=== PATIENT | male | born 1935 | race Caucasian/White ===

== ENCOUNTER → 2020-09-09 13:24 | Outpatient (BNVA) | payer MEDICARE, OTHER, SELFPAY | PROVIDERS: PCP Internal Medicine; Referring Provider Internal Medicine; Visit Provider Internal Medicine Cardiovascular Disease | DX: I48.0 Paroxysmal atrial fibrillation (principal); I10 Essential (primary) hypertension | CPT/HCPCS: 93005; 99212 ==

== ENCOUNTER 2021-07-23 23:18 | Inpatient (IN) | payer MEDICARE, OTHER, SELFPAY ==
--- NOTE | ~2021-07-23 | CT_ITS ---
EXAMINATION: NONCONTRAST HEAD CT NONCONTRAST CERVICAL SPINE CT INDICATION INFORMATION: Fall with head injury. COMPARISON: 03/21/2014 TECHNIQUE: Separate noncontrast CT examinations of the head and cervical spine were performed. Coronal and sagittal images were created for each examination at the technologist workstation. This CT examination was performed using dose optimization techniques as appropriate, variously including the following: *Automated exposure control *Adjustment of mA and/or kV according to patient size (this includes techniques or standardized protocols for targeted exams where dose is matched to indication/reason for exam; i.e. extremities or head) *Use of iterative reconstruction technique DLP: 1144 mGy-cm FINDINGS: Head: There is no evidence of acute intracranial hemorrhage or territorial infarction. No abnormal mass effect or midline shift is seen. Jiménez to white matter differentiation is well preserved. No extra-axial fluid collections are identified. No hydrocephalus. Proportional prominence of the ventricles and sulcal spaces is consistent with moderate volume loss. Patchy periventricular and deep white matter hypoattenuation is consistent with mild small vessel ischemic changes. No acute osseous or soft tissue abnormality. The mastoid air cells and visualized portions of the paranasal sinuses are well aerated. Cervical spine: There is anatomic alignment of the vertebral bodies and posterior elements. The atlantoaxial and atlantooccipital articulations are intact. Vertebral body heights are maintained. There is multilevel intervertebral disc space narrowing with endplate osteophyte formation and facet arthropathy. No evidence of acute fracture. No prevertebral soft tissue swelling. Visualized portions of the lung apices are unremarkable. The thyroid gland is unremarkable. CT/CT cervical spine wo con IMPRESSION: 1. No acute intracranial finding. 2. No acute fracture or malalignment of the cervical spine. Moderate degenerative change.
--- NOTE | ~2021-07-23 | CT_ITS ---
EXAMINATION: CT CHEST WITHOUT CONTRAST CT ABDOMEN AND PELVIS WITHOUT CONTRAST CLINICAL INFORMATION: Fall with bilateral chest wall pain. Evaluate left hip. COMPARISON: Hip radiographs from today. TECHNIQUE: Multidetector volumetric imaging was performed through the chest, abdomen and pelvis without contrast. Sagittal and coronal reformatted images were obtained on the technologist's workstation. Axial MIP volume rendering provided. This CT examination was performed using dose optimization techniques as appropriate, variously including the following: *Automated exposure control *Adjustment of mA and/or kV according to patient size (this includes techniques or standardized protocols for targeted exams where dose is matched to indication/reason for exam; i.e. extremities or head) *Use of iterative reconstruction technique DLP: 1575 mGy-cm. FINDINGS: CHEST: Lungs: The central airways are patent. Small left pleural effusion. Dependent atelectasis. Subpleural markings particularly in the right lung. No separate consolidation. No pneumothorax. Mediastinum: The heart is of normal size. Coronary artery calcifications. There is no pericardial effusion. Central vascular structures are unremarkable. No hilar or mediastinal lymphadenopathy. Chest Wall/Axilla: No lymphadenopathy. No chest wall mass. ABDOMEN/PELVIS: Liver, Gallbladder, Biliary Tree: The liver is normal in size, shape, and attenuation. No focal hepatic lesion or biliary ductal dilatation is present. The gallbladder is not seen. Pancreas: Unremarkable. Spleen: Unremarkable. Adrenal Glands: Unremarkable. Kidneys and Ureters: The kidneys are normal in size, shape, and attenuation. No hydronephrosis, hydroureter or calculi seen. No perinephric stranding. Exophytic right midpole simple cyst. No follow-up imaging recommended. Bladder: Multiple bladder diverticula with areas of wall thickening. The appearance is suggestive of an outlet obstruction. Gastrointestinal Tract: The stomach is unremarkable. Normal caliber small bowel. No obstruction. Colonic diverticulosis without diverticulitis. Multiple abdominal wall hernias containing small and large bowel. No inflammatory change. The appendix is not seen. There is no pericecal inflammation to suggest acute appendicitis. Abdominal Wall: Multiple abdominal wall hernias. Evidence of previous ventral abdominal wall hernia repair. There is rectus diastases with wide neck ventral abdominal wall hernia. There is also a right anterolateral ventral abdominal wall hernia with a wide neck. The neck of this hernia measures 13 cm transverse. Lymphovascular Structures: Lymph nodes: Normal. Vascular: Normal caliber aorta with moderate atherosclerotic calcification. Pelvic Viscera: Enlarged prostate measuring 6.7 cm transverse. OSSEOUS STRUCTURES: The sternum is intact. The ribs are intact. Bilateral sacroiliac joint fusion. Severe degenerative changes at both hips. These remain well aligned. The pubic symphysis is well aligned. No hip fracture. No acute fracture or malalignment of the thoracolumbar spine. Diffuse degenerative changes. DISH. CT/CT abdomen pelvis wo con IMPRESSION: No acute traumatic finding. No fractures are identified. Small left pleural effusion with atelectasis. Multiple abdominal wall hernias containing small and large bowel. No obstruction. Prostatomegaly with findings suggestive of bladder outlet obstruction.
[2021-07-23 23:36] VITALS: BP 150/63; PULSE 80; RESP 26; O2SAT 94
[2021-07-23 23:38] VITALS: BMI 30.8
[2021-07-23 23:47] VITALS: TEMP 38.6
--- NOTE | 2021-07-23 23:58 | ECG_ITS ---
Test Reason : fall Blood Pressure : / mmHG Vent. Rate : 072 BPM Atrial Rate : 072 BPM P-R Int : 292 ms QRS Dur : 078 ms QT Int : 398 ms P-R-T Axes : 111 -50 070 degrees QTc Int : 435 ms Sinus rhythm with 1st degree A-V block Left axis deviation Possible Anterior infarct , age undetermined Abnormal ECG When compared with ECG of 15-JAN-2012 18:28, Premature atrial complexes are no longer Present QRS axis Shifted left Borderline criteria for Anterior infarct are now Present Referred By: Estiven Slade Electronically Signed By:NOEL HERNANDEZ MD
[2021-07-24] VITALS (7 sets, daily range): BP systolic 133–177; BP diastolic 49–77; PULSE 61–79; RESP 16–20; TEMP 36.6–38; O2SAT 95–97; BMI 30.8
--- NOTE | 2021-07-24 00:02 | ED.FALL ---
HPI - Fall General Chief Complaint: Fall Stated Complaint: Fall/Weakness/Temp Time Seen by Provider: 07/23/21 23:46 Source: patient Mode of arrival: EMS Limitations: no limitations History of Present Illness HPI Narrative: 86-year-old male who presents emergency department for evaluation of injuries from a fall. Patient states that he has not been feeling well for about 1 week, he states that he has been feeling weaker than normal and has had to use a cane to ambulate. States that he was coming out of the bathroom this evening and fell. He believes that he landed on his back and struck his head on the floor. He did not lose consciousness. He was unable to get off the floor. The patient was transported by ambulance and he was noted to have a fever during transport. His temperature here in the emergency department was 101.4 degrees F. the patient has no complaints. He denied having a fever and was unaware of having a fever at home, he denied chills, sore throat, chest pain, shortness of breath, nausea, vomiting, diarrhea, black tarry stools or bloody stools. He states that over the past several days he has had rhinorrhea and occasional dry cough, he has also noted urinary frequency and dysuria. His states that he has had falls in the past secondary to urinary tract infections. Related Data Home Medications Medication Instructions Recorded Confirmed terazosin 2 mg capsule 2 mg PO BEDTIME 01/29/20 06/27/21 aspirin 81 mg tablet,delayed 81 mg PO DAILY 06/28/20 06/27/21 release (Adult Low Dose Aspirin) amlodipine 10 mg tablet 10 mg PO BEDTIME 12/01/20 06/27/21 magnesium hydroxide 400 mg/5 mL 30 ml PO DAILY PRN ml 12/01/20 06/27/21 oral suspension (Milk of Magnesia) melatonin 3 mg capsule 3 mg PO BEDTIME PRN 12/01/20 06/27/21 multivitamin 1 tab PO DAILY 12/01/20 06/27/21 nystatin 100,000 unit/gram topical 1 appl TOPICAL BID 12/01/20 06/27/21 powder pantoprazole 20 mg tablet,delayed 20 mg PO DAILY 12/01/20 06/27/21 release polyethylene glycol 3350 17 17 g PO BID 12/01/20 06/27/21 gram/dose oral powder Previous Rx's Medication Instructions Recorded apixaban 5 mg tablet (Eliquis) 5 mg PO BID #60 tab 10/21/20 metoprolol tartrate 25 mg tablet 25 mg PO BID #180 tab 10/31/20 trazodone 50 mg tablet 50 mg PO BEDTIME PRN #60 tab 06/27/21 triamcinolone acetonide 0.1 % 1 appl TOPICAL BID #80 g 07/21/21 topical cream Allergies Allergy/AdvReac Type Severity Reaction Status Date / Time No Known Allergies Allergy Unknown Verified 06/27/21 11:21 Review of Systems Review of Systems: Yes all other systems are reviewed and are negative [facility] Past Medical History [facility] Narrative: Social history: He does live with his , Kayy, who is here in the emergency department with him. He denies tobacco, alcohol and drug use. Medical History A-fib HTN (hypertension) Hypertension Obesity Surgical History H/O rectal polypectomy History of cholecystectomy History of hemicolectomy History of inguinal hernia repair History of tonsillectomy History of umbilical hernia repair Family History Family History Father Medical history unknown Mother Medical history unknown Social History Social History Housing: House Alcohol intake: former Patient Tobacco Use Status: Never used Tobacco e-Cigarette/Vaping Use: Never Used Second Hand Smoke Exposure: No Advance Directives: No service: Yes Current occupational status: retired Current occupational exposures/hazards: No Cognitive needs: No Hearing needs: Yes Vision needs: Yes Physical Exam Vital Signs: Vital Signs: Last Vital Signs Temp 101.4 F H 07/23/21 23:47 Pulse 80 07/23/21 23:36 Resp 26 H 07/23/21 23:36 BP 150/63 H 07/23/21 23:36 Pulse Ox 94 07/23/21 23:36 BMI result Body Mass Index 30.8 Const: General: cooperative and no acute distress Orientation/consciousness: oriented to person and oriented to place Limitations: no limitations HEENT: Head: Yes normal to inspection, Yes normocephalic and Yes atraumatic Ears: external ears normal General nose exam: Normal external nose present Face and sinus: Yes normal facial exam Mouth: Normal oral and palatal mucosa present Throat: Yes posterior oropharynx normal Eyes: General: appearance normal, both eyes and all related structures Pupils: Equal, round and reactive pupils present Neck: Neck: Yes normal visual inspection, Yes no lymphadenopathy, Yes trachea midline and Yes supple Chest: Other: The patient has tenderness with palpation of his lateral chest wall bilaterally, there is no crepitus or ecchymosis noted. Resp: Effort & Inspection: normal respiratory effort and able to speak in complete sentences Auscultation: clear to auscultation bilaterally Cardio: Rate: regular rate Rhythm: regular rhythm Heart sounds: S1 normal heart sound present, S2 normal heart sound present and no murmurs GI: Other: Abdomen is obese, he has [id number] diffuse tenderness, he has a large soft right sided abdominal hernia which is chronic, his normoactive bowel sounds, there is no rebound, no voluntary or involuntary guarding : General: Yes no CVA tenderness Back/Spine/Pelvis: Back: no CVA tenderness Skin: General skin exam: no rashes or lesions noted Neuro: General: oriented to person and oriented to place Cranial nerves: Yes CN's II-XII intact bilaterally and Yes Equal, round and reactive pupils present Cognition (Neuro): normal cognition Extrem: Other: The patient's left leg appears to be shorter than the right externally rotated, he has pain with palpation over his left hip and pain with minimal log-rolling of his left leg Psych: Appearance: grossly normal Speech and movement: Normal speech and movement present Affect: normal affect Attitude: cooperative Course Course Course Narrative: 86-year-old male who presents emergency department for evaluation weakness for 1 week and a fall that occurred while he was coming out of the bathroom this evening. Patient fell backwards and did strike his head but had no loss of consciousness. He is on apixaban. The patient was noted to have a fever of 101.4 on presentation. The patient does have tenderness with palpation of his chest and abdomen. He also has a shortened left lower extremity with external rotation. Given his fall, the fact that he is on apixaban and his age, I ordered a CT scan of the head, neck chest abdomen pelvis. X-rays of the patient's left hip and pelvis will be obtained. I also ordered a laboratory evaluation, straight cath urine specimen, COVID-19 influenza test. Patient's fever was treated with Tylenol. He does not want any pain medications at this time. 0120: Laboratory evaluation: Platelet count low 134,000, creatinine elevated 1.48, glucose elevated 130. Urinalysis 2+ blood, 3+ leukocyte esterase. Microscopic 4 RBCs, 150 WBCs, 2+ bacteria. Given the patient's urinalysis microscopic with findings concerned the patient may have a urinary tract infection. He was given ceftriaxone 1 g IV. 0159: At the end of my shift, the patient's CT scans are pending. The patient's care was turned over to my colleague, Dr. Pérez. - Fall Lab Data Result diagrams: 07/24/21 00:35 07/24/21 00:35 Labs: Lab Results 07/24/21 07/24/21 07/24/21 Range/Units 00:35 00:35 00:35 WBC 7.4 (4.8-10.8) X10*3/uL RBC 4.39 L (4.60-5.80) X10*6/uL Hgb 13.4 L (14.0-18.0) g/dl Hct 40.7 L (42.0-52.0) % MCV 92.7 (80.0-98.0) fL MCH 30.5 (27.0-33.0) pg MCHC 32.9 (31.0-36.0) g/dl RDW 13.6 (11.0-16.0) % Plt Count 134 L (160-400) X10*3/uL MPV 10.3 (9.4-12.4) fL Immature Gran % (Auto) 0.4 (0.0-0.4) % Neut % (Auto) 86.7 H (45-73) % Lymph % (Auto) 5.1 L (20-40) % [place] % (Auto) 7.4 (2-11) % Eos % (Auto) 0.1 (0-4) % Baso % (Auto) 0.3 (0-2) % Lymph # (Auto) 0.4 L (1.2-4.9) X10*3/uL [place] # (Auto) 0.6 (0.1-1.2) X10*3/uL Eos # (Auto) 0.0 (0.0-0.4) X10*3/uL Baso # (Auto) 0.0 (0.0-0.2) X10*3/uL Abs Immat Gran (auto) 0.03 (0.00-0.03) X10*3/uL Absolute Neuts (auto) 6.4 (2.0-8.3) x10*3/uL Absolute Nucleated RBC 0.000 (0.0-0.012) X10*3/uL Nucleated RBC % (auto) 0.0 (0.0-0.2) /100WBC PT 14.8 H (9.9-13.0) SEC INR 1.3 H (0.9-1.1) APTT 36.2 (24.1-38.0) SEC Sodium 142 (135-145) mmol/L Potassium 4.4 (3.3-5.1) mmol/L Chloride 109 H (96-108) mmol/L Carbon Dioxide 27 (22-29) mmol/L Anion Gap 10 L (12-20) BUN 18 H (9-16) mg/dL Creatinine 1.48 H (0.5-1.4) mg/dL Estim Creat Clear Calc 40.1 Estimated GFR 45 Random Glucose 130 H (60-115) mg/dL Lactic Acid (0.5-2.0) mmol/L Calcium 9.5 (8.4-10.2) mg/dL Total Bilirubin 0.6 (0.0-1.0) mg/dL AST 20 (5-37) U/L ALT 14 (0-40) U/L Alkaline Phosphatase 68 (39-117) U/L Troponin I High Sens (<3.5-35.0) ng/L Total Protein 7.1 (6.5-8.0) g/dL Albumin 3.6 (3.5-5.0) g/dL Lipase 23 (8-78) U/L Urine Color Urine Appearance Urine pH (5.0-8.0) Ur Specific [place] (1.005-1.025) Urine Protein (NEG-TRACE) MG/DL Urine Glucose (UA) (NEG) MG/DL Urine Ketones (NEG) MG/DL Urine Blood (NEG) Urine Nitrite (NEG) Ur Leukocyte Esterase (NEG) Urine RBC (0) /HPF Urine WBC (0-4) /HPF Ur Squamous Epith Cells /LPF Urine Bacteria /LPF Urine Yeast /HPF Ethyl Alcohol mg/dL COVID-19 ([facility]) (Negative) COVID-19 Clin Com Influenza Type A (GAUTAM) (Negative) Influenza Type B (GAUTAM) (Negative) Influenza A & B Note 07/24/21 07/24/21 07/24/21 Range/Units 00:35 00:35 00:35 WBC (4.8-10.8) X10*3/uL RBC (4.60-5.80) X10*6/uL Hgb (14.0-18.0) g/dl Hct (42.0-52.0) % MCV (80.0-98.0) fL MCH (27.0-33.0) pg MCHC (31.0-36.0) g/dl RDW (11.0-16.0) % Plt Count (160-400) X10*3/uL MPV (9.4-12.4) fL Immature Gran % (Auto) (0.0-0.4) % Neut % (Auto) (45-73) % Lymph % (Auto) (20-40) % [place] % (Auto) (2-11) % Eos % (Auto) (0-4) % Baso % (Auto) (0-2) % Lymph # (Auto) (1.2-4.9) X10*3/uL [place] # (Auto) (0.1-1.2) X10*3/uL Eos # (Auto) (0.0-0.4) X10*3/uL Baso # (Auto) (0.0-0.2) X10*3/uL Abs Immat Gran (auto) (0.00-0.03) X10*3/uL Absolute Neuts (auto) (2.0-8.3) x10*3/uL Absolute Nucleated RBC (0.0-0.012) X10*3/uL Nucleated RBC % (auto) (0.0-0.2) /100WBC PT (9.9-13.0) SEC INR (0.9-1.1) APTT (24.1-38.0) SEC Sodium (135-145) mmol/L Potassium (3.3-5.1) mmol/L Chloride (96-108) mmol/L Carbon Dioxide (22-29) mmol/L Anion Gap (12-20) BUN (9-16) mg/dL Creatinine (0.5-1.4) mg/dL Estim Creat Clear Calc Estimated GFR Random Glucose (60-115) mg/dL Lactic Acid 1.9 (0.5-2.0) mmol/L Calcium (8.4-10.2) mg/dL Total Bilirubin (0.0-1.0) mg/dL AST (5-37) U/L ALT (0-40) U/L Alkaline Phosphatase (39-117) U/L Troponin I High Sens 33.1 (<3.5-35.0) ng/L Total Protein (6.5-8.0) g/dL Albumin (3.5-5.0) g/dL Lipase (8-78) U/L Urine Color Urine Appearance Urine pH (5.0-8.0) Ur Specific [place] (1.005-1.025) Urine Protein (NEG-TRACE) MG/DL Urine Glucose (UA) (NEG) MG/DL Urine Ketones (NEG) MG/DL Urine Blood (NEG) Urine Nitrite (NEG) Ur Leukocyte Esterase (NEG) Urine RBC (0) /HPF Urine WBC (0-4) /HPF Ur Squamous Epith Cells /LPF Urine Bacteria /LPF Urine Yeast /HPF Ethyl Alcohol mg/dL COVID-19 ([facility]) (Negative) COVID-19 Clin Com Influenza Type A (GAUTAM) Negative (Negative) Influenza Type B (GAUTAM) Negative (Negative) Influenza A & B Note See Note 07/24/21 07/24/21 07/24/21 Range/Units 00:35 00:35 00:35 WBC (4.8-10.8) X10*3/uL RBC (4.60-5.80) X10*6/uL Hgb (14.0-18.0) g/dl Hct (42.0-52.0) % MCV (80.0-98.0) fL MCH (27.0-33.0) pg MCHC (31.0-36.0) g/dl RDW (11.0-16.0) % Plt Count (160-400) X10*3/uL MPV (9.4-12.4) fL Immature Gran % (Auto) (0.0-0.4) % Neut % (Auto) (45-73) % Lymph % (Auto) (20-40) % [place] % (Auto) (2-11) % Eos % (Auto) (0-4) % Baso % (Auto) (0-2) % Lymph # (Auto) (1.2-4.9) X10*3/uL [place] # (Auto) (0.1-1.2) X10*3/uL Eos # (Auto) (0.0-0.4) X10*3/uL Baso # (Auto) (0.0-0.2) X10*3/uL Abs Immat Gran (auto) (0.00-0.03) X10*3/uL Absolute Neuts (auto) (2.0-8.3) x10*3/uL Absolute Nucleated RBC (0.0-0.012) X10*3/uL Nucleated RBC % (auto) (0.0-0.2) /100WBC PT (9.9-13.0) SEC INR (0.9-1.1) APTT (24.1-38.0) SEC Sodium (135-145) mmol/L Potassium (3.3-5.1) mmol/L Chloride (96-108) mmol/L Carbon Dioxide (22-29) mmol/L Anion Gap (12-20) BUN (9-16) mg/dL Creatinine (0.5-1.4) mg/dL Estim Creat Clear Calc Estimated GFR Random Glucose (60-115) mg/dL Lactic Acid (0.5-2.0) mmol/L Calcium (8.4-10.2) mg/dL Total Bilirubin (0.0-1.0) mg/dL AST (5-37) U/L ALT (0-40) U/L Alkaline Phosphatase (39-117) U/L Troponin I High Sens (<3.5-35.0) ng/L Total Protein (6.5-8.0) g/dL Albumin (3.5-5.0) g/dL Lipase (8-78) U/L Urine Color YELLOW Urine Appearance CLOUDY Urine pH 6.5 (5.0-8.0) Ur Specific [place] 1.020 (1.005-1.025) Urine Protein 1+ H (NEG-TRACE) MG/DL Urine Glucose (UA) NEG (NEG) MG/DL Urine Ketones NEG (NEG) MG/DL Urine Blood 2+ H (NEG) Urine Nitrite NEG (NEG) Ur Leukocyte Esterase 3+ H (NEG) Urine RBC 1-4 (0) /HPF Urine WBC 76-150 H (0-4) /HPF Ur Squamous Epith Cells TRACE /LPF Urine Bacteria 2+ /LPF Urine Yeast 1+ /HPF Ethyl Alcohol < 10 mg/dL COVID-19 ([facility]) Negative (Negative) COVID-19 Clin Com See Note Influenza Type A (GAUTAM) (Negative) Influenza Type B (GAUTAM) (Negative) Influenza A & B Note ECG Data Interpretation: 0009: Sinus rhythm with a first-degree AV block, rate of 72, AK interval 292 milliseconds, normal QRS and QTC duration, Q-waves in lead 3, AVF and V1, poor R-wave progression V2 through V3, no ST segment elevation, no ST segment depression, no PACs, no PVCs, no old EKG for comparison. Discharge Plan Discharge Clinical Impression: Fall, Acute UTI, Weakness Patient Disposition: Still a Patient Prescriptions: No Action Eliquis 5 mg tablet 5 mg PO BID Qty: 60 8RF metoprolol tartrate 25 mg tablet 25 mg PO BID Qty: 180 3RF triamcinolone acetonide 0.1 % cream 1 appl topical BID Qty: 80 5RF aspirin [Adult Low Dose Aspirin] 81 mg tablet,delayed release (DR/EC) 81 mg PO DAILY 0RF amlodipine 10 mg tablet 10 mg PO BEDTIME 0RF magnesium hydroxide [Milk of Magnesia] 400 mg/5 mL suspension 30 ml PO DAILY PRN0RF multivitamin Tablet 1 tab PO DAILY 0RF nystatin 100,000 unit/gram powder 1 appl topical BID 0RF pantoprazole 20 mg tablet,delayed release (DR/EC) 20 mg PO DAILY 0RF polyethylene glycol 3350 17 gram/dose powder 17 g PO BID 0RF melatonin 3 mg capsule 3 mg PO BEDTIME PRN0RF terazosin 2 mg capsule 2 mg PO BEDTIME 0RF trazodone 50 mg tablet 50 mg PO BEDTIME PRN (Reason: sleep) Qty: 60 3RF
[2021-07-24 00:49] LABS: MANUAL DIFF FLAG NO
[2021-07-24 00:52] LABS: Basophils Percent Auto 0.3 % (0-2); Eosinophils Percent Auto 0.1 % (0-4); Hematocrit 40.7 % (42.0-52.0); Hemoglobin 13.4 g/dl (14.0-18.0); Imm Gran Abs Auto 0.03 X10*3/uL (0.00-0.03); Imm Gran Pct Auto 0.4 % (0.0-0.4); Lymphocytes Absolute Auto 0.4 X10*3/uL (1.2-4.9); Lymphocytes Percent Auto 5.1 % (20-40); Mean Corpuscular HGB Conc 32.9 g/dl (31.0-36.0); Mean Corpuscular Hemoglobin 30.5 pg (27.0-33.0); Mean Corpuscular Volume 92.7 fL (80.0-98.0); Mean Platelet Volume 10.3 fL (9.4-12.4); Monocytes Absolute Auto 0.6 X10*3/uL (0.1-1.2); Monocytes Percent Auto 7.4 % (2-11); Neutrophils Absolute Auto 6.4 x10*3/uL (2.0-8.3); Neutrophils Percent Auto 86.7 % (45-73); Platelet Count 134 X10*3/uL (160-400); Red Blood Count 4.39 X10*6/uL (4.60-5.80); Red Cell Distribution Width 13.6 % (11.0-16.0); White Blood Count 7.4 X10*3/uL (4.8-10.8)
--- NOTE | 2021-07-24 00:55 | PC.NURSE ---
video game repair technician at bedside for EKG and labs. Pt off to CT on hospital bed. Plan to medicate upon return.
[2021-07-24 00:57] LABS: INTERNATIONAL NORM RATIO 1.3 (0.9-1.1); Prothrombin Time 14.8 SEC (9.9-13.0)
[2021-07-24 00:59] LABS: Partial Thromboplastin Time 36.2 SEC (24.1-38.0)
[2021-07-24 01:01] LABS: Lactic Acid 1.9 mmol/L (0.5-2.0)
[2021-07-24 01:03] LABS: Ethanol < 10 mg/dL
[2021-07-24 01:04] LABS: Appearance Urine CLOUDY; Color Urine YELLOW; Glucose Urine UA NEG (NEG); Leukocyte Esterase Urine 3+ (NEG); Nitrite Urine NEG (NEG); PH 6.5 (5.0-8.0); UACC Culture Trigger YES; Urine Blood 2+ (NEG); Urine Ketones NEG (NEG); Urine Protein 1+ MG/DL (NEG-TRACE)
[2021-07-24 01:08] LABS: Alanine Aminotransferase 14 U/L (0-40); Albumin Level 3.6 g/dL (3.5-5.0); Alkaline Phosphatase 68 U/L (39-117); Anion Gap 10 (12-20); Aspartate Amino Transferase 20 U/L (5-37); Bilirubin Total 0.6 mg/dL (0.0-1.0); Blood Urea Nitrogen 18 mg/dL (9-16); Calcium 9.5 mg/dL (8.4-10.2); Carbon Dioxide 27 mmol/L (22-29); Chloride 109 mmol/L (96-108); Creatinine Clr Calc Pharmacy 40.1; Estimated Glomerular Filt Rate 45; Glucose Random 130 mg/dL (60-115); Lipase 23 U/L (8-78); Potassium 4.4 mmol/L (3.3-5.1); Sodium 142 mmol/L (135-145); Total Protein 7.1 g/dL (6.5-8.0)
[2021-07-24 01:10] LABS: Troponin-I High Sensitivity 33.1 ng/L (<3.5-35.0)
[2021-07-24 01:16] LABS: Bacteria Urine 2+ /LPF; Squamous Epithelial Cell Urine TRACE /LPF
[2021-07-24 01:17] LABS: COVID-19 Test Negative (Negative); IDNOW Serial# 55D5AD1C; Influenza A Negative (Negative); Influenza B2 Negative (Negative)
[2021-07-24] MEDS: Acetaminophen 325 MG TABLET 975 MG PO (01:22)
[2021-07-24] MEDS: cefTRIAXone sodium 1 GM in 0.9 % Sodium Chloride 50 ML IV (01:27)
--- NOTE | 2021-07-24 01:31 | PC.NURSE ---
Pt medicated per MAY, awaiting CT results.
[2021-07-24 07:20] LABS: MANUAL DIFF FLAG NO
[2021-07-24 07:29] LABS: Basophils Percent Auto 0.5 % (0-2); Eosinophils Percent Auto 0.2 % (0-4); Hematocrit 40.8 % (42.0-52.0); Hemoglobin 13.2 g/dl (14.0-18.0); Imm Gran Abs Auto 0.02 X10*3/uL (0.00-0.03); Imm Gran Pct Auto 0.3 % (0.0-0.4); Lymphocytes Absolute Auto 0.4 X10*3/uL (1.2-4.9); Lymphocytes Percent Auto 6.2 % (20-40); Mean Corpuscular HGB Conc 32.4 g/dl (31.0-36.0); Mean Corpuscular Hemoglobin 30.3 pg (27.0-33.0); Mean Corpuscular Volume 93.8 fL (80.0-98.0); Mean Platelet Volume 10.3 fL (9.4-12.4); Monocytes Absolute Auto 0.7 X10*3/uL (0.1-1.2); Monocytes Percent Auto 10.6 % (2-11); Neutrophils Absolute Auto 5.3 x10*3/uL (2.0-8.3); Neutrophils Percent Auto 82.2 % (45-73); Platelet Count 115 X10*3/uL (160-400); Red Blood Count 4.35 X10*6/uL (4.60-5.80); Red Cell Distribution Width 13.7 % (11.0-16.0); White Blood Count 6.4 X10*3/uL (4.8-10.8)
--- NOTE | 2021-07-24 07:48 | PM.IMHP ---
History of Present Illness Date of Service: 07/24/21 Chief Complaint: Fall 86-year-old male with past medical history of AFib, hypertension, who presents to the hospital after a fall. Patient reports that he was walking from his bath to his renal, he tripped and fell. He reports no loss of consciousness, no head trauma, no palpitations or chest pain. Patient reports that he has been feeling weak for the past few days but otherwise has no symptoms. He has increased urinary frequency, for the past 3 days. Patient denies any abdominal pain nausea or vomiting, no diarrhea constipation, no lower extremity edema. On arrival to the ED patient had a temperature of 101.4 degrees, otherwise hemodynamically stable Labs are significant for WBC count of 6.4, hemoglobin of 13.2, creatinine of 1.48 with a BUN of 18 UA is positive for leukocyte Estrace and WBC Patient will be admitted for further management Review of Systems Review of Systems: Yes all other systems are reviewed and are negative [facility] Medical History A-fib HTN (hypertension) Hypertension Obesity Family History Father Medical history unknown Mother Medical history unknown Surgical History H/O rectal polypectomy History of cholecystectomy History of hemicolectomy History of inguinal hernia repair History of tonsillectomy History of umbilical hernia repair Social History Housing: House Alcohol intake: former Patient Tobacco Use Status: Never used Tobacco e-Cigarette/Vaping Use: Never Used Second Hand Smoke Exposure: No Advance Directives: No service: Yes Current occupational status: retired Current occupational exposures/hazards: No Cognitive needs: No Hearing needs: Yes Vision needs: Yes Meds Allergies Allergy/AdvReac Type Severity Reaction Status Date / Time No Known Allergies Allergy Unknown Verified 06/27/21 11:21 Active Medications: Current Medications Acetaminophen (Acetaminophen 325 Mg Tablet) 650 mg PO Q6H PRN PRN Reason: Pain, Mild (Pain Scale 1-3) Docusate Sodium (Docusate Sodium 100 Mg Capsule) 100 mg PO DAILY PRN PRN Reason: Constipation Heparin Sodium (Porcine) (Heparin Sodium,Porcine 5,000 Unit/Ml Vial) 5,000 unit SUBCUT Q8H [facility] Ceftriaxone Sodium 1 gm/ (Sodium Chloride) 50 mls @ 100 mls/hr IV Q24H [facility] Last Admin: 07/24/21 02:29 Dose: Not Given Documented by: Ondansetron HCl (Ondansetron Hcl 4 Mg/2 Ml Vial) 4 mg IVPUSH Q8H PRN PRN Reason: Nausea and Vomiting Sodium Chloride (0.9 % Sodium Chloride Flush 3 Ml Syringe) 3 ml IVFLUSH QSHIFT [facility] Home Medications Medication Instructions Recorded Confirmed Last Taken Type apixaban 5 mg tablet (Eliquis) 5 mg PO BID 07/24/21 07/24/21 Unknown History omeprazole 20 mg capsule,delayed 20 mg PO DAILY 07/24/21 07/24/21 Unknown History release terazosin 2 mg capsule 2 mg PO BEDTIME 07/24/21 07/24/21 Unknown History trazodone 50 mg tablet 50 mg PO BEDTIME 07/24/21 07/24/21 Unknown History Physical Exam Vital Signs and Narrative: Vital Signs: Last Vital Signs Temp 97.9 F 07/24/21 05:34 Pulse 61 07/24/21 05:34 Resp 20 07/24/21 05:34 BP 141/49 H 07/24/21 05:34 Pulse Ox 95 07/24/21 05:34 BMI result Body Mass Index 30.8 Const: General: cooperative and no acute distress Orientation/consciousness: patient oriented x3 Eyes: General: appearance normal, both eyes and all related structures Pupils: Equal, round and reactive pupils present Resp: Effort & Inspection: normal respiratory effort Auscultation: clear to auscultation bilaterally Cardio: Rate: regular rate Rhythm: regular rhythm GI: Palpation (GI): Soft to palpation Auscultation: normal bowel sounds Skin: General skin exam: no rashes or lesions noted Neuro: General: patient oriented x3 Cranial nerves: Yes Equal, round and reactive pupils present Cognition (Neuro): normal cognition Extrem: General: Yes normal to inspection and Yes no pedal edema Results Labs CBC and Chem 7: 07/24/21 07:13 07/24/21 00:35 Labs: Laboratory Results - last 24 hr 07/24/21 07/24/21 07/24/21 00:35 00:35 00:35 MCV 92.7 MCH 30.5 MCHC 32.9 RDW 13.6 Plt Count 134 L MPV 10.3 Immature Gran % (Auto) 0.4 Neut % (Auto) 86.7 H Lymph % (Auto) 5.1 L [place] % (Auto) 7.4 Eos % (Auto) 0.1 Baso % (Auto) 0.3 Lymph # (Auto) 0.4 L [place] # (Auto) 0.6 Eos # (Auto) 0.0 Baso # (Auto) 0.0 Abs Immat Gran (auto) 0.03 Absolute Neuts (auto) 6.4 Absolute Nucleated RBC 0.000 Nucleated RBC % (auto) 0.0 PT 14.8 H INR 1.3 H APTT 36.2 Anion Gap 10 L Estim Creat Clear Calc 40.1 Estimated GFR 45 Random Glucose 130 H Lactic Acid Calcium 9.5 Total Bilirubin 0.6 AST 20 ALT 14 Alkaline Phosphatase 68 Troponin I High Sens Total Protein 7.1 Albumin 3.6 Lipase 23 Urine Color Urine Appearance Urine pH Ur Specific [place] Urine Protein Urine Glucose (UA) Urine Ketones Urine Blood Urine Nitrite Ur Leukocyte Esterase Urine RBC Urine WBC Ur Squamous Epith Cells Urine Bacteria Urine Yeast Ethyl Alcohol COVID-19 ([facility]) COVID-19 Clin Com Influenza Type A (GAUTAM) Influenza Type B (GAUTAM) Influenza A & B Note 07/24/21 07/24/21 07/24/21 00:35 00:35 00:35 MCV MCH MCHC RDW Plt Count MPV Immature Gran % (Auto) Neut % (Auto) Lymph % (Auto) [place] % (Auto) Eos % (Auto) Baso % (Auto) Lymph # (Auto) [place] # (Auto) Eos # (Auto) Baso # (Auto) Abs Immat Gran (auto) Absolute Neuts (auto) Absolute Nucleated RBC Nucleated RBC % (auto) PT INR APTT Anion Gap Estim Creat Clear Calc Estimated GFR Random Glucose Lactic Acid 1.9 Calcium Total Bilirubin AST ALT Alkaline Phosphatase Troponin I High Sens 33.1 Total Protein Albumin Lipase Urine Color Urine Appearance Urine pH Ur Specific [place] Urine Protein Urine Glucose (UA) Urine Ketones Urine Blood Urine Nitrite Ur Leukocyte Esterase Urine RBC Urine WBC Ur Squamous Epith Cells Urine Bacteria Urine Yeast Ethyl Alcohol COVID-19 ([facility]) COVID-19 Clin Com Influenza Type A ([facility]UTAM) Negative Influenza Type B (GAUTAM) Negative Influenza A & B Note See Note 07/24/21 07/24/21 07/24/21 00:35 00:35 00:35 MCV MCH MCHC RDW Plt Count MPV Immature Gran % (Auto) Neut % (Auto) Lymph % (Auto) [place] % (Auto) Eos % (Auto) Baso % (Auto) Lymph # (Auto) [place] # (Auto) Eos # (Auto) Baso # (Auto) Abs Immat Gran (auto) Absolute Neuts (auto) Absolute Nucleated RBC Nucleated RBC % (auto) PT INR APTT Anion Gap Estim Creat Clear Calc Estimated GFR Random Glucose Lactic Acid Calcium Total Bilirubin AST ALT Alkaline Phosphatase Troponin I High Sens Total Protein Albumin Lipase Urine Color YELLOW Urine Appearance CLOUDY Urine pH 6.5 Ur Specific [place] 1.020 Urine Protein 1+ H Urine Glucose (UA) NEG Urine Ketones NEG Urine Blood 2+ H Urine Nitrite NEG Ur Leukocyte Esterase 3+ H Urine RBC 1-4 Urine WBC 76-150 H Ur Squamous Epith Cells TRACE Urine Bacteria 2+ Urine Yeast 1+ Ethyl Alcohol < 10 COVID-19 ([facility]) Negative COVID-19 Clin Com See Note Influenza Type A (GAUTAM) Influenza Type B (GAUTAM) Influenza A & B Note 07/24/21 07:13 MCV 93.8 MCH 30.3 MCHC 32.4 RDW 13.7 Plt Count 115 L MPV 10.3 Immature Gran % (Auto) 0.3 Neut % (Auto) 82.2 H Lymph % (Auto) 6.2 L [place] % (Auto) 10.6 Eos % (Auto) 0.2 Baso % (Auto) 0.5 Lymph # (Auto) 0.4 L [place] # (Auto) 0.7 Eos # (Auto) 0.0 Baso # (Auto) 0.0 Abs Immat Gran (auto) 0.02 Absolute Neuts (auto) 5.3 Absolute Nucleated RBC 0.000 Nucleated RBC % (auto) 0.0 PT INR APTT Anion Gap Estim Creat Clear Calc Estimated GFR Random Glucose Lactic Acid Calcium Total Bilirubin AST ALT Alkaline Phosphatase Troponin I High Sens Total Protein Albumin Lipase Urine Color Urine Appearance Urine pH Ur Specific [place] Urine Protein Urine Glucose (UA) Urine Ketones Urine Blood Urine Nitrite Ur Leukocyte Esterase Urine RBC Urine WBC Ur Squamous Epith Cells Urine Bacteria Urine Yeast Ethyl Alcohol COVID-19 ([facility]) COVID-19 Clin Com Influenza Type A (GAUTAM) Influenza Type B (GAUTAM) Influenza A & B Note Imaging Radiologist's Impressions: Impressions Cervical Spine CT 07/24/21 01:00 IMPRESSION: 1. No acute intracranial finding. 2. No acute fracture or malalignment of the cervical spine. Moderate degenerative change. Head CT 07/24/21 01:00 IMPRESSION: 1. No acute intracranial finding. 2. No acute fracture or malalignment of the cervical spine. Moderate degenerative change. Abdomen/Pelvis CT 07/24/21 01:10 IMPRESSION: No acute traumatic finding. No fractures are identified. Small left pleural effusion with atelectasis. Multiple abdominal wall hernias containing small and large bowel. No obstruction. Prostatomegaly with findings suggestive of bladder outlet obstruction. Chest CT 07/24/21 01:10 IMPRESSION: No acute traumatic finding. No fractures are identified. Small left pleural effusion with atelectasis. Multiple abdominal wall hernias containing small and large bowel. No obstruction. Prostatomegaly with findings suggestive of bladder outlet obstruction. Assessment and Plan (1) UTI (urinary tract infection): Status: Acute (2) Fall: Qualifiers: Encounter type: initial encounter Qualified Code(s): W19.XXXA - Unspecified fall, initial encounter Status: Acute Plan 86-year-old male with past medical history of AFib, presents to the hospital with fall found to have UTI # acute UTI - will treat with IV antibiotics - follow cultures # fall - likely in the setting of acute infection - consider PT OT before discharge # AFib - continue Eliquis Given patient's fragility, and need for IV abx , will admit for IV abx Quality Stroke Does the patient have a stroke diagnosis?: No VTE Prior VTE?: No VTE Risk Level:: Medical - moderate - high VTE Device Contraindication: Treatment Not Indicated VTE Drug Contraindication: N/A - Med Ordered
--- NOTE | 2021-07-24 07:51 | PM.EVENT ---
Event Note Date of Service: 07/24/21 Event Note: uti, fall patient seems to be improving denies any chest pain or shortness of breath or abdominal pain or fever chills or cough or phlegm. physical exam: unchanged same as h&p. assessmenat and plan coordinated in H&P note Will continue IV antibiotic for UTI PT evaluation for fall in a.m..
[2021-07-24 08:29] LABS: Anion Gap 13 (12-20); Blood Urea Nitrogen 17 mg/dL (9-16); Calcium 9.3 mg/dL (8.4-10.2); Carbon Dioxide 24 mmol/L (22-29); Chloride 109 mmol/L (96-108); Estimated Glomerular Filt Rate 53; Glucose Random 125 mg/dL (60-115); Potassium 4.5 mmol/L (3.3-5.1); Sodium 141 mmol/L (135-145)
[2021-07-24] MEDS: 0.9 % Sodium Chloride Flush 3 ML SYRINGE IVFLUSH ×3 (09:09→21:21)
[2021-07-24] MEDS: Heparin Sodium,Porcine 5,000 UNIT/ML VIAL 5000 UNIT SUBCUT (09:12)
--- NOTE | 2021-07-24 10:41 | PC.NURSE ---
Pt is alert/oriented. Reports whole body soreness only with movement. VSS. Skin pink warm and dry. No visible distress. Able to use urinal when needed. Breathing even/unlabored
--- NOTE | 2021-07-24 14:51 | MHC.CM.PN ---
IMM 07/24/21, EMR REVIEWED, PT ADMITTED W/UTI AND FALL, CM MET W/PT WHO IS A&OX3, PT REPORTS HE LIVES W/, IS INDEENDENT W/CARE HOWEVER DOES USE A CAN AND REPORTS GRAB BARS IN THE BEDROOM, PT DENIES HAVING ANY HOME SERVICES HOWEVER WOULD BE OPEN TO A VNA IF RECOMMENDED, PT EVAL PENDING, CM WILL NEED FOR FINAL DISPO. D/C PLAN: HOME VS HOME W/NEW VNA, FAMILY FOR TRANSPORT PCP: LUNA NELSON HCP: DTR JOHN WEBER [phone], NO ALTERNATE
[2021-07-24] MEDS: Omeprazole 20 MG CAPSULE.DR PO (16:12)
[2021-07-24] MEDS: traZODone HCL 50 MG TABLET PO (21:20)
[2021-07-24] MEDS: Apixaban 5 MG TABLET PO (21:21)
[2021-07-24] MEDS: Doxazosin Mesylate 2 MG TABLET PO (21:21)
[2021-07-25] VITALS (7 sets, daily range): BP systolic 135–169; BP diastolic 69–77; PULSE 75–87; RESP 14–18; TEMP 36.9–37.6; O2SAT 94–96
[2021-07-25] MEDS: cefTRIAXone sodium 1 GM in 0.9 % Sodium Chloride 50 ML IV (02:27)
[2021-07-25] MEDS: Omeprazole 20 MG CAPSULE.DR PO (05:49)
[2021-07-25] MEDS: Apixaban 5 MG TABLET PO ×2 (09:01→22:06)
[2021-07-25] MEDS: 0.9 % Sodium Chloride Flush 3 ML SYRINGE IVFLUSH ×3 (09:02→22:09)
[2021-07-25] MEDS: amLODIPine Besylate 2.5 MG TABLET PO (10:33)
--- NOTE | 2021-07-25 11:48 | HO.PM.IMPN ---
Subjective Subjective Date of Service: 07/25/21 Interval History: fall , uti Review of Systems Seems improving denies any chest pain or shortness of breath or abdominal pain or fever chills or cough or phlegm. Physical Exam Vital Signs: Vital Signs: Last Vital Signs Temp 98.5 F 07/25/21 11:31 Pulse 86 07/25/21 11:31 Resp 18 07/25/21 11:31 BP 137/74 07/25/21 11:31 Pulse Ox 95 07/25/21 11:31 BMI result Body Mass Index 30.8 Appearance: Alert.? Oriented X3.? not in distress.? cvs: rrr, [id number] , no murmur res: clear to auscultation ,no rhonchii or wheezing abd: no rebound or guarding ,nt, bs present. ext pulses present , no cyanosis . neuro: axo3 , nonfocal. Objective Data Active Medications Acetaminophen (Acetaminophen 325 Mg Tablet) 650 mg PO Q6H PRN PRN Reason: Pain, Mild (Pain Scale 1-3) Amlodipine Besylate (Amlodipine Besylate 2.5 Mg Tablet) 2.5 mg PO DAILY [facility]; Protocol Last Admin: 07/25/21 10:33 Dose: 2.5 mg Documented by: TEJ Apixaban (Apixaban 5 Mg Tablet) 5 mg PO BID [facility] Last Admin: 07/25/21 09:01 Dose: 5 mg Documented by: TEJ Docusate Sodium (Docusate Sodium 100 Mg Capsule) 100 mg PO DAILY PRN PRN Reason: Constipation Doxazosin Mesylate (Doxazosin Mesylate 2 Mg Tablet) 2 mg PO BEDTIME [facility] Last Admin: 07/24/21 21:21 Dose: 2 mg Documented by: MICHAEL Ceftriaxone Sodium 1 gm/ (Sodium Chloride) 50 mls @ 100 mls/hr IV Q24H [facility] Last Infusion: 07/25/21 03:25 Dose: 0 mls/hr Documented by: MICHAEL Omeprazole (Omeprazole 20 Mg Capsule.) 20 mg PO DAILY@0630 [facility] Last Admin: 07/25/21 05:49 Dose: 20 mg Documented by: MICHAEL Ondansetron HCl (Ondansetron Hcl 4 Mg/2 Ml Vial) 4 mg IVPUSH Q8H PRN PRN Reason: Nausea and Vomiting Sodium Chloride (0.9 % Sodium Chloride Flush 3 Ml Syringe) 3 ml IVFLUSH QSHIFT [facility] Last Admin: 07/25/21 09:02 Dose: 3 ml Documented by: TEJ Trazodone HCl (Trazodone Hcl 50 Mg Tablet) 50 mg PO BEDTIME [facility] Last Admin: 07/24/21 21:20 Dose: 50 mg Documented by: MICHAEL Labs CBC & Chem 7: 07/24/21 07:13 07/24/21 07:13 Microbiology Microbiology Results: Microbiology 07/24/21 00:36 Blood Culture - Preliminary Blood - Venous No growth after 24 hours. 07/24/21 00:35 Blood Culture - Preliminary Blood - Venous No growth after 24 hours. Assessment and Plan (1) PAF (paroxysmal atrial fibrillation): Status: Acute (2) UTI (urinary tract infection): Status: Acute Plan 86-year-old male with past medical history of AFib, presents to the hospital with fall found to have UTI acute UTI - will treat with IV antibiotics - follow cultures-urine cultures pending fall - likely in the setting of acute infection - consider PT -home withservices AFib - continue Eliquis HTn: last note from pcp 06/21-(patient was on amlodipine 10 mg at bedtime- please see pcp note on 06/21) will start amlodipine need for inpatient : need for IV abx ,blood and urine cultures pending Quality Stroke Does the patient have a stroke diagnosis?: No VTE Prior VTE?: No VTE Risk Level:: Medical - moderate - high VTE Device Contraindication: Treatment Not Indicated VTE Drug Contraindication: N/A - Med Ordered
[2021-07-25] MEDS: Doxazosin Mesylate 2 MG TABLET PO (22:07)
[2021-07-25] MEDS: traZODone HCL 50 MG TABLET PO (22:07)
[2021-07-25] MEDS: amLODIPine Besylate 5 MG TABLET PO (22:07)
[2021-07-25] MEDS: Docusate Sodium 100 MG CAPSULE PO (22:10)
[2021-07-26] MEDS: cefTRIAXone sodium 1 GM in 0.9 % Sodium Chloride 50 ML IV (02:20)
[2021-07-26 04:00] VITALS: BP 150/70; PULSE 76; RESP 14; TEMP 37; O2SAT 94
[2021-07-26 05:42] LABS: Hemoglobin 13.1 g/dl (14.0-18.0); PLT CLUMP 1; Red Cell Distribution Width 13.7 % (11.0-16.0)
[2021-07-26 05:44] LABS: Hematocrit 39.4 % (42.0-52.0); Mean Corpuscular HGB Conc 33.2 g/dl (31.0-36.0); Mean Corpuscular Hemoglobin 30.4 pg (27.0-33.0); Mean Corpuscular Volume 91.4 fL (80.0-98.0); Mean Platelet Volume 10.7 fL (9.4-12.4); Red Blood Count 4.31 X10*6/uL (4.60-5.80)
[2021-07-26 06:02] LABS: Anion Gap 10 (12-20); Blood Urea Nitrogen 21 mg/dL (9-16); Calcium 9.3 mg/dL (8.4-10.2); Carbon Dioxide 27 mmol/L (22-29); Chloride 105 mmol/L (96-108); Creatinine Clr Calc Pharmacy 40.7; Estimated Glomerular Filt Rate 46; Glucose Random 130 mg/dL (60-115); Potassium 4.4 mmol/L (3.3-5.1); Sodium 138 mmol/L (135-145)
[2021-07-26 06:05] LABS: Platelet Count 109 X10*3/uL (160-400); White Blood Count 6.9 X10*3/uL (4.8-10.8)
[2021-07-26] MEDS: Omeprazole 20 MG CAPSULE.DR PO (06:17)
[2021-07-26 07:41] VITALS: BP 146/71; PULSE 81; RESP 18; TEMP 37.2; O2SAT 94
[2021-07-26] MEDS: 0.9 % Sodium Chloride Flush 3 ML SYRINGE IVFLUSH (08:16)
[2021-07-26] MEDS: Apixaban 5 MG TABLET PO (08:16)
[2021-07-26 09:41] VITALS: BP 146/71; PULSE 81; O2SAT 94
--- NOTE | 2021-07-26 09:55 | P.PNIM_ITS ---
Subjective Subjective Date of Service: 07/26/21 Interval History: F/u on UTI Interval history: no symptoms, no fever Review of Systems no fever no dysuria Physical Exam Vital Signs: Vital Signs: Last Vital Signs Temp 98.9 F 07/26/21 07:41 Pulse 81 07/26/21 09:41 Resp 18 07/26/21 07:41 BP 146/71 H 07/26/21 09:41 Pulse Ox 94 07/26/21 09:41 BMI result Body Mass Index 30.8 Const: Other: General: AO X 3, no acute distress Resp: CTA bilateral CVS: S1,S2,RRR GI: +BS, NT, no distention Skin: No rash Neuro: motor grossly intact Psych: appropriate affect Objective Data Active Medications Acetaminophen (Acetaminophen 325 Mg Tablet) 650 mg PO Q6H PRN PRN Reason: Pain, Mild (Pain Scale 1-3) Amlodipine Besylate (Amlodipine Besylate 5 Mg Tablet) 5 mg PO BEDTIME [facility]; Protocol Last Admin: 07/25/21 22:07 Dose: 5 mg Documented by: DYAN Apixaban (Apixaban 5 Mg Tablet) 5 mg PO BID [facility] Last Admin: 07/26/21 08:16 Dose: 5 mg Documented by: DYAN Docusate Sodium (Docusate Sodium 100 Mg Capsule) 100 mg PO DAILY PRN PRN Reason: Constipation Last Admin: 07/25/21 22:10 Dose: 100 mg Documented by: DYAN Doxazosin Mesylate (Doxazosin Mesylate 2 Mg Tablet) 2 mg PO BEDTIME [facility] Last Admin: 07/25/21 22:07 Dose: 2 mg Documented by: DYAN Omeprazole (Omeprazole 20 Mg Capsule.Dr) 20 mg PO DAILY@0630 [facility] Last Admin: 07/26/21 06:17 Dose: 20 mg Documented by: DYAN Ondansetron HCl (Ondansetron Hcl 4 Mg/2 Ml Vial) 4 mg IVPUSH Q8H PRN PRN Reason: Nausea and Vomiting Sodium Chloride (0.9 % Sodium Chloride Flush 3 Ml Syringe) 3 ml IVFLUSH QSHIFT [facility] Last Admin: 07/26/21 08:16 Dose: 3 ml Documented by: DYNA Trazodone HCl (Trazodone Hcl 50 Mg Tablet) 50 mg PO BEDTIME [facility] Last Admin: 07/25/21 22:07 Dose: 50 mg Documented by: DYAN Labs CBC & Chem 7: 07/26/21 05:16 07/26/21 05:16 Labs: Laboratory Results - last 24 hr 07/26/21 07/26/21 05:16 05:16 MCV 91.4 MCH 30.4 MCHC 33.2 RDW 13.7 Plt Count 109 L MPV 10.7 Absolute Nucleated RBC 0.000 Nucleated RBC % (auto) 0.0 Anion Gap 10 L Estim Creat Clear Calc 40.7 Estimated GFR 46 Random Glucose 130 H Calcium 9.3 Microbiology Microbiology Results: Microbiology 07/24/21 Unknown Urine Culture - Final Urine Catheterized - Buckner Catheter Sophie albicans 07/24/21 00:36 Blood Culture - Preliminary Blood - Venous No growth after 48 hours. 07/24/21 00:35 Blood Culture - Preliminary Blood - Venous No growth after 48 hours. Assessment and Plan (1) PAF (paroxysmal atrial fibrillation): Status: Acute (2) UTI (urinary tract infection): Status: Acute Plan 86-year-old male with past medical history of AFib, presents to the hospital with fall found to have UTI UTI--culture = yeast. -DC Ceftriaxone and start Diflucan fall - likely in the setting of acute infection - consider PT -home withservices AFib - continue Eliquis HTn: Continue Amlodipine need for inpatient : ne Quality Stroke Does the patient have a stroke diagnosis?: No VTE Prior VTE?: No VTE Risk Level:: Medical - moderate - high VTE Device Contraindication: Treatment Not Indicated VTE Drug Contraindication: N/A - Med Ordered
--- NOTE | 2021-07-26 10:05 | PM.DS ---
DS: Providers Provider Date of Service: 07/26/21 Date of admission: 07/24/21 02:23 Primary care physician: Jeremiah Lozada MD DS: Diagnosis Discharge Diagnosis (1) PAF (paroxysmal atrial fibrillation): (2) UTI (urinary tract infection): Status: Deleted DS: Summary Hospital Course Hospital Course: Chief Complaint: Fall 86-year-old male with past medical history of AFib, hypertension, who presents to the hospital after a fall.? Patient reports that he was walking from his bath to his renal, he tripped and fell.? He reports no loss of consciousness, no head trauma, no palpitations or chest pain.? Patient reports that he has been feeling weak for the past few days but otherwise has no symptoms.? He has increased urinary frequency, for the past 3 days.? Patient denies any abdominal pain nausea or vomiting, no diarrhea constipation, no lower extremity edema. On arrival to the ED patient had a temperature of 101.4 degrees, otherwise hemodynamically stable Labs are significant for WBC count of 6.4, hemoglobin of 13.2, creatinine of 1.48 with a BUN of 18 UA is positive for leukocyte Estrace and WBC Patient will be admitted for further management Hospsital course: patient presented with a fall that appeared to be mechanical in nature and routine workup revealed that he has a urinary tract infection and was treated with a ceftriaxone, culture showed yeast in the urine and therefore the antibiotics was switched to Diflucan and will be treated for total of 7 days. He has been evaluated by Physical therapy and recommend that he goes home with home physical therapy. At the present time he has no fever no dysuria. Final diagnosis: UTI Fall, mechanical Chronic AFIB HTN Time Spent with Patient Time attestation: Total time spent providing and/or coordinating discharge services: Discharge coordination time: Greater than 30 minutes Quality: Safe Use of Opioids Does Pt have an Active Cancer Diagnosis on the Problem List?: No Quality: Stroke Does the patient have a stroke diagnosis?: No Physical Exam Vital Signs: Vital Signs: Last Vital Signs Temp 98.9 F 07/26/21 07:41 Pulse 81 07/26/21 09:41 Resp 18 07/26/21 07:41 BP 146/71 H 07/26/21 09:41 Pulse Ox 94 07/26/21 09:41 BMI result Body Mass Index 30.8 Const: Other: General: AO X 3, no acute distress Resp:? CTA bilateral CVS: S1,S2,RRR GI: +BS, NT, no distention Skin: No rash Neuro:? motor grossly intact Psych: appropriate affect DS: Data Data Completed and Pending Labs on day of discharge: Laboratory Results - last 24 hr 07/26/21 07/26/21 05:16 05:16 WBC 6.9 RBC 4.31 L Hgb 13.1 L Hct 39.4 L MCV 91.4 MCH 30.4 MCHC 33.2 RDW 13.7 Plt Count 109 L MPV 10.7 Absolute Nucleated RBC 0.000 Nucleated RBC % (auto) 0.0 Sodium 138 Potassium 4.4 Chloride 105 Carbon Dioxide 27 Anion Gap 10 L BUN 21 H Creatinine 1.46 H Estim Creat Clear Calc 40.7 Estimated GFR 46 Random Glucose 130 H Calcium 9.3 Preliminary micro results at discharge 07/24/21 00:36 Blood Culture - Preliminary Blood - Venous No growth after 48 hours. 07/24/21 00:35 Blood Culture - Preliminary Blood - Venous No growth after 48 hours. Discharge Plan Discharge Anticipated Discharge Date/Time: 07/26/21 10:02 Patient Disposition: Home Health Service Discharge Diagnosis: acute urinary tract infection, fall, weakness. Referrals: [facility] [Outside] - 1 Week Jeremiah Lozada MD [Primary Care Provider] - 1 Week Discharge Medications: New fluconazole 100 mg Tablet 100 mg PO Q24H Qty: 6 0RF Continued terazosin 2 mg capsule 2 mg PO BEDTIME 0RF omeprazole 20 mg capsule,delayed release(DR/EC) 20 mg PO DAILY 0RF Eliquis 5 mg tablet 5 mg PO BID 0RF No Action trazodone 50 mg tablet 50 mg PO BEDTIME Qty: 30 0RF Discharge Orders: Discharge Order (Routine); Ordered 07/26/21 Ordered By: Arnaldo Gama Diet: advance to usual diet Activity on Discharge: As tolerated Stand Alone Forms: Patient Portal Discharge page Care Plan Goals: Full recovery from fall and urinary tract infection. Health Concerns: Urinary tract infection, fall and fall risk. Plan of Treatment: Take Diflucan as recommended and follow up with her primary care doctor within a week. calf with ambulation Assessment: as above Discharge Date/Time: 07/26/21 15:33
--- NOTE | 2021-07-26 10:07 | P.F2F_ITS ---
Service Date Service Date: 07/26/21 Encounter Date of encounter: 07/26/21 Reasons for Services Signs and symptoms assessed: weakness, fall. Reason for [facility]: medication treatment Reason for physical therapy: home safety and mobility and gait/transfer training Homebound: Leaving the home is medically contraindicated at this time without the asist of a device and/or another person due th the listed conditions above and below. Reason homebound: unsteady gait / fall risk Homebound supporting statement: Homebound due to risk of fall and the falls general weakness in the setting of urinary tract infection requiring hospitalization and at this point when need the assistance of another person. Certification: Based on the above findings, I certify that this patient is confined to the home and needs intermittent [facility] care, physical therapy and/or speech therapy, or continues to need occupational therapy. The patient is under my care, and I have initiated the establishment of the plan of care. The patient will be followed by a physician who will periodically review the plan of care.
[2021-07-26] MEDS: Fluconazole 100 MG TABLET PO (11:15)
[2021-07-26 12:00] VITALS: BP 165/71; PULSE 86; RESP 18; TEMP 36.9; O2SAT 97
--- NOTE | 2021-07-26 12:09 | MHC.CM.PN ---
Addendum entered by Addis Saleh 07/26/21 13:17: [facility] OFFERING [facility]. IN ROOM TO PROVIDE TRANSPORT HOME. IMM 07/24 COMPLETED RN AWARE OF PLAN. Original Note: CASE MANAGEMENT LOOKING FOR [facility] SERVICES FOR PATIENT. PLAN IS HOME WITH PHYSICAL THERAPY NEEDS. CASE MANAGEMENT TO UPDATE THIS NOTE WITH PROGRESS
== END 2021-07-26 15:33 | disposition home health service (06) | DRG 728 ==
LOC: HO.ED 07-24 02:19 → HO.EDOVER 07-24 02:36 → HO.S3 07-24 14:57
PROVIDERS: Internal Medicine; Admitting Provider Internal Medicine; Emergency Provider Emergency Medicine Emergency Medical Services; PCP Internal Medicine; Visit Provider Internal Medicine
DX: B37.49 Other urogenital candidiasis (principal); I48.0 Paroxysmal atrial fibrillation; Z20.822 Contact with and (suspected) exposure to COVID-19; Z87.19 Personal history of other diseases of the digestive system; Z91.81 History of falling; Z79.01 Long term (current) use of anticoagulants; Z79.899 Other long term (current) drug therapy
CPT/HCPCS: 36415; 70450; 71250; 72125; 74176; 80048; 80053; 81001; 82077; 83605; 83690; 84484; 85025; 85027; 85610; 85730; 87040; 87086; 87088; 87502; 87635; 93005; 96365; 97162; 97530; 99285; J0696

== ENCOUNTER → 2021-09-08 10:29 | Outpatient (BNVA) | payer MEDICARE, OTHER, SELFPAY | PROVIDERS: PCP Internal Medicine; Referring Provider Internal Medicine; Visit Provider Internal Medicine Cardiovascular Disease | DX: I10 Essential (primary) hypertension (principal); I48.91 Unspecified atrial fibrillation | CPT/HCPCS: 93005; 99212 ==

== ENCOUNTER → 2022-01-11 10:05 | Outpatient (BNVA) | payer MEDICARE, OTHER, SELFPAY | PROVIDERS: PCP Internal Medicine; Referring Provider Internal Medicine; Visit Provider Internal Medicine Cardiovascular Disease | DX: I48.91 Unspecified atrial fibrillation (principal); I10 Essential (primary) hypertension | CPT/HCPCS: 99212 ==

== ENCOUNTER → 2022-06-05 14:20 | Outpatient (BNVA) | payer MEDICARE, OTHER, SELFPAY | PROVIDERS: PCP Internal Medicine; Referring Provider Internal Medicine; Visit Provider Internal Medicine Cardiovascular Disease | DX: I48.0 Paroxysmal atrial fibrillation (principal); I10 Essential (primary) hypertension; Z79.01 Long term (current) use of anticoagulants; Z79.899 Other long term (current) drug therapy | CPT/HCPCS: 99212 ==

== ENCOUNTER 2022-10-27 11:08 | Outpatient (AMB) | payer MEDICARE, OTHER, SELFPAY ==
--- NOTE | 2022-10-27 11:11 | A.OFFPC_ITS ---
Vital Signs 10/27/22 11:13 Height 5 ft 8 in Weight 184 lb BMI 28.0 BP 110/70 Blood Pressure Location Lt brachial Position Sitting Pulse 64 Pulse Source Pulse Oximeter Pulse Oximetry (%) 97 Oxygen Delivery Method Room Air Intake Visit Reasons: [facility]/10-16/Hiccups Intake Note: Patient is here for hospital discharge follow up. Patient was discharged from [facility] on 10/16/22. 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 Required: No Logistics Specialist: Present Accompanied by: Spouse Allergies No Known Allergies Allergy (Unknown, Verified 10/27/22 11:13) Medication List - Last Reconciled 10/27/22 by Jeremiah Lozada MD amlodipine 2.5 mg PO DAILY apixaban (Eliquis) 5 mg PO BID aspirin (Adult Aspirin Regimen) 81 mg PO DAILY famotidine 40 mg PO BID melatonin 5 mg PO BEDTIME PRN metoprolol tartrate 25 mg PO BID omeprazole 20 mg PO DAILY terazosin 2 mg PO BEDTIME triamcinolone acetonide 0.5% 1 appl topical TID Tobacco use date assessed: 06/22/22 Fall risk assessment: 2 + Falls in past year Last assessed Fall Risk: 10/27/22 Dental Screening Dental Screen Date: 10/27/22 Did you have a dental visit in the last 12 months?: No Did you have a dental problem in the last 6 months where you did not have access to dental care?: No Was dental information given to patient?: No HPI [facility]/10-16/Hiccups HPI Details difficulty with hiccups PFSH Medical History A-fib HTN (hypertension) Hypertension Obesity PAF (paroxysmal atrial fibrillation) Surgical History H/O rectal polypectomy History of cholecystectomy History of hemicolectomy History of inguinal hernia repair History of tonsillectomy History of umbilical hernia repair Family History Father Medical history unknown Mother Medical history unknown Social History Household Members: Spouse Housing: House Do you presently have visiting nurse or other home services: No Alcohol intake: former Patient Tobacco Use Status: Former Tobacco user Quit Date: Years Smoked: 37 +/- e-Cigarette/Vaping Use: Never Used Second Hand Smoke Exposure: No service: Yes Current occupational status: retired Current occupational exposures/hazards: No Cognitive needs: Yes (cane) Hearing needs: No Vision needs: Yes (glasses) Questionnaire PHQ-9 Over the last 2 weeks, how often have you been bothered by any of the following problems? Depression Screening Interpretation: Negative Source: Developed by Drs. Bill Sheldon, Franchesca Owen, Christopher Townsend and colleagues, with an educational lencho from [employer]. Thrive Questionnaire Date Thrive assessed: 06/22/22 Currently or been in a relationship where the following occur: no concerns reported ARNOL-7 AMB Questionnaire ARNOL-7 Date ARNOL - 7 assessed: 06/22/22 Source: Developed by Drs. Bill Sheldon, Franchesca Owen, Christopher Townsend and colleagues, with an educational lencho from [employer]. Review of Systems Const Denies chills, Denies headache(s) and Denies weight loss ENT Denies headache(s) Card Denies chest pain, Denies syncope, Denies irregular heart rhythm and Denies dyspnea Resp Denies chest congestion, Denies cough and Denies dyspnea GI Denies abdominal pain, Denies change in stool character, Denies nausea and Denies vomiting Musc Denies deformity and Denies joint swelling Neuro Denies syncope and Denies headache(s) Physical exam (Primary Care) Vital Signs: Last Vital Signs Pulse 64 10/27/22 11:13 BP 110/70 10/27/22 11:13 Pulse Ox 97 10/27/22 11:13 Oxygen Delivery Method Room Air 10/27/22 11:13 BMI result Body Mass Index 28.0 Tobacco/Smoking Status: Tobacco use Status Tobacco use date assessed 06/22/22 10/27/22 11:19 Patient Tobacco Use Status Former Tobacco user 10/27/22 11:19 e-Cigarette/Vaping Use Never Used 10/27/22 11:19 Depression Screening Interpretation: Negative Thrive Assessment: Date of Thrive Assessment Date Thrive assessed 06/22/22 10/27/22 11:19 Currently or been in a relationship where the following occur: no concerns reported Const General: cooperative, comfortable and no acute distress Resp Effort & Inspection: normal respiratory effort Auscultation: clear to auscultation bilaterally Percussion: percussion normal Cardio Jugular venous distension: no JVD Palpation: normal PMI Rhythm: regular rhythm GI Inspection: Yes normal to inspection Assessment and Plan Assessment & Plan (1) Hiccups: Code(s): R06.6 - Hiccough Plan: try rx Medications: New famotidine 40 mg PO BID 20 tabs 0RF Coding Level of Care Code Est Pt Level 3 (09698) Diagnoses Hiccups R06.6
[2022-10-27 11:13] VITALS: BP 110/70; PULSE 64; O2SAT 97; BMI 28.0
== END 2022-10-27 11:26 | disposition home or self-care (01) ==
PROVIDERS: PCP Internal Medicine; Visit Provider Internal Medicine
DX: R06.6 Hiccough (principal)
CPT/HCPCS: 99213

== ENCOUNTER 2022-12-28 14:21 | Outpatient (AMB) | payer MEDICARE, OTHER, SELFPAY ==
[2022-12-28 14:24] VITALS: BP 140/60; PULSE 69; O2SAT 98; BMI 28.4
--- NOTE | 2022-12-28 14:24 | MHC.PC.OV ---
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 Accompanied by: Self / Same As Patient Allergies No Known Allergies Allergy (Unknown, Verified 12/28/22 14:25) Medication List - Last Reconciled 12/28/22 by Jeremiah Lozada MD amlodipine 2.5 mg PO DAILY apixaban (Eliquis) 5 mg PO BID aspirin (Adult Aspirin Regimen) 81 mg PO DAILY famotidine 40 mg PO BID melatonin 5 mg PO BEDTIME PRN metoprolol tartrate 25 mg PO BID omeprazole 20 mg PO DAILY terazosin 2 mg PO BEDTIME triamcinolone acetonide 0.5% 1 appl topical TID Tobacco use date assessed: 06/22/22 Fall risk assessment: No Falls in past year Last assessed Fall Risk: 12/28/22 Dental Screening Dental Screen Date: 12/28/22 Did you have a dental visit in the last 12 months?: No Did you have a dental problem in the last 6 months where you did not have access to dental care?: No Was dental information given to patient?: Patient has dentist HPI 3mth f/u HPI Details HTN on Rx; doing well; [facility] Medical History HTN (hypertension) A-fib Obesity PAF (paroxysmal atrial fibrillation) Hypertension Surgical History History of umbilical hernia repair History of hemicolectomy History of inguinal hernia repair H/O rectal polypectomy History of tonsillectomy History of cholecystectomy Family History Father Medical history unknown Mother Medical history unknown Social History Household Members: Spouse Housing: House Do you presently have visiting nurse or other home services: No Alcohol intake: former Patient Tobacco Use Status: Former Tobacco user Quit Date: Years Smoked: 37 +/- e-Cigarette/Vaping Use: Never Used Second Hand Smoke Exposure: No service: Yes Current occupational status: retired Current occupational exposures/hazards: No Cognitive needs: Yes (cane) Hearing needs: No Vision needs: Yes (glasses) Questionnaire PHQ-9 Over the last 2 weeks, how often have you been bothered by any of the following problems? 1. Little interest or pleasure in doing things: not at all 2. Feeling down, depressed, or hopeless: not at all 3. Trouble falling or staying asleep, or sleeping too much: not at all 4. Feeling tired or having little energy: not at all 5. Poor appetite or overeating: not at all 6. Feeling bad about yourself - or that you are a failure or have let yourself or your family down: not at all 7. Trouble concentrating on things, such as reading the newspaper or watching television: not at all 8. Moving or speaking so slowly that other people could have noticed. Or the opposite - being so fidgety or restless that you have been moving around a lot more than usual: not at all 9. Thoughts that you would be better off or of hurting yourself in some way: not at all Total score: 0 Depression Screening Interpretation: Negative Source: Developed by Drs. Bill Sheldon, Franchesca Owen, Christopher Townsend and colleagues, with an educational lencho from [employer]. Thrive Questionnaire Date Thrive assessed: 06/22/22 AUDIT C Alcohol Use Questionnaire (AUDIT-C) 1. How often do you have a drink containing alcohol?: Never Total Score: 0 Score Reviewed/Action Taken: Yes ARNOL-7 AMB Questionnaire ARNOL-7 Date ARNOL - 7 assessed: 06/22/22 Source: Developed by Drs. Bill Sheldon, Franchesca Owen, Christopher Townsend and colleagues, with an educational lencho from [employer]. Review of Systems Const Denies chills, Denies headache(s) and Denies weight loss ENT Denies headache(s) Card Denies chest pain, Denies syncope, Denies irregular heart rhythm and Denies dyspnea Resp Denies chest congestion, Denies cough and Denies dyspnea GI Denies abdominal pain, Denies change in stool character, Denies nausea and Denies vomiting Musc Denies deformity and Denies joint swelling Neuro Denies syncope and Denies headache(s) Physical exam (Primary Care) Vital Signs: Last Vital Signs Pulse 69 12/28/22 14:24 BP 140/60 H 12/28/22 14:24 Pulse Ox 98 12/28/22 14:24 Oxygen Delivery Method Room Air 12/28/22 14:24 BMI result Body Mass Index 28.4 Tobacco/Smoking Status: Tobacco use Status Tobacco use date assessed 06/22/22 12/28/22 14:29 Patient Tobacco Use Status Former Tobacco user 12/28/22 14:29 e-Cigarette/Vaping Use Never Used 12/28/22 14:29 PHQ-9: PHQ-9 Score PHQ-9: Total score 0 12/28/22 14:29 Depression Screening Interpretation: Negative Thrive Assessment: Date of Thrive Assessment Date Thrive assessed 06/22/22 12/28/22 14:29 Const General: cooperative, comfortable, no acute distress and alert Neck Neck: Yes no lymphadenopathy Thyroid: Thyroid normal Resp Effort & Inspection: normal respiratory effort Auscultation: clear to auscultation bilaterally Percussion: percussion normal Cardio Jugular venous distension: no JVD Palpation: normal PMI Rate: regular rate Rhythm: regular rhythm Heart sounds: S1 normal heart sound present and S2 normal heart sound present GI Inspection: Yes normal to inspection Palpation (GI): No hepatosplenomegaly present Skin General skin exam: no rashes or lesions noted Extrem General: Yes no clubbing, cyanosis or edema Assessment and Plan Assessment & Plan (1) Hypertension: Code(s): I10 - Essential (primary) hypertension Plan: stable; do labs Orders: Orders Lipid Panel Today E78.5 - Hyperlipidemia, unspecified Comprehensive [place]. Panel Fast Today N28.9 - Disorder of kidney and ureter, unspecified Thyroid Stimulating Hormone Today E03.9 - Hypothyroidism, unspecified Complete Blood Count Auto Diff Today D64.9 - Anemia, unspecified Coding Level of Care Code Est Pt Level 3 (42109) Diagnoses Hypertension I10
== END 2022-12-28 14:37 | disposition home or self-care (01) ==
PROVIDERS: PCP Internal Medicine; Visit Provider Internal Medicine
DX: I10 Essential (primary) hypertension (principal)
CPT/HCPCS: 99213

== ENCOUNTER 2023-01-01 08:46 | Outpatient (REF) | payer MEDICARE, OTHER, SELFPAY ==
[2023-01-01 09:09] LABS: MANUAL DIFF FLAG NO
[2023-01-01 09:35] LABS: Basophils Percent Auto 0.5 % (0-2); Eosinophils Absolute Auto 0.2 X10*3/uL (0.0-0.4); Eosinophils Percent Auto 2.2 % (0-4); Hematocrit 43.7 % (42.0-52.0); Hemoglobin 13.7 g/dl (14.0-18.0); Imm Gran Abs Auto 0.07 X10*3/uL (0.00-0.03); Imm Gran Pct Auto 0.8 % (0.0-0.4); Mean Corpuscular HGB Conc 31.4 g/dl (31.0-36.0); Mean Corpuscular Hemoglobin 28.1 pg (27.0-33.0); Mean Corpuscular Volume 89.7 fL (80.0-98.0); Mean Platelet Volume 10.1 fL (9.4-12.4); Monocytes Absolute Auto 0.6 X10*3/uL (0.1-1.2); Monocytes Percent Auto 7.5 % (2-11); Neutrophils Absolute Auto 5.5 x10*3/uL (2.0-8.3); Platelet Count 180 X10*3/uL (160-400); Red Blood Count 4.87 X10*6/uL (4.60-5.80); Red Cell Distribution Width 15.6 % (11.0-16.0); White Blood Count 8.5 X10*3/uL (4.8-10.8)
[2023-01-01 10:31] LABS: Alanine Aminotransferase 11 U/L (0-40); Albumin Level 3.8 g/dL (3.5-5.0); Alkaline Phosphatase 78 U/L (39-117); Anion Gap 14 (12-20); Aspartate Amino Transferase 19 U/L (5-37); Bilirubin Total 0.8 mg/dL (0.0-1.0); Blood Urea Nitrogen 21 mg/dL (9-16); Calcium 10.1 mg/dL (8.4-10.2); Carbon Dioxide 25 mmol/L (22-29); Chloride 107 mmol/L (96-108); Cholesterol 172 mg/dL (<200); Estimated Glomerular Filt Rate 48; Glucose Fasting 114 mg/dL (60-99); HDL Cholesterol 34 mg/dL (>40); LDL Cholesterol Calculated 85 mg/dL (<100); Potassium 4.9 mmol/L (3.3-5.1); Sodium 141 mmol/L (135-145); Total Protein 7.9 g/dL (6.5-8.0); Triglycerides 267 mg/dL (<150)
[2023-01-01 10:48] LABS: Thyroid Stimulating Hormone 6.61 uIU/mL (0.32-4.0)
== END 2023-01-01 08:47 | disposition home or self-care (01) ==
LOC: HO.LAB 08:46
PROVIDERS: PCP Internal Medicine; Visit Provider Internal Medicine
DX: N28.9 Disorder of kidney and ureter, unspecified (principal); E78.5 Hyperlipidemia, unspecified; E03.9 Hypothyroidism, unspecified; D64.9 Anemia, unspecified
CPT/HCPCS: 36415; 80053; 80061; 84443; 85025

== ENCOUNTER 2023-04-04 08:42 | Outpatient (AMB) | payer MEDICARE, OTHER, SELFPAY ==
[2023-04-04 08:46] VITALS: BP 150/70; PULSE 95; O2SAT 95; BMI 28.7
--- NOTE | 2023-04-04 08:46 | MHC.PC.OV ---
Vital Signs 04/04/23 08:46 Height 5 ft 8 in Weight 189 lb BMI 28.7 BP 150/70 H Blood Pressure Location Lt brachial Position Sitting Pulse 95 Pulse Source Pulse Oximeter Pulse Oximetry (%) 95 Oxygen Delivery Method Room Air Intake Visit Reasons: 3 month f/u Photo Lab Specialist Required: No Senior Escrow Officer: Not Required per policy Accompanied by: Self / Same As Patient Allergies No Known Allergies Allergy (Unknown, Verified 04/04/23 08:47) Medication List - Last Reconciled 04/04/23 by Jeremiah Lozada MD amlodipine 2.5 mg PO DAILY apixaban (Eliquis) 5 mg PO BID aspirin (Adult Aspirin Regimen) 81 mg PO DAILY famotidine 40 mg PO BID melatonin 5 mg PO BEDTIME PRN metoprolol tartrate 25 mg PO BID omeprazole 20 mg PO DAILY terazosin 2 mg PO BEDTIME triamcinolone acetonide 0.5% 1 appl topical TID Tobacco use date assessed: 06/22/22 Fall risk assessment: 1 Fall in past year Last assessed Fall Risk: 04/04/23 Dental Screening Dental Screen Date: 04/04/23 Did you have a dental visit in the last 12 months?: No Did you have a dental problem in the last 6 months where you did not have access to dental care?: No Was dental information given to patient?: Patient has dentist HPI 3 month f/u HPI Details HTN afib and gerd on rx; doing well and compliant [facility] Medical History HTN (hypertension) A-fib Obesity PAF (paroxysmal atrial fibrillation) Hypertension Surgical History History of umbilical hernia repair History of hemicolectomy History of inguinal hernia repair H/O rectal polypectomy History of tonsillectomy History of cholecystectomy Family History Father Medical history unknown Mother Medical history unknown Social History Household Members: Spouse Housing: House Do you presently have visiting nurse or other home services: No Alcohol intake: former Patient Tobacco Use Status: Former Tobacco user Quit Date: Years Smoked: 37 +/- e-Cigarette/Vaping Use: Never Used Second Hand Smoke Exposure: No service: Yes Current occupational status: retired Current occupational exposures/hazards: No Cognitive needs: Yes (cane) Hearing needs: No Vision needs: Yes (glasses) Questionnaire PHQ-9 Over the last 2 weeks, how often have you been bothered by any of the following problems? 1. Little interest or pleasure in doing things: not at all 2. Feeling down, depressed, or hopeless: not at all 3. Trouble falling or staying asleep, or sleeping too much: not at all 4. Feeling tired or having little energy: not at all 5. Poor appetite or overeating: not at all 6. Feeling bad about yourself - or that you are a failure or have let yourself or your family down: not at all 7. Trouble concentrating on things, such as reading the newspaper or watching television: not at all 8. Moving or speaking so slowly that other people could have noticed. Or the opposite - being so fidgety or restless that you have been moving around a lot more than usual: not at all 9. Thoughts that you would be better off or of hurting yourself in some way: not at all Total score: 0 Depression Screening Interpretation: Negative Depression Screening Done: Yes 99283 - PHQ-9 Billing: Yes Source: Developed by Drs. Bill Sheldon, Franchesca Owen, Christopher Townsend and colleagues, with an educational lencho from [facility] [employer]. Thrive Questionnaire Date Thrive assessed: 04/04/23 I am a: Patient What is your living situation today?: I have a steady place to live Within the past 12 months, did the food you bought not last and you didn't have the money to get more?: Never true Within the past 12 months, did you worry whether your food would run out before you got money to buy more?: Never true Do you have trouble paying for medicines?: No Do you have trouble getting transportation to medical appointments?: No Do you have trouble paying your heating and electricity bill?: No Do you have trouble taking care of your child, family member or friend?: No Do you have trouble with day-to-day activities such as bathing, preparing meals, shopping, managing finances, etc.?: No Are you currently unemployed and looking for a job?: No Are you interested in more education?: No Please select the resources that you would like help with: None ARNOL-7 AMB Questionnaire ARNOL-7 Date ARNOL - 7 assessed: 04/04/23 Feeling nervous, anxious, or on edge: 0 = Not at all Not being able to stop or control worryin = Not at all Worrying too much about different things: 0 = Not at all Trouble relaxin = Not at all Being so restless that it is hard to sit still: 0 = Not at all Becoming easily annoyed or irritable: 0 = Not at all Feeling afraid as if something awful might happen: 0 = Not at all Total ARNOL-7 score (0-4 normal; 5-9 mild; 10-14 moderate; 15-21 severe): 0 Source: Developed by Drs. Bill Sheldon, Franchesca Owen, Christopher Townsend and colleagues, with an educational lencho from [facility]. ARNOL-7 Assessment Billing ARNOL-7 Assessment Tool: ARNOL-7 Assessment 05224 Review of Systems Const Denies chills, Denies headache(s) and Denies weight loss ENT Denies headache(s) Card Denies chest pain, Denies syncope, Denies irregular heart rhythm and Denies dyspnea Resp Denies chest congestion, Denies cough and Denies dyspnea GI Denies abdominal pain, Denies change in stool character, Denies nausea and Denies vomiting Musc Denies deformity and Denies joint swelling Neuro Denies syncope and Denies headache(s) Physical exam (Primary Care) Vital Signs: Last Vital Signs Pulse 95 04/04/23 08:46 BP 150/70 H 04/04/23 08:46 Pulse Ox 95 04/04/23 08:46 Oxygen Delivery Method Room Air 04/04/23 08:46 BMI result Body Mass Index 28.7 Tobacco/Smoking Status: Tobacco use Status Tobacco use date assessed 06/22/22 04/04/23 08:48 Patient Tobacco Use Status Former Tobacco user 04/04/23 08:48 e-Cigarette/Vaping Use Never Used 04/04/23 08:48 PHQ-9: PHQ-9 Score PHQ-9: Total score 0 04/04/23 08:48 Depression Screening Interpretation: Negative Thrive Assessment: Date of Thrive Assessment Date Thrive assessed 04/04/23 04/04/23 08:48 Const General: cooperative, comfortable, no acute distress and alert Neck Neck: Yes no lymphadenopathy Thyroid: Thyroid normal Resp Effort & Inspection: normal respiratory effort Auscultation: clear to auscultation bilaterally Percussion: percussion normal Cardio Jugular venous distension: no JVD Palpation: normal PMI Rate: regular rate Rhythm: regular rhythm Heart sounds: S1 normal heart sound present and S2 normal heart sound present GI Inspection: Yes normal to inspection Palpation (GI): No hepatosplenomegaly present Skin General skin exam: no rashes or lesions noted Extrem General: Yes no clubbing, cyanosis or edema Assessment and Plan Assessment & Plan (1) A-fib: Code(s): I48.91 - Unspecified atrial fibrillation Plan: stable; same rx (2) Hypertension: Code(s): I10 - Essential (primary) hypertension Plan: stable; same rx (3) Chronic GERD: Code(s): K21.9 - Gastro-esophageal reflux disease without esophagitis Plan: stable; same rx Coding Level of Care Code Est Pt Level 4 (69833) Diagnoses A-fib I48.91 Hypertension I10 Chronic GERD K21.9 Additional Codes ARNOL-7 Assessment Billing - ARNOL-7 Assessment Tool: ARNOL-7 Assessment 62107 ([id number])
== END 2023-04-04 09:07 | disposition home or self-care (01) ==
PROVIDERS: PCP Internal Medicine; Visit Provider Internal Medicine
DX: I48.91 Unspecified atrial fibrillation (principal); I10 Essential (primary) hypertension; K21.9 Gastro-esophageal reflux disease without esophagitis
CPT/HCPCS: 99214

== ENCOUNTER 2023-07-02 14:40 | Outpatient (AMB) | payer MEDICARE, OTHER, SELFPAY ==
[2023-07-02 14:45] VITALS: BP 140/54; PULSE 73; BMI 29.1
--- NOTE | 2023-07-02 14:45 | MHC.OFFVIS ---
Intake Vital Signs 07/02/23 14:45 Height 5 ft 8 in Weight 191 lb 5.78 oz BMI 29.1 BP 140/54 H Blood Pressure Location Lt brachial Position Sitting Pulse 73 Intake Visit Reasons: r/s 3 mos followup Intake Note: pt state that he ia doing good. 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 he is here for follow-up. He got admitted in [facility] for COVID-19. He said between the hospital and rehab he spent 5 weeks there. He has recovered from hospitalization. He is here for follow-up. Denying any chest discomfort shortness of breath. His blood pressure is elevated. 07/02/23: He returns for follow-up. On last visit blood pressure was elevated and metoprolol was increased to 25 mg twice a day. Blood pressure in the office is 140/54. He has 2 blood pressure readings taken at [facility] with blood pressure 137/70 and 130/80. He has been doing well. No chest discomfort shortness of breath. Taking medications regularly. [facility] Medical History (Updated 07/02/23 @ 15:10 by Reynaldo Singh MD) HTN (hypertension) A-fib Obesity PAF (paroxysmal atrial fibrillation) Hypertension Surgical History History of umbilical hernia repair History of hemicolectomy History of inguinal hernia repair H/O rectal polypectomy History of tonsillectomy History of cholecystectomy Family History Father Medical history unknown Mother Medical history unknown Social History Household Members: Spouse Housing: House Do you presently have visiting nurse or other home services: No Alcohol intake: former Patient Tobacco Use Status: Former Tobacco user Quit Date: Years Smoked: 37 +/- e-Cigarette/Vaping Use: Never Used Second Hand Smoke Exposure: No service: Yes Current occupational status: retired Current occupational exposures/hazards: No Cognitive needs: Yes (cane) Hearing needs: No Vision needs: Yes (glasses) Review of Systems Const Denies chills, Denies fatigue, Denies fever(s), Denies frequent falls, Denies weakness, Denies weight gain and Denies weight loss ENT Denies dizziness Card Denies chest pain, Denies leg edema, Denies lightheadedness, Denies palpitations, Denies dyspnea and Denies dyspnea on exertion Resp Denies cough, Denies dyspnea and Denies dyspnea on exertion GI Denies hematochezia Musc Denies abnormal gait, Denies muscle weakness, Denies numbness, Denies radiating pain into limb and Denies tingling Neuro Denies abnormal gait, Denies dizziness, Denies frequent falls, Denies numbness, Denies tingling and Denies weakness Endo Denies fatigue and Denies palpitations Physical Exam Vital Signs: Last Vital Signs Pulse 73 07/02/23 14:45 BP 140/54 H 07/02/23 14:45 BMI result Body Mass Index 29.1 GENERAL APPEARANCE: in no acute distress, pleasant. NECK: no carotid bruit, no jugular venous distention. SKIN: no suspicious lesions, warm and dry. HEART: Systolic murmur aortic area with preserved 2nd heart sound, Regular rate and rhythm. LUNGS: clear to auscultation bilaterally. ABDOMEN: soft, nontender, midline hernia. EXTREMITIES: no edema. PERIPHERAL PULSES: equal. NEUROLOGIC: No gross deficits, AAO X 3 Office Procedures EKG Details: Sinus rhythm with first-degree AV block 73 beats per minute, TN interval 260 milliseconds, left axis deviation, premature ventricular complexes, can not rule out old anterior infarct, QTC 467 milliseconds. No new changes. [id number], Complete Assessment & Plan Assessment & Plan (1) Hypertension: Code(s): I10 - Essential (primary) hypertension (2) PAF (paroxysmal atrial fibrillation): Code(s): I48.0 - Paroxysmal atrial fibrillation Plan Pleasant 88 year gentleman who is here for follow-up. He has background history of paroxysmal atrial fibrillation. He has been on anticoagulation with apixaban 5 mg twice a day and baby aspirin. I think he can stop the baby aspirin because it just increases his bleeding risk at this stage and may not give him any significant benefit for primary prevention. His blood pressure is 140/54. His blood pressure readings outside the hospital are in 130s systolic. I think he is stable and I plan not to adjust blood pressure medications further. Sometimes too aggressive hypertensive control can lead to orthostasis and falls which can create some problems specially with Eliquis use. He is stable and will see us in 1 year. Thank you for allowing me to participate in the care of your patient. Please feel free to contact me if you have any questions. Coding Level of Care Code Est Pt Level 4 (48245) Diagnoses Hypertension I10 PAF (paroxysmal atrial fibrillation) I48.0 CPT Codes EKG - CPT: 04484-[id number], Complete ([id number])
== END 2023-07-02 15:11 | disposition home or self-care (01) ==
PROVIDERS: PCP Internal Medicine; Visit Provider Internal Medicine Cardiovascular Disease
DX: I10 Essential (primary) hypertension (principal); I48.0 Paroxysmal atrial fibrillation
CPT/HCPCS: 93010; 99214

== ENCOUNTER → 2023-07-02 14:40 | Outpatient (BNVA) | payer MEDICARE, OTHER, SELFPAY | PROVIDERS: PCP Internal Medicine; Visit Provider Internal Medicine Cardiovascular Disease | DX: I48.0 Paroxysmal atrial fibrillation (principal); I44.0 Atrioventricular block, first degree; I49.1 Atrial premature depolarization; I44.4 Left anterior fascicular block; I10 Essential (primary) hypertension | CPT/HCPCS: 93005; 99212 ==

== ENCOUNTER 2023-07-17 10:21 | Outpatient (AMB) | payer MEDICARE, OTHER, SELFPAY ==
--- NOTE | 2023-07-17 10:26 | MHC.PC.OV ---
Vital Signs 07/17/23 10:27 Height 5 ft 8 in Weight 185 lb BMI 28.1 BP 142/68 H Blood Pressure Location Lt brachial Position Sitting Pulse 81 Pulse Source Pulse Oximeter Pulse Oximetry (%) 98 Oxygen Delivery Method Room Air Intake Visit Reasons: 3 month f/u Allergies No Known Allergies Allergy (Unknown, Verified 07/17/23 10:30) Medication List - Last Reconciled 07/17/23 by Jeremiah Lozada MD amlodipine 2.5 mg PO DAILY apixaban (Eliquis) 5 mg PO BID famotidine 40 mg PO BID melatonin 5 mg PO BEDTIME PRN metoprolol tartrate 25 mg PO BID omeprazole 20 mg PO DAILY triamcinolone acetonide 0.5% 1 appl topical TID Tobacco use date assessed: 07/17/23 Fall risk assessment: No Falls in past year Last assessed Fall Risk: 07/17/23 Dental Screening Dental Screen Date: 04/04/23 HPI 3 month f/u HPI Details HTN on Rx; doing well; compliant [facility] Medical History (Updated 07/02/23 @ 15:10 by Reynaldo Singh MD) HTN (hypertension) A-fib Obesity PAF (paroxysmal atrial fibrillation) Hypertension Surgical History History of umbilical hernia repair History of hemicolectomy History of inguinal hernia repair H/O rectal polypectomy History of tonsillectomy History of cholecystectomy Family History Father Medical history unknown Mother Medical history unknown Social History Household Members: Spouse Housing: House Do you presently have visiting nurse or other home services: No Alcohol intake: former Patient Tobacco Use Status: Former Tobacco user Quit Date: Years Smoked: 37 +/- e-Cigarette/Vaping Use: Never Used Second Hand Smoke Exposure: No service: Yes Current occupational status: retired Current occupational exposures/hazards: No Cognitive needs: Yes (cane) Hearing needs: No Vision needs: Yes (glasses) Questionnaire Thrive Questionnaire Date Thrive assessed: 07/17/23 I am a: Patient What is your living situation today?: I have a steady place to live Within the past 12 months, did the food you bought not last and you didn't have the money to get more?: Never true Within the past 12 months, did you worry whether your food would run out before you got money to buy more?: Never true Do you have trouble paying for medicines?: No Do you have trouble getting transportation to medical appointments?: No Do you have trouble paying your heating and electricity bill?: No Do you have trouble taking care of your child, family member or friend?: No Do you have trouble with day-to-day activities such as bathing, preparing meals, shopping, managing finances, etc.?: No Are you currently unemployed and looking for a job?: No Are you interested in more education?: No Please select the resources that you would like help with: None Currently or been in a relationship where the following occur: no concerns reported THRIVE Score: 0 AUDIT C Alcohol Use Questionnaire (AUDIT-C) 1. How often do you have a drink containing alcohol?: Never Total Score: 0 Score Reviewed/Action Taken: Yes ARNOL-7 AMB Questionnaire ARNOL-7 Date ARNOL - 7 assessed: 04/04/23 Source: Developed by Drs. Bill Sheldon, Franchesca Owen, Christopher Townsend and colleagues, with an educational lencho from [employer]. Review of Systems Const Denies chills, Denies headache(s) and Denies weight loss ENT Denies headache(s) Card Denies chest pain, Denies syncope, Denies irregular heart rhythm and Denies dyspnea Resp Denies chest congestion, Denies cough and Denies dyspnea GI Denies abdominal pain, Denies change in stool character, Denies nausea and Denies vomiting Musc Denies deformity and Denies joint swelling Neuro Denies syncope and Denies headache(s) Physical exam (Primary Care) Vital Signs: Last Vital Signs Pulse 81 07/17/23 10:27 BP 142/68 H 07/17/23 10:27 Pulse Ox 98 07/17/23 10:27 Oxygen Delivery Method Room Air 07/17/23 10:27 BMI result Body Mass Index 28.1 Tobacco/Smoking Status: Tobacco use Status Tobacco use date assessed 07/17/23 07/17/23 10:33 Patient Tobacco Use Status Former Tobacco user 07/17/23 10:33 e-Cigarette/Vaping Use Never Used 07/17/23 10:33 Thrive Assessment: Date of Thrive Assessment Date Thrive assessed 07/17/23 07/17/23 10:33 Currently or been in a relationship where the following occur: no concerns reported Const General: cooperative, comfortable, no acute distress and alert Neck Neck: Yes no lymphadenopathy Thyroid: Thyroid normal Resp Effort & Inspection: normal respiratory effort Auscultation: clear to auscultation bilaterally Percussion: percussion normal Cardio Jugular venous distension: no JVD Palpation: normal PMI Rate: regular rate Rhythm: regular rhythm Heart sounds: S1 normal heart sound present and S2 normal heart sound present GI Inspection: Yes normal to inspection Palpation (GI): No hepatosplenomegaly present Skin General skin exam: no rashes or lesions noted Extrem General: Yes no clubbing, cyanosis or edema Assessment and Plan Assessment & Plan (1) Hypertension: Code(s): I10 - Essential (primary) hypertension Plan: stable; same rx Coding Level of Care Code Est Pt Level 3 (26041) Diagnoses Hypertension I10
[2023-07-17 10:27] VITALS: BP 142/68; PULSE 81; O2SAT 98; BMI 28.1
== END 2023-07-17 10:42 | disposition home or self-care (01) ==
PROVIDERS: PCP Internal Medicine; Visit Provider Internal Medicine
DX: I10 Essential (primary) hypertension (principal)
CPT/HCPCS: 99213

== ENCOUNTER 2023-11-07 08:51 | Outpatient (AMB) | payer MEDICARE, OTHER, SELFPAY ==
[2023-11-07 08:56] VITALS: BP 138/68; PULSE 80; O2SAT 100; BMI 28.0
--- NOTE | 2023-11-07 08:56 | MHC.PC.OV ---
Vital Signs 11/07/23 08:56 Height 5 ft 8 in Weight 184 lb BMI 28.0 BP 138/68 Blood Pressure Location Lt brachial Position Sitting Pulse 80 Pulse Source Pulse Oximeter Pulse Oximetry (%) 100 Oxygen Delivery Method Room Air Intake Visit Reasons: 3 month f/u Intake Note: Patient requesting refill on omeprazole Allergies No Known Allergies Allergy (Unknown, Verified 11/07/23 08:56) Medication List - Last Reconciled 11/07/23 by Jeremiah Lozada MD amlodipine 2.5 mg PO DAILY apixaban (Eliquis) 5 mg PO BID famotidine 40 mg PO BID melatonin 5 mg PO BEDTIME PRN metoprolol tartrate 25 mg PO BID omeprazole 20 mg PO DAILY triamcinolone acetonide 0.5% 1 appl topical TID Tobacco use date assessed: 07/17/23 Fall risk assessment: No Falls in past year Last assessed Fall Risk: 11/07/23 Dental Screening Dental Screen Date: 04/04/23 HPI 3 month f/u HPI Details afib on rx; doing well and compliant [facility] Medical History (Updated 07/02/23 @ 15:10 by Reynaldo Singh MD) HTN (hypertension) A-fib Obesity PAF (paroxysmal atrial fibrillation) Hypertension Surgical History History of umbilical hernia repair History of hemicolectomy History of inguinal hernia repair H/O rectal polypectomy History of tonsillectomy History of cholecystectomy Family History Father Medical history unknown Mother Medical history unknown Social History Household Members: Spouse Housing: House Do you presently have visiting nurse or other home services: No Alcohol intake: former Patient Tobacco Use Status: Former Tobacco user Tobacco use type: Cigarette Years Smoked: 37 +/- e-Cigarette/Vaping Use: Never Used Second Hand Smoke Exposure: No service: Yes Current occupational status: retired Current occupational exposures/hazards: No Cognitive needs: Yes (cane) Hearing needs: No Vision needs: Yes (glasses) Questionnaire PHQ-9 Over the last 2 weeks, how often have you been bothered by any of the following problems? 1. Little interest or pleasure in doing things: not at all 2. Feeling down, depressed, or hopeless: not at all 3. Trouble falling or staying asleep, or sleeping too much: not at all 4. Feeling tired or having little energy: not at all 5. Poor appetite or overeating: not at all 6. Feeling bad about yourself - or that you are a failure or have let yourself or your family down: not at all 7. Trouble concentrating on things, such as reading the newspaper or watching television: not at all 8. Moving or speaking so slowly that other people could have noticed. Or the opposite - being so fidgety or restless that you have been moving around a lot more than usual: not at all 9. Thoughts that you would be better off or of hurting yourself in some way: not at all Total score: 0 Depression Screening Interpretation: Negative Depression Screening Done: Yes 92265 - PHQ-9 Billing: Yes Source: Developed by Drs. Bill Sheldon, Franchesca Owen, Christopher Townsend and colleagues, with an educational lencho from [employer]. Thrive Questionnaire Date Thrive assessed: 07/17/23 AUDIT C Alcohol Use Questionnaire (AUDIT-C) 1. How often do you have a drink containing alcohol?: Never Total Score: 0 Score Reviewed/Action Taken: Yes ARNOL-7 AMB Questionnaire ARNOL-7 Date ARNOL - 7 assessed: 11/07/23 Feeling nervous, anxious, or on edge: 0 = Not at all Not being able to stop or control worryin = Not at all Worrying too much about different things: 0 = Not at all Trouble relaxin = Not at all Being so restless that it is hard to sit still: 0 = Not at all Becoming easily annoyed or irritable: 0 = Not at all Feeling afraid as if something awful might happen: 0 = Not at all Total ARNOL-7 score (0-4 normal; 5-9 mild; 10-14 moderate; 15-21 severe): 0 Source: Developed by Drs. Bill Sheldon, Christopher Corral and colleagues, with an educational lencho from [employer]. Review of Systems Const Denies chills, Denies headache(s) and Denies weight loss ENT Denies headache(s) Card Denies chest pain, Denies syncope, Denies irregular heart rhythm and Denies dyspnea Resp Denies chest congestion, Denies cough and Denies dyspnea GI Denies abdominal pain, Denies change in stool character, Denies nausea and Denies vomiting Musc Denies deformity and Denies joint swelling Neuro Denies syncope and Denies headache(s) Physical exam (Primary Care) Vital Signs: Last Vital Signs Pulse 80 11/07/23 08:56 BP 138/68 11/07/23 08:56 Pulse Ox 100 11/07/23 08:56 Oxygen Delivery Method Room Air 11/07/23 08:56 BMI result Body Mass Index 28.0 Tobacco/Smoking Status: Tobacco use Status Tobacco use date assessed 07/17/23 11/07/23 09:04 Patient Tobacco Use Status Former Tobacco user 11/07/23 09:04 Tobacco use type Cigarette 11/07/23 09:04 e-Cigarette/Vaping Use Never Used 11/07/23 09:04 PHQ-9: PHQ-9 Score PHQ-9: Total score 0 11/07/23 09:04 Depression Screening Interpretation: Negative Thrive Assessment: Date of Thrive Assessment Date Thrive assessed 07/17/23 11/07/23 09:04 Const General: cooperative, comfortable, no acute distress and alert Neck Neck: Yes no lymphadenopathy Thyroid: Thyroid normal Resp Effort & Inspection: normal respiratory effort Auscultation: clear to auscultation bilaterally Percussion: percussion normal Cardio Jugular venous distension: no JVD Palpation: normal PMI Rate: regular rate Rhythm: regular rhythm Heart sounds: S1 normal heart sound present and S2 normal heart sound present GI Inspection: Yes normal to inspection Palpation (GI): No hepatosplenomegaly present Skin General skin exam: no rashes or lesions noted Extrem General: Yes no clubbing, cyanosis or edema Assessment and Plan Assessment & Plan (1) PAF (paroxysmal atrial fibrillation): Code(s): I48.0 - Paroxysmal atrial fibrillation Plan: stable; same rx Coding Level of Care Code Est Pt Level 3 (94614) Diagnoses PAF (paroxysmal atrial fibrillation) I48.0
== END 2023-11-07 09:27 | disposition home or self-care (01) ==
PROVIDERS: PCP Internal Medicine; Visit Provider Internal Medicine
DX: I48.0 Paroxysmal atrial fibrillation (principal)
CPT/HCPCS: 99213

== ENCOUNTER 2023-12-12 11:02 | Outpatient (AMB) | payer MEDICARE, OTHER, SELFPAY ==
--- NOTE | 2023-12-12 11:04 | MHC.PC.OV ---
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 Accompanied by: Spouse Allergies No Known Allergies Allergy (Unknown, Verified 12/12/23 11:05) Medication List - Last Reconciled 12/12/23 by Jeremiah Lozada MD amlodipine 2.5 mg PO DAILY apixaban (Eliquis) 5 mg PO BID clotrimazole-betamethasone 1-0.05 % 1 appl topical BID 2 weeks clotrimazole-betamethasone 1-0.05 % 1 appl topical BID 2 weeks famotidine 40 mg PO BID melatonin 5 mg PO BEDTIME PRN metoprolol tartrate 25 mg PO BID omeprazole 20 mg PO DAILY triamcinolone acetonide 0.5% 1 appl topical TID Tobacco use date assessed: 07/17/23 Fall risk assessment: No Falls in past year Last assessed Fall Risk: 12/12/23 Dental Screening Dental Screen Date: 04/04/23 HPI Legs and feet swollen HPI Details bilat ankl edema; on amlodipine for HTN; denies dyspnea PFSH Medical History (Updated 07/02/23 @ 15:10 by Reynaldo Singh MD) HTN (hypertension) A-fib Obesity PAF (paroxysmal atrial fibrillation) Hypertension Surgical History History of umbilical hernia repair History of hemicolectomy History of inguinal hernia repair H/O rectal polypectomy History of tonsillectomy History of cholecystectomy Family History Father Medical history unknown Mother Medical history unknown Social History Household Members: Spouse Housing: House Do you presently have visiting nurse or other home services: No Alcohol intake: former Patient Tobacco Use Status: Former Tobacco user Tobacco use type: Cigarette Years Smoked: 37 +/- e-Cigarette/Vaping Use: Never Used Second Hand Smoke Exposure: No service: Yes Current occupational status: retired Current occupational exposures/hazards: No Cognitive needs: Yes (cane) Hearing needs: No Vision needs: Yes (glasses) Questionnaire PHQ-9 Over the last 2 weeks, how often have you been bothered by any of the following problems? 1. Little interest or pleasure in doing things: not at all 2. Feeling down, depressed, or hopeless: not at all 3. Trouble falling or staying asleep, or sleeping too much: not at all 4. Feeling tired or having little energy: not at all 5. Poor appetite or overeating: not at all 6. Feeling bad about yourself - or that you are a failure or have let yourself or your family down: not at all 7. Trouble concentrating on things, such as reading the newspaper or watching television: not at all 8. Moving or speaking so slowly that other people could have noticed. Or the opposite - being so fidgety or restless that you have been moving around a lot more than usual: not at all 9. Thoughts that you would be better off or of hurting yourself in some way: not at all Total score: 0 Depression Screening Interpretation: Negative Depression Screening Done: Yes 90752 - PHQ-9 Billing: Yes Source: Developed by Drs. Bill Sheldon, Franchesca Owen, Christopher Townsend and colleagues, with an educational lencho from [employer]. Thrive Questionnaire Date Thrive assessed: 07/17/23 AUDIT C Alcohol Use Questionnaire (AUDIT-C) 1. How often do you have a drink containing alcohol?: Never Total Score: 0 Score Reviewed/Action Taken: Yes ARNOL-7 AMB Questionnaire ARNOL-7 Date ARNOL - 7 assessed: 11/07/23 Source: Developed by Drs. Bill Sheldon, Franchesca Owen, Christopher Townsend and colleagues, with an educational lencho from [employer]. Review of Systems Const Denies chills, Denies headache(s) and Denies weight loss ENT Denies headache(s) Card Denies chest pain, Denies syncope, Denies irregular heart rhythm and Denies dyspnea Resp Denies chest congestion, Denies cough and Denies dyspnea GI Denies abdominal pain, Denies change in stool character, Denies nausea and Denies vomiting Musc Denies deformity and Denies joint swelling Neuro Denies syncope and Denies headache(s) Physical exam (Primary Care) Vital Signs: Last Vital Signs Pulse 90 12/12/23 11:05 BP 148/76 H 12/12/23 11:05 Pulse Ox 95 12/12/23 11:05 Oxygen Delivery Method Room Air 12/12/23 11:05 BMI result Body Mass Index 28.4 Tobacco/Smoking Status: Tobacco use Status Tobacco use date assessed 07/17/23 12/12/23 11:12 Patient Tobacco Use Status Former Tobacco user 12/12/23 11:12 Tobacco use type Cigarette 12/12/23 11:12 e-Cigarette/Vaping Use Never Used 12/12/23 11:12 PHQ-9: PHQ-9 Score PHQ-9: Total score 0 12/12/23 11:12 Depression Screening Interpretation: Negative Thrive Assessment: Date of Thrive Assessment Date Thrive assessed 07/17/23 12/12/23 11:12 Const General: cooperative, comfortable, no acute distress and alert Neck Neck: Yes no lymphadenopathy Thyroid: Thyroid normal Resp Effort & Inspection: normal respiratory effort Auscultation: clear to auscultation bilaterally Percussion: percussion normal Cardio Jugular venous distension: no JVD Palpation: normal PMI Rate: regular rate Rhythm: regular rhythm Heart sounds: S1 normal heart sound present and S2 normal heart sound present GI Inspection: Yes normal to inspection Palpation (GI): No hepatosplenomegaly present Skin General skin exam: no rashes or lesions noted Extrem Other: 2+ pitting edema both ankles Assessment and Plan Assessment & Plan (1) Ankle edema: Code(s): M25.473 - Effusion, unspecified ankle Plan: rx sent Medications: New furosemide 20 mg PO DAILY 30 tabs 3RF amoxicillin-pot clavulanate 500-125 mg (Augmentin) 1 tab PO BID 10 tabs 0RF Coding Level of Care Code Est Pt Level 3 (04942) Diagnoses Ankle edema M25.473
[2023-12-12 11:05] VITALS: BP 148/76; PULSE 90; O2SAT 95; BMI 28.4
== END 2023-12-12 15:27 | disposition home or self-care (01) ==
PROVIDERS: PCP Internal Medicine; Visit Provider Internal Medicine
DX: M25.473 Effusion, unspecified ankle (principal)
CPT/HCPCS: 99213

== ENCOUNTER 2023-12-17 12:32 | Outpatient (AMB) | payer MEDICARE, OTHER, SELFPAY ==
--- NOTE | 2023-12-17 12:55 | AM.OFFWIN_ITS ---
Intake Vital Signs 12/17/23 12:57 Height 5 ft 8 in Weight 187 lb BMI 28.4 BP 130/76 Blood Pressure Location Rt brachial Position Sitting Pulse 90 Pulse Source Pulse Oximeter Pulse Oximetry (%) 98 Oxygen Delivery Method Room Air Intake Visit Reasons: EP-private parts rash front & back Intake Note: Patient here for rash on buttocks that has been present for a few weeks. Patient Tobacco Use Status: Former Tobacco user Allergies No Known Allergies Allergy (Unknown, Verified 12/17/23 12:58) HPI EP-private parts rash front & back HPI Details This note is constructed using voice recognition software. While every effort has been made to ensure accuracy, driver license agent errors may have been included. The patient is a 88 year old male who presents to the clinic today with concern for rash to [place] area for the past 2 months, which reportedly started in rehab. He reports he initially was treated with a cream which seemed not to completely while the area. He was then seen by his primary for other reasons, and prescribed antibiotic, but it was unclear if this was for the rash or any other infection. He denies itch, irritation, pain. He does report that the area is uncomfortable when he 1st sits on it. He has urinary incontinence that is chronic and wears depends which he changes twice per day and does attempt to make it to the bathroom on time. He tends not to sit in wet clothing. He does tend to sit in 1 spot for a good majority of the day, and requires to sit in a recliner upright due to breathing issues. [facility] Medical History (Updated 07/02/23 @ 15:10 by Reynaldo Singh MD) HTN (hypertension) A-fib Obesity PAF (paroxysmal atrial fibrillation) Hypertension Surgical History History of umbilical hernia repair History of hemicolectomy History of inguinal hernia repair H/O rectal polypectomy History of tonsillectomy History of cholecystectomy Family History Father Medical history unknown Mother Medical history unknown Social History Household Members: Spouse Housing: House Do you presently have visiting nurse or other home services: No Alcohol intake: former Patient Tobacco Use Status: Former Tobacco user Tobacco use type: Cigarette Years Smoked: 37 +/- e-Cigarette/Vaping Use: Never Used Second Hand Smoke Exposure: No service: Yes Current occupational status: retired Current occupational exposures/hazards: No Cognitive needs: Yes (cane) Hearing needs: No Vision needs: Yes (glasses) Review of Systems Const All systems reviewed & are unremarkable except as noted in HPI and below Physical Exam Vital Signs: Last Vital Signs Pulse 90 12/17/23 12:57 BP 130/76 12/17/23 12:57 Pulse Ox 98 12/17/23 12:57 Oxygen Delivery Method Room Air 12/17/23 12:57 BMI result Body Mass Index 28.4 Const General: cooperative, healthy appearing, comfortable, no acute distress and well developed Orientation/consciousness: patient oriented x3 Limitations: no limitations Resp Effort & Inspection: normal respiratory effort and able to speak in complete sentences Skin Other: No rash noted. Stage I pressure ulcer noted to bilateral coccyx area. No dis charge noted Neuro General: patient oriented x3 Assessment & Plan Assessment & Plan (1) Pressure ulcer: Code(s): L89.90 - Pressure ulcer of unspecified site, unspecified stage Qualifiers: Pressure injury location: sacral region Pressure injury stage: stage 1 Qualified Code(s): L89.151 - Pressure ulcer of sacral region, stage 1 Plan: Advised adequate nutrition and hydration. Advised offloading pressure at least hourly. Advised follow up with PCP with worsening or failure to resolve. Plan See above for full details and plan. Advised also keeping skin clean and dry chronic urinary incontinence. Reviewed multiple methods to facilitate this. Coding Level of Care Code Est Pt Level 3 (18312) Diagnoses Pressure injury of sacral region, stage 1 L89.151 Pressure injury location: sacral region Pressure injury stage: stage 1
[2023-12-17 12:57] VITALS: BP 130/76; PULSE 90; O2SAT 98; BMI 28.4
== END 2023-12-17 13:53 | disposition home or self-care (01) ==
PROVIDERS: PCP Internal Medicine; Visit Provider Registered Nurse
DX: L89.151 Pressure ulcer of sacral region, stage 1 (principal)

== ENCOUNTER → 2023-12-17 12:32 | Outpatient (BNVA) | payer MEDICARE, OTHER, SELFPAY | PROVIDERS: PCP Internal Medicine | DX: L89.151 Pressure ulcer of sacral region, stage 1 (principal) | CPT/HCPCS: 99212 ==

== ENCOUNTER 2024-02-03 16:12 | Inpatient (IN) | payer MEDICARE, OTHER, SELFPAY ==
--- NOTE | ~2024-02-03 | XR_ITS ---
EXAMINATION: XR CHEST CLINICAL INFORMATION: Shortness of breath COMPARISON: Chest CT on 07/24/2021 TECHNIQUE: Frontal view of the chest was obtained. FINDINGS: No significant abnormality is noted involving the heart, lungs, mediastinum, bony thorax or soft tissues. XR/XR chest 1V IMPRESSION: Unremarkable examination. Electronically signed by: Nelly Mejia MD 02/03/2024 05:50 PM EST
--- NOTE | ~2024-02-03 | US_ITS ---
EXAMINATION: US RETROPERITONEAL LIMITED (RENAL ONLY) CLINICAL INFORMATION: Acute kidney injury versus chronic kidney disease. COMPARISON: CT abdomen and pelvis 02/03/2024. X-ray abdomen 01/15/2012. TECHNIQUE: Real-time imaging of the kidneys. Limited visualization due to bowel gas. FINDINGS: RIGHT KIDNEY: 12.0 x 4.5 x 4.8 cm (SAG x AP x TRV). Increased renal echogenicity. No hydronephrosis. No renal calculi. Limited visualization. 4.5 cm upper pole cyst with benign features. There is no indication for follow-up imaging. Additional smaller cysts. LEFT KIDNEY: 9.7 x 6.2 x 4.0 cm (SAG x AP x TRV). Increased renal echogenicity. No hydronephrosis. No renal calculi. Limited visualization. 1.7 lower pole cyst with benign features. There is no indication for follow-up imaging. Additional smaller cysts. US/US renal BI IMPRESSION: Increased renal echogenicity. No hydronephrosis. No renal calculi. Limited visualization. Electronically signed by: Olena Manzo MD 02/06/2024 09:37 AM EST
--- NOTE | ~2024-02-03 | XR_ITS ---
EXAMINATION: XR CHEST CLINICAL INFORMATION: Shortness of breath COMPARISON: 02/03/24 TECHNIQUE: Frontal view of the chest was obtained. FINDINGS: Bilateral small pleural effusions appear increased in size since prior. There is some mild increased patchy density seen at the right lung base when compared to the prior. There is bibasilar atelectasis. Heart size within normal limits. XR/XR chest 1V IMPRESSION: Increasing size of bilateral pleural effusions with slight increase in patchy density at the right lung base. Electronically signed by: Dean Fernández MD 02/04/2024 06:22 PM ELIANA
--- NOTE | ~2024-02-03 | CT_ITS ---
EXAMINATION: CT ABDOMEN AND PELVIS WITHOUT CONTRAST CLINICAL INFORMATION: Pain. Question small bowel obstruction. COMPARISON: None available. TECHNIQUE: Following administration of oral contrast only, multidetector volumetric imaging was performed from the superior aspect of the liver through the pubic symphysis. Sagittal and coronal reformatted images were obtained on the technologist's workstation. This CT examination was performed using dose optimization techniques as appropriate, variously including the following: *Automated exposure control *Adjustment of mA and/or kV according to patient size (this includes techniques or standardized protocols for targeted exams where dose is matched to indication/reason for exam; i.e. extremities or head) *Use of iterative reconstruction technique DLP: 1082 mGy-cm FINDINGS: LUNG BASES: Small bilateral pleural effusions with associated atelectasis. Heart normal in size. Coronary arterial calcification. No pericardial effusion. LIVER, GALLBLADDER, AND BILIARY TREE: The liver appears unremarkable in size, shape, and attenuation. No focal hepatic lesion or biliary ductal dilatation is appreciated. Gallbladder not visualized, suggesting prior surgical removal. PANCREAS: Unremarkable SPLEEN: Mild splenomegaly measuring approximately 13 cm in sagittal dimension, having measured approximately 12.8 cm on July 24, 2021, by my measurements. ADRENAL GLANDS: Unremarkable KIDNEYS AND URETERS/BLADDER: Diffuse thickening of the wall the urinary bladder, as previously seen. 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 0.2 cm calcification within the dependent portion of the urinary bladder toward the left (image 74, series 3), probably also present on prior study from July 24, 2021. Approximately 4.5 cm, exophytic, posterior benign right simple renal cyst for which no further dedicated follow-up imaging as indicated, unchanged. The kidneys otherwise appear unremarkable in size, shape, and attenuation. Mild right hydronephrosis and hydroureter to the level of the UVJ, new. No stone directly visualized in this region. No hydronephrosis or hydroureter identified on the left. No radiopaque stone identified on either side. GASTROINTESTINAL TRACT/ABDOMINAL WALL: The right lateral abdomen is cut off the images, limiting evaluation of portions of the abdominal wall and bowel. Large (roughly 20 cm) right lateral anterior abdominal wall hernia containing large and small bowel, similar to slightly larger compared with July 24, 2021. Approximately 3 cm umbilical hernia containing only fat. Few diverticula involving the descending and sigmoid colon, without evidence of diverticulitis. No evidence of intestinal obstruction. LYMPH NODES: No evidence of adenopathy by size criteria. VASCULAR: Unremarkable PELVIC VISCERA: Moderately enlarged prostate. OSSEOUS STRUCTURES: Borderline decreased bone mineral density. 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 CT/CT abdomen pelvis wo IV con IMPRESSION: Large (roughly 20 cm) right lateral anterior abdominal wall hernia containing large and small bowel, similar to slightly larger compared with July 24, 2021. No evidence of intestinal obstruction. Approximately 3 cm umbilical hernia containing only fat. Enlarged prostate. Diffuse thickening of the wall the urinary bladder, as previously seen, suggesting muscular hypertrophy; superimposed cystitis or neoplastic involvement cannot be confirmed or excluded. Mild right hydronephrosis and hydroureter to the level of the UVJ, new compared with July 24, 2021. No stone directly visualized in this region. 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 Small bilateral pleural effusions with associated atelectasis. Additional findings, as above. Electronically signed by: Jose M Diop MD 02/03/2024 07:51 PM EST
[2024-02-03 16:24] VITALS: BP 168/61; BP 178/89; PULSE 103; PULSE 110; RESP 30; TEMP 39.3; O2SAT 96; O2SAT 98; BMI 28.3
--- NOTE | 2024-02-03 16:41 | ECG_ITS ---
Test Reason : tachy Blood Pressure : / mmHG Vent. 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
[2024-02-03 16:45] LABS: MANUAL DIFF FLAG NO
[2024-02-03 16:57] LABS: Lactic Acid 1.7 mmol/L (0.5-2.0)
[2024-02-03 16:59] LABS: INTERNATIONAL NORM RATIO 1.3 (0.9-1.1); Prothrombin Time 15.7 SEC (10.9-12.4)
[2024-02-03] MEDS: Acetaminophen 325 MG TABLET 975 MG PO (16:59)
[2024-02-03] MEDS: SODIUM CHLORIDE 2532 ML IV (17:01)
[2024-02-03 17:02] LABS: Alanine Aminotransferase 11 U/L (0-40); Albumin Level 3.5 g/dL (3.5-5.0); Alkaline Phosphatase 72 U/L (39-117); Anion Gap 13 (12-20); Aspartate Amino Transferase 23 U/L (5-37); Bilirubin Direct 0.2 mg/dL (0.0-0.5); Bilirubin Total 0.5 mg/dL (0.0-1.0); Blood Urea Nitrogen 24 mg/dL (9-16); Calcium 9.6 mg/dL (8.4-10.2); Carbon Dioxide 22 mmol/L (22-29); Chloride 109 mmol/L (96-108); Estimated Glomerular Filt Rate 38; Glucose Random 136 mg/dL (60-115); Lipase 21 U/L (8-78); Magnesium 2.1 mg/dL (1.6-2.6); Potassium 4.4 mmol/L (3.3-5.1); Sodium 140 mmol/L (135-145); Total Protein 7.5 g/dL (6.5-8.0)
[2024-02-03] MEDS: cefTRIAXone sodium 2 GM VIAL IVPUSH (17:02)
[2024-02-03 17:04] LABS: Basophils Percent Auto 0.3 % (0-2); Hemoglobin 9.9 g/dl (14.0-18.0); Imm Gran Abs Auto 0.04 X10*3/uL (0.00-0.03); Imm Gran Pct Auto 0.6 % (0.0-0.4); Lymphocytes Absolute Auto 0.2 X10*3/uL (1.2-4.9); Lymphocytes Percent Auto 3.1 % (20-40); Mean Corpuscular HGB Conc 30.9 g/dl (31.0-36.0); Mean Corpuscular Hemoglobin 24.9 pg (27.0-33.0); Mean Corpuscular Volume 80.4 fL (80.0-98.0); Mean Platelet Volume 10.4 fL (9.4-12.4); Monocytes Absolute Auto 0.4 X10*3/uL (0.1-1.2); Monocytes Percent Auto 6.5 % (2-11); Neutrophils Absolute Auto 5.8 x10*3/uL (2.0-8.3); Neutrophils Percent Auto 89.5 % (45-73); Platelet Count 184 X10*3/uL (160-400); Red Blood Count 3.98 X10*6/uL (4.60-5.80); Red Cell Distribution Width 17.6 % (11.0-16.0); White Blood Count 6.5 X10*3/uL (4.8-10.8)
[2024-02-03] MEDS: Diatrizoate Meglumine, Sodium 30 ML SOLUTION PO (17:09)
[2024-02-03 17:42] LABS: Influenza A PCR NEGATIVE (Negative); Influenza B PCR NEGATIVE (Negative); Resp Syncy Virus RNA Qual PCR NEGATIVE (Negative); SARS COV2 PCR INHOUSE NEGATIVE (Negative)
[2024-02-03 18:00] VITALS: BP 137/49; PULSE 87; RESP 22; TEMP 38.5; O2SAT 98
[2024-02-03 18:38] LABS: Appearance Urine Turbid; Color Urine Yellow; Glucose Urine UA Negative (Negative); Leukocyte Esterase Urine Large (3+) (Negative); Nitrite Urine Negative (Negative); PH 6.5 (5.0-9.0); Specific Gravity - Urine 1.015 (1.005-1.025); UMIC TRIGGER UACC YES; Urine Blood Large (3+) (Negative); Urine Ketones Negative (Negative); Urine Protein 100 (2+) mg/dL (Neg-Trace)
[2024-02-03 18:51] VITALS: BP 133/54; PULSE 91; RESP 16; O2SAT 94
--- NOTE | 2024-02-03 19:05 | PC.NURSE ---
report received from Marie Romero RN, assume care of pt at this time
[2024-02-03 19:12] LABS: Bacteria Urine 2+ (None Seen); Hyaline Casts Urine 0-2 /LPF (0-2); RBC Urine >20 /HPF (0-2); UACC Culture Trigger YES; WBC Urine >50 /HPF (0-5)
[2024-02-03 19:14] VITALS: BP 141/54; PULSE 80; RESP 23; TEMP 37.8; O2SAT 94
[2024-02-03 21:30] VITALS: BP 137/59; PULSE 87; RESP 26; TEMP 37.6; O2SAT 95
--- NOTE | 2024-02-03 22:46 | ED.GENADULT ---
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 Patient's spouse called EMS to the home after her became globally weak, was unable to ambulate at his baseline, and developed shaking chills. When EMS arrived, he was febrile to 102.8. Patient has no physical concerns or complaints at this time. The denies that he has had recent cough or cold symptoms, he has not been actively vomiting or having diarrhea. He is not complaining of dysuria. No known sick contacts. Related Data Home Medications ?Medication ?Instructions ?Recorded ?Confirmed omeprazole 20 mg capsule,delayed 20 mg PO DAILY 07/24/21 12/12/23 release melatonin 5 mg tablet 5 mg PO BEDTIME PRN 09/22/22 12/12/23 Previous Rx's ?Medication ?Instructions ?Recorded famotidine 40 mg tablet 40 mg PO BID #20 tabs 10/27/22 amlodipine 2.5 mg tablet 2.5 mg PO DAILY #90 tabs 03/19/23 metoprolol tartrate 25 mg tablet 25 mg PO BID #100 tabs 04/16/23 apixaban 5 mg tablet (Eliquis) 5 mg PO BID #180 tabs 05/14/23 clotrimazole-betamethasone 1 1 appl topical BID 2 weeks #45 12/06/23 %-0.05 % topical cream grams clotrimazole-betamethasone 1 1 appl topical BID 2 weeks #45 12/06/23 %-0.05 % topical cream grams amoxicillin 500 mg-potassium 1 tab PO BID #10 tabs 12/12/23 clavulanate 125 mg tablet (Augmentin) furosemide 20 mg tablet 20 mg PO DAILY #30 tabs 12/12/23 LIFT RECLINER CHAIR #1 ea 01/03/24 triamcinolone acetonide 0.5 % 1 appl topical TID #60 grams 01/03/24 topical cream Allergies Allergy/AdvReac Type Severity Reaction Status Date / Time No Known Allergies Allergy Unknown Verified 02/03/24 16:27 Review of Systems Review of Systems: Yes all other systems are reviewed and are negative Constitutional: Constitutional: Reports fatigue, Reports fever(s) and Reports weakness Cardiovascular: Cardiovascular: Denies chest pain and Denies dyspnea Respiratory: Respiratory: Denies cough and Denies dyspnea Gastrointestinal: Gastrointestinal: Reports abdominal pain, Denies diarrhea, Denies nausea and Denies vomiting Genitourinary: Genitourinary: Denies dysuria Neurologic: Reports weakness Endocrine: Endocrine: Reports fatigue PMFSH Past Medical History Attestation statement: The following information was validated with the patient. Medical History (Updated 02/03/24 @ 23:43 by MAURICIO Keenan) HTN (hypertension) A-fib Obesity PAF (paroxysmal atrial fibrillation) Hypertension Surgical History History of umbilical hernia repair History of hemicolectomy History of inguinal hernia repair H/O rectal polypectomy History of tonsillectomy History of cholecystectomy Family History Family History Father Medical history unknown Mother Medical history unknown Social History Social History Household Members: Spouse Housing: House Do you presently have visiting nurse or other home services: No Alcohol intake: former Patient Tobacco Use Status: Former Tobacco user Tobacco use type: Cigarette Years Smoked: 37 +/- Smoked in Last 30 Days: No e-Cigarette/Vaping Use: Never Used Second Hand Smoke Exposure: No Use of substances other than those prescribed or required for medical reasons: No Advance Directives: No Advance Directives Information Provided: Yes service: Yes Current occupational status: retired Current occupational exposures/hazards: No Cognitive needs: Yes (cane) Hearing needs: No Vision needs: Yes (glasses) Physical Exam ED Vital Signs: Vital Signs - 24 hr 02/03/24 16:24 02/03/24 18:00 02/03/24 18:51 Temperature 102.8 F H 101.3 F H Pulse Rate 103 H 87 91 Respiratory Rate 30 H 22 H 16 Blood Pressure 168/61 H 137/49 L 133/54 L Pulse Oximetry 98 98 94 Oxygen Delivery Method Room Air Room Air Room Air 02/03/24 19:14 02/03/24 21:30 Temperature 100.0 F 99.6 F Pulse Rate 80 87 Respiratory Rate 23 H 26 H Blood Pressure 141/54 H 137/59 L Pulse Oximetry 94 95 Oxygen Delivery Method Room Air Room Air BMI result Body Mass Index 28.3 Const Other: Awake, ill-appearing Orientation/consciousness: oriented to person and oriented to place HENMT Other: Dry oral mucosa Resp Other: Lungs are clear to auscultation GI Other: Abdomen is somewhat tense over entire left side, tender to palpation left mid to lower abdomen with objective guarding. Large abdominal ventral wall hernia noted, it is soft and reducible nontender, no overlying skin changes, no melena per rectum. the skin over the buttocks is chafed, but not yet ulcerated, no overying erythema to suggest cellulitis Skin Other: Warm dry no rash Neuro Other: Simply globally weak but moves all extremities independently General: oriented to person, oriented to place, no focal motor deficits and CN's II-XI intact bilaterally Psych Other: Cooperative, flat affect Medications Administered Discontinued Medications Generic Name Dose Route Start Last Admin Trade Name Freq PRN Reason Stop Dose Admin Acetaminophen 975 mg 02/03/24 16:45 02/03/24 16:59 Acetaminophen 325 Mg Tablet PO 02/03/24 16:46 975 mg ONCE ONE Administration Ceftriaxone Sodium 2 gm 02/03/24 16:41 02/03/24 17:02 Ceftriaxone Sodium 2 Gm Vial IVPUSH 02/03/24 16:42 2 gm ONCE ONE Administration Diatrizoate Meglum/Diatrizoate Sod 30 ml 02/03/24 17:08 02/03/24 17:09 Diatrizoate Meglumine, Sodium 30 Ml Solution PO 02/03/24 17:09 30 ml ONCE ONE Administration Sodium Chloride 2,532 mls @ 2,532 mls/hr 02/03/24 16:41 02/03/24 18:40 Ns 30 ml/kg infuse over 1 hr (2532 ml) 02/03/24 17:40 Infused IV Infusion .Q1H STA Medical Decision Making Medical Decision Making MDM Narrative: 88-year-old male with a history of 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 Patient's spouse called EMS to the home after her became globally weak, was unable to ambulate at his baseline, and developed shaking chills. When EMS arrived, he was febrile to 102.8. Patient has no physical concerns or complaints at this time. The denies that he has had recent cough or cold symptoms, he has not been actively vomiting or having diarrhea. He is not complaining of dysuria. No known sick contacts. To note, her just completed a course of antibiotics for a urinary tract infection. Problem: Cognitive impairment, age, AFib History: Per patient's primarily I have considered the following differential diagnoses: Sepsis, pneumonia, acute intra-abdominal pathology, viral syndrome, urinary tract infection , strangulated/incarcerated hernia, bowel obstruction Plan: Most concerned for sepsis, to note the patient is hemodynamically stable but is actively febrile. Mildly tachycardic. We will be screening basic labs, blood culture, lactic acid. Obtaining viral panel, chest x-ray, urinalysis. Objectively, he has focal abdominal pain, we will obtain a CT scan. I do not believe he has a bowel obstruction, the large ventral hernia is easily reducible and soft. The pain distribution is separate within the left abdomen. We will start weight based IV fluid, ceftriaxone and Tylenol. I have independently reviewed the following tests: Labs: No leukocytosis, but has left shift, he is anemic but is stable it is new, creatinine suddenly bumped at 1.72, no other electrolyte abnormality, viral panel negative, he is passing blood and white blood cells in his urine, however there was minimal bacteria and no nitrites, could be residual infection, to note he was also catheterized to obtain a urine sample. Lactic acid 1.7 Chest x-ray: XR/XR chest 1V IMPRESSION: Unremarkable examination. Electronically signed by: Nelly Mejia MD 02/03/2024 05:50 PM [facility] EKG: Sinus rhythm, rate of 99, no new ischemic changes , PVCs noted CT abdomen and pelvis: CT/CT abdomen pelvis wo IV con IMPRESSION: Large (roughly 20 cm) right lateral anterior abdominal wall hernia containing large and small bowel, similar to slightly larger compared with July 24, 2021. No evidence of intestinal obstruction. Approximately 3 cm umbilical hernia containing only fat. Enlarged prostate. Diffuse thickening of the wall the urinary bladder, as previously seen, suggesting muscular hypertrophy; superimposed cystitis or neoplastic involvement cannot be confirmed or excluded. Mild right hydronephrosis and hydroureter to the level of the UVJ, new compared with July 24, 2021. No stone directly visualized in this region. 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 Small bilateral pleural effusions with associated atelectasis. Additional findings, as above. Electronically signed by: Jose M Diop MD 02/03/2024 07:51 PM [facility] Lab Data 02/03/24 16:38 02/03/24 16:38 Labs: Lab Results 02/03/24 02/03/24 02/03/24 Range/Units 16:38 16:40 17:00 WBC 6.5 (4.8-10.8) X10*3/uL RBC 3.98 L (4.60-5.80) X10*6/uL Hgb 9.9 L D (14.0-18.0) g/dl Hct 32.0 L D (42.0-52.0) % MCV 80.4 (80.0-98.0) fL MCH 24.9 L (27.0-33.0) pg MCHC 30.9 L (31.0-36.0) g/dl RDW 17.6 H (11.0-16.0) % Plt Count 184 (160-400) X10*3/uL MPV 10.4 (9.4-12.4) fL Immature Gran % (Auto) 0.6 H (0.0-0.4) % Neut % (Auto) 89.5 H (45-73) % Lymph % (Auto) 3.1 L (20-40) % [place] % (Auto) 6.5 (2-11) % Eos % (Auto) 0.0 (0-4) % Baso % (Auto) 0.3 (0-2) % Lymph # (Auto) 0.2 L (1.2-4.9) X10*3/uL [place] # (Auto) 0.4 (0.1-1.2) X10*3/uL Eos # (Auto) 0.0 (0.0-0.4) X10*3/uL Baso # (Auto) 0.0 (0.0-0.2) X10*3/uL Abs Immat Gran (auto) 0.04 H (0.00-0.03) X10*3/uL Absolute Neuts (auto) 5.8 (2.0-8.3) x10*3/uL Absolute Nucleated RBC 0.000 (0.0-0.012) X10*3/uL Nucleated RBC % (auto) 0.0 (0.0-0.2) /100WBC PT 15.7 H (10.9-12.4) SEC INR 1.3 H (0.9-1.1) Sodium 140 (135-145) mmol/L Potassium 4.4 (3.3-5.1) mmol/L Chloride 109 H (96-108) mmol/L Carbon Dioxide 22 (22-29) mmol/L Anion Gap 13 (12-20) BUN 24 H (9-16) mg/dL Creatinine 1.72 H (0.5-1.4) mg/dL Estim Creat Clear Calc 32.0 Estimated GFR 38 Random Glucose 136 H (60-115) mg/dL Lactic Acid 1.7 (0.5-2.0) mmol/L Calcium 9.6 (8.4-10.2) mg/dL Magnesium 2.1 (1.6-2.6) mg/dL Total Bilirubin 0.5 (0.0-1.0) mg/dL Direct Bilirubin 0.2 (0.0-0.5) mg/dL AST 23 (5-37) U/L ALT 11 (0-40) U/L Alkaline Phosphatase 72 (39-117) U/L Total Protein 7.5 (6.5-8.0) g/dL Albumin 3.5 (3.5-5.0) g/dL Lipase 21 (8-78) U/L Urine Color Urine Appearance Urine pH (5.0-9.0) Ur Specific [place] (1.005-1.025) Urine Protein (Neg-Trace) mg/dL Urine Glucose (UA) (Negative) mg/dL Urine Ketones (Negative) mg/dL Urine Blood (Negative) Urine Nitrite (Negative) Ur Leukocyte Esterase (Negative) Urine RBC (0-2) /HPF Urine WBC (0-5) /HPF Ur Squamous Epith Cells (0-2) /HPF Urine Bacteria (None Seen) Hyaline Casts (0-2) /LPF Influenza Type A (PCR) NEGATIVE (Negative) Influenza Type B (PCR) NEGATIVE (Negative) RSV RNA Qual (PCR) NEGATIVE (Negative) SARS-CoV-2 RNA (RT-PCR) NEGATIVE (Negative) 02/03/24 Range/Units 18:15 WBC (4.8-10.8) X10*3/uL RBC (4.60-5.80) X10*6/uL Hgb (14.0-18.0) g/dl Hct (42.0-52.0) % MCV (80.0-98.0) fL MCH (27.0-33.0) pg MCHC (31.0-36.0) g/dl RDW (11.0-16.0) % Plt Count (160-400) X10*3/uL MPV (9.4-12.4) fL Immature Gran % (Auto) (0.0-0.4) % Neut % (Auto) (45-73) % Lymph % (Auto) (20-40) % [place] % (Auto) (2-11) % Eos % (Auto) (0-4) % Baso % (Auto) (0-2) % Lymph # (Auto) (1.2-4.9) X10*3/uL [place] # (Auto) (0.1-1.2) X10*3/uL Eos # (Auto) (0.0-0.4) X10*3/uL Baso # (Auto) (0.0-0.2) X10*3/uL Abs Immat Gran (auto) (0.00-0.03) X10*3/uL Absolute Neuts (auto) (2.0-8.3) x10*3/uL Absolute Nucleated RBC (0.0-0.012) X10*3/uL Nucleated RBC % (auto) (0.0-0.2) /100WBC PT (10.9-12.4) SEC INR (0.9-1.1) Sodium (135-145) mmol/L Potassium (3.3-5.1) mmol/L Chloride (96-108) mmol/L Carbon Dioxide (22-29) mmol/L Anion Gap (12-20) BUN (9-16) mg/dL Creatinine (0.5-1.4) mg/dL Estim Creat Clear Calc Estimated GFR Random Glucose (60-115) mg/dL Lactic Acid (0.5-2.0) mmol/L Calcium (8.4-10.2) mg/dL Magnesium (1.6-2.6) mg/dL Total Bilirubin (0.0-1.0) mg/dL Direct Bilirubin (0.0-0.5) mg/dL AST (5-37) U/L ALT (0-40) U/L Alkaline Phosphatase (39-117) U/L Total Protein (6.5-8.0) g/dL Albumin (3.5-5.0) g/dL Lipase (8-78) U/L Urine Color Yellow Urine Appearance Turbid Urine pH 6.5 (5.0-9.0) Ur Specific [place] 1.015 (1.005-1.025) Urine Protein 100 (2+) H (Neg-Trace) mg/dL Urine Glucose (UA) Negative (Negative) mg/dL Urine Ketones Negative (Negative) mg/dL Urine Blood Large (3+) H (Negative) Urine Nitrite Negative (Negative) Ur Leukocyte Esterase Large (3+) H (Negative) Urine RBC >20 H (0-2) /HPF Urine WBC >50 H (0-5) /HPF Ur Squamous Epith Cells 6-10 (0-2) /HPF Urine Bacteria 2+ (None Seen) Hyaline Casts 0-2 (0-2) /LPF Influenza Type A (PCR) (Negative) Influenza Type B (PCR) (Negative) RSV RNA Qual (PCR) (Negative) SARS-CoV-2 RNA (RT-PCR) (Negative) Discharge Plan Discharge Clinical Impression: Fever, Anemia, Weakness Patient Disposition: Admitted As Inpatient Prescriptions: No Action amlodipine 2.5 mg tablet 2.5 mg PO DAILY Qty: 90 3RF metoprolol tartrate 25 mg tablet 25 mg PO BID Qty: 100 3RF Eliquis 5 mg tablet 5 mg PO BID Qty: 180 5RF clotrimazole-betamethasone 1-0.05 % cream 1 appl topical BID 14 Days Qty: 45 2RF clotrimazole-betamethasone 1-0.05 % cream 1 appl topical BID 14 Days Qty: 45 2RF triamcinolone acetonide 0.5 % cream 1 appl topical TID Qty: 60 3RF (DME) LIFT RECLINER CHAIR See Rx Instructions .Route .MEDSUPPLY Qty: 1 0RF Rx Instructions: As directed omeprazole 20 mg capsule,delayed release(DR/EC) 20 mg PO DAILY melatonin 5 mg tablet 5 mg PO BEDTIME PRN famotidine 40 mg tablet 40 mg PO BID Qty: 20 0RF furosemide 20 mg tablet 20 mg PO DAILY Qty: 30 3RF amoxicillin-pot clavulanate [Augmentin] 500-125 mg tablet 1 tab PO BID Qty: 10 0RF Print Language: Tunisian
--- NOTE | 2024-02-03 23:20 | PC.NURSE ---
report given to Elizabet LEON
[2024-02-03 23:39] VITALS: BP 144/67; PULSE 91; RESP 22; TEMP 36.9; O2SAT 95
--- NOTE | 2024-02-03 23:44 | P.HPHOSP_ITS ---
History of Present Illness Date of Service: 02/03/24 Attending physician on admission: Yamil Barreto Chief Complaint: Fatigue Gareth Malik is a very pleasant 88 years with past medical history for AFib, essential hypertension and GERD was brought to the ED via EMS after he felt extremely weak and unable to get out of the couch. He denied any headache, acute visual disturbances, palpitations, chest pain, shortness on breath, abdominal pain, nausea or vomiting. He mentioned that he has had nonbloody diarrhea that stopped several days ago. Sometimes he noted blood thinners toilet paper. He denied pain with urination, back pain or blood in urine. He said that he is taking antibiotics (cefpodoxime) for recently diagnosed UTI. In the ED, he was found to have fever of 102.8 and tachycardia. There is also tachypnea. Blood pressure has been stable. Last blood pressure 137/59. Oxygen saturation is normal on room air. Blood workup showed no leukocytosis. Hemoglobin is 9.9 (it was 13.7 before -a year ago). INR is 1.3. There is no lactic acidosis. There are no significant electrolyte imbalances. Creatinine is 1.72 and BUN 24. Glucose 136. Viral testing for COVID-19, influenza and RSV is negative. ECG normal sinus rhythm, PACs and first-degree AV block. CXR is negative. Abdomen pelvis CT scan showed large right lateral anterior abdominal wall hernia containing large and small bowel similar to slightly larger compared to July 2021, mild right hydronephrosis and hydroureter to the level of IVJ, bladder diverticulum, small bilateral pleural effusions with associated atelectasis and enlarged prostate with diffuse thickening of the wall of the urinary bladder. ED tx: Ceftriaxone 2 g IV, acetaminophen 975 mg PO, NS 2532 mL bolus. Review of Systems 2 Review of Systems: All 12 systems were reviewed and normal except as noted in HPI. [facility] Medical History (Updated 02/04/24 @ 00:26 by Yamil Barreto MD) Urinary tract infection HTN (hypertension) A-fib Obesity PAF (paroxysmal atrial fibrillation) Hypertension Family History Father Medical history unknown Mother Medical history unknown Surgical History History of umbilical hernia repair History of hemicolectomy History of inguinal hernia repair H/O rectal polypectomy History of tonsillectomy History of cholecystectomy Social History Household Members: Spouse Housing: House Do you presently have visiting nurse or other home services: No Alcohol intake: former Patient Tobacco Use Status: Former Tobacco user Tobacco use type: Cigarette Years Smoked: 37 +/- Smoked in Last 30 Days: No e-Cigarette/Vaping Use: Never Used Second Hand Smoke Exposure: No Use of substances other than those prescribed or required for medical reasons: No Advance Directives: No Advance Directives Information Provided: Yes service: Yes Current occupational status: retired Current occupational exposures/hazards: No Cognitive needs: Yes (cane) Hearing needs: No Vision needs: Yes (glasses) Meds Allergies Allergy/AdvReac Type Severity Reaction Status Date / Time No Known Allergies Allergy Unknown Verified 02/03/24 16:27 Active Medications: Current Medications Acetaminophen (Acetaminophen 325 Mg Tablet) 975 mg PO Q6H PRN PRN Reason: Pain, Mild (Pain Scale 1-3), fever or headache Enoxaparin Sodium (Enoxaparin Sodium 30 Mg/0.3 Ml Syringe) 30 mg SUBCUT Q24H GAIL Sodium Chloride (0.9 % Sodium Chloride Flush 3 Ml Syringe) 3 ml IVFLUSH QSHIFT [facility] Home Medications ?Medication ?Instructions ?Recorded ?Confirmed ?Last Taken ?Type omeprazole 20 mg capsule,delayed 20 mg PO DAILY 07/24/21 12/12/23 Unknown History release melatonin 5 mg tablet 5 mg PO BEDTIME PRN 09/22/22 12/12/23 Unknown History Physical Exam 2 Vital Signs and Narrative: Vital Signs: Last Vital Signs Temp 99.6 F 02/03/24 21:30 Pulse 87 02/03/24 21:30 Resp 26 H 02/03/24 21:30 BP 137/59 L 02/03/24 21:30 Pulse Ox 95 02/03/24 21:30 O2 Del Method Room Air 02/03/24 21:30 BMI result Body Mass Index 28.3 Constitutional - Awake and Alert, No apparent distress. Pleasant. Cooperative. Afebrile. HEENT - PER, EOMI. Normal sclerae. Dry oral mucosa. Heart - Irregular rhythm, normal rate. (+) murmur. Lungs - Normal lung expansion, Normal respiratory effort, No respiratory distress, CTA bilaterally Abdomen - NT / ND; +BS; No rebound or guarding Extremities - No calf tenderness bilaterally, no swelling Musculoskeletal - Normal inspection, normal ROM Skin - Warm/Dry Neurological - Alert & oriented x3. No focal weakness grossly noted. Normal speech. Answering questions appropriately. Following commands. Psychological - Appropriate affect Results Labs 02/03/24 16:38 02/03/24 16:38 Labs: Laboratory Results - last 24 hr 02/03/24 02/03/24 02/03/24 16:38 16:40 17:00 MCV 80.4 MCH 24.9 L MCHC 30.9 L RDW 17.6 H Plt Count 184 MPV 10.4 Immature Gran % (Auto) 0.6 H Neut % (Auto) 89.5 H Lymph % (Auto) 3.1 L [place] % (Auto) 6.5 Eos % (Auto) 0.0 Baso % (Auto) 0.3 Lymph # (Auto) 0.2 L [place] # (Auto) 0.4 Eos # (Auto) 0.0 Baso # (Auto) 0.0 Abs Immat Gran (auto) 0.04 H Absolute Neuts (auto) 5.8 Absolute Nucleated RBC 0.000 Nucleated RBC % (auto) 0.0 PT 15.7 H INR 1.3 H Anion Gap 13 Estim Creat Clear Calc 32.0 Estimated GFR 38 Random Glucose 136 H Lactic Acid 1.7 Calcium 9.6 Magnesium 2.1 Total Bilirubin 0.5 Direct Bilirubin 0.2 AST 23 ALT 11 Alkaline Phosphatase 72 Total Protein 7.5 Albumin 3.5 Lipase 21 Urine Color Urine Appearance Urine pH Ur Specific [place] Urine Protein Urine Glucose (UA) Urine Ketones Urine Blood Urine Nitrite Ur Leukocyte Esterase Urine RBC Urine WBC Ur Squamous Epith Cells Urine Bacteria Hyaline Casts Influenza Type A (PCR) NEGATIVE Influenza Type B (PCR) NEGATIVE RSV RNA Qual (PCR) NEGATIVE SARS-CoV-2 RNA (RT-PCR) NEGATIVE 02/03/24 18:15 MCV MCH MCHC RDW Plt Count MPV Immature Gran % (Auto) Neut % (Auto) Lymph % (Auto) [place] % (Auto) Eos % (Auto) Baso % (Auto) Lymph # (Auto) [place] # (Auto) Eos # (Auto) Baso # (Auto) Abs Immat Gran (auto) Absolute Neuts (auto) Absolute Nucleated RBC Nucleated RBC % (auto) PT INR Anion Gap Estim Creat Clear Calc Estimated GFR Random Glucose Lactic Acid Calcium Magnesium Total Bilirubin Direct Bilirubin AST ALT Alkaline Phosphatase Total Protein Albumin Lipase Urine Color Yellow Urine Appearance Turbid Urine pH 6.5 Ur Specific [place] 1.015 Urine Protein 100 (2+) H Urine Glucose (UA) Negative Urine Ketones Negative Urine Blood Large (3+) H Urine Nitrite Negative Ur Leukocyte Esterase Large (3+) H Urine RBC >20 H Urine WBC >50 H Ur Squamous Epith Cells 6-10 Urine Bacteria 2+ Hyaline Casts 0-2 Influenza Type A (PCR) Influenza Type B (PCR) RSV RNA Qual (PCR) SARS-CoV-2 RNA (RT-PCR) Imaging Radiologist's Impressions: Impressions Chest X-Ray 02/03/24 17:19 IMPRESSION: Unremarkable examination. Electronically signed by: Nelly Mejia MD 02/03/2024 05:50 PM EST RP Abdomen/Pelvis CT 02/03/24 18:59 IMPRESSION: Large (roughly 20 cm) right lateral anterior abdominal wall hernia containing large and small bowel, similar to slightly larger compared with July 24, 2021. No evidence of intestinal obstruction. Approximately 3 cm umbilical hernia containing only fat. Enlarged prostate. Diffuse thickening of the wall the urinary bladder, as previously seen, suggesting muscular hypertrophy; superimposed cystitis or neoplastic involvement cannot be confirmed or excluded. Mild right hydronephrosis and hydroureter to the level of the UVJ, new compared with July 24, 2021. No stone directly visualized in this region. 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 Small bilateral pleural effusions with associated atelectasis. Additional findings, as above. Electronically signed by: Jose M Diop MD 02/03/2024 07:51 PM EST RP Assessment and Plan (1) Fever: Qualifiers: Fever type: unspecified Qualified Code(s): R50.9 - Fever, unspecified Status: Acute (2) PAF (paroxysmal atrial fibrillation): Status: Acute (3) UTI (urinary tract infection): Qualifiers: Urinary tract infection type: acute cystitis Hematuria presence: w ithout hematuria Qualified Code(s): N30.00 - Acute cystitis without hematuria Status: Acute (4) SIRS (systemic inflammatory response syndrome): Status: Acute (5) Chronic GERD: Status: Acute (6) A-fib: Qualifiers: Atrial fibrillation type: unspecified Qualified Code(s): I48.91 - Unspecified atrial fibrillation Status: Acute Plan Gareth Malik is a 88 y/o admitted with: * SIRS criteria: Tachycardia and fever, no severe sepsis criteria; in the setting of urinary tract infection. Admit to hospitalist service. Continue empiric IV antibiotic therapy with ceftriaxone. Urine and blood cultures obtained -we will follow results. * Worsening anemia (13.7-->9.9). Hold Eliquis for now. Start treatment with Protonix 40 mg IV twice daily. Check for occult blood in stools (rectal exam per ED showed brown stools). Continue to monitor hemoglobin. Check anemia workup. To consider GI consult. * Renal insufficiency, worsening. ?GI bleeding, dehydration due to diuretics (furosemide)? Hold furosemide. IVFs given in ED. continue to monitor. * Atrial fibrillation, currently rate controlled. Eliquis on hold due to worsening anemia. Taking rate control agents? * Essential hypertension. Continue metoprolol and amlodipine (to start in am if BP allows). * GERD. Continue PPI. * BPH. Continue terazosin if taking it at home. *Pt unable to recall the name of his meds, awaiting for pharmacy to complete med rec. Patient will need hospitalization for at least 2 midnights for sirs/sepsis (not severe sepsis) due to UTI management with empiric IV antibiotic therapy and IV fluids. Quality Stroke Does the patient have a stroke diagnosis?: No VTE Prior VTE?: No VTE Risk Level:: Medical - moderate - high VTE Device Contraindication: N/A - Device Ordered VTE Drug Contraindication: N/A - Med Ordered
[2024-02-04] VITALS (11 sets, daily range): BP systolic 134–182; BP diastolic 50–80; PULSE 68–100; RESP 16–22; TEMP 36.5–38; O2SAT 95–99; BMI 28.5
--- NOTE | 2024-02-04 | PC.NURSE ---
This keno writer/runner assumed care of this Pt at 2300. Pt A&Ox3, forgetful at times, denies any pain. 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 Pt incontinent of urine, [place] cath placed, buttocks is chafed. Pt reports he ambulates with walker.
[2024-02-04] MEDS: Pantoprazole Sodium 40 MG/10 ML VIAL IVPUSH ×2 (00:57→17:16)
[2024-02-04] MEDS: 0.9 % Sodium Chloride Flush 3 ML SYRINGE IVFLUSH ×3 (00:57→17:16)
--- NOTE | 2024-02-04 04:30 | PC.NURSE ---
Pt incontinent of urine. Pt changed and repositioned. [place] cath applied.
[2024-02-04 04:49] LABS: MANUAL DIFF FLAG NO
[2024-02-04 04:50] LABS: Basophils Percent Auto 0.3 % (0-2); Hematocrit 31.4 % (42.0-52.0); Hemoglobin 9.5 g/dl (14.0-18.0); Imm Gran Abs Auto 0.04 X10*3/uL (0.00-0.03); Imm Gran Pct Auto 0.6 % (0.0-0.4); Immature Retic Fraction 25.5 % (2.3-13.4); Lymphocytes Absolute Auto 0.6 X10*3/uL (1.2-4.9); Mean Corpuscular HGB Conc 30.3 g/dl (31.0-36.0); Mean Corpuscular Hemoglobin 24.5 pg (27.0-33.0); Mean Corpuscular Volume 80.9 fL (80.0-98.0); Mean Platelet Volume 10.5 fL (9.4-12.4); Monocytes Absolute Auto 0.6 X10*3/uL (0.1-1.2); Monocytes Percent Auto 9.2 % (2-11); Neutrophils Absolute Auto 5.1 x10*3/uL (2.0-8.3); Neutrophils Percent Auto 80.9 % (45-73); Platelet Count 161 X10*3/uL (160-400); Red Blood Count 3.88 X10*6/uL (4.60-5.80); Red Cell Distribution Width 17.9 % (11.0-16.0); Retic HGB Equivalent 25.9 pg (30.0-35.0); Reticulocytes Absolute 0.079 X10*6/uL (0.026-0.095); White Blood Count 6.3 X10*3/uL (4.8-10.8)
[2024-02-04 05:13] LABS: Anion Gap 14 (12-20); Blood Urea Nitrogen 20 mg/dL (9-16); Calcium 9.1 mg/dL (8.4-10.2); Carbon Dioxide 21 mmol/L (22-29); Chloride 110 mmol/L (96-108); Creatinine Clr Calc Pharmacy 36.4; Estimated Glomerular Filt Rate 44; Glucose Random 120 mg/dL (60-115); Iron 19 mcg/dL (45-160); Magnesium 2.1 mg/dL (1.6-2.6); Percent Iron Saturation 9 % (15-50); Potassium 4.5 mmol/L (3.3-5.1); Sodium 140 mmol/L (135-145); Total Iron Binding Capacity 217 mcg/dL (228-428); Unsaturated Iron Binding 198 ug/dL
[2024-02-04 05:27] LABS: Ferritin 56 ng/mL (20-250)
[2024-02-04 05:41] LABS: Folate 14.3 ng/mL (> or = 4.0); Vitamin B12 437 pg/mL (200-900)
[2024-02-04] MEDS: Acetaminophen 325 MG TABLET 975 MG PO (05:43)
--- NOTE | 2024-02-04 08:59 | PC.NURSE ---
patient remains alert and oriented w/ even and unlabored respirations. tex[place] cath remains in place. patient denies any pain. ate breakfast, cleaned and repositioned in bed. awake and watching tv. awaiting bed assignment.
--- NOTE | 2024-02-04 10:14 | PHA.MEDREC ---
Addendum entered by Jose Ventura RPh 02/04/24 10:34: Reviewed by [facility]. Pt completed cefpodoxime course. Original Note: Pharmacy Consult ? Medication Reconciliation Pharmacy has completed the medication reconciliation. Tried calling spouse phone number on file but no voicemail box set up. I went and spoke with patient and he stated he couldn't help with confirming medications but stated his was at their daughters house for the time being and that they could help. I got his daughter Odalis's phone number ([phone]) and called and spoke with Odalis and patient who was able to confirm the patient's medications. The patient and patient confirmed he last took his medications yesterday morning.
--- NOTE | 2024-02-04 10:49 | PC.NURSE ---
patient ambulated w/ walker to the bathroom w/ steady gait.
--- NOTE | 2024-02-04 12:37 | P.PNIM_ITS ---
Subjective Subjective Date of Service: 02/04/24 Interval History: harper,uti ,anemia Review of Systems patient says he has urinary frequency no fevers denies any sujit blood in stool Physical Exam 2 Vital Signs: Vital Signs: Last Vital Signs Temp 97.7 F 02/04/24 11:11 Pulse 85 02/04/24 11:11 Resp 16 02/04/24 11:11 BP 147/73 H 02/04/24 11:11 Pulse Ox 97 02/04/24 11:11 O2 Del Method Room Air 02/04/24 11:11 BMI result Body Mass Index 28.3 Appearance: Alert.? Oriented X3.? cvs: rrr, [id number] . res: air entry seems somewhat diminshed ,has few rales at bases , faint scattered wheezing abd: no rebound or guarding ,nt, bs present. ext pulses present , no cyanosis. neuro: axo3 , nonfocal. Objective Data Active Medications Acetaminophen (Acetaminophen 325 Mg Tablet) 975 mg PO Q6H PRN PRN Reason: Pain, Mild (Pain Scale 1-3), fever or headache Last Admin: 02/04/24 05:43 Dose: 975 mg Documented By: ADEEL Amlodipine Besylate (Amlodipine Besylate 2.5 Mg Tablet) 2.5 mg PO DAILY GAIL; Protocol Apixaban (Apixaban 5 Mg Tablet) 5 mg PO BID GAIL Bisacodyl (Bisacodyl 10 Mg Supp.Rect) 10 mg NV DAILY PRN PRN Reason: Constipation Ceftriaxone Sodium (Ceftriaxone Sodium 1 Gm Vial) 1 gm IVPUSH Q24H GAIL Loratadine (Loratadine 10 Mg Tablet) 10 mg PO DAILY GAIL Magnesium Hydroxide (Milk Of Magnesia 30 Ml Oral.Susp) 5 ml PO DAILY PRN PRN Reason: Constipation Multivitamins/Vitamin C (Multivitamin Tablet) 1 tab PO DAILY GAIL Non-Formulary Medication (Clotrimazole-Betamethasone) 1 appl TOPICAL BID PRN PRN Reason: Infection Non-Formulary Medication (Melatonin) 5 mg PO BEDTIME PRN PRN Reason: Sleep Non-Formulary Medication (Terazosin) 2 mg PO BEDTIME GAIL Omeprazole (Omeprazole 20 Mg Capsule.Dr) 20 mg PO DAILY@0630 GAIL Pantoprazole Sodium (Pantoprazole Sodium 40 Mg/10 Ml Vial) 40 mg IVPUSH BID@0630,1630 [facility] Last Admin: 02/04/24 00:57 Dose: 40 mg Documented By: URBANOANCole Sodium Biphosphate/Sodium Phosphate (Sodium Phosphate,Alexander-Dibasic 133 Ml Enema) 118 ml NV DAILY PRN PRN Reason: Constipation Sodium Chloride (0.9 % Sodium Chloride Flush 3 Ml Syringe) 3 ml IVFLUSH QSHIFT [facility] Last Admin: 02/04/24 08:52 Dose: 3 ml Documented By: KODY Labs 02/04/24 13:50 02/04/24 13:50 Labs: Laboratory Results - last 24 hr 02/03/24 02/03/24 02/03/24 16:38 16:40 17:00 MCV 80.4 MCH 24.9 L MCHC 30.9 L RDW 17.6 H Plt Count 184 MPV 10.4 Immature Gran % (Auto) 0.6 H Neut % (Auto) 89.5 H Lymph % (Auto) 3.1 L Alexander % (Auto) 6.5 Eos % (Auto) 0.0 Baso % (Auto) 0.3 Lymph # (Auto) 0.2 L Alexander # (Auto) 0.4 Eos # (Auto) 0.0 Baso # (Auto) 0.0 Abs Immat Gran (auto) 0.04 H Absolute Neuts (auto) 5.8 Absolute Nucleated RBC 0.000 Nucleated RBC % (auto) 0.0 Absolute Retic Percent Retic Immature Retic Fraction Retic Hgb Equivalent PT 15.7 H INR 1.3 H Anion Gap 13 Estim Creat Clear Calc 32.0 Estimated GFR 38 Random Glucose 136 H Lactic Acid 1.7 Calcium 9.6 Magnesium 2.1 Iron TIBC % Saturation Unsat Iron Binding Ferritin Total Bilirubin 0.5 Direct Bilirubin 0.2 AST 23 ALT 11 Alkaline Phosphatase 72 Total Protein 7.5 Albumin 3.5 Lipase 21 Vitamin B12 Folate Urine Color Urine Appearance Urine pH Ur Specific [place] Urine Protein Urine Glucose (UA) Urine Ketones Urine Blood Urine Nitrite Ur Leukocyte Esterase Urine RBC Urine WBC Ur Squamous Epith Cells Urine Bacteria Hyaline Casts Influenza Type A (PCR) NEGATIVE Influenza Type B (PCR) NEGATIVE RSV RNA Qual (PCR) NEGATIVE SARS-CoV-2 RNA (RT-PCR) NEGATIVE 02/03/24 02/04/24 02/04/24 18:15 04:43 04:44 MCV 80.9 MCH 24.5 L MCHC 30.3 L RDW 17.9 H Plt Count 161 MPV 10.5 Immature Gran % (Auto) 0.6 H Neut % (Auto) 80.9 H Lymph % (Auto) 9.0 L Alexander % (Auto) 9.2 Eos % (Auto) 0.0 Baso % (Auto) 0.3 Lymph # (Auto) 0.6 L Alexander # (Auto) 0.6 Eos # (Auto) 0.0 Baso # (Auto) 0.0 Abs Immat Gran (auto) 0.04 H Absolute Neuts (auto) 5.1 Absolute Nucleated RBC 0.000 Nucleated RBC % (auto) 0.0 Absolute Retic 0.079 Percent Retic 2.0 H Immature Retic Fraction 25.5 H Retic Hgb Equivalent 25.9 L PT INR Anion Gap 14 Estim Creat Clear Calc 36.4 Estimated GFR 44 Random Glucose 120 H Lactic Acid Calcium 9.1 Magnesium 2.1 Iron 19 L TIBC 217 L % Saturation 9 L Unsat Iron Binding 198 Ferritin 56 Total Bilirubin Direct Bilirubin AST ALT Alkaline Phosphatase Total Protein Albumin Lipase Vitamin B12 437 Folate 14.3 Urine Color Yellow Urine Appearance Turbid Urine pH 6.[address] [place] 1.015 Urine Protein 100 (2+) H Urine Glucose (UA) Negative Urine Ketones Negative Urine Blood Large (3+) H Urine Nitrite Negative Ur Leukocyte Esterase Large (3+) H Urine RBC >20 H Urine WBC >50 H Ur Squamous Epith Cells 6-10 Urine Bacteria 2+ Hyaline Casts 0-2 Influenza Type A (PCR) Influenza Type B (PCR) RSV RNA Qual (PCR) SARS-CoV-2 RNA (RT-PCR) Microbiology Microbiology Results: Microbiology 02/03/24 Unknown Urine Culture - Preliminary Urine clean catch No growth to date. Assessment and Plan (1) UTI (urinary tract infection): Status: Acute (2) Anemia: Status: Acute Assessment and Plan: 88 y/o admitted with: sirs/sepsis (not severe sepsis, POA): Tachycardia and fever, no severe sepsis criteria; in the setting of urinary tract infection. tachycardia and fever resolved. lactic acid normal Urine and blood cultures pending Continue empiric IV antibiotic therapy with ceftriaxone. Worsening anemia (13.7-->9.9). Hold Eliquis for now. Protonix 40 mg IV twice daily. Check for occult blood in stools (rectal exam per ED showed brown stools). patient denies any sujit blood in stool iron studies and fobt as well as b12 ,folate added Continue to monitor hemoglobin-so far in 9.5 range Gi eval added HARPER vs CKD 3 ( unclear )- cr flactuating ,(multifactorial- ?GI bleeding, dehydration due to diuretics (furosemide)? pvr check Hold furosemide. IVFs given in ED. will repeat bmp today possible chf unclaer etiology leg edema ,sob ,elevated bnp added cxr lasix 40 mg iv daily moniter weight ,i/o.,added echo and cardiology eval. Atrial fibrillation, currently rate controlled. Eliquis on hold due to worsening anemia. not on any home med for rate controlled. Essential hypertension. Continue amlodipine . GERD. Continue PPI. BPH. Continue terazosin if taking it at home. ongoing need hospitalization for sirs/sepsis (not severe sepsis) due to UTI management with empiric IV antibiotic therapy and IV fluids, chf maangement Quality Stroke Does the patient have a stroke diagnosis?: No VTE Prior VTE?: No VTE Risk Level:: Medical - moderate - high VTE Device Contraindication: N/A - Device Ordered VTE Drug Contraindication: N/A - Med Ordered
[2024-02-04] MEDS: Loratadine 10 MG TABLET PO (13:21)
[2024-02-04] MEDS: amLODIPine Besylate 2.5 MG TABLET PO (13:21)
--- NOTE | 2024-02-04 13:46 | MHC.CM.PN ---
Attempted to meet with patient in regards to discharge planning. Patient currently confused. Patient's is unavailable at the moment. Spoke with patient's daughter, Odalis, via telephone at [phone]. Patient's , Kayy will [place] [facility] [place]. Odalis verifies patient lives with Kayy, uses a walker for mobility and is active with [facility]. PCP verified. Copy of HCP requested from [facility]. IMM explained and left at bedside. Odalis verifies patient is typically alert and oriented but has a tendency to get confused whenever he has an UTI. Anticipate patient will return home with resumption of [facility] via family. Continue to monitor for d/c needs.
[2024-02-04 14:01] LABS: Hematocrit 33.1 % (42.0-52.0); Hemoglobin 10.1 g/dl (14.0-18.0)
[2024-02-04 14:26] LABS: Anion Gap 14 (12-20); Blood Urea Nitrogen 24 mg/dL (9-16); Calcium 9.3 mg/dL (8.4-10.2); Carbon Dioxide 20 mmol/L (22-29); Chloride 111 mmol/L (96-108); Creatinine Clr Calc Pharmacy 35.2; Estimated Glomerular Filt Rate 42; Glucose Random 123 mg/dL (60-115); Potassium 5.1 mmol/L (3.3-5.1); Sodium 140 mmol/L (135-145)
--- NOTE | 2024-02-04 15:41 | PC.NURSE ---
patient began to feel short of breath approx 15-20 mins ago. audible wheezing, tachypneic. denies chest pain. speaking in 1-3 word sentences. respiratory at bedside
[2024-02-04] MEDS: Albuterol/Iprat 2.5/0.5MG 3 ML AMPUL.NEB INHALE ×2 (15:47→21:19)
--- NOTE | 2024-02-04 15:48 | PC.RT ---
RT called to bedside by RN. scheduled duo neb txs. Pt has increased WOB, belly breathing and only able to talk in 1-2 word sentences. Pt is on 3L NC SATs low 90's. Pt has wheezes bilaterally in upper lobes with coarse crackles in bilateral bases. Pt has minor edema to lower extremities. MD Carrera notified by RT, states he will check a BNP. Pt is receiving breathing tx at this time.
[2024-02-04 16:32] LABS: VBG Base Excess -1.6 mmol/L; VBG HCO3 24 mmol/L (22-26); VBG pCO2 43 mmHg; VBG pH 7.34 (7.32-7.43); VBG pO2 42 mmHg
[2024-02-04 16:37] LABS: Venous Blood Gas Refer to POC result
[2024-02-04 16:55] LABS: B Type Natriuretic Peptide 775 pg/mL (<100)
[2024-02-04] MEDS: Furosemide 40 MG/4 ML VIAL IVPUSH (17:16)
[2024-02-04] MEDS: cefTRIAXone sodium 1 GM VIAL IVPUSH (17:16)
--- NOTE | 2024-02-04 17:19 | PC.NURSE ---
patient placed on oxymask previously, currently patient appears much more comfortable, reports improvement w/ his breathing. hospitalist at bedside, verbal order 40mg ivpush lasix. gould placed w/ 100mL cloudy urine. medicated per the MAR. patient w/ no obvious signs/symptoms of distress, plan to transport patient to floor.
[2024-02-04] MEDS: Doxazosin Mesylate 2 MG TABLET PO (20:08)
[2024-02-05] VITALS (11 sets, daily range): BP systolic 126–170; BP diastolic 60–71; PULSE 70–89; RESP 14–20; TEMP 36.4–37.1; O2SAT 92–98; BMI 28.1
[2024-02-05] MEDS: 0.9 % Sodium Chloride Flush 3 ML SYRINGE IVFLUSH ×4 (00:27→21:52)
[2024-02-05 05:40] LABS: Creatinine Urine 68.18 mg/dL; Protein/Creatinine Ratio, Ur 1.39 (<0.2); Total Protein Urine Random 95 mg/dL (<12)
[2024-02-05] MEDS: Pantoprazole Sodium 40 MG/10 ML VIAL IVPUSH ×2 (06:29→16:48)
--- NOTE | 2024-02-05 07:00 | CA_ITS ---
Transthoracic Echocardiogram Patient (Last, First, Middle): Gareth Malik E Gender: Male Date of : 1935 Age: 88 Procedure Date: 02/05/2024 Procedure Type: Transthoracic Echocardiogram Location: [facility] [place] Height: 172.72 cm Weight: 84.37 kg BSA: 1.98 m2 Heart Rate: bpm BP: 142 / 80 mmHg Dielectric Tester: Referring MD: Mireille Carrera MD Firer Kiln: Brennon Salgado MD Symptoms: ?chf Study Quality: Fair but adequate ECG Rhythm: Atrial Fibrillation Conclusions: - 1. Normal LV ejection fraction 55-60% 2. Mildly dilated left atrium 3. Mild aortic regurgitation 4. Normal RV systolic pressure 5. Mildly dilated ascending aorta at 4 cm Findings Left Ventricle Normal left ventricular size and systolic function. There is mildly increased left ventricular wall thickness. The visually estimated ejection fraction is between 55-60%. Diastolic function is indeterminate on the basis of available data. Right Ventricle Normal right ventricular cavity size and systolic function. Atria The left atrium is mildly dilated. Interatrial shunt cannot be excluded. The right atrium was not well visualized. Aortic Valve There is mild calcification of the aortic valve. There is no aortic valve stenosis. There is mild aortic valve regurgitation. Mitral Valve There is mild anterior and posterior mitral leaflet thickening. There is mild mitral annular calcification. There is trace mitral valve regurgitation. There is no mitral valve stenosis. Pulmonic Valve The pulmonic valve was not well visualized. Tricuspid Valve Likely normal tricuspid valve structure and function. There is trace tricuspid valve regurgitation. The right ventricular systolic pressure is normal. The right ventricular systolic pressure is 16 mmHg. Normal right atrial pressure. There is no evidence of pulmonary hypertension. Great Vessels The aorta was not well visualized. The pulmonary artery was not well visualized. There is mild dilatation of the ascending aorta measuring 4.00 cm. Venous The inferior vena cava is normal in size and collapses greater than 50% with inspiration. Pericardium/Pleural There is no evidence of pericardial effusion. There is a left sided pleural effusion. Prior Study Comparison No significant change compared to prior study dated: 01/03/2018. Measurements 2D Linear Measurements IVSd: 1.33 0.6-0.9/0.6-1.0 cm LVIDd: 4.15 3.9-5.3/4.2-5.9 cm LVIDd Index: 2.10 2.4-3.2/2.2-3.1 cm/m2 LVIDs: 2.97 2.0-3.6 cm LVPWd: 1.36 0.7-1.1 cm LA Diam: 3.70 2.7-3.8/3.0-4.0 cm LAIDs Index: 1.87 1.5-2.3 cm/m2 LV Mass: 258.48 67-162/88-224 g LV Mass Index: 130.55 43-95/49-115 g/m2 LVOT Diam: 2.20 3.0+(-)1.3 cm Mitral Valve MV Pk E: 0.82 MV Decel Time: 224.00 E'Lateral: 11.60 E'Medial: 7.07 E/E' Med: 11.60 E/E' Lat: 7.10 PHT: 66.00 MVA PHT: 3.33 Decel [place]: 3.67 Aortic Valve AoV Pk Kobe: 1.98 AoV Mn Kobe: 1.44 AoV VTI: 0.32 AoV Pk Grad: 16.00 Aov Mn Grad: 9.00 RICARDO Cont.VTI: 2.38 LVOT LVOT Pk Kobe: 1.11 LVOT Mn Kobe: 0.76 LVOT VTI: 0.20 LVOT Pk Grad: 5.00 LVOT Mn Grad: 2.00 LVOT Diam: 2.20 LVOT Area: 3.80 Diastolic Function MV Pk E: 0.82 E'Medial: 7.07 E/E' Med: 11.60 E' Laterial: 11.60 E/E' Lat: 7.10 Right Ventricle TAPSE (mm): 23.40 TVS' Kobe: 12.70 Tricuspid Valve TR Pk Kobe: 1.83 TR Pk Grad: 13.00 RA Press: 3.00 RVSP: 16.00 Great Vessels Aorta Sinus of Valsalva: 4.10 2.0-3.5 cm Ao Asc: 4.00 2.1-3.4 cm Pulmonary Valve PV Pk Kobe: 1.17 Peak PV Grad: 5.00 Updated in Other Vendor System with Status of Final Brennon Salgado MD electronically signed on 02/05/2024 4:56:37 PM with status of Final
[2024-02-05] MEDS: Furosemide 40 MG/4 ML VIAL IVPUSH (08:01)
[2024-02-05] MEDS: amLODIPine Besylate 2.5 MG TABLET PO (08:01)
[2024-02-05] MEDS: Loratadine 10 MG TABLET PO (08:01)
[2024-02-05] MEDS: Multivitamin TABLET 1 TAB PO (08:01)
[2024-02-05] MEDS: Albuterol/Iprat 2.5/0.5MG 3 ML AMPUL.NEB INHALE ×4 (08:32→18:57)
[2024-02-05 09:10] LABS: Anion Gap 11 (12-20); Blood Urea Nitrogen 21 mg/dL (9-16); Carbon Dioxide 24 mmol/L (22-29); Chloride 106 mmol/L (96-108); Creatinine Clr Calc Pharmacy 35.8; Estimated Glomerular Filt Rate 43; Glucose Random 130 mg/dL (60-115); Potassium 4.3 mmol/L (3.3-5.1); Sodium 137 mmol/L (135-145)
[2024-02-05 09:15] LABS: B Type Natriuretic Peptide 605 pg/mL (<100)
[2024-02-05] MEDS: Metoprolol Tartrate 12.5 MG HALFTAB PO ×3 (09:39→21:52)
--- NOTE | 2024-02-05 10:12 | PM.CNCAR ---
History of Present Illness History of Present Illness Date of Service: 02/05/24 Requesting physician: Mireille Carrera Consult reason: atrial fibrillation and congestive heart failure Chief complaint: SIRS, UTI Narrative: I was consulted to see Gareth in cardiology consultation today as he developed shortness of breath and findings suggestive of heart failure post fluid resuscitation for sepsis syndrome. Patient received bunch of fluid and then subsequently short of breath and had clinical findings suggestive of heart failure. He was then diuresed with Lasix yesterday and today and has had good urine output and he said his shortness of breath is better. He is noted to be in atrial fibrillation. Rate is adequately controlled. Hemodynamically stable. Denies any chest pain or shortness of breath currently. Denies any palpitations. Past medical history of paroxysmal atrial fibrillation, hypertension. Follows with Dr. Juan Francisco gonzales. Takes oral anticoagulation with Eliquis on a regular basis. Admitted with sepsis related to UTI. Review of Systems Constitutional: Constitutional: Reports no additional constitutional complaints Cardiovascular: Cardiovascular: Reports no additional cardiovascular complaints Respiratory: Respiratory: Reports no additional respiratory complaints Musculoskeletal: Musculoskeletal: Reports no additional musculoskeletal complaints Integumentary/Breasts: Skin/Breast: Reports system reviewed and no additional complaints, except as docu Neurologic: Reports system reviewed and no additional complaints, except as documented PMFSH Past Medical History Medical History Urinary tract infection HTN (hypertension) A-fib Obesity PAF (paroxysmal atrial fibrillation) Hypertension Family History Family History Father Medical history unknown Mother Medical history unknown Surgical History Surgical History History of umbilical hernia repair History of hemicolectomy History of inguinal hernia repair H/O rectal polypectomy History of tonsillectomy History of cholecystectomy Social History Social History Household Members: Spouse Housing: Other Housing Other:: double trailer Do you presently have visiting nurse or other home services: Yes Alcohol intake: former Patient Tobacco Use Status: Former Tobacco user Tobacco use type: Cigarette Years Smoked: 37 +/- e-Cigarette/Vaping Use: Never Used Second Hand Smoke Exposure: No service: No Current occupational status: retired Current occupational exposures/hazards: No Cognitive needs: Yes (cane) Hearing needs: No Vision needs: Yes (glasses) Meds Allergies Allergy/AdvReac Type Severity Reaction Status Date / Time No Known Allergies Allergy Unknown Verified 02/03/24 16:27 Active Medications: Current Medications Acetaminophen (Acetaminophen 325 Mg Tablet) 975 mg PO Q6H PRN PRN Reason: Pain, Mild (Pain Scale 1-3), fever or headache Last Admin: 02/04/24 05:43 Dose: 975 mg Albuterol/Ipratropium (Albuterol/Iprat 2.5/0.5mg 3 Ml Ampul.Neb) 3 ml INHALE RQ4H WHILE AWAKE [facility] Last Admin: 02/05/24 08:32 Dose: 3 ml Amlodipine Besylate (Amlodipine Besylate 2.5 Mg Tablet) 2.5 mg PO DAILY [facility]; Protocol Last Admin: 02/05/24 08:01 Dose: 2.5 mg Bisacodyl (Bisacodyl 10 Mg Supp.Rect) 10 mg [place] DAILY PRN PRN Reason: Constipation Ceftriaxone Sodium (Ceftriaxone Sodium 1 Gm Vial) 1 gm IVPUSH Q24H [facility] Last Admin: 02/04/24 17:16 Dose: 1 gm Doxazosin Mesylate (Doxazosin Mesylate 2 Mg Tablet) 2 mg PO BEDTIME [facility] Last Admin: 02/04/24 20:08 Dose: 2 mg Furosemide (Furosemide 40 Mg/4 Ml Vial) 40 mg IVPUSH DAILY [facility]; Protocol Last Admin: 02/05/24 08:01 Dose: 40 mg Loratadine (Loratadine 10 Mg Tablet) 10 mg PO DAILY [facility] Last Admin: 02/05/24 08:01 Dose: 10 mg Magnesium Hydroxide (Milk Of Magnesia 30 Ml Oral.Susp) 5 ml PO DAILY PRN PRN Reason: Constipation Melatonin (Melatonin 3 Mg Tablet) 6 mg PO BEDTIME PRN PRN Reason: Sleep Metoprolol Tartrate (Metoprolol Tartrate 12.5 Mg Halftab) 12.5 mg PO BID [facility]; Protocol Last Admin: 02/05/24 09:39 Dose: 12.5 mg Multivitamins/Vitamin C (Multivitamin Tablet) 1 tab PO DAILY [facility] Last Admin: 02/05/24 08:01 Dose: 1 tab Nystatin/Triamcinolone Acetonide (Nystatin/Triamcinolone Cream 15 Gm Tube) 1 appl TOPICAL BID PRN PRN Reason: Infection Pantoprazole Sodium (Pantoprazole Sodium 40 Mg/10 Ml Vial) 40 mg IVPUSH BID@0630,1630 [facility] Last Admin: 02/05/24 06:29 Dose: 40 mg Sodium Biphosphate/Sodium Phosphate (Sodium Phosphate,[place]-Dibasic 133 Ml Enema) 118 ml [place] DAILY PRN PRN Reason: Constipation Sodium Chloride (0.9 % Sodium Chloride Flush 3 Ml Syringe) 3 ml IVFLUSH QSHIFT [facility] Last Admin: 02/05/24 08:02 Dose: 3 ml Home Medications ?Medication ?Instructions ?Recorded ?Confirmed ?Last Taken ?Type omeprazole 20 mg capsule,delayed 20 mg PO DAILY@0630 07/24/21 02/04/24 02/03/24 History release melatonin 5 mg tablet 5 mg PO BEDTIME PRN Sleep 09/22/22 02/04/24 Unknown History acetaminophen 325 mg tablet 325 mg PO DAILY PRN Pain 02/04/24 02/04/24 Unknown History bisacodyl 10 mg rectal suppository 10 mg [place] DAILY PRN Constipation 02/04/24 02/04/24 Unknown History clotrimazole-betamethasone 1 1 appl topical BID PRN Infection 02/04/24 02/04/24 Unknown History %-0.05 % topical cream loratadine 10 mg tablet 10 mg PO DAILY 02/04/24 02/04/24 02/03/24 History magnesium hydroxide 400 mg/5 mL 5 ml PO DAILY PRN Constipation 02/04/24 02/04/24 Unknown History oral suspension (Milk of Magnesia) multivitamin 1 tab PO DAILY 02/04/24 02/04/24 02/03/24 History sodium phosphates 19 gram-7 118 ml [place] DAILY PRN Constipation 02/04/24 02/04/24 Unknown History gram/118 mL enema (Fleet Enema) terazosin 2 mg capsule 2 mg PO BEDTIME 02/04/24 02/04/24 02/03/24 History Physical Exam Vital Signs: Vital Signs: Last Vital Signs Temp 98.7 F 02/05/24 03:58 Pulse 78 02/05/24 08:33 Resp 18 02/05/24 08:33 BP 134/63 02/05/24 07:23 Pulse Ox 94 02/05/24 07:23 O2 Del Method Room Air 02/05/24 07:23 O2 Flow Rate 2 02/04/24 19:54 BMI result Body Mass Index 28.1 Const: General: cooperative, comfortable, no acute distress, alert and awake Nutritional Appearance: average body habitus Orientation/consciousness: patient oriented x3 HEENT: Head: Yes normocephalic and Yes atraumatic Neck: Neck: Yes trachea midline, Yes supple and Yes no JVD Resp: Effort & Inspection: decreased respiratory effort Auscultation: no crackles, no rales and diminished lung sounds Cardio: Jugular venous distension: no JVD Rhythm: abnormal rhythm irregularly irregular Heart sounds: S1 normal heart sound present and S2 normal heart sound present GI: Auscultation: normal bowel sounds Skin: General skin exam: no rashes or lesions noted Neuro: General: patient oriented x3 and no focal motor deficits Objective Labs and Meds 02/04/24 13:50 02/05/24 08:42 Lab results: Laboratory Results - last 24 hr 02/04/24 02/04/24 02/04/24 13:50 16:21 16:27 Hgb 10.1 L Hct 33.1 L VBG pH 7.34 VBG pCO2 43 VBG pO2 42 VBG HCO3 24 VBG O2 Saturation 73.0 VBG Base Excess -1.6 Sodium 140 Potassium 5.1 Chloride 111 H Carbon Dioxide 20 L Anion Gap 14 BUN 24 H Creatinine 1.56 H Estim Creat Clear Calc 35.2 Estimated GFR 42 Random Glucose 123 H Calcium 9.3 B-Natriuretic Peptide 775 H U Random Total Protein Urine Creatinine Urine Microalbumin Microalb/Creat Ratio Protein/Creatinin Ratio 02/05/24 02/05/24 05:17 08:42 Hgb Hct VBG pH VBG pCO2 VBG pO2 VBG HCO3 VBG O2 Saturation VBG Base Excess Sodium 137 Potassium 4.3 Chloride 106 Carbon Dioxide 24 Anion Gap 11 L BUN 21 H Creatinine 1.53 H Estim Creat Clear Calc 35.8 Estimated GFR 43 Random Glucose 130 H Calcium 9.0 B-Natriuretic Peptide 605 H U Random Total Protein 95 H Urine Creatinine 68.18 Urine Microalbumin 373.0 Microalb/Creat Ratio 547.0 H Protein/Creatinin Ratio 1.39 H Imaging Radiologist's impression: Impressions Chest X-Ray 02/04/24 17:15 IMPRESSION: Increasing size of bilateral pleural effusions with slight increase in patchy density at the right lung base. Electronically signed by: Dean Fernández MD 02/04/2024 06:22 PM [facility] Assessment and Plan (1) Acute heart failure: Status: Acute Acute heart failure related to fluid resuscitation. Clinically seems to have improved. Has diuresed well. Can switch to low-dose Lasix 20 mg for few days and then discontinue for prison if he does not have any overt heart failure syndrome in the past. May need to be followed up in the clinic in the next 1-2 weeks. Avoid sudden fluid resuscitation in the future. Will review echocardiogram. No other change in therapy. Continue aggressive blood pressure control which is optimized at this point time. (2) A-fib: Qualifiers: Atrial fibrillation type: unspecified Qualified Code(s): I48.91 - Unspecified atrial fibrillation Status: Acute Persistent atrial fibrillation with adequate rate control. Agree with additional metoprolol for rate control. Continue Eliquis. If kidney function remains abnormal with creatinine above 1.5 may need to reduce Eliquis dose to 2.5 mg b.i.d.. Will sign of the case. Follow-up as outpatient. Procedures Date of Service Date of Service: 02/05/24
--- NOTE | 2024-02-05 10:44 | PM.CNNEP ---
History of Present Illness Reason for Consult Consult date: 02/05/24 Chief Complaint Chief complaint: SIRS, UTI History of Present Illness Narrative: 88 y/o male with a medical history of afib, HTN, GERD, BPH Presented to ED on 02/02 with severe generalized weakness, tachycardia. Had recently dx UTI for which he was taking oral abx. Nephrology consulted for worsening renal insufficiency. creatinine 1.39 on 01/01/23 (over 1 year ago, no other labs since) 02/02 creatinine 1.76, down to 1.51, 1.56 1.53 02/03 (likely baseline) had been on lasix outpatient anticoagulation being held due to drop in H&H and concern for bleed but this has has somewhat today CT abd/pelvis from 02/02 shows enlarged prostate, bladder wall thickening, cystitis vs neoplastic involvement. Mild right hydroureter and hydronephrosis without renal calculi. Kidney size/shape/attenuation unremarkable. patient states he sees Urology outpatient- most recent notes from 2020 had BPH with urinary obstruction, microscopic hematuria He denies other known medical history he denies family history of renal disease he denies use of NSAIDs or OTC medications at home he states he is feeling improvement since hospitalization, reports weakness has improved and he has gotten up out of bed a few times with assistance. states intermittent shortness of breath but that he has not had this yet today states he has chronic, intermittent LE edema he denies other concerns, questions Review of Systems Constitutional: Reports lethargy and Reports weakness (reports improving) Cardiovascular: Denies chest pain, Reports leg edema (reports chronic/intermittent), Denies lightheadedness and Reports dyspnea (reports intermittent, none today) Respiratory: Denies cough and Reports dyspnea (reports intermittent, none today) Gastrointestinal: Denies abdominal pain, Denies diarrhea, Denies nausea and Denies vomiting Genitourinary: Denies hematuria, Denies oliguria, Denies difficulty urinating, Denies dysuria, Denies flank pain and Denies urinary incontinence Comments: reports urinary incontinence and dysuria prior to starting abx at home for UTI, no symptoms currently (gould in place). Musculoskeletal: Denies arthralgias Skin/Breast: Denies rash Reports weakness (reports improving) [facility] Past Medical History Medical History Urinary tract infection HTN (hypertension) A-fib Obesity PAF (paroxysmal atrial fibrillation) Hypertension Family History Family History Father Medical history unknown Mother Medical history unknown Surgical History Surgical History History of umbilical hernia repair History of hemicolectomy History of inguinal hernia repair H/O rectal polypectomy History of tonsillectomy History of cholecystectomy Social History Social History Household Members: Spouse Housing: Other Housing Other:: double trailer Do you presently have visiting nurse or other home services: Yes Alcohol intake: former Patient Tobacco Use Status: Former Tobacco user Tobacco use type: Cigarette Years Smoked: 37 +/- e-Cigarette/Vaping Use: Never Used Second Hand Smoke Exposure: No service: No Current occupational status: retired Current occupational exposures/hazards: No Cognitive needs: Yes (cane) Hearing needs: No Vision needs: Yes (glasses) Meds Allergies Allergy/AdvReac Type Severity Reaction Status Date / Time No Known Allergies Allergy Unknown Verified 02/03/24 16:27 Active Medications: Current Medications Acetaminophen (Acetaminophen 325 Mg Tablet) 975 mg PO Q6H PRN PRN Reason: Pain, Mild (Pain Scale 1-3), fever or headache Last Admin: 02/04/24 05:43 Dose: 975 mg Albuterol/Ipratropium (Albuterol/Iprat 2.5/0.5mg 3 Ml Ampul.Neb) 3 ml INHALE RQ4H WHILE AWAKE [facility] Last Admin: 02/05/24 08:32 Dose: 3 ml Amlodipine Besylate (Amlodipine Besylate 2.5 Mg Tablet) 2.5 mg PO DAILY [facility]; Protocol Last Admin: 02/05/24 08:01 Dose: 2.5 mg Bisacodyl (Bisacodyl 10 Mg Supp.Rect) 10 mg [place] DAILY PRN PRN Reason: Constipation Ceftriaxone Sodium (Ceftriaxone Sodium 1 Gm Vial) 1 gm IVPUSH Q24H [facility] Last Admin: 02/04/24 17:16 Dose: 1 gm Doxazosin Mesylate (Doxazosin Mesylate 2 Mg Tablet) 2 mg PO BEDTIME [facility] Last Admin: 11/04/24 20:08 Dose: 2 mg Furosemide (Furosemide 40 Mg/4 Ml Vial) 40 mg IVPUSH DAILY [facility]; Protocol Last Admin: 02/05/24 08:01 Dose: 40 mg Loratadine (Loratadine 10 Mg Tablet) 10 mg PO DAILY [facility] Last Admin: 02/05/24 08:01 Dose: 10 mg Magnesium Hydroxide (Milk Of Magnesia 30 Ml Oral.Susp) 5 ml PO DAILY PRN PRN Reason: Constipation Melatonin (Melatonin 3 Mg Tablet) 6 mg PO BEDTIME PRN PRN Reason: Sleep Metoprolol Tartrate (Metoprolol Tartrate 12.5 Mg Halftab) 12.5 mg PO BID [facility]; Protocol Last Admin: 02/05/24 09:39 Dose: 12.5 mg Multivitamins/Vitamin C (Multivitamin Tablet) 1 tab PO DAILY [facility] Last Admin: 02/05/24 08:01 Dose: 1 tab Nystatin/Triamcinolone Acetonide (Nystatin/Triamcinolone Cream 15 Gm Tube) 1 appl TOPICAL BID PRN PRN Reason: Infection Pantoprazole Sodium (Pantoprazole Sodium 40 Mg/10 Ml Vial) 40 mg IVPUSH BID@0630,1630 [facility] Last Admin: 02/05/24 06:29 Dose: 40 mg Sodium Biphosphate/Sodium Phosphate (Sodium Phosphate,[place]-Dibasic 133 Ml Enema) 118 ml [place] DAILY PRN PRN Reason: Constipation Sodium Chloride (0.9 % Sodium Chloride Flush 3 Ml Syringe) 3 ml IVFLUSH QSHIFT [facility] Last Admin: 02/05/24 08:02 Dose: 3 ml Home Medications ?Medication ?Instructions ?Recorded ?Confirmed ?Last Taken ?Type omeprazole 20 mg capsule,delayed 20 mg PO DAILY@0630 07/24/21 02/04/24 02/03/24 History release melatonin 5 mg tablet 5 mg PO BEDTIME PRN Sleep 09/22/22 02/04/24 Unknown History acetaminophen 325 mg tablet 325 mg PO DAILY PRN Pain 02/04/24 02/04/24 Unknown History bisacodyl 10 mg rectal suppository 10 mg [place] DAILY PRN Constipation 02/04/24 02/04/24 Unknown History clotrimazole-betamethasone 1 1 appl topical BID PRN Infection 02/04/24 02/04/24 Unknown History %-0.05 % topical cream loratadine 10 mg tablet 10 mg PO DAILY 02/04/24 02/04/24 02/03/24 History magnesium hydroxide 400 mg/5 mL 5 ml PO DAILY PRN Constipation 02/04/24 02/04/24 Unknown History oral suspension (Milk of Magnesia) multivitamin 1 tab PO DAILY 02/04/24 02/04/24 02/03/24 History sodium phosphates 19 gram-7 118 ml [place] DAILY PRN Constipation 02/04/24 02/04/24 Unknown History gram/118 mL enema (Fleet Enema) terazosin 2 mg capsule 2 mg PO BEDTIME 02/04/24 02/04/24 02/03/24 History Physical Exam Vital Signs: Last Vital Signs Temp 98.7 F 02/05/24 03:58 Pulse 78 02/05/24 08:33 Resp 18 02/05/24 08:33 BP 134/63 02/05/24 07:23 Pulse Ox 94 02/05/24 07:23 O2 Del Method Room Air 02/05/24 07:23 O2 Flow Rate 2 02/04/24 19:54 BMI result Body Mass Index 28.1 Const General: no acute distress, alert and awake Resp Effort & Inspection: normal respiratory effort and able to speak in complete sentences Auscultation: clear to auscultation bilaterally Cardio Rate: regular rate Rhythm: regular rhythm Heart sounds: S1 normal heart sound present and S2 normal heart sound present GI Palpation (GI): Soft to palpation and nontender General: Yes no CVA tenderness Back/Spine/Pelvis Back: no CVA tenderness Skin Lesions: no lesions Rashes: no rashes Extrem General: Yes edema (trace BLE edema ) Results Lab Results 02/04/24 13:50 02/05/24 08:42 Lab results: Chemistry 02/03/24 02/04/24 02/04/24 16:38 04:43 13:50 Sodium 140 140 140 Potassium 4.4 4.5 5.1 Carbon Dioxide 22 21 L 20 L BUN 24 H 20 H 24 H Creatinine 1.72 H 1.51 H 1.56 H Calcium 9.6 9.1 9.3 02/05/24 08:42 Sodium 137 Potassium 4.3 Carbon Dioxide 24 BUN 21 H Creatinine 1.53 H Calcium 9.0 Hematology 02/03/24 02/04/24 02/04/24 16:38 04:43 13:50 WBC 6.5 6.3 Hgb 9.9 L D 9.5 L 10.1 L Plt Count 184 161 Urinalysis 02/03/24 18:15 Urine Color Yellow Urine Appearance Turbid Urine pH 6.5 Ur Specific [place] 1.015 Urine Protein 100 (2+) H Urine Glucose (UA) Negative Urine Ketones Negative Urine Blood Large (3+) H Urine Nitrite Negative Ur Leukocyte Esterase Large (3+) H Urine RBC >20 H Urine WBC >50 H Ur Squamous Epith Cells 6-10 Hyaline Casts 0-2 Urine Studies 02/05/24 05:17 Urine Creatinine 68.18 Assessment and Plan (1) CKD (chronic kidney disease): Qualifiers: Chronic kidney disease stage: stage 3 (moderate) Chronic kidney disease stage 3 subtype: stage 3a (GFR 45-59) Qualified Code(s): N18.31 - Chronic kidney disease, stage 3a Status: Acute (2) Anemia: Qualifiers: Anemia type: iron deficiency Iron deficiency anemia type: unspecified iron deficiency Qualified Code(s): D50.9 - Iron deficiency anemia, unspecified Status: Acute (3) Urinary tract infection: Qualifiers: Urinary tract infection type: acute cystitis Hematuria presence: with hematuria Qualified Code(s): N30.01 - Acute cystitis with hematuria Status: Acute (4) Hypertension: Qualifiers: Hypertension type: primary hypertension Qualified Code(s): I10 - Essential (primary) hypertension Status: Acute Plan CKD3 at baseline with anemia will check serum and urine immunofixation to rule out underlying cause of CKD (may or may not be contributing to anemia) will check PTH as well as part of CKD workup recommend urology referral due to hydroureter and BPH on CT blood pressure suboptimal- amlodipine 2.5mg daily recently started, if inadequate may increase to 5mg daily Continue supportive care, will continue to follow Discussed with Dr Kt Hernandez Date of Service Date of Service: 02/05/24
--- NOTE | 2024-02-05 11:12 | PC.NURSE ---
Buckner catheter removed 02/05/24 at 10:15, due to void 02/05/24 at 16:15.
--- NOTE | 2024-02-05 13:44 | P.PNIM_ITS ---
Subjective Subjective Date of Service: 02/05/24 Interval History: andrea, uti ,tachycardia Review of Systems has hr 130's with excersion sob somewhat improving bnp also improving Physical Exam 2 Vital Signs: Vital Signs: Last Vital Signs Temp 97.7 F 02/05/24 11:54 Pulse 80 02/05/24 11:47 Resp 20 02/05/24 11:54 BP 139/64 02/05/24 11:54 Pulse Ox 94 02/05/24 07:23 O2 Del Method Room Air 02/05/24 07:23 O2 Flow Rate 2 02/04/24 19:54 BMI result Body Mass Index 28.1 Appearance: Alert.? Oriented X3.? cvs: rrr, [id number] . res: air entry imrpoving , no rales abd: no rebound or guarding ,nt, bs present. ext pulses present , no cyanosis. neuro: axo3 , nonfocal. Objective Data Active Medications Acetaminophen (Acetaminophen 325 Mg Tablet) 975 mg PO Q6H PRN PRN Reason: Pain, Mild (Pain Scale 1-3), fever or headache Last Admin: 02/04/24 05:43 Dose: 975 mg Documented By: SERRANCole Albuterol/Ipratropium (Albuterol/Iprat 2.5/0.5mg 3 Ml Ampul.Neb) 3 ml INHALE RQ4H WHILE AWAKE [facility] Last Admin: 02/05/24 11:46 Dose: 3 ml Documented By: CHEN Amlodipine Besylate (Amlodipine Besylate 2.5 Mg Tablet) 2.5 mg PO DAILY [facility]; Protocol Last Admin: 02/05/24 08:01 Dose: 2.5 mg Documented By: KIKE Bisacodyl (Bisacodyl 10 Mg Supp.Rect) 10 mg IA DAILY PRN PRN Reason: Constipation Ceftriaxone Sodium (Ceftriaxone Sodium 1 Gm Vial) 1 gm IVPUSH Q24H [facility] Last Admin: 02/04/24 17:16 Dose: 1 gm Documented By: KODY Doxazosin Mesylate (Doxazosin Mesylate 2 Mg Tablet) 2 mg PO BEDTIME [facility] Last Admin: 02/04/24 20:08 Dose: 2 mg Documented By: KELLEE Furosemide (Furosemide 40 Mg/4 Ml Vial) 40 mg IVPUSH DAILY [facility]; Protocol Last Admin: 02/05/24 08:01 Dose: 40 mg Documented By: KIKE Loratadine (Loratadine 10 Mg Tablet) 10 mg PO DAILY [facility] Last Admin: 02/05/24 08:01 Dose: 10 mg Documented By: KIKE Magnesium Hydroxide (Milk Of Magnesia 30 Ml Oral.Susp) 5 ml PO DAILY PRN PRN Reason: Constipation Melatonin (Melatonin 3 Mg Tablet) 6 mg PO BEDTIME PRN PRN Reason: Sleep Metoprolol Tartrate (Metoprolol Tartrate 12.5 Mg Halftab) 12.5 mg PO BID [facility]; Protocol Last Admin: 02/05/24 09:39 Dose: 12.5 mg Documented By: KIKE Multivitamins/Vitamin C (Multivitamin Tablet) 1 tab PO DAILY [facility] Last Admin: 02/05/24 08:01 Dose: 1 tab Documented By: KIKE Nystatin/Triamcinolone Acetonide (Nystatin/Triamcinolone Cream 15 Gm Tube) 1 appl TOPICAL BID PRN PRN Reason: Infection Pantoprazole Sodium (Pantoprazole Sodium 40 Mg/10 Ml Vial) 40 mg IVPUSH BID@0630,1630 [facility] Last Admin: 02/05/24 06:29 Dose: 40 mg Documented By: YOUSUF Sodium Biphosphate/Sodium Phosphate (Sodium Phosphate,[place]-Dibasic 133 Ml Enema) 118 ml IA DAILY PRN PRN Reason: Constipation Sodium Chloride (0.9 % Sodium Chloride Flush 3 Ml Syringe) 3 ml IVFLUSH QSHIFT [facility] Last Admin: 02/05/24 08:02 Dose: 3 ml Documented By: KIKE Labs 02/04/24 13:50 02/05/24 08:42 Labs: Laboratory Results - last 24 hr 02/04/24 02/04/24 02/04/24 13:50 16:21 16:27 VBG pH 7.34 VBG pCO2 43 VBG pO2 42 VBG HCO3 24 VBG O2 Saturation 73.0 VBG Base Excess -1.6 Anion Gap 14 Estim Creat Clear Calc 35.2 Estimated GFR 42 Random Glucose 123 H Calcium 9.3 B-Natriuretic Peptide 775 H U Random Total Protein Urine Creatinine Urine Microalbumin Microalb/Creat Ratio Protein/Creatinin Ratio 02/05/24 02/05/24 05:17 08:42 VBG pH VBG pCO2 VBG pO2 VBG HCO3 VBG O2 Saturation VBG Base Excess Anion Gap 11 L Estim Creat Clear Calc 35.8 Estimated GFR 43 Random Glucose 130 H Calcium 9.0 B-Natriuretic Peptide 605 H U Random Total Protein 95 H Urine Creatinine 68.18 Urine Microalbumin 373.0 Microalb/Creat Ratio 547.0 H Protein/Creatinin Ratio 1.39 H Microbiology Microbiology Results: Microbiology 02/03/24 Unknown Urine Culture - Preliminary Urine clean catch Yeast 02/03/24 17:00 Blood Culture - Preliminary Blood - Venous No growth after 24 hours. 02/03/24 16:40 Blood Culture - Preliminary Blood - Venous No growth after 24 hours. Assessment and Plan (1) SIRS (systemic inflammatory response syndrome): Status: Acute (2) UTI (urinary tract infection): Status: Acute (3) CKD (chronic kidney disease): Status: Acute (4) Anemia: Status: Acute Assessment and Plan: 88 y/o admitted with: sirs/sepsis (not severe sepsis, POA): Tachycardia and fever, no severe sepsis criteria; in the setting of urinary tract infection. tachycardia and fever resolved. lactic acid normal Urine grew yeast ,added another urine cultures and blood cultures neg @24hrs Continue empiric IV antibiotic therapy with ceftriaxone. Worsening anemia : h/h similar range 9.5 -10 range Check for occult blood in stools (rectal exam per ED showed brown stools). patient denies any sujit blood in stool Continue to monitor hemoglobin-so far in 10 range plan: Hold Eliquis for now. Protonix 40 mg IV twice daily. iron ,iron sats and tibc low ,ferritin boderline ,b12 and folate normal,fobt need to sent Gi eval added ANDREA vs CKD 3 ( unclear )- cr flactuating ,(multifactorial- ?GI bleeding, dehydration due to diuretics (furosemide)? pvr check renal us-? hydroureter urology eval. possible chf unclaer etiology leg edema ,sob ,elevated bnp cxr-Increasing size of bilateral pleural effusions with slight increase in patchy density at the right lung base. echo added plan: moniter weight ,i/o.,added echo cardiology eval-lasix switch to po lasix 20 mg daily Atrial fibrillation, currently rate controlled. hr intermitently goes in 130 with excersion metoprolol 12.5 mg tid added for rate control. Eliquis on hold due to worsening anemia. . Essential hypertension. Continue amlodipine,metorpolol . GERD. Continue PPI. BPH. Continue terazosin if taking it at home. ongoing need hospitalization for sirs/sepsis (not severe sepsis) due to UTI management with empiric IV antibiotic therapy and IV fluids, chf maangement, urology eval-andrea/?hydroureter. Quality Stroke Does the patient have a stroke diagnosis?: No VTE Prior VTE?: No VTE Risk Level:: Medical - moderate - high VTE Device Contraindication: N/A - Device Ordered VTE Drug Contraindication: N/A - Med Ordered
--- NOTE | 2024-02-05 14:12 | P.CNUR_ITS ---
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 Patient's spouse called EMS to the home after her became globally weak, was unable to ambulate at his baseline, and developed shaking chills. 02/03/24--CTAP - mild right hydronephrosis/hydroureter. Bladder changes secondary to obstructive prostate, BPH, including bladder wall thickening and Bladder diverticuli FU imaging - 02/04/24--renal US- prelim reading - bilateral renal cysts, no significant hydronephrosis. Review of Systems 2 Review of Systems: 10 point ROS negative other than stated in HPI [facility] Past Medical History Medical History Urinary tract infection HTN (hypertension) A-fib Obesity PAF (paroxysmal atrial fibrillation) Hypertension Family History Family History Father Medical history unknown Mother Medical history unknown Surgical History Surgical History History of umbilical hernia repair History of hemicolectomy History of inguinal hernia repair H/O rectal polypectomy History of tonsillectomy History of cholecystectomy Social History Social History Household Members: Spouse Housing: Other Housing Other:: double trailer Do you presently have visiting nurse or other home services: Yes Alcohol intake: former Patient Tobacco Use Status: Former Tobacco user Tobacco use type: Cigarette Years Smoked: 37 +/- e-Cigarette/Vaping Use: Never Used Second Hand Smoke Exposure: No service: No Current occupational status: retired Current occupational exposures/hazards: No Cognitive needs: Yes (cane) Hearing needs: No Vision needs: Yes (glasses) Meds Allergies Allergy/AdvReac Type Severity Reaction Status Date / Time No Known Allergies Allergy Unknown Verified 02/03/24 16:27 Active Medications: Current Medications Acetaminophen (Acetaminophen 325 Mg Tablet) 975 mg PO Q6H PRN PRN Reason: Pain, Mild (Pain Scale 1-3), fever or headache Last Admin: 02/04/24 05:43 Dose: 975 mg Albuterol/Ipratropium (Albuterol/Iprat 2.5/0.5mg 3 Ml Ampul.Neb) 3 ml INHALE RQ4H WHILE AWAKE [facility] Last Admin: 02/05/24 11:46 Dose: 3 ml Amlodipine Besylate (Amlodipine Besylate 2.5 Mg Tablet) 2.5 mg PO DAILY [facility]; Protocol Last Admin: 02/05/24 08:01 Dose: 2.5 mg Bisacodyl (Bisacodyl 10 Mg Supp.Rect) 10 mg SD DAILY PRN PRN Reason: Constipation Ceftriaxone Sodium (Ceftriaxone Sodium 1 Gm Vial) 1 gm IVPUSH Q24H [facility] Last Admin: 02/04/24 17:16 Dose: 1 gm Doxazosin Mesylate (Doxazosin Mesylate 2 Mg Tablet) 2 mg PO BEDTIME [facility] Last Admin: 02/04/24 20:08 Dose: 2 mg Furosemide (Furosemide 20 Mg Tablet) 20 mg PO DAILY [facility]; Protocol Loratadine (Loratadine 10 Mg Tablet) 10 mg PO DAILY [facility] Last Admin: 02/05/24 08:01 Dose: 10 mg Magnesium Hydroxide (Milk Of Magnesia 30 Ml Oral.Susp) 5 ml PO DAILY PRN PRN Reason: Constipation Melatonin (Melatonin 3 Mg Tablet) 6 mg PO BEDTIME PRN PRN Reason: Sleep Metoprolol Tartrate (Metoprolol Tartrate 12.5 Mg Halftab) 12.5 mg PO TID [facility]; Protocol Multivitamins/Vitamin C (Multivitamin Tablet) 1 tab PO DAILY [facility] Last Admin: 02/05/24 08:01 Dose: 1 tab Nystatin/Triamcinolone Acetonide (Nystatin/Triamcinolone Cream 15 Gm Tube) 1 appl TOPICAL BID PRN PRN Reason: Infection Pantoprazole Sodium (Pantoprazole Sodium 40 Mg/10 Ml Vial) 40 mg IVPUSH BID@0630,1630 [facility] Last Admin: 02/05/24 06:29 Dose: 40 mg Sodium Biphosphate/Sodium Phosphate (Sodium Phosphate,[place]-Dibasic 133 Ml Enema) 118 ml SD DAILY PRN PRN Reason: Constipation Sodium Chloride (0.9 % Sodium Chloride Flush 3 Ml Syringe) 3 ml IVFLUSH QSHIFT [facility] Last Admin: 02/05/24 08:02 Dose: 3 ml Home Medications ?Medication ?Instructions ?Recorded ?Confirmed ?Last Taken ?Type omeprazole 20 mg capsule,delayed 20 mg PO DAILY@0630 07/24/21 02/04/24 02/03/24 History release melatonin 5 mg tablet 5 mg PO BEDTIME PRN Sleep 09/22/22 02/04/24 Unknown History acetaminophen 325 mg tablet 325 mg PO DAILY PRN Pain 02/04/24 02/04/24 Unknown History bisacodyl 10 mg rectal suppository 10 mg SD DAILY PRN Constipation 02/04/24 02/04/24 Unknown History clotrimazole-betamethasone 1 1 appl topical BID PRN Infection 02/04/24 02/04/24 Unknown History %-0.05 % topical cream loratadine 10 mg tablet 10 mg PO DAILY 02/04/24 02/04/24 02/03/24 History magnesium hydroxide 400 mg/5 mL 5 ml PO DAILY PRN Constipation 02/04/24 02/04/24 Unknown History oral suspension (Milk of Magnesia) multivitamin 1 tab PO DAILY 02/04/24 02/04/24 02/03/24 History sodium phosphates 19 gram-7 118 ml SD DAILY PRN Constipation 02/04/24 02/04/24 Unknown History gram/118 mL enema (Fleet Enema) terazosin 2 mg capsule 2 mg PO BEDTIME 02/04/24 02/04/24 02/03/24 History Physical Exam 2 Vital Signs: Vital Signs: Last Vital Signs Temp 97.7 F 02/05/24 11:54 Pulse 80 02/05/24 11:47 Resp 20 02/05/24 11:54 BP 139/64 02/05/24 11:54 Pulse Ox 94 02/05/24 07:23 O2 Del Method Room Air 02/05/24 07:23 O2 Flow Rate 2 02/04/24 19:54 BMI result Body Mass Index 28.1 Const: General: healthy appearing, no acute distress and well developed O rientation/consciousness: patient oriented x3 HEENT: Head: Yes normocephalic and Yes atraumatic Eyes: Conjunctivae: conjunctivae normal Neck: Neck: Yes normal visual inspection Chest: Chest palpation & inspection: normal inspection of the chest Resp: Effort & Inspection: normal respiratory effort Cardio: Rate: regular rate GI: Inspection: Yes normal to inspection Palpation (GI): Soft to palpation : Other: Male [place] in place Neuro: General: patient oriented x3 Extrem: General: No pedal edema Psych: Appearance: grossly normal Affect: normal affect Results Labs 02/04/24 13:50 02/05/24 08:42 Labs: Abnormal lab results 02/04/24 02/04/24 02/05/24 Range/Units 13:50 16:21 05:17 Chloride 111 H (96-108) mmol/L Carbon Dioxide 20 L (22-29) mmol/L Anion Gap (12-20) BUN 24 H (9-16) mg/dL Creatinine 1.56 H (0.5-1.4) mg/dL Random Glucose 123 H (60-115) mg/dL B-Natriuretic Peptide 775 H (<100) pg/mL U Random Total Protein 95 H (<12) mg/dL Microalb/Creat Ratio 547.0 H (<30) ug/mg cr Protein/Creatinin Ratio 1.39 H (<0.2) 02/05/24 Range/Units 08:42 Chloride (96-108) mmol/L Carbon Dioxide (22-29) mmol/L Anion Gap 11 L (12-20) BUN 21 H (9-16) mg/dL Creatinine 1.53 H (0.5-1.4) mg/dL Random Glucose 130 H (60-115) mg/dL B-Natriuretic Peptide 605 H (<100) pg/mL U Random Total Protein (<12) mg/dL Microalb/Creat Ratio (<30) ug/mg cr Protein/Creatinin Ratio (<0.2) [facility] 02/04/24 02/05/24 13:50 08:42 Sodium 140 137 Potassium 5.1 4.3 Chloride 111 H 106 Carbon Dioxide 20 L 24 BUN 24 H 21 H Creatinine 1.56 H 1.53 H Calcium 9.3 9.0 Urine 02/03/24 Range/Units 18:15 Urine Color Yellow Urine Appearance Turbid Urine pH 6.5 (5.0-9.0) Ur Specific [place] 1.015 (1.005-1.025) Urine Protein 100 (2+) H (Neg-Trace) mg/dL Urine Glucose (UA) Negative (Negative) mg/dL Collected: 02/03/24-UNK Status: RES Req#: [id number] Received: 02/03/24 Source: [facility] Sp Desc: Subm Dr: Laura Blount Ordered: Urine Culture Procedure Result Verified Urine Culture Preliminary 02/05/24-1150 Organism 1 Yeast Quant > 100,000 cfu/mL Imaging Abdomen CT scan report/results: report reviewed and image reviewed CT scan - pelvis: report reviewed and image reviewed US - kidney/bladder: image reviewed Additional studies: Date of Service: 02/03/24 CT ABDOMEN AND PELVIS WITHOUT CONTRAST CLINICAL INFORMATION: Pain. Question small bowel obstruction. COMPARISON: None available. TECHNIQUE: Following administration of oral contrast only, multidetector volumetric imaging was performed from the superior aspect of the liver through the pubic symphysis. Sagittal and coronal reformatted images were obtained on the technologist's workstation. This CT examination was performed using dose optimization techniques as appropriate, variously including the following: *Automated exposure control *Adjustment of mA and/or kV according to patient size (this includes techniques or standardized protocols for targeted exams where dose is matched to indication/reason for exam; i.e. extremities or head) *Use of iterative reconstruction technique DLP: 1082 mGy-cm FINDINGS: LUNG BASES: Small bilateral pleural effusions with associated atelectasis. Heart normal in size. Coronary arterial calcification. No pericardial effusion. LIVER, GALLBLADDER, AND BILIARY TREE: The liver appears unremarkable in size, shape, and attenuation. No focal hepatic lesion or biliary ductal dilatation is appreciated. Gallbladder not visualized, suggesting prior surgical removal. PANCREAS: Unremarkable SPLEEN: Mild splenomegaly measuring approximately 13 cm in sagittal dimension, having measured approximately 12.8 cm on July 24, 2021, by my measurements. ADRENAL GLANDS: Unremarkable KIDNEYS AND URETERS/BLADDER: Diffuse thickening of the wall the urinary bladder, as previously seen. 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 0.2 cm calcification within the dependent portion of the urinary bladder toward the left (image 74, series 3), probably also present on prior study from July 24, 2021. Approximately 4.5 cm, exophytic, posterior benign right simple renal cyst for which no further dedicated follow-up imaging as indicated, unchanged. The kidneys otherwise appear unremarkable in size, shape, and attenuation. Mild right hydronephrosis and hydroureter to the level of the UVJ, new. No stone directly visualized in this region. No hydronephrosis or hydroureter identified on the left. No radiopaque stone identified on either side. GASTROINTESTINAL TRACT/ABDOMINAL WALL: The right lateral abdomen is cut off the images, limiting evaluation of portions of the abdominal wall and bowel. Large (roughly 20 cm) right lateral anterior abdominal wall hernia containing large and small bowel, similar to slightly larger compared with July 24, 2021. Approximately 3 cm umbilical hernia containing only fat. Few diverticula involving the descending and sigmoid colon, without evidence of diverticulitis. No evidence of intestinal obstruction. LYMPH NODES: No evidence of adenopathy by size criteria. VASCULAR: Unremarkable PELVIC VISCERA: Moderately enlarged prostate. OSSEOUS STRUCTURES: Borderline decreased bone mineral density. 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 IMPRESSION: Large (roughly 20 cm) right lateral anterior abdominal wall hernia containing large and small bowel, similar to slightly larger compared with July 24, 2021. No evidence of intestinal obstruction. Approximately 3 cm umbilical hernia containing only fat. Enlarged prostate. Diffuse thickening of the wall the urinary bladder, as previously seen, suggesting muscular hypertrophy; superimposed cystitis or neoplastic involvement cannot be confirmed or excluded. Mild right hydronephrosis and hydroureter to the level of the UVJ, new compared with July 24, 2021. No stone directly visualized in this region. 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 Assessment and Plan (1) CKD (chronic kidney disease): Qualifiers: Chronic kidney disease stage: stage 3 (moderate) Chronic kidney disease stage 3 subtype: stage 3a (GFR 45-59) Qualified Code(s): N18.31 - Chronic kidney disease, stage 3a Status: Acute (2) UTI (urinary tract infection): Qualifiers: Urinary tract infection type: acute cystitis Hematuria presence: w ithout hematuria Qualified Code(s): N30.00 - Acute cystitis without hematuria Status: Acute (3) BPH loc w urin obs/LUTS: Status: Acute (4) Hydronephrosis, right: Status: Acute Plan Right hydronephrosis/hydroureter, Mild on CT. No significant hydro on renal US Urine c/s - prelim---yeast Bladder outlet obstruction. Recommend trial flomax 0.4 mg daily and proscar 5 mg daily Out patient follow up Procedures Date of Service Date of Service: 02/05/24
[2024-02-05] MEDS: Docusate Sodium 100 MG CAPSULE PO ×2 (15:11→21:51)
[2024-02-05] MEDS: Fluconazole 150 MG TABLET 300 MG PO (15:11)
[2024-02-05] MEDS: polyethylene glycoL 3350 17 GM POWD.PACK PO (15:11)
[2024-02-05] MEDS: cefTRIAXone sodium 1 GM VIAL IVPUSH (16:48)
[2024-02-05] MEDS: Doxazosin Mesylate 2 MG TABLET PO (21:52)
[2024-02-05] MEDS: Melatonin 3 MG TABLET 6 MG PO (21:57)
[2024-02-06] VITALS (7 sets, daily range): BP systolic 122–147; BP diastolic 60–69; PULSE 58–75; RESP 18–20; TEMP 36–36.9; O2SAT 94–98; BMI 27.7
--- NOTE | 2024-02-06 00:42 | P.CNID_ITS ---
History of Present Illness Data of Consult Service Date: 02/05/24 Requesting physician: Mireille Carrera Primary Care Provider: Jeremiah Lozada MD HPI Reason for consult: fever He presents with weakness and temperature of 101 just before admission. He has no specific complaints He has had UTis in past. Review of Systems 2 Review of Systems: Yes all other systems are reviewed and are negative PMFSH Past Medical History Medical History Urinary tract infection HTN (hypertension) A-fib Obesity PAF (paroxysmal atrial fibrillation) Hypertension Family History Family History Father Medical history unknown Mother Medical history unknown Family history: reviewed and not pertinent Surgical History Surgical History History of umbilical hernia repair History of hemicolectomy History of inguinal hernia repair H/O rectal polypectomy History of tonsillectomy History of cholecystectomy Social History Social History Household Members: Spouse Housing: Other Housing Other:: double trailer Do you presently have visiting nurse or other home services: Yes Alcohol intake: former Patient Tobacco Use Status: Former Tobacco user Tobacco use type: Cigarette Years Smoked: 37 +/- e-Cigarette/Vaping Use: Never Used Second Hand Smoke Exposure: No service: No Current occupational status: retired Current occupational exposures/hazards: No Cognitive needs: Yes (cane) Hearing needs: No Vision needs: Yes (glasses) Meds Allergies Allergy/AdvReac Type Severity Reaction Status Date / Time No Known Allergies Allergy Unknown Verified 02/03/24 16:27 Active Medications: Current Medications Acetaminophen (Acetaminophen 325 Mg Tablet) 975 mg PO Q6H PRN PRN Reason: Pain, Mild (Pain Scale 1-3), fever or headache Last Admin: 02/04/24 05:43 Dose: 975 mg Albuterol/Ipratropium (Albuterol/Iprat 2.5/0.5mg 3 Ml Ampul.Neb) 3 ml INHALE RQ4H WHILE AWAKE GAIL Last Admin: 02/05/24 18:57 Dose: 3 ml Amlodipine Besylate (Amlodipine Besylate 2.5 Mg Tablet) 2.5 mg PO DAILY [facility]; Protocol Last Admin: 02/05/24 08:01 Dose: 2.5 mg Bisacodyl (Bisacodyl 10 Mg Supp.Rect) 10 mg LA DAILY PRN PRN Reason: Constipation Ceftriaxone Sodium (Ceftriaxone Sodium 1 Gm Vial) 1 gm IVPUSH Q24H [facility] Last Admin: 02/05/24 16:48 Dose: 1 gm Docusate Sodium (Docusate Sodium 100 Mg Capsule) 100 mg PO BID [facility] Last Admin: 02/05/24 21:51 Dose: 100 mg Doxazosin Mesylate (Doxazosin Mesylate 2 Mg Tablet) 2 mg PO BEDTIME [facility] Last Admin: 02/05/24 21:52 Dose: 2 mg Furosemide (Furosemide 20 Mg Tablet) 20 mg PO DAILY [facility]; Protocol Loratadine (Loratadine 10 Mg Tablet) 10 mg PO DAILY [facility] Last Admin: 02/05/24 08:01 Dose: 10 mg Magnesium Hydroxide (Milk Of Magnesia 30 Ml Oral.Susp) 5 ml PO DAILY PRN PRN Reason: Constipation Melatonin (Melatonin 3 Mg Tablet) 6 mg PO BEDTIME PRN PRN Reason: Sleep Last Admin: 02/05/24 21:57 Dose: 6 mg Metoprolol Tartrate (Metoprolol Tartrate 12.5 Mg Halftab) 12.5 mg PO TID [facility]; Protocol Last Admin: 02/05/24 21:52 Dose: 12.5 mg Multivitamins/Vitamin C (Multivitamin Tablet) 1 tab PO DAILY [facility] Last Admin: 02/05/24 08:01 Dose: 1 tab Nystatin/Triamcinolone Acetonide (Nystatin/Triamcinolone Cream 15 Gm Tube) 1 appl TOPICAL BID PRN PRN Reason: Infection Pantoprazole Sodium (Pantoprazole Sodium 40 Mg/10 Ml Vial) 40 mg IVPUSH BID@0630,1630 [facility] Last Admin: 02/05/24 16:48 Dose: 40 mg Polyethylene Glycol (Polyethylene Glycol 3350 17 Gm Powd.Pack) 17 gm PO DAILY [facility] Last Admin: 02/05/24 15:11 Dose: 17 gm Sodium Biphosphate/Sodium Phosphate (Sodium Phosphate,[place]-Dibasic 133 Ml Enema) 118 ml LA DAILY PRN PRN Reason: Constipation Sodium Chloride (0.9 % Sodium Chloride Flush 3 Ml Syringe) 3 ml IVFLUSH QSHIFT [facility] Last Admin: 02/05/24 21:52 Dose: 3 ml Home Medications ?Medication ?Instructions ?Recorded ?Confirmed ?Last Taken ?Type omeprazole 20 mg capsule,delayed 20 mg PO DAILY@0630 07/24/21 02/04/24 02/03/24 History release melatonin 5 mg tablet 5 mg PO BEDTIME PRN Sleep 09/22/22 02/04/24 Unknown History acetaminophen 325 mg tablet 325 mg PO DAILY PRN Pain 02/04/24 02/04/24 Unknown History bisacodyl 10 mg rectal suppository 10 mg LA DAILY PRN Constipation 02/04/24 02/04/24 Unknown History clotrimazole-betamethasone 1 1 appl topical BID PRN Infection 02/04/24 02/04/24 Unknown History %-0.05 % topical cream loratadine 10 mg tablet 10 mg PO DAILY 02/04/24 02/04/24 02/03/24 History magnesium hydroxide 400 mg/5 mL 5 ml PO DAILY PRN Constipation 02/04/24 02/04/24 Unknown History oral suspension (Milk of Magnesia) multivitamin 1 tab PO DAILY 02/04/24 02/04/24 02/03/24 History sodium phosphates 19 gram-7 118 ml LA DAILY PRN Constipation 02/04/24 02/04/24 Unknown History gram/118 mL enema (Fleet Enema) terazosin 2 mg capsule 2 mg PO BEDTIME 02/04/24 02/04/24 02/03/24 History Physical Exam 2 Vital Signs: Vital Signs: Last Vital Signs Temp 97.8 F 02/05/24 23:20 Pulse 72 02/05/24 23:20 Resp 20 02/05/24 23:20 BP 126/61 02/05/24 23:20 Pulse Ox 94 02/05/24 23:20 O2 Del Method Room Air 02/05/24 23:20 O2 Flow Rate 2 02/04/24 19:54 BMI result Body Mass Index 28.1 Const: General: cooperative HEENT: Head: Yes normal to inspection Face and sinus: Yes normal facial exam Mouth: Normal oral and palatal mucosa present Teeth and gingiva: d entition normal Eyes: General: appearance normal, both eyes and all related structures P upils: Equal, round and reactive pupils present Resp: Effort & Inspection: normal respiratory effort Cardio: Rate: regular rate Rhythm: regular rhythm GI: Palpation (GI): Soft to palpation and nontender : General: Yes no CVA tenderness Back/Spine/Pelvis: Back: no CVA tenderness Skin: General skin exam: no rashes or lesions noted Neuro: Other: some confusion General: moves all extremities Cranial nerves: Yes Equal, round and reactive pupils present Extrem: General: Yes normal to inspection Psych: Appearance: grossly normal Results Labs 02/04/24 13:50 02/05/24 08:42 Labs: BMP 02/05/24 08:42 Sodium 137 Potassium 4.3 Chloride 106 Carbon Dioxide 24 BUN 21 H Creatinine 1.53 H Calcium 9.0 Microbiology Microbiology Results: Microbiology 02/03/24 17:00 Blood - Venous Blood Culture - Preliminary No growth after 48 hours. 02/03/24 16:40 Blood - Venous Blood Culture - Preliminary No growth after 48 hours. 02/03/24 Unknown Urine clean catch Urine Culture - Preliminary Yeast Assessment and Plan (1) Hydronephrosis, right: Status: Acute (2) CKD (chronic kidney disease): Qualifiers: Chronic kidney disease stage: stage 3 (moderate) Chronic kidney disease stage 3 subtype: stage 3a (GFR 45-59) Qualified Code(s): N18.31 - Chronic kidney disease, stage 3a Status: Acute Plan He has fever with no signs of cough or pneumonia. He has no rash or tick exposure Would continue Ceftriaxone. Await culture and if cephalsporins sensitive in urine or urine unremarkable would give po cephalosporin for 7- 10 days. Follow Urology.
[2024-02-06 05:54] LABS: Phosphorus 3.3 mg/dL (2.7-4.5)
--- NOTE | 2024-02-06 06:34 | P.CNGI_ITS ---
History of Present Illness Data of Consult Service Date: 02/06/24 Requesting physician: Mireille Carrera Primary Care Provider: Jeremiah Lozada MD HPI Reason for consult: anemia 88 years with past medical history for AFib, essential hypertension and GERD who I am seeing for anemia assessment He was initially admitted with weakness but denied abdominal pain, nausea or vomiting. He had no neuro sx, or cardiac sx such as headache, acute visual disturbances, palpitations, chest pain, shortness on breath, he does admit to intermittent episodes of blood when stooling but denies constipation, straining or change in bowel habit. Last colonscopy was 2014 with diverticulosis and small hyperplastic polyp. EGD 2011 with h pylori gastritis. He also has hx of colotomy in the hepatic flexure for sessile polyp with severe dysplasia Labs with anemia, stable and chronic. UA with large blood. Imaging CT with large right lateral anterior abdominal wall hernia containing large and small bowel similar to slightly larger compared to July 2021, mild right hydronephrosis and hydroureter to the level of IVJ, bladder diverticulum, small bilateral pleural effusions with associated atelectasis and enlarged prostate with diffuse thickening of the wall of the urinary bladder. was brought to the ED via EMS after he felt extremely weak and unable to get out of the couch. He denied any . He mentioned that he has had nonbloody diarrhea that stopped several days ago. Sometimes he noted blood thinners toilet paper. He denied pain with urination, back pain or blood in urine. He said that he is taking antibiotics (cefpodoxime) for recently diagnosed UTI. Review of Systems 2 Review of Systems: Constitutional : No Weight loss, No Fever, No Chills ENT/Mouth : No sore throat, No Rhinorrhea Eyes: No Swelling, No Redness Cardiovascular : No Chest Pain, No SOB, No Edema Respiratory : No Cough, No Sputum, No Wheezing Gastrointestinal : see HPI Genitourinary : NO Dysuria, No Urinary Frequency, No Hematuria, No Urgency Musculoskeletal : + joint pain, No Myalgias, No Joint Swelling Skin : No Skin Lesions, No rash Neuro : + Weakness, No Numbness, No Dizziness, No Headache Psych : No Anxiety/Panic, No Depression Heme/Lymph: No Bruising, No Lymphadenopathy Endocrine : No Polyuria, No Polydipsia All other systems reviewed and are negative. [facility] Past Medical History Medical History Urinary tract infection HTN (hypertension) A-fib Obesity PAF (paroxysmal atrial fibrillation) Hypertension Family History Family History Father Medical history unknown Mother Medical history unknown Family history: reviewed and not pertinent Surgical History Surgical History History of umbilical hernia repair History of hemicolectomy History of inguinal hernia repair H/O rectal polypectomy History of tonsillectomy History of cholecystectomy Social History Social History Household Members: Spouse Housing: Other Housing Other:: double trailer Do you presently have visiting nurse or other home services: Yes Alcohol intake: former Patient Tobacco Use Status: Former Tobacco user Tobacco use type: Cigarette Years Smoked: 37 +/- e-Cigarette/Vaping Use: Never Used Second Hand Smoke Exposure: No service: No Current occupational status: retired Current occupational exposures/hazards: No Cognitive needs: Yes (cane) Hearing needs: No Vision needs: Yes (glasses) Meds Allergies Allergy/AdvReac Type Severity Reaction Status Date / Time No Known Allergies Allergy Unknown Verified 02/03/24 16:27 Active Medications: Current Medications Acetaminophen (Acetaminophen 325 Mg Tablet) 975 mg PO Q6H PRN PRN Reason: Pain, Mild (Pain Scale 1-3), fever or headache Last Admin: 02/04/24 05:43 Dose: 975 mg Albuterol/Ipratropium (Albuterol/Iprat 2.5/0.5mg 3 Ml Ampul.Neb) 3 ml INHALE RQ4H WHILE AWAKE GAIL Last Admin: 02/05/24 18:57 Dose: 3 ml Amlodipine Besylate (Amlodipine Besylate 2.5 Mg Tablet) 2.5 mg PO DAILY [facility]; Protocol Last Admin: 02/05/24 08:01 Dose: 2.5 mg Bisacodyl (Bisacodyl 10 Mg Supp.Rect) 10 mg DC DAILY PRN PRN Reason: Constipation Ceftriaxone Sodium (Ceftriaxone Sodium 1 Gm Vial) 1 gm IVPUSH Q24H [facility] Last Admin: 02/05/24 16:48 Dose: 1 gm Docusate Sodium (Docusate Sodium 100 Mg Capsule) 100 mg PO BID [facility] Last Admin: 02/05/24 21:51 Dose: 100 mg Doxazosin Mesylate (Doxazosin Mesylate 2 Mg Tablet) 2 mg PO BEDTIME [facility] Last Admin: 02/05/24 21:52 Dose: 2 mg Furosemide (Furosemide 20 Mg Tablet) 20 mg PO DAILY [facility]; Protocol Loratadine (Loratadine 10 Mg Tablet) 10 mg PO DAILY [facility] Last Admin: 02/05/24 08:01 Dose: 10 mg Magnesium Hydroxide (Milk Of Magnesia 30 Ml Oral.Susp) 5 ml PO DAILY PRN PRN Reason: Constipation Melatonin (Melatonin 3 Mg Tablet) 6 mg PO BEDTIME PRN PRN Reason: Sleep Last Admin: 02/05/24 21:57 Dose: 6 mg Metoprolol Tartrate (Metoprolol Tartrate 12.5 Mg Halftab) 12.5 mg PO TID [facility]; Protocol Last Admin: 02/05/24 21:52 Dose: 12.5 mg Multivitamins/Vitamin C (Multivitamin Tablet) 1 tab PO DAILY [facility] Last Admin: 02/05/24 08:01 Dose: 1 tab Nystatin/Triamcinolone Acetonide (Nystatin/Triamcinolone Cream 15 Gm Tube) 1 appl TOPICAL BID PRN PRN Reason: Infection Pantoprazole Sodium (Pantoprazole Sodium 40 Mg/10 Ml Vial) 40 mg IVPUSH BID@0630,1630 [facility] Last Admin: 02/05/24 16:48 Dose: 40 mg Polyethylene Glycol (Polyethylene Glycol 3350 17 Gm Powd.Pack) 17 gm PO DAILY [facility] Last Admin: 02/05/24 15:11 Dose: 17 gm Sodium Biphosphate/Sodium Phosphate (Sodium Phosphate,[place]-Dibasic 133 Ml Enema) 118 ml DC DAILY PRN PRN Reason: Constipation Sodium Chloride (0.9 % Sodium Chloride Flush 3 Ml Syringe) 3 ml IVFLUSH QSHIFT [facility] Last Admin: 02/05/24 21:52 Dose: 3 ml Home Medications ?Medication ?Instructions ?Recorded ?Confirmed ?Last Taken ?Type omeprazole 20 mg capsule,delayed 20 mg PO DAILY@0630 07/24/21 02/04/24 02/03/24 History release melatonin 5 mg tablet 5 mg PO BEDTIME PRN Sleep 09/22/22 02/04/24 Unknown History acetaminophen 325 mg tablet 325 mg PO DAILY PRN Pain 02/04/24 02/04/24 Unknown History bisacodyl 10 mg rectal suppository 10 mg DC DAILY PRN Constipation 02/04/24 02/04/24 Unknown History clotrimazole-betamethasone 1 1 appl topical BID PRN Infection 02/04/24 02/04/24 Unknown History %-0.05 % topical cream loratadine 10 mg tablet 10 mg PO DAILY 02/04/24 02/04/24 02/03/24 History magnesium hydroxide 400 mg/5 mL 5 ml PO DAILY PRN Constipation 02/04/24 02/04/24 Unknown History oral suspension (Milk of Magnesia) multivitamin 1 tab PO DAILY 02/04/24 02/04/24 02/03/24 History sodium phosphates 19 gram-7 118 ml DC DAILY PRN Constipation 02/04/24 02/04/24 Unknown History gram/118 mL enema (Fleet Enema) terazosin 2 mg capsule 2 mg PO BEDTIME 02/04/24 02/04/24 02/03/24 History Physical Exam 2 Vital Signs: Vital Signs: Last Vital Signs Temp 98.4 F 02/06/24 03:21 Pulse 64 02/06/24 03:21 Resp 18 02/06/24 03:21 BP 126/60 02/06/24 03:21 Pulse Ox 98 02/06/24 03:21 O2 Del Method Room Air 02/06/24 03:21 O2 Flow Rate 2 02/04/24 19:54 BMI result Body Mass Index 28.1 EXAM: GENERAL: The patient is well developed and nontoxic. VITAL SIGNS:see workflow HEENT: Nonicteric sclerae, PERRLA, EOMI. Oropharynx clear. Moist mucous membranes. Conjunctivae appear well perfused. No thyroid mass. CHEST: Chest wall is nontender. HEART: Regular rate and rhythm without murmurs. LUNGS: Clear to auscultation bilaterally. ABDOMEN: Soft, positive bowel sounds, nontender, no organomegaly.no flank tenderness--incisional hernia noted on right SKIN: No rash, no excessive bruising, petechiae, or purpura. NEUROLOGIC: Cranial nerves II-XII intact without motor/sensory deficit. Psych: normal affect Results Labs 02/04/24 13:50 02/05/24 08:42 Labs: BMP 02/05/24 08:42 Sodium 137 Potassium 4.3 Chloride 106 Carbon Dioxide 24 BUN 21 H Creatinine 1.53 H Calcium 9.0 Microbiology Microbiology Results: Microbiology 02/03/24 17:00 Blood - Venous Blood Culture - Preliminary No growth after 48 hours. 02/03/24 16:40 Blood - Venous Blood Culture - Preliminary No growth after 48 hours. 02/03/24 Unknown Urine clean catch Urine Culture - Preliminary Yeast Assessment and Plan (1) Anemia: Qualifiers: Anemia type: iron deficiency Iron deficiency anemia type: unspecified iron deficiency Qualified Code(s): D50.9 - Iron deficiency anemia, unspecified Status: Acute Plan 1/ Anemia, chronic possibly multifactorial from rectal bleeding, hematuria and renal insufficiency. He had prior polyp with dysplasia and removed in 1999 wt colotomy PLAN: 1/ I did recommend a colonoscopy this admission but patient declined and said he wants to thnk about it will arrange o/p visit to discuss further if he wishes to proceed 2/ recommend avoid constipation, can use colace Procedures Date of Service Date of Service: 02/06/24
[2024-02-06] MEDS: Pantoprazole Sodium 40 MG/10 ML VIAL IVPUSH ×2 (06:39→15:30)
[2024-02-06] MEDS: Docusate Sodium 100 MG CAPSULE PO (08:05)
[2024-02-06] MEDS: Metoprolol Tartrate 12.5 MG HALFTAB PO ×2 (08:05→15:27)
[2024-02-06] MEDS: polyethylene glycoL 3350 17 GM POWD.PACK PO (08:05)
[2024-02-06] MEDS: Furosemide 20 MG TABLET PO (08:05)
[2024-02-06] MEDS: amLODIPine Besylate 2.5 MG TABLET PO (08:05)
[2024-02-06] MEDS: Loratadine 10 MG TABLET PO (08:05)
[2024-02-06] MEDS: 0.9 % Sodium Chloride Flush 3 ML SYRINGE IVFLUSH ×2 (08:06→15:28)
[2024-02-06] MEDS: Multivitamin TABLET 1 TAB PO (08:06)
[2024-02-06 08:08] LABS: Parathyroid Hormone Intact 92.2 pg/mL (8.7-77.1)
[2024-02-06] MEDS: Albuterol/Iprat 2.5/0.5MG 3 ML AMPUL.NEB INHALE ×2 (08:12→11:52)
--- NOTE | 2024-02-06 08:35 | P.PNNP_ITS ---
Subjective Subjective Date of Service: 02/06/24 Interval history: 88 y/o male with a medical history of afib, HTN, GERD, BPH Presented to ED on 02/02 with severe generalized weakness, tachycardia. Had recently dx UTI for which he was taking oral abx. Nephrology consulted for worsening renal insufficiency. creatinine 1.39 on 01/01/23 (over 1 year ago, no other labs since) 02/02 creatinine 1.76, down to 1.51, 1.56 1.53 02/03, 02/04 was 1.53 (likely baseline) had been on lasix outpatient anticoagulation being held due to drop in H&H and concern for bleed but this has has somewhat today CT abd/pelvis from 02/02 shows enlarged prostate, bladder wall thickening, cystitis vs neoplastic involvement. Mild right hydroureter and hydronephrosis without renal calculi. Kidney size/shape/attenuation unremarkable. patient states he sees Urology outpatient- most recent notes from 2020 had BPH with urinary obstruction, microscopic hematuria He denies other known medical history he denies family history of renal disease he denies use of NSAIDs or OTC medications at home he states he is feeling improvement since hospitalization, reports weakness has improved and he has gotten up out of bed a few times with assistance. states intermittent shortness of breath but that he has not had this yet today states he has chronic, intermittent LE edema he denies other concerns, questions Physical Exam 2 Vital Signs: Vital Signs: Last Vital Signs Temp 96.8 F 02/06/24 11:25 Pulse 75 02/06/24 11:52 Resp 20 02/06/24 11:52 BP 122/60 02/06/24 11:25 Pulse Ox 98 02/06/24 11:25 O2 Del Method Room Air 02/06/24 11:25 O2 Flow Rate 2 02/04/24 19:54 BMI result Body Mass Index 27.7 Const: General: no acute distress, alert and awake Resp: Effort & Inspection: normal respiratory effort and able to speak in complete sentences Auscultation: clear to auscultation bilaterally Cardio: Rate: regular rate Rhythm: regular rhythm Heart sounds: S1 normal heart sound present and S2 normal heart sound present GI: Palpation (GI): Soft to palpation and nontender : General: Yes no CVA tenderness Back/Spine/Pelvis: Back: no CVA tenderness Skin: Lesions: no lesions Rashes: no rashes Extrem: General: Yes edema (trace BLE edema ) Objective Data Labs 02/04/24 13:50 02/05/24 08:42 Labs: Laboratory Results - last 24 hr 02/06/24 02/06/24 05:16 07:42 Hold Purple Top SEE NOTE Phosphorus 3.3 PTH Intact 92.2 H Microbiology Microbiology Results: Microbiology 02/05/24 14:35 Urine clean catch Urine Culture - Final No growth. 02/03/24 Unknown Urine clean catch Urine Culture - Final Sophie albicans 02/03/24 17:00 Blood - Venous Blood Culture - Preliminary No growth after 48 hours. 02/03/24 16:40 Blood - Venous Blood Culture - Preliminary No growth after 48 hours. Procedures Date of Service Date of Service: 02/06/24 Assessment & Plan Assessment and plan (1) CKD (chronic kidney disease): Status: Acute (2) UTI (urinary tract infection): Status: Acute (3) Anemia: Status: Acute (4) Hypertension: Status: Acute Plan CKD3 at baseline with anemia serum and urine immunofixation to rule out underlying cause of CKD pending PTH mildly elevated at 92 urology referral due to hydroureter and BPH on CT blood pressure controlled with amlodipine 2.5mg daily Continue supportive care, will continue to follow Patient should follow up with nephrology outpatient in 2-4 weeks upon discharge for continued management of CKD Discussed with Dr Meraz Time Spent With Patient Time: Total time managing care of this patient today ____ minutes. Progress Note: Quality Stroke Does the patient have a stroke diagnosis?: No
--- NOTE | 2024-02-06 10:45 | P.PNIM_ITS ---
Subjective Subjective Date of Service: 02/06/24 Interval History: harper, uti ,tachycardia Review of Systems has hr 130's with excersion sob somewhat improving bnp also improving Physical Exam 2 Vital Signs: Vital Signs: Last Vital Signs Temp 98.5 F 02/06/24 07:20 Pulse 67 02/06/24 09:13 Resp 18 02/06/24 08:13 BP 129/61 02/06/24 07:20 Pulse Ox 95 02/06/24 07:20 O2 Del Method Room Air 02/06/24 07:20 O2 Flow Rate 2 02/04/24 19:54 BMI result Body Mass Index 27.7 Appearing in no acute distress lung sounds are clear to auscultation heart regular rate rhythm, clear S1, S2 positive bowel sounds, abdomen is soft, nontender neuro patient is alert x3, no focal deficits Objective Data Active Medications Acetaminophen (Acetaminophen 325 Mg Tablet) 975 mg PO Q6H PRN PRN Reason: Pain, Mild (Pain Scale 1-3), fever or headache Last Admin: 02/04/24 05:43 Dose: 975 mg Documented By: ADEEL Albuterol/Ipratropium (Albuterol/Iprat 2.5/0.5mg 3 Ml Ampul.Neb) 3 ml INHALE RQ4H WHILE AWAKE [facility] Last Admin: 02/06/24 08:12 Dose: 3 ml Documented By: NELLY Amlodipine Besylate (Amlodipine Besylate 2.5 Mg Tablet) 2.5 mg PO DAILY [facility]; Protocol Last Admin: 02/06/24 08:05 Dose: 2.5 mg Documented By: KIKE Bisacodyl (Bisacodyl 10 Mg Supp.Rect) 10 mg PA DAILY PRN PRN Reason: Constipation Ceftriaxone Sodium (Ceftriaxone Sodium 1 Gm Vial) 1 gm IVPUSH Q24H [facility] Last Admin: 02/05/24 16:48 Dose: 1 gm Documented By: KIKE Docusate Sodium (Docusate Sodium 100 Mg Capsule) 100 mg PO BID [facility] Last Admin: 02/06/24 08:05 Dose: 100 mg Documented By: KIKE Doxazosin Mesylate (Doxazosin Mesylate 2 Mg Tablet) 2 mg PO BEDTIME [facility] Last Admin: 02/05/24 21:52 Dose: 2 mg Documented By: MONICA Furosemide (Furosemide 20 Mg Tablet) 20 mg PO DAILY [facility]; Protocol Last Admin: 02/06/24 08:05 Dose: 20 mg Documented By: KIKE Loratadine (Loratadine 10 Mg Tablet) 10 mg PO DAILY [facility] Last Admin: 02/06/24 08:05 Dose: 10 mg Documented By: KIKE Magnesium Hydroxide (Milk Of Magnesia 30 Ml Oral.Susp) 5 ml PO DAILY PRN PRN Reason: Constipation Melatonin (Melatonin 3 Mg Tablet) 6 mg PO BEDTIME PRN PRN Reason: Sleep Last Admin: 02/05/24 21:57 Dose: 6 mg Documented By: MONICA Metoprolol Tartrate (Metoprolol Tartrate 12.5 Mg Halftab) 12.5 mg PO TID [facility]; Protocol Last Admin: 02/06/24 08:05 Dose: 12.5 mg Documented By: KIKE Multivitamins/Vitamin C (Multivitamin Tablet) 1 tab PO DAILY [facility] Last Admin: 02/06/24 08:06 Dose: 1 tab Documented By: KIKE Nystatin/Triamcinolone Acetonide (Nystatin/Triamcinolone Cream 15 Gm Tube) 1 appl TOPICAL BID PRN PRN Reason: Infection Pantoprazole Sodium (Pantoprazole Sodium 40 Mg/10 Ml Vial) 40 mg IVPUSH BID@0630,1630 [facility] Last Admin: 02/06/24 06:39 Dose: 40 mg Documented By: MONICA Polyethylene Glycol (Polyethylene Glycol 3350 17 Gm Powd.Pack) 17 gm PO DAILY [facility] Last Admin: 02/06/24 08:05 Dose: 17 gm Documented By: KIKE Sodium Biphosphate/Sodium Phosphate (Sodium Phosphate,Labette-Dibasic 133 Ml Enema) 118 ml PA DAILY PRN PRN Reason: Constipation Sodium Chloride (0.9 % Sodium Chloride Flush 3 Ml Syringe) 3 ml IVFLUSH QSHIFT [facility] Last Admin: 02/06/24 08:06 Dose: 3 ml Documented By: KIKE Labs 02/04/24 13:50 02/05/24 08:42 Labs: Laboratory Results - last 24 hr 02/06/24 02/06/24 05:16 07:42 Hold Purple Top SEE NOTE Phosphorus 3.3 PTH Intact 92.2 H Microbiology Microbiology Results: Microbiology 02/03/24 Unknown Urine Culture - Final Urine clean catch Sophie albicans 02/03/24 17:00 Blood Culture - Preliminary Blood - Venous No growth after 48 hours. 02/03/24 16:40 Blood Culture - Preliminary Blood - Venous No growth after 48 hours. Assessment and Plan (1) SIRS (systemic inflammatory response syndrome): Status: Acute (2) UTI (urinary tract infection): Status: Acute (3) CKD (chronic kidney disease): Status: Acute (4) Anemia: Status: Acute Assessment and Plan: 88 y/o admitted with: sirs/sepsis (not severe sepsis, POA): Tachycardia and fever, no severe sepsis criteria; in the setting of urinary tract infection. tachycardia and fever resolved. lactic acid normal Urine grew yeast ,added another urine cultures and blood cultures neg @24hrs Continue empiric IV antibiotic therapy with ceftriaxone. Worsening anemia : h/h similar range 9.5 -10 range Check for occult blood in stools (rectal exam per ED showed brown stools). patient denies any sujit blood in stool Continue to monitor hemoglobin-so far in 10 range Hold Eliquis for now. Protonix 40 mg IV twice daily. iron ,iron sats and tibc low ,ferritin boderline ,b12 and folate normal,fobt need to sent Gi eval added HARPER vs CKD 3 ( unclear )- cr flactuating ,(multifactorial- ?GI bleeding, dehydration due to diuretics (furosemide)? pvr check renal us-? hydroureter urology eval. possible chf unclaer etiology leg edema ,sob ,elevated bnp cxr-Increasing size of bilateral pleural effusions with slight increase in patchy density at the right lung base. echo added plan: moniter weight ,i/o.,added echo cardiology eval-lasix switch to po lasix 20 mg daily Atrial fibrillation, currently rate controlled. hr intermitently goes in 130 with excersion metoprolol 12.5 mg tid added for rate control. Eliquis on hold due to worsening anemia. . Essential hypertension. Continue amlodipine,metorpolol . GERD. Continue PPI. BPH. Continue terazosin if taking it at home. DVT prophylaxis with Attending Dr. Ott Quality Stroke Does the patient have a stroke diagnosis?: No VTE Prior VTE?: No VTE Risk Level:: Medical - moderate - high VTE Device Contraindication: N/A - Device Ordered VTE Drug Contraindication: N/A - Med Ordered
--- NOTE | 2024-02-06 11:26 | PM.DS ---
DS: Providers Provider Date of Service: 02/06/24 Date of admission: 02/03/24 23:39 Primary care physician: Jeremiah Lozada MD Consults: 02/04/24 16:59 Consult to Nephrology Routine Consulting Provider: [facility] Reason for consultation: harper in setting chf 02/04/24 17:02 Consult to Cardiology Routine Consulting Provider: [facility] Reason for consultation: chf new Has provider been notified: No 02/04/24 20:51 Consult to Wound Care Routine Reason for consultation: redness/skin tears/injury to bilateral buttoclks 02/05/24 10:12 Consult to Urology Routine Consulting Provider: [facility] Reason for consultation: harper ,hydroureter Has provider been notified: No 02/05/24 13:48 Consult to Gastroenterology Routine Consulting Provider: [facility] Reason for consultation: worsening anemia ,afib on eliquis Has provider been notified: No 02/05/24 13:52 Consult to Infectious Diseases Routine Consulting Provider: [facility] Reason for consultation: sepsis uti Has provider been notified: No DS: Diagnosis Discharge Diagnosis (1) SIRS (systemic inflammatory response syndrome): Status: Acute (2) UTI (urinary tract infection): Status: Acute (3) CKD (chronic kidney disease): Status: Acute (4) Anemia: Status: Acute DS: Summary Hospital Course Hospital Course: History and physical as per admitting provider. Gareth Malik is a very pleasant 88 years with past medical history for AFib, essential hypertension and GERD was brought to the ED via EMS after he felt extremely weak and unable to get out of the couch. He denied any headache, acute visual disturbances, palpitations, chest pain, shortness on breath, abdominal pain, nausea or vomiting. He mentioned that he has had nonbloody diarrhea that stopped several days ago. Sometimes he noted blood thinners toilet paper. He denied pain with urination, back pain or blood in urine. He said that he is taking antibiotics (cefpodoxime) for recently diagnosed UTI. In the ED, he was found to have fever of 102.8 and tachycardia. There is also tachypnea. Blood pressure has been stable. Last blood pressure 137/59. Oxygen saturation is normal on room air. Blood workup showed no leukocytosis. Hemoglobin is 9.9 (it was 13.7 before -a year ago). INR is 1.3. There is no lactic acidosis. There are no significant electrolyte imbalances. Creatinine is 1.72 and BUN 24. Glucose 136. Viral testing for COVID-19, influenza and RSV is negative. ECG normal sinus rhythm, PACs and first-degree AV block. CXR is negative. Abdomen pelvis CT scan showed large right lateral anterior abdominal wall hernia containing large and small bowel similar to slightly larger compared to July 2021, mild right hydronephrosis and hydroureter to the level of IVJ, bladder diverticulum, small bilateral pleural effusions with associated atelectasis and enlarged prostate with diffuse thickening of the wall of the urinary bladder. ED tx: Ceftriaxone 2 g IV, acetaminophen 975 mg PO, NS 2532 mL bolus. 88-year-old man treated for sepsis secondary to urinary tract infection. Urine grew yeast but blood cultures remained negative. He was treated with empiric Rocephin. Due to his history of CKD stage 3 his Eliquis was decreased to 2 point 5 mg b.i.d.. He was noted to have mild congestive heart failure and treated with IV Lasix, back to 20 mg oral daily. Iron-deficiency anemia. Stable H&H, iron 19, started on iron supplementation Hypertension. Continue amlodipine and metoprolol GERD. Continue PPI BPH. Continue terazosin Plan to transfer patient for short-term rehab. Time Attestation Discharge Coordination Time (in mins): 40 Quality: Safe Use of Opioids Does Pt have an Active Cancer Diagnosis on the Problem List?: No Quality: Stroke Does the patient have a stroke diagnosis?: No Physical Exam Vital Signs: Vital Signs: Last Vital Signs Temp 98.5 F 02/06/24 07:20 Pulse 67 02/06/24 09:13 Resp 18 02/06/24 08:13 BP 129/61 02/06/24 07:20 Pulse Ox 95 02/06/24 07:20 O2 Del Method Room Air 02/06/24 07:20 O2 Flow Rate 2 02/04/24 19:54 BMI result Body Mass Index 27.7 Appearing in no acute distress head is normocephalic atraumatic eyes pupils are PERRLA sclera is anicteric mouth throat mucous membranes are intact and moist neck is supple no lymphadenopathy, no JVD noted lung sounds are clear to auscultation heart regular rate rhythm, clear S1, S2 positive bowel sounds, abdomen is soft, nontender neuro patient is alert x3, no focal deficits DS: Data Data Completed and Pending Labs on day of discharge: Laboratory Results - last 24 hr 02/06/24 02/06/24 05:16 07:42 Hold Purple Top SEE NOTE Phosphorus 3.3 PTH Intact 92.2 H Preliminary micro results at discharge 02/03/24 17:00 Blood Culture - Preliminary Blood - Venous No growth after 48 hours. 02/03/24 16:40 Blood Culture - Preliminary Blood - Venous No growth after 48 hours. Discharge Plan Discharge Anticipated Discharge Date/Time: 02/06/24 10:50 Patient Disposition: Xfer SNF Discharge Diagnosis: Iron-deficiency anemia Sepsis UTI HARPER on CKD stage 3 Mild congestive heart failure Referrals: Jeremiah Lozada MD [Primary Care Provider] - 1 Week Discharge Medications: New ferrous sulfate 325 mg (65 mg iron) tablet 325 mg PO DAILY Qty: 30 0RF metoprolol tartrate 25 mg tablet 12.5 mg PO TID Qty: 30 0RF Continued amlodipine 2.5 mg tablet 2.5 mg PO DAILY Qty: 90 3RF (DME) [employer] See Rx Instructions .Route .MEDSUPPLY Qty: 1 0RF Rx Instructions: As directed omeprazole 20 mg capsule,delayed release(DR/EC) 20 mg PO DAILY@0630 terazosin 2 mg capsule 2 mg PO BEDTIME clotrimazole-betamethasone 1-0.05 % cream 1 appl topical BID PRN (Reason: Infection) multivitamin Tablet 1 tab PO DAILY acetaminophen 325 mg Tablet 325 mg PO DAILY PRN (Reason: Pain) magnesium hydroxide [Milk of Magnesia] 400 mg/5 mL Suspension 5 ml PO DAILY PRN (Reason: Constipation) bisacodyl 10 mg Suppository 10 mg MT DAILY PRN (Reason: Constipation) Fleet Enema 19-7 gram/118 mL Enema 118 ml MT DAILY PRN (Reason: Constipation) loratadine 10 mg Tablet 10 mg PO DAILY melatonin 5 mg tablet 5 mg PO BEDTIME PRN (Reason: Sleep) furosemide 20 mg tablet 20 mg PO DAILY Qty: 30 3RF Changed Eliquis 5 mg tablet 2.5 mg PO BID Qty: 180 5RF Discharge Orders: Discharge Order (Routine); Ordered 11/06/24 Ordered By: Shante Da Silva Diet: Advance to usual diet Activity on Discharge: As tolerated Stand Alone Forms: Patient Portal Discharge page Print Language: Yakut Care Plan Goals: Transfer to short-term rehab for physical therapy Health Concerns: Iron-deficiency anemia Sepsis UTI HARPER on CKD stage 3 Mild congestive heart failure Plan of Treatment: Follow-up with primary care provider as needed Take all medications as prescribed Assessment: See discharge summary
--- NOTE | 2024-02-06 11:51 | MHC.CM.PN ---
Pt has been medically cleared for DC, he will go to [facility] today via BLS.
[2024-02-07 22:18] LABS: IgA 646 mg/dL (70-320); IgG 1357 mg/dL (600-1540); IgM 46 mg/dL (50-300)
--- NOTE | 2024-02-20 12:55 | P.CDIM_ITS ---
PROVIDER RESPONSE TEXT: To clarify, the appropriate diagnosis supported by the clinical indicators: Sepsis is/was present on admission and is a clinical diagnosis QUERY TEXT: PHYSICIAN'S DOCUMENTATION REQUEST Date of Query: 02/13/2024 08:05 AM EST Patient Name: Gareth Malik Admit Date: 02/04/2024 Dear Shante Da Silva TELETYPESETTER MONITOR, A review of the medical record indicates additional documentation may be needed. Please review below and update the documentation accordingly. Documentation on progress note dated throughout the patient's stay included the diagnosis of SIRS and Sepsis. The patient's infectious clinical indicators include: WBC 6.5 LA 1.7 T 102.8 P 103 R 30 Recognized standard criteria for this condition and other infectious definitions includes: The Discharge Summary 02/06/24 states: treated for sepsis secondary to urinary tract infection Urine grew yeast but blood cultures remained negative. He was treated with empiric Rocephin Sepsis Systemic manifestations of infection, with 2 or more SIRS criteria which include: Fever > 100.4?F or hypothermia < 96.8?F Leukocytosis - WBC > 12,000 or leukopenia, WBC < 4,000, or > 10% bands Tachycardia- > 90 beats/minute Tachypnea- RR > 20 breaths/minute or PaCO2 < 32mmHg Source: Merck Manual 2013 Documentation should include the known or suspected organism, and the underlying infection, such as U TI or pneumonia Severe Sepsis Sepsis with associated acute organ dysfunction, such as renal or respiratory failure Documentation should indicate the association between the sepsis and the organ dysfunction Septic Shock Severe sepsis with associated with circulatory failure, evidenced by hypotension and hypoperfusion Based on the above information and the recognized standard for sepsis, could you please clarify if th is diagnoses is still accurate and reflective of the patient's condition to ensure quality of the medical record. Sepsis is/was present on admission and is a clinical diagnosis After study, Sepsis has been ruled out SIRS, no Sepsis Other (explain) Clinically unable to determine (explain) Thank you, Danielle Johnson RN Use of terms such as suspected, likely, concern for, or probable (associated with a specific diagnosi s that is being evaluated, monitored, or treated as if it exists) are acceptable and can be coded in the inpatient se tting, when documented at the time of discharge. Please use your independent medical judgment in providing your response. THIS QUERY IS PART OF THE PERMANENT MEDICAL RECORD
== END 2024-02-06 16:31 | disposition skilled nursing facility (03) | DRG 872 ==
LOC: HO.ED 23:43 → HO.EDOVER 23:49 → HO.IMC 02-04 14:04
PROVIDERS: Internal Medicine; Nurse Practitioner Family; Physician Assistant Medical; Admitting Provider Internal Medicine; Emergency Provider Emergency Medicine Emergency Medical Services; PCP Internal Medicine; Visit Provider Nurse Practitioner Acute Care
DX: A41.9 Sepsis, unspecified organism (principal); N13.6 Pyonephrosis; I13.0 Hypertensive heart and chronic kidney disease with heart failure and stage 1 through stage 4 chronic kidney disease, or unspecified chronic kidney disease; N13.8 Other obstructive and reflux uropathy; J98.11 Atelectasis; N17.9 Acute kidney failure, unspecified; N18.30 Chronic kidney disease, stage 3 unspecified; D63.1 Anemia in chronic kidney disease; K21.9 Gastro-esophageal reflux disease without esophagitis; S06.9XAS Unspecified intracranial injury with loss of consciousness status unknown, sequela; N40.1 Benign prostatic hyperplasia with lower urinary tract symptoms; E86.0 Dehydration; I48.91 Unspecified atrial fibrillation; Z20.822 Contact with and (suspected) exposure to COVID-19; Z87.440 Personal history of urinary (tract) infections; Z79.01 Long term (current) use of anticoagulants; Z79.899 Other long term (current) drug therapy
CPT/HCPCS: 0241U; 36415; 71045; 74176; 76775; 80048; 80076; 81001; 82043; 82570; 82607; 82728; 82746; 82784; 82803; 83540; 83605; 83690; 83735; 83880; 83970; 84100; 84156; 85014; 85018; 85025; 85045; 85610; 86334; 86335; 87040; 87086; 87088; 93005; 93306; 94640; 97162; 99285; J0696; J1940; J2470; Q9957

== ENCOUNTER → 2024-02-03 16:41 | Outpatient (BNV) | payer MEDICARE, OTHER, SELFPAY | PROVIDERS: Admitting Provider Internal Medicine; Emergency Provider Emergency Medicine Emergency Medical Services; PCP Internal Medicine; Visit Provider Internal Medicine Cardiovascular Disease | DX: R00.0 Tachycardia, unspecified (principal); R94.31 Abnormal electrocardiogram [ECG] [EKG] | CPT/HCPCS: 93010 ==

== ENCOUNTER 2024-02-03 23:39 | Outpatient (BNV) | payer MEDICARE, OTHER, SELFPAY | END 2024-02-05 07:00 | PROVIDERS: Admitting Provider Internal Medicine; Emergency Provider Emergency Medicine Emergency Medical Services; PCP Internal Medicine; Visit Provider Internal Medicine Cardiovascular Disease | DX: I35.1 Nonrheumatic aortic (valve) insufficiency (principal); I34.81 Nonrheumatic mitral (valve) annulus calcification; I35.8 Other nonrheumatic aortic valve disorders | CPT/HCPCS: 93306 ==

== ENCOUNTER → 2024-02-03 23:39 | Outpatient (BNV) | payer MEDICARE, OTHER, SELFPAY | PROVIDERS: Admitting Provider Internal Medicine; Emergency Provider Emergency Medicine Emergency Medical Services; PCP Internal Medicine; Visit Provider Internal Medicine | DX: N13.30 Unspecified hydronephrosis (principal); N18.31 Chronic kidney disease, stage 3a | CPT/HCPCS: 99222 ==

== ENCOUNTER → 2024-02-03 23:39 | Outpatient (BNV) | payer MEDICARE, OTHER, SELFPAY | PROVIDERS: Admitting Provider Internal Medicine; Emergency Provider Emergency Medicine Emergency Medical Services; PCP Internal Medicine; Visit Provider Internal Medicine | DX: R65.10 Systemic inflammatory response syndrome (SIRS) of non-infectious origin without acute organ dysfunction (principal); R50.9 Fever, unspecified; I48.0 Paroxysmal atrial fibrillation; N30.00 Acute cystitis without hematuria; K21.9 Gastro-esophageal reflux disease without esophagitis; I48.91 Unspecified atrial fibrillation; D64.9 Anemia, unspecified; N39.0 Urinary tract infection, site not specified | CPT/HCPCS: 99223; 99232; 99239 ==

== ENCOUNTER → 2024-02-03 23:39 | Outpatient (BNV) | payer MEDICARE, OTHER, SELFPAY | PROVIDERS: Admitting Provider Internal Medicine; Emergency Provider Emergency Medicine Emergency Medical Services; PCP Internal Medicine; Visit Provider Nurse Practitioner Family | DX: I12.9 Hypertensive chronic kidney disease with stage 1 through stage 4 chronic kidney disease, or unspecified chronic kidney disease (principal); N18.31 Chronic kidney disease, stage 3a; N30.00 Acute cystitis without hematuria; D50.9 Iron deficiency anemia, unspecified | CPT/HCPCS: 99222; 99232 ==

== ENCOUNTER → 2024-02-03 23:39 | Outpatient (BNV) | payer MEDICARE, OTHER, SELFPAY | PROVIDERS: Admitting Provider Internal Medicine; Emergency Provider Emergency Medicine Emergency Medical Services; PCP Internal Medicine; Visit Provider Internal Medicine Gastroenterology | DX: D50.9 Iron deficiency anemia, unspecified (principal) | CPT/HCPCS: 99223 ==

== ENCOUNTER → 2024-02-03 23:39 | Outpatient (BNV) | payer MEDICARE, OTHER, SELFPAY | PROVIDERS: Admitting Provider Internal Medicine; Emergency Provider Emergency Medicine Emergency Medical Services; PCP Internal Medicine; Visit Provider Internal Medicine Cardiovascular Disease | DX: I50.9 Heart failure, unspecified (principal); I48.91 Unspecified atrial fibrillation | CPT/HCPCS: 99222 ==

== ENCOUNTER → 2024-02-03 23:39 | Outpatient (BNV) | payer MEDICARE, OTHER, SELFPAY | PROVIDERS: Admitting Provider Internal Medicine; Emergency Provider Emergency Medicine Emergency Medical Services; PCP Internal Medicine; Visit Provider Urology | DX: N18.31 Chronic kidney disease, stage 3a (principal); N30.00 Acute cystitis without hematuria; N40.1 Benign prostatic hyperplasia with lower urinary tract symptoms; N13.30 Unspecified hydronephrosis | CPT/HCPCS: 99222 ==

== ENCOUNTER 2024-04-20 09:35 | Inpatient (IN) | payer MEDICARE, OTHER, SELFPAY ==
[2024-04-20] VITALS (16 sets, daily range): BP systolic 91–175; BP diastolic 36–77; PULSE 69–120; RESP 12–30; TEMP 37.4–39.8; O2SAT 88–98; BMI 26.8
--- NOTE | 2024-04-20 | ECG_ITS ---
Test Reason : TACHY Blood Pressure : */* mmHG Vent. Rate : 107 BPM Atrial Rate : * BPM P-R Int : * ms QRS Dur : 76 ms QT Int : 356 ms P-R-T Axes : * -48 98 degrees QTcB Int : 475 ms Atrial fibrillation with rapid ventricular response Left axis deviation Minimal voltage criteria for LVH, may be normal variant ( R in aVL ) Anteroseptal infarct (cited on or before 24-Jul-2021) Abnormal ECG When compared with ECG of 03-Feb-2024 16:42, Atrial fibrillation has replaced Sinus rhythm Questionable change in initial forces of Septal leads Referred By: Generic ED Physician Electronically Signed By: Reynaldo Singh
--- NOTE | ~2024-04-20 | CT_ITS ---
CLINICAL HISTORY: Assess for right abdominal wall hernia CT abdomen and pelvis without contrast Comparison: CT/NE/SR - CT ABDOMEN PELVIS WO IV CON - 02/03/24 18:59 EST Findings: There is consolidation of the right lung base and a moderate right effusion. Trace left effusion. The unenhanced liver, spleen, adrenal glands and pancreas are stable. There is moderately severe right hydroureteronephrosis, which has progressed from prior and there is asymmetric bladder wall thickening. No left hydronephrosis. The prostate gland is significantly enlarged. There is a large right anterior abdominal wall hernia containing several loops of bowel. There is no apparent related obstruction. There is scattered gas and fluid throughout nondistended small and large bowel. Moderately severe diffuse atherosclerotic disease. Multilevel degenerative changes seen within the spine. Impression: There is a known large right anterior abdominal wall hernia. This contains several loops of bowel, similar to prior. There is no current evidence of obstruction. Progressive right hydroureteronephrosis, moderately severe. There is abnormal asymmetric bladder wall thickening. The prostate gland is significantly enlarged. Possible right lower lobe pneumonia with a moderate right effusion. Additional incidental findings. This document has been electronically signed by: Fabiano Mauricio MD on 04/20/2024 11:34:17
--- NOTE | ~2024-04-20 | XR_ITS ---
CLINICAL HISTORY: ? pneumonia 1 view chest x-ray Comparison: CR/AR/SR - XR CHEST 1V - 02/04/24 17:06 EST Findings: There is patchy right lower lobe airspace density and a small right effusion. This appears slightly improved from prior. No pneumothorax. Cardiac and mediastinal contours are stable. Impression: Patchy right lower lobe density with a small associated effusion. Appearance slightly improved from prior. This document has been electronically signed by: Fabiano Mauricio MD on 04/20/2024 11:36:39
--- NOTE | ~2024-04-20 | US_ITS ---
CLINICAL HISTORY: hydronephrosis US Renal Comparison: None Findings: Right kidney: Cortical thinning with increased echotexture, measuring, 11.0 cm length. Benign 4 cm cyst. Left kidney: Cortical thinning with increased echotexture, measuring 10.0 cm length. Benign 1.6 cm cyst. 10.0 collecting system dilatation of either kidney. Normal color Doppler. Impression: Cortical thinning with increased renal cortical echotexture as can be seen in medical renal disease. This document has been electronically signed by: Fabiano Mauricio MD on 04/23/2024 20:12:44
[2024-04-20] MEDS: Acetaminophen 1,000 MG/100 ML PIGGYBACK 400 MG IV ×3 (09:59→22:26)
--- NOTE | 2024-04-20 10:20 | PC.NURSE ---
wh[facility]ney from [facility] as a sepsis alert - dx w/ PNA on 04/17 - taking abx. staff noticed increased AMS x this am w/ associated productive cough. staff reports minimal responsiveness, less verbal. per staff, pt is usually a&ox4. pt also noted to be 80% on RA upon EMS arrival - pt placed on 2L via NC. not home O2 dependent. upon ED arrival - sepsis alert initiated. pt responsive to verbal stimuli but seemingly disoriented. pt only able to state name at this time. otherwise unable to answer questions/follow commands appropriately. tachycardic. hypotensive. pt on 2L via NC - 93%. sitting upright to promote patent airway. hot to the touch - febrile. 104 rectal temp obtained. rectal probe now in place. provider notified/aware of all findings. 20gIV in the left AC via EMS - patent/intact. another 20gIV placed in the right hand - labs obtained/sent to lab. ekg performed by tech. plan of care ongoing.
--- NOTE | 2024-04-20 10:21 | ED.AMS ---
HPI - Altered Mental Status General Chief Complaint: Altered Mental Status Stated Complaint: SEPSIS ALERT,,AMS Time Seen by Provider: 04/20/24 10:08 Source: patient, EMS and old records reviewed Mode of arrival: EMS Limitations: no limitations History of Present Illness ED Provider: DR. Phan HPI narrative: A pleasant 88-year-old male with pertinent history of AFib, HTN, GERD, CKD, was sent from [facility] for evaluation of change mental status, generalized weakness, patient was diagnosed with pneumonia at the [facility] started on oral antibiotic felt by nursing staff today that the patient has been declining. Patient is able to provide history coughing with phlegm, no abdominal pain, passing gas, last bowel movement was yesterday. Related Data Home Medications ?Medication ?Instructions ?Recorded ?Confirmed omeprazole 20 mg capsule,delayed 20 mg PO DAILY@0630 07/24/21 02/04/24 release melatonin 5 mg tablet 5 mg PO BEDTIME PRN Sleep 09/22/22 02/04/24 acetaminophen 325 mg tablet 325 mg PO DAILY PRN Pain 02/04/24 02/04/24 bisacodyl 10 mg rectal suppository 10 mg GA DAILY PRN Constipation 02/04/24 02/04/24 clotrimazole-betamethasone 1 1 appl topical BID PRN Infection 02/04/24 02/04/24 %-0.05 % topical cream loratadine 10 mg tablet 10 mg PO DAILY 02/04/24 02/04/24 magnesium hydroxide 400 mg/5 mL 5 ml PO DAILY PRN Constipation 02/04/24 02/04/24 oral suspension (Milk of Magnesia) multivitamin 1 tab PO DAILY 02/04/24 02/04/24 sodium phosphates 19 gram-7 118 ml GA DAILY PRN Constipation 02/04/24 02/04/24 gram/118 mL enema (Fleet Enema) terazosin 2 mg capsule 2 mg PO BEDTIME 02/04/24 02/04/24 Previous Rx's ?Medication ?Instructions ?Recorded amlodipine 2.5 mg tablet 2.5 mg PO DAILY #90 tabs 03/19/23 furosemide 20 mg tablet 20 mg PO DAILY #30 tabs 12/12/23 L[employer] CHAIR #1 ea 01/03/24 apixaban 5 mg tablet (Eliquis) 2.5 mg (1/2 x 5 mg) PO BID #180 02/06/24 tabs ferrous sulfate 325 mg (65 mg 325 mg PO DAILY #30 tabs 02/06/24 iron) tablet metoprolol tartrate 25 mg tablet 12.5 mg (1/2 x 25 mg) PO TID #30 02/06/24 tabs Allergies Allergy/AdvReac Type Severity Reaction Status Date / Time No Known Allergies Allergy Unknown Verified 04/20/24 09:49 Review of Systems Review of Systems: All other systems are reviewed and are negative Constitutional: Reports as per HPI and Reports no additional constitutional complaints Eyes: Reports as per HPI and Reports no additional eye complaints Reports system reviewed and no additional complaints, except as documented Cardiovascular: Reports as per HPI and Reports no additional cardiovascular complaints Respiratory: Reports as per HPI and Reports no additional respiratory complaints Gastrointestinal: Reports as per HPI and Reports no additional gastrointestinal complaints Genitourinary: Reports no additional female genitourinary complaints Musculoskeletal: Reports no additional musculoskeletal complaints Skin/Breast: Reports system reviewed and no additional complaints, except as docu Psychiatric: Reports no additional psychiatric complaints Endocrine: Reports no additional endocrine complaints Hematologic/Lymphatic: Reports no additional hematologic/lymphatic complaints Allergic/Immunologic: Reports no additional allergic/immunologic complaints Reports system reviewed and no additional complaints, except as documented and Reports Abnormal speech present [facility] Past Medical History Medical History BPH loc w urin obs/LUTS CKD (chronic kidney disease) Chronic GERD Urinary tract infection HTN (hypertension) A-fib Obesity PAF (paroxysmal atrial fibrillation) Hypertension Surgical History History of umbilical hernia repair History of hemicolectomy History of inguinal hernia repair H/O rectal polypectomy History of tonsillectomy History of cholecystectomy Family History Family History Father Medical history unknown Mother Medical history unknown Social History Social History Household Members: Spouse Housing: Other Housing Other:: double trailer Do you presently have visiting nurse or other home services: Yes Alcohol intake: former Patient Tobacco Use Status: Former Tobacco user Tobacco use type: Cigarette Years Smoked: 37 +/- Smoked in Last 30 Days: No e-Cigarette/Vaping Use: Never Used Second Hand Smoke Exposure: No Use of substances other than those prescribed or required for medical reasons: No Advance Directives: No Advance Directives Information Provided: No Do you have a plan to hurt others: No Plan service: No Current occupational status: retired Current occupational exposures/hazards: No Cognitive needs: Yes (cane) Hearing needs: No Vision needs: Yes (glasses) Physical Exam ED Vital Signs: Vital Signs - 24 hr 04/20/24 09:39 04/20/24 10:42 04/20/24 10:58 Temperature 103.7 F H 103.3 F H 102.6 F H Pulse Rate 117 H 98 91 Respiratory Rate 30 H 22 H 24 H Blood Pressure 164/77 H 108/51 L 104/47 L Pulse Oximetry 97 93 94 Oxygen Delivery Method Nasal Cannula Nasal Cannula Nasal Cannula Oxygen Flow Rate 2 2 04/20/24 11:29 04/20/24 12:15 04/20/24 12:17 Temperature 101.3 F H 100.0 F 100.2 F Pulse Rate 81 74 79 Respiratory Rate 24 H 21 H 22 H Blood Pressure 91/42 L 104/45 L 104/75 Pulse Oximetry 96 95 95 Oxygen Delivery Method Nasal Cannula Nasal Cannula Nasal Cannula Oxygen Flow Rate 2 2 2 04/20/24 13:42 04/20/24 13:58 Temperature 99.5 F 99.3 F Pulse Rate 96 73 Respiratory Rate 18 18 Blood Pressure 102/46 L 109/51 L Pulse Oximetry 95 94 Oxygen Delivery Method Room Air Room Air Oxygen Flow Rate BMI result Body Mass Index 26.8 Vital signs have been reviewed and appear to be correct. Blood pressure elevated. Heart rate normal. Respiratory rate normal. Temperature normal. Oxygen saturation normal. Appearance: Alert. Oriented X3. No acute distress. Head: Normal external exam. Normocephalic. Atraumatic. No Ly signs noted. No raccoon eyes noted Eyes: PERRLA. EOMI. Conjunctiva and sclera normal. Eyelids normal. ENT: TM's Normal. Pharynx normal. Uvula midline. Moist mucous membranes. No trismus noted. No drooling noted. No muffled voice noted. Neck: Normal inspection. Neck supple. FROM. No adenopathy. Thyroid Normal. No meningeal signs. No neck mass noted. CVS: Normal heart rate and rhythm. Heart sound normal. No murmurs noted. Pulses normal throughout. Respiratory: No respiratory distress. Painless inspiration. Breath sounds normal. No wheezes/rales/rhonchi noted. Chest nontender. No accessory muscle usage noted or decreased air movement noted. Abdomen: Soft and nontender. Sizable right abdominal pain hernia, Bowel sounds normal in all 4 quadrants. No distention noted. No organomegaly noted. No visible injury noted. Back: No CVA tenderness. Full range of motion noted. Skin: Skin warm and dry. Normal skin color. Normal skin turgor. No rashes/lesions/lacerations noted. Extremities: No lower extremity edema. Extremities exhibit normal range of motion. Extremities nontender. Neuro: Oriented X 3. Cranial nerve exam: II-XII are grossly intact No motor deficit. No sensory deficit. Reflexes normal. Course Reevaluation(s) Reevaluation #1: Sepsis and UTI. Patient initially received Zosyn/doxycycline covering for pneumonia. Patient meets criteria for severe sepsis received IV fluids and antibiotic. Will admit the patient for further evaluation. Chest x-ray showed no acute pneumonia. Time: 14:10 Medications Administered Discontinued Medications Generic Name Dose Route Start Last Admin Trade Name Freq PRN Reason Stop Dose Admin Acetaminophen 1,000 mg in 100 mls @ 400 mls/hr 04/20/24 09:52 04/20/24 10:14 Ofirmev IV 04/20/24 10:06 Infused ONCE ONE Infusion Sodium Chloride 1,000 mls @ 999 mls/hr 04/20/24 10:18 04/20/24 11:39 Ns IV 04/20/24 11:18 Infused .Q1H1M ONE Infusion Piperacillin Sod/Tazobactam 50 mls @ 100 mls/hr 04/20/24 10:18 04/20/24 11:09 Sod 3.375 gm/ Sodium Chloride IV 04/20/24 10:47 Infused ONCE ONE Infusion Doxycycline Hyclate 100 mg/ 250 mls @ 166.67 mls/hr 04/20/24 10:18 04/20/24 12:09 Sodium Chloride IV 04/20/24 11:47 Infused ONCE ONE Infusion Medical Decision Making Differential Diagnosis Differential Diagnoses: The differential diagnosis associated with the presentation includes (Pneumonia, pneumothorax, pleural effusion, viral upper respiratory infection, UTI, pyelonephritis, sepsis.) Admission/Observation Consideration of admission/observation: Escalation of care including admission/observation considered Consult Healthcare Provider Management of the patient was discussed with: Hospitalist (Dr. Joseph) Lab Data MDM Lab Attestation statement: I reviewed the patient's lab results. 04/20/24 10:20 04/20/24 10:20 Labs: Lab Results 04/20/24 04/20/24 04/20/24 Range/Units 10:05 10:13 10:20 WBC 12.8 H (4.8-10.8) X10*3/uL RBC 4.04 L (4.60-5.80) X10*6/uL Hgb 10.7 L (14.0-18.0) g/dl Hct 34.1 L (42.0-52.0) % MCV 84.4 (80.0-98.0) fL MCH 26.5 L (27.0-33.0) pg MCHC 31.4 (31.0-36.0) g/dl RDW 18.5 H (11.0-16.0) % Plt Count 217 D (160-400) X10*3/uL MPV 11.0 (9.4-12.4) fL Immature Gran % (Auto) 0.9 H (0.0-0.4) % Neut % (Auto) 86.5 H (45-73) % Lymph % (Auto) 5.2 L (20-40) % [place] % (Auto) 6.6 (2-11) % Eos % (Auto) 0.1 (0-4) % Baso % (Auto) 0.7 (0-2) % Lymph # (Auto) 0.7 L (1.2-4.9) X10*3/uL [place] # (Auto) 0.8 (0.1-1.2) X10*3/uL Eos # (Auto) 0.0 (0.0-0.4) X10*3/uL Baso # (Auto) 0.1 (0.0-0.2) X10*3/uL Abs Immat Gran (auto) 0.11 H (0.00-0.03) X10*3/uL Absolute Neuts (auto) 11.1 H (2.0-8.3) x10*3/uL Absolute Nucleated RBC 0.000 (0.0-0.012) X10*3/uL Nucleated RBC % (auto) 0.0 (0.0-0.2) /100WBC VBG pH (7.32-7.43) VBG pCO2 mmHg VBG pO2 mmHg VBG HCO3 (22-26) mmol/L VBG O2 Saturation % VBG Base Excess mmol/L Sodium 143 (135-145) mmol/L Potassium 4.2 (3.3-5.1) mmol/L Chloride 109 H (96-108) mmol/L Carbon Dioxide 23 (22-29) mmol/L Anion Gap 15 (12-20) BUN 46 H (9-16) mg/dL Creatinine 2.00 H (0.5-1.4) mg/dL Estim Creat Clear Calc 24.7 Estimated GFR 32 Random Glucose 113 (60-115) mg/dL Lactic Acid 1.2 (0.5-2.0) mmol/L Calcium 9.4 (8.4-10.2) mg/dL Magnesium 2.1 (1.6-2.6) mg/dL Total Bilirubin 0.4 (0.0-1.0) mg/dL Direct Bilirubin 0.2 (0.0-0.5) mg/dL AST 50 H (5-37) U/L ALT 17 (0-40) U/L Alkaline Phosphatase 71 (39-117) U/L Troponin I High Sens 267.1 H* (<3.5-35.0) ng/L B-Natriuretic Peptide 431 H (<100) pg/mL Total Protein 7.6 (6.5-8.0) g/dL Albumin 2.8 L (3.5-5.0) g/dL Urine Color Yellow Urine Appearance Turbid Urine pH 5.5 (5.0-9.0) Ur Specific [place] 1.015 (1.005-1.025) Urine Protein 100 (2+) H (Neg-Trace) mg/dL Urine Glucose (UA) Negative (Negative) mg/dL Urine Ketones Negative (Negative) mg/dL Urine Blood Moderate (2+) H (Negative) Urine Nitrite Negative (Negative) Ur Leukocyte Esterase Large (3+) H (Negative) Urine RBC >20 H (0-2) /HPF Urine WBC >50 H (0-5) /HPF Ur Squamous Epith Cells 6-10 (0-2) /HPF Urine Bacteria Trace (None Seen) Hyaline Casts 3-5 (0-2) /LPF Urine Yeast Present Influenza Type A (PCR) NEGATIVE (Negative) Influenza Type B (PCR) NEGATIVE (Negative) RSV RNA Qual (PCR) NEGATIVE (Negative) SARS-CoV-2 RNA (RT-PCR) NEGATIVE (Negative) 04/20/24 Range/Units 10:30 WBC (4.8-10.8) X10*3/uL RBC (4.60-5.80) X10*6/uL Hgb (14.0-18.0) g/dl Hct (42.0-52.0) % MCV (80.0-98.0) fL MCH (27.0-33.0) pg MCHC (31.0-36.0) g/dl RDW (11.0-16.0) % Plt Count (160-400) X10*3/uL MPV (9.4-12.4) fL Immature Gran % (Auto) (0.0-0.4) % Neut % (Auto) (45-73) % Lymph % (Auto) (20-40) % [place] % (Auto) (2-11) % Eos % (Auto) (0-4) % Baso % (Auto) (0-2) % Lymph # (Auto) (1.2-4.9) X10*3/uL [place] # (Auto) (0.1-1.2) X10*3/uL Eos # (Auto) (0.0-0.4) X10*3/uL Baso # (Auto) (0.0-0.2) X10*3/uL Abs Immat Gran (auto) (0.00-0.03) X10*3/uL Absolute Neuts (auto) (2.0-8.3) x10*3/uL Absolute Nucleated RBC (0.0-0.012) X10*3/uL Nucleated RBC % (auto) (0.0-0.2) /100WBC VBG pH 7.47 H (7.32-7.43) VBG pCO2 37 mmHg VBG pO2 57 mmHg VBG HCO3 27 H (22-26) mmol/L VBG O2 Saturation 86.0 % VBG Base Excess 4.2 mmol/L Sodium (135-145) mmol/L Potassium (3.3-5.1) mmol/L Chloride (96-108) mmol/L Carbon Dioxide (22-29) mmol/L Anion Gap (12-20) BUN (9-16) mg/dL Creatinine (0.5-1.4) mg/dL Estim Creat Clear Calc Estimated GFR Random Glucose (60-115) mg/dL Lactic Acid (0.5-2.0) mmol/L Calcium (8.4-10.2) mg/dL Magnesium (1.6-2.6) mg/dL Total Bilirubin (0.0-1.0) mg/dL Direct Bilirubin (0.0-0.5) mg/dL AST (5-37) U/L ALT (0-40) U/L Alkaline Phosphatase (39-117) U/L Troponin I High Sens (<3.5-35.0) ng/L B-Natriuretic Peptide (<100) pg/mL Total Protein (6.5-8.0) g/dL Albumin (3.5-5.0) g/dL Urine Color Urine Appearance Urine pH (5.0-9.0) Ur Specific [place] (1.005-1.025) Urine Protein (Neg-Trace) mg/dL Urine Glucose (UA) (Negative) mg/dL Urine Ketones (Negative) mg/dL Urine Blood (Negative) Urine Nitrite (Negative) Ur Leukocyte Esterase (Negative) Urine RBC (0-2) /HPF Urine WBC (0-5) /HPF Ur Squamous Epith Cells (0-2) /HPF Urine Bacteria (None Seen) Hyaline Casts (0-2) /LPF Urine Yeast Influenza Type A (PCR) (Negative) Influenza Type B (PCR) (Negative) RSV RNA Qual (PCR) (Negative) SARS-CoV-2 RNA (RT-PCR) (Negative) Independent Interpretation I performed an independent interpretation of an: Plain X-Ray (Chest:Patchy right lower lobe density with a small associated effusion. Appearance slightly improved from prior.) and CT Scan (Abdomen and pelvis:There is a known large right anterior abdominal wall hernia. This contains several loops of bowel, similar to prior. There is no current evidence of obstruction. Progressive right hydroureteronephrosis, moderately severe. There is abnormal asymmetric bladder wall thickening. ) Radiology Impression Discussion of test interpretation with radiology: I have reviewed the radiologist's reading. Critical Care Time Critical Care Time Critical Care Time: Yes Total Critical Care Time: 60 Attestation: The patient was critically ill with a high probability of imminent or life-threatening deterioration. I spent greater than 30 minutes of discontinuous time evaluating the patient, delivering critical care at the bedside, discussing evaluating data with consultants. Critical care time does not include time spent performing separately billable procedures or teaching. Time spent performing critical care was 60 minutes. Discharge Plan Discharge Clinical Impression: Acute UTI, Sepsis Patient Disposition: Admitted As Inpatient Print Language: Urdu
[2024-04-20 10:27] LABS: MANUAL DIFF FLAG NO
[2024-04-20 10:31] LABS: Basophils Absolute Auto 0.1 X10*3/uL (0.0-0.2); Basophils Percent Auto 0.7 % (0-2); Eosinophils Percent Auto 0.1 % (0-4); Hematocrit 34.1 % (42.0-52.0); Hemoglobin 10.7 g/dl (14.0-18.0); Imm Gran Abs Auto 0.11 X10*3/uL (0.00-0.03); Imm Gran Pct Auto 0.9 % (0.0-0.4); Lymphocytes Absolute Auto 0.7 X10*3/uL (1.2-4.9); Lymphocytes Percent Auto 5.2 % (20-40); Mean Corpuscular HGB Conc 31.4 g/dl (31.0-36.0); Mean Corpuscular Hemoglobin 26.5 pg (27.0-33.0); Mean Corpuscular Volume 84.4 fL (80.0-98.0); Monocytes Absolute Auto 0.8 X10*3/uL (0.1-1.2); Monocytes Percent Auto 6.6 % (2-11); Neutrophils Absolute Auto 11.1 x10*3/uL (2.0-8.3); Neutrophils Percent Auto 86.5 % (45-73); Platelet Count 217 X10*3/uL (160-400); Red Blood Count 4.04 X10*6/uL (4.60-5.80); Red Cell Distribution Width 18.5 % (11.0-16.0); White Blood Count 12.8 X10*3/uL (4.8-10.8)
[2024-04-20 10:32] LABS: Appearance Urine Turbid; Color Urine Yellow; Glucose Urine UA Negative (Negative); Leukocyte Esterase Urine Large (3+) (Negative); Nitrite Urine Negative (Negative); PH 5.5 (5.0-9.0); Specific Gravity - Urine 1.015 (1.005-1.025); UMIC TRIGGER UACC YES; Urine Blood Moderate (2+) (Negative); Urine Ketones Negative (Negative); Urine Protein 100 (2+) mg/dL (Neg-Trace)
[2024-04-20 10:37] LABS: VBG Base Excess 4.2 mmol/L; VBG HCO3 27 mmol/L (22-26); VBG pCO2 37 mmHg; VBG pH 7.47 (7.32-7.43); VBG pO2 57 mmHg
[2024-04-20 10:37] LABS: Venous Blood Gas Refer to POC result
[2024-04-20] MEDS: 0.9 % Sodium Chloride 1,000 ML 999 ML IV (10:38)
[2024-04-20] MEDS: Piperacillin Sodium/Tazobactam 3.375 GM in 0.9 % Sodium Chloride 50 ML IV (10:39)
[2024-04-20] MEDS: Doxycycline Hyclate 100 MG in 0.9 % Sodium Chloride 250 ML 166.67 MG IV ×2 (10:39→22:28)
--- NOTE | 2024-04-20 10:40 | PC.NURSE ---
IVF/abx administered per provider order.
[2024-04-20 10:47] LABS: Influenza A PCR NEGATIVE (Negative); Influenza B PCR NEGATIVE (Negative); Resp Syncy Virus RNA Qual PCR NEGATIVE (Negative); SARS COV2 PCR INHOUSE NEGATIVE (Negative)
[2024-04-20 10:47] LABS: Alanine Aminotransferase 17 U/L (0-40); Albumin Level 2.8 g/dL (3.5-5.0); Alkaline Phosphatase 71 U/L (39-117); Anion Gap 15 (12-20); Aspartate Amino Transferase 50 U/L (5-37); Bilirubin Direct 0.2 mg/dL (0.0-0.5); Bilirubin Total 0.4 mg/dL (0.0-1.0); Blood Urea Nitrogen 46 mg/dL (9-16); Calcium 9.4 mg/dL (8.4-10.2); Carbon Dioxide 23 mmol/L (22-29); Chloride 109 mmol/L (96-108); Creatinine Clr Calc Pharmacy 24.7; Estimated Glomerular Filt Rate 32; Glucose Random 113 mg/dL (60-115); Lactic Acid 1.2 mmol/L (0.5-2.0); Magnesium 2.1 mg/dL (1.6-2.6); Potassium 4.2 mmol/L (3.3-5.1); Sodium 143 mmol/L (135-145); Total Protein 7.6 g/dL (6.5-8.0)
[2024-04-20 10:48] LABS: Bacteria Urine Trace (None Seen); RBC Urine >20 /HPF (0-2); UACC Culture Trigger YES; WBC Urine >50 /HPF (0-5)
[2024-04-20 10:52] LABS: B Type Natriuretic Peptide 431 pg/mL (<100)
[2024-04-20 11:05] LABS: Troponin-I High Sensitivity 267.1 ng/L (<3.5-35.0)
--- NOTE | 2024-04-20 11:15 | PC.NURSE ---
pt remains febrile despite previous interventions. pt unable to swallow PO medications to decrease temperature at this time d/t pt failing nursing swallow eval. provider notified/aware. ice packs applied to axillary/groin regions. effectiveness pending. otherwise, HR continues to improve s/p IVF bolus. pt remains slightly hypotensive. pt remains on 2L via NC. no sob/wob noted. pt remains in upright position to promote patent airway. plan of care ongoing. call guillen placed within reach.
--- NOTE | 2024-04-20 13:45 | PC.NURSE ---
pt taken off of 2L via NC at this time and transitioned to room air w/o difficulty. pt remains in upright position at this time. no sob/wob noted. respirations even/unlabored. otherwise, vss and up to date aside from being slightly hypotensive. nsr on the monitoring coordinator. plan of care ongoing. call guillen placed within reach.
--- NOTE | 2024-04-20 14:03 | P.HPHOSP_ITS ---
History of Present Illness Date of Service: 04/20/24 Attending physician on admission: Dawson Zapata Chief Complaint: Altered mental status Pt is an 89-year-old male with a PMH significant for?paroxysmal AFib on Eliquis, CHF, HTN, iron deficiency anemia, CKD 3, and GERD who presents to the ED from [facility] for AMS and lethargy. Pt was previously diagnosed with pneumonia at [facility] on 04/17 and has since been taking Augmentin. This morning staff noticed pt was altered and confused, increasingly lethargic, minimally responsive, less verbal, and had increased productive cough. Pt is alert and oriented to self only at time of interview and exam. Is minimally responsive and unable to provide detailed or accurate HPI. Pt does follow commands and capable of answering yes/no to queries. Pt denies any acute medical complaints at this time. In the ED pt was febrile up to 103.7, tachycardic up to 117, tachypneic up to 30, and soft BP as low as 91/42. Labs were significant for leukocytosis 12.8, creatinine 2.0 (baseline 1.50), AST 50, initial troponin 267.1, and BNP 431. UA positive for UTI. Tested negative for flu, RSV, COVID. CXR showed patchy right lower lobe density with small associated effusion, slightly improved from prior. CT of abdomen and pelvis found progressive right hydroureteronephrosis, moderately severe with abnormal asymmetric bladder wall thickening, as well as possible right lower lobe pneumonia with moderate right effusion. Also found similar, stable large right anterior abdominal hernia, significantly enlarged prostate gland. EKG demonstrated AFib with RVR 107 without evidence of significant ST elevations or depressions. Pt was treated with acetaminophen, IVF, doxycycline, and Zosyn. Pt will be admitted to the hospital for treatment and further evaluation of acute metabolic encephalopathy in the setting of pyelonephritis and pneumonia with sepsis. Review of Systems 2 Review of Systems: Yes Unobtainable due to mental status PMFSH Medical History BPH loc w urin obs/LUTS CKD (chronic kidney disease) Chronic GERD Urinary tract infection HTN (hypertension) A-fib Obesity PAF (paroxysmal atrial fibrillation) Hypertension Family History Father Medical history unknown Mother Medical history unknown Surgical History History of umbilical hernia repair History of hemicolectomy History of inguinal hernia repair H/O rectal polypectomy History of tonsillectomy History of cholecystectomy Social History Household Members: Spouse Housing: Other Housing Other:: double trailer Do you presently have visiting nurse or other home services: Yes Alcohol intake: former Patient Tobacco Use Status: Former Tobacco user Tobacco use type: Cigarette Years Smoked: 37 +/- Smoked in Last 30 Days: No e-Cigarette/Vaping Use: Never Used Second Hand Smoke Exposure: No Use of substances other than those prescribed or required for medical reasons: No Advance Directives: No Advance Directives Information Provided: No Do you have a plan to hurt others: No Plan Nutrition Risks: No Nutritional Risk service: No Current occupational status: retired Current occupational exposures/hazards: No Cognitive needs: Yes (cane) Hearing needs: No Vision needs: Yes (glasses) Meds Allergies Allergy/AdvReac Type Severity Reaction Status Date / Time No Known Allergies Allergy Unknown Verified 04/20/24 09:49 Home Medications ?Medication ?Instructions ?Recorded ?Confirmed ?Last Taken ?Type omeprazole 20 mg capsule,delayed 20 mg PO DAILY@0630 07/24/21 04/20/24 02/03/24 History release acetaminophen 325 mg tablet 975 mg PO Q6H PRN pain or fever 02/04/24 04/20/24 Unknown History bisacodyl 10 mg rectal suppository 10 mg IN DAILY PRN Constipation 02/04/24 04/20/24 Unknown History clotrimazole-betamethasone 1 1 appl topical Q12H PRN Rash 02/04/24 04/20/24 Unknown History %-0.05 % topical cream loratadine 10 mg tablet 10 mg PO DAILY 02/04/24 04/20/24 02/03/24 History magnesium hydroxide 400 mg/5 mL 30 ml PO DAILY PRN Constipation 02/04/24 04/20/24 Unknown History oral suspension (Milk of Magnesia) multivitamin 1 tab PO DAILY 02/04/24 04/20/24 02/03/24 History sodium phosphates 19 gram-7 118 ml IN DAILY PRN Constipation 02/04/24 04/20/24 Unknown History gram/118 mL enema (Fleet Enema) terazosin 2 mg capsule 2 mg PO BEDTIME 02/04/24 04/20/24 02/03/24 History Saccharomyces boulardii 250 mg 500 mg PO DAILY 04/20/24 04/20/24 Unknown History capsule (Probiotic (S.boulardii)) amoxicillin 500 mg-potassium 1 tab PO Q12H 04/20/24 04/20/24 Unknown History clavulanate 125 mg tablet apixaban 2.5 mg tablet (Eliquis) 2.5 mg PO BID 04/20/24 04/20/24 Unknown History guaifenesin 100 mg/5 mL oral liquid 200 mg PO Q6H PRN Cough 04/20/24 04/20/24 Unknown History melatonin 3 mg tablet 6 mg PO BEDTIME PRN Sleep 04/20/24 04/20/24 Unknown History methenamine hippurate 1 gram tablet 1 g PO BID 04/20/24 04/20/24 Unknown History ondansetron HCl 4 mg tablet 4 mg PO Q6H PRN Nausea And Vomiting 04/20/24 04/20/24 Unknown History Physical Exam 2 Vital Signs and Narrative: Vital Signs: Last Vital Signs Temp 99.3 F 04/20/24 13:58 Pulse 73 04/20/24 13:58 Resp 18 04/20/24 13:58 BP 109/51 L 04/20/24 13:58 Pulse Ox 94 04/20/24 13:58 O2 Del Method Room Air 04/20/24 13:58 O2 Flow Rate 2 04/20/24 12:17 Oxygen Flow Rate 2 04/20/24 09:39 BMI result Body Mass Index 26.8 Constitutional: Awake, alert, in no acute distress. Mental Status: Oriented to person only, not to place, time, or situation. Follows commands. Capable of answering yes/no questions. Eyes: Pupils are equal, round, and reactive to light. Ear, Nose, and Throat: Oropharynx clear, mucous membranes moist. Ears and nose without deformities. Trachea midline. Respiratory: Clear to auscultation bilaterally. No wheezing, rales, or rhonchi. Cardiovascular: Irregularly irregular rhythm. No murmurs, rubs, or gallops. Gastrointestinal: Abdomen soft, non-tender, non-distended. Normal bowel sounds. Neurologic: Cranial nerves II-XII are grossly intact bilaterally. No focal neurological deficits. Moves all extremities spontaneously. Skin: Warm, dry. Extremities: No edema. Results Labs 04/20/24 10:20 04/20/24 10:20 Labs: Laboratory Results - last 24 hr 04/20/24 04/20/24 04/20/24 10:05 10:13 10:20 MCV 84.4 MCH 26.5 L MCHC 31.4 RDW 18.5 H Plt Count 217 D MPV 11.0 Immature Gran % (Auto) 0.9 H Neut % (Auto) 86.5 H Lymph % (Auto) 5.2 L [place] % (Auto) 6.6 Eos % (Auto) 0.1 Baso % (Auto) 0.7 Lymph # (Auto) 0.7 L [place] # (Auto) 0.8 Eos # (Auto) 0.0 Baso # (Auto) 0.1 Abs Immat Gran (auto) 0.11 H Absolute Neuts (auto) 11.1 H Absolute Nucleated RBC 0.000 Nucleated RBC % (auto) 0.0 VBG pH VBG pCO2 VBG pO2 VBG HCO3 VBG O2 Saturation VBG Base Excess Anion Gap 15 Estim Creat Clear Calc 24.7 Estimated GFR 32 Random Glucose 113 Lactic Acid 1.2 Calcium 9.4 Magnesium 2.1 Total Bilirubin 0.4 Direct Bilirubin 0.2 AST 50 H ALT 17 Alkaline Phosphatase 71 Troponin I High Sens 267.1 H* B-Natriuretic Peptide 431 H Total Protein 7.6 Albumin 2.8 L Urine Color Yellow Urine Appearance Turbid Urine pH 5.5 Ur Specific [place] 1.015 Urine Protein 100 (2+) H Urine Glucose (UA) Negative Urine Ketones Negative Urine Blood Moderate (2+) H Urine Nitrite Negative Ur Leukocyte Esterase Large (3+) H Urine RBC >20 H Urine WBC >50 H Ur Squamous Epith Cells 6-10 Urine Bacteria Trace Hyaline Casts 3-5 Urine Yeast Present Influenza Type A (PCR) NEGATIVE Influenza Type B (PCR) NEGATIVE RSV RNA Qual (PCR) NEGATIVE SARS-CoV-2 RNA (RT-PCR) NEGATIVE 04/20/24 10:30 MCV MCH MCHC RDW Plt Count MPV Immature Gran % (Auto) Neut % (Auto) Lymph % (Auto) [place] % (Auto) Eos % (Auto) Baso % (Auto) Lymph # (Auto) [place] # (Auto) Eos # (Auto) Baso # (Auto) Abs Immat Gran (auto) Absolute Neuts (auto) Absolute Nucleated RBC Nucleated RBC % (auto) VBG pH 7.47 H VBG pCO2 37 VBG pO2 57 VBG HCO3 27 H VBG O2 Saturation 86.0 VBG Base Excess 4.2 Anion Gap Estim Creat Clear Calc Estimated GFR Random Glucose Lactic Acid Calcium Magnesium Total Bilirubin Direct Bilirubin AST ALT Alkaline Phosphatase Troponin I High Sens B-Natriuretic Peptide Total Protein Albumin Urine Color Urine Appearance Urine pH Ur Specific [place] Urine Protein Urine Glucose (UA) Urine Ketones Urine Blood Urine Nitrite Ur Leukocyte Esterase Urine RBC Urine WBC Ur Squamous Epith Cells Urine Bacteria Hyaline Casts Urine Yeast Influenza Type A (PCR) Influenza Type B (PCR) RSV RNA Qual (PCR) SARS-CoV-2 RNA (RT-PCR) Assessment and Plan (1) Acute UTI: Status: Acute (2) Acute metabolic encephalopathy: Status: Acute (3) Pneumonia: Status: Acute Plan Pt is an 89-year-old male with a PMH significant for?paroxysmal AFib on Eliquis, CHF, HTN, iron deficiency anemia, CKD 3, and GERD who presents to the ED from [facility] for AMS and lethargy. Pt will be admitted to the hospital for treatment and further evaluation of acute metabolic encephalopathy in the setting of pyelonephritis and pneumonia with sepsis. Acute metabolic encephalopathy in the setting of pyelonephritis and pneumonia with sepsis Pt with AMS, confusion, lethargy since this morning CT showing progressive moderately severe right hydroureteronephrosis, UA positive for UTI CT also showed a possible right lower lobe pneumonia Pt previously diagnosed with pneumonia on 04/17 and started on Augmentin Meets sepsis criteria: Fever, tachycardia, tachypnea, leukocytosis; lactic acid WNL Pt given IVF and started on broad-spectrum antibiotics in the ED Will cover with ceftriaxone and doxycycline, started 04/20/2024 Urology consult Follow urine cultures Monitor mentation HARPER on CKD Patient's creatinine 2.00, baseline around 1.55 Pt received IVF in the ED Follow creatinine Elevated troponins Initial troponin 267.1 with repeat flat at 282.5 Likely type 2 in the setting of increased demand Will repeat troponin in the morning Monitor on telemetry CHF unspecified Not in acute exacerbation BP lower than previous, pt appears euvolemic Continue furosemide, metoprolol HTN Continue amlodipine, metoprolol GERD PPI Full Code Attending:?Dr. Zapata DVT Prophylaxis: On Eliquis Pt will require a hospitalization of at least two nights for treatment of?acute metabolic encephalopathy in the setting of pneumonia and pyelonephritis with sepsis. Given that pt has failed outpatient therapy on antibiotics, will need to be brought to the hospital for administration of IV antibiotics, as well as close following of labs, and specialist consultation with Urology. Quality Stroke Does the patient have a stroke diagnosis?: No VTE Prior VTE?: No VTE Risk Level:: Medical - moderate - high VTE Device Contraindication: Treatment Not Indicated VTE Drug Contraindication: N/A - Med Ordered
--- NOTE | 2024-04-20 15:55 | PHA.MEDREC ---
Addendum entered by Jennifer Velasquez RPh 04/20/24 16:22: REVIEWED BY [facility] Original Note: Pharmacy Consult ? Medication Reconciliation Pharmacy has completed the medication reconciliation. Used list from [facility]. Patient finished a 2 day course of azithromycin 250 mg daily from 04/17-04/18.
--- NOTE | 2024-04-20 15:59 | PC.NURSE ---
pt more awake responsive to verbal stimuli at this time. pt alert and oriented to self as well as date. otherwise unable to recall location/situation/year. pt able to follow commands appropriately w/o difficulty. 18fr gould catheter placed per provider order. 250ml of cloudy, dark yellow, sediment, foul smelling urine noted immediately post output. new UA obtained/sent to lab per provider order. repeat trop obtained/sent to lab by phlebotomy. pt otherwise remains resting in no apparent distress. vss and up to date. 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 pt remains on RA w/o difficulty. no sob/wob noted. respirations even/unlabored. pt pending bed assignment at this time.
[2024-04-20 16:18] LABS: Troponin-I High Sensitivity 282.5 ng/L (<3.5-35.0)
[2024-04-20 16:25] LABS: Appearance Urine Turbid; Color Urine Yellow; Glucose Urine UA Negative (Negative); Leukocyte Esterase Urine Large (3+) (Negative); Nitrite Urine Negative (Negative); PH 5.5 (5.0-9.0); UMIC TRIGGER UACC YES; Urine Blood Large (3+) (Negative); Urine Ketones Negative (Negative); Urine Protein 100 (2+) mg/dL (Neg-Trace)
[2024-04-20 16:46] LABS: Bacteria Urine 4+ (None Seen); RBC Urine >20 /HPF (0-2); Squamous Epithelial Cell Urine >20 /HPF (0-2); UACC Culture Trigger YES; WBC Urine >50 /HPF (0-5)
[2024-04-20] MEDS: cefTRIAXone sodium 1 GM VIAL IVPUSH (17:21)
[2024-04-20] MEDS: 0.9 % Sodium Chloride Flush 3 ML SYRINGE IVFLUSH (17:21)
--- NOTE | 2024-04-20 17:28 | PC.NURSE ---
pt noted to have another fever. admitting provider notified/aware. IV tylenol administered per provider order. effectiveness pending. otherwise vss and up to date. d/t being remaining more alert/awake/responsive at this time, pt had repeat nursing swallow evaluation completed. pt passed nursing swallow evaluation w/o any complications. no sob/wob noted. provider notified/aware.
[2024-04-20] MEDS: Ferrous Sulfate 324 MG TABLET.DR PO (18:46)
--- NOTE | 2024-04-20 19:51 | PC.NURSE ---
this rn assumed care of pt, pt noted to be resting eyes closed, respirations even and unlabored. pt noted to be 88-89% on room air, pt placed on 2L nasal cannula sating 92%. provider aware.
[2024-04-20] MEDS: Metoprolol Tartrate 12.5 MG HALFTAB PO (20:42)
[2024-04-20] MEDS: Doxazosin Mesylate 2 MG TABLET PO (20:42)
[2024-04-20] MEDS: Apixaban 2.5 MG TABLET PO (20:42)
--- NOTE | 2024-04-20 20:44 | PC.NURSE ---
pt passed bedside swallow screen by this rn, pt medicated per may, tolerated well whole with water.
--- NOTE | 2024-04-20 22:20 | PC.NURSE ---
pt noted to have rectal fever of 100.0, provider aware, new orders as follows.
[2024-04-21] VITALS (11 sets, daily range): BP systolic 119–184; BP diastolic 56–100; PULSE 72–113; RESP 16–20; TEMP 36.7–38.3; O2SAT 94–100
--- NOTE | 2024-04-21 04:25 | PC.NURSE ---
pt assisted into repositioning in bed at this time, pt noted to have large mass to the right lower abdomen, provider aware.
[2024-04-21 05:25] LABS: Hematocrit 37.6 % (42.0-52.0); Hemoglobin 11.3 g/dl (14.0-18.0); Mean Corpuscular HGB Conc 30.1 g/dl (31.0-36.0); Mean Corpuscular Hemoglobin 26.3 pg (27.0-33.0); Mean Corpuscular Volume 87.4 fL (80.0-98.0); Mean Platelet Volume 10.6 fL (9.4-12.4); Platelet Count 190 X10*3/uL (160-400); Red Cell Distribution Width 18.5 % (11.0-16.0); White Blood Count 11.9 X10*3/uL (4.8-10.8)
--- NOTE | 2024-04-21 05:33 | PC.NURSE ---
pt noted to be febrile, cooling blanket placed per provider order.
[2024-04-21 05:38] LABS: Anion Gap 14 (12-20); Blood Urea Nitrogen 46 mg/dL (9-16); Calcium 9.2 mg/dL (8.4-10.2); Carbon Dioxide 22 mmol/L (22-29); Chloride 113 mmol/L (96-108); Creatinine Clr Calc Pharmacy 26.8; Estimated Glomerular Filt Rate 35; Glucose Random 88 mg/dL (60-115); Potassium 4.4 mmol/L (3.3-5.1); Sodium 145 mmol/L (135-145)
--- NOTE | 2024-04-21 06:53 | PC.NURSE ---
provider aware of bp no new orders at this time. pt fever reduced, pt removed from cooling blanket per provider verbal order.
--- NOTE | 2024-04-21 09:25 | P.PNIM_ITS ---
Subjective Subjective Date of Service: 04/21/24 Review of Systems Review of Systems: Yes Unobtainable due to mental status Physical Exam 2 Vital Signs: Vital Signs: Last Vital Signs Temp 100 F 04/21/24 09:05 Pulse 107 H 04/21/24 09:05 Resp 17 04/21/24 06:53 BP 165/61 H 04/21/24 09:05 Pulse Ox 95 04/21/24 06:53 O2 Del Method Room Air 04/21/24 06:53 O2 Flow Rate 2 04/21/24 00:40 Oxygen Flow Rate 2 04/20/24 09:39 BMI result Body Mass Index 26.8 Alert, frail, confused, lungs diminished, ill-appearing Objective Data Active Medications Acetaminophen (Acetaminophen 325 Mg Tablet) 650 mg PO Q6H PRN PRN Reason: Pain, Mild 1-3,fever,headache Amlodipine Besylate (Amlodipine Besylate 2.5 Mg Tablet) 2.5 mg PO DAILY [facility]; Protocol Apixaban (Apixaban 2.5 Mg Tablet) 2.5 mg PO BID [facility] Last Admin: 04/20/24 20:42 Dose: 2.5 mg Documented By: AJ Bisacodyl (Bisacodyl 10 Mg Supp.Rect) 10 mg MO DAILY PRN PRN Reason: Constipation Calcium Carbonate (Calcium Carbonate 750 Mg Tab.Chew) 750 mg PO Q4H PRN PRN Reason: Heartburn Ceftriaxone Sodium (Ceftriaxone Sodium 1 Gm Vial) 1 gm IVPUSH Q24H [facility] Last Admin: 04/20/24 17:21 Dose: 1 gm Documented By: CHANI Doxazosin Mesylate (Doxazosin Mesylate 2 Mg Tablet) 2 mg PO BEDTIME [facility] Last Admin: 04/20/24 20:42 Dose: 2 mg Documented By: AJ Ferrous Sulfate (Ferrous Sulfate 324 Mg Tablet.Dr) 324 mg PO DAILY [facility] Last Admin: 04/20/24 18:46 Dose: 324 mg Documented By: CHANI Furosemide (Furosemide 20 Mg Tablet) 20 mg PO DAILY [facility]; Protocol Guaifenesin (Guaifenesin 200 Mg/10 Ml 10 Ml Liquid) 10 ml PO Q6H PRN PRN Reason: Cough Doxycycline Hyclate 100 mg/ (Sodium Chloride) 250 mls @ 166.67 mls/hr IV Q12H [facility] Last Infusion: 04/21/24 00:00 Dose: Infused Documented By: AJ Loratadine (Loratadine 10 Mg Tablet) 10 mg PO DAILY [facility] Magnesium Hydroxide (Milk Of Magnesia 30 Ml Oral.Susp) 30 ml PO DAILY PRN PRN Reason: Constipation Magnesium Hydroxide (Milk Of Magnesia 30 Ml Oral.Susp) 30 ml PO DAILY PRN PRN Reason: Constipation Melatonin (Melatonin 3 Mg Tablet) 6 mg PO BEDTIME PRN PRN Reason: Insomnia Metoprolol Tartrate (Metoprolol Tartrate 12.5 Mg Halftab) 12.5 mg PO TID [facility]; Protocol Last Admin: 04/20/24 20:42 Dose: 12.5 mg Documented By: AJ Multivitamins/Vitamin C (Multivitamin Tablet) 1 tab PO DAILY [facility] Omeprazole (Omeprazole 20 Mg Capsule.Dr) 20 mg PO DAILY@0630 [facility] Ondansetron HCl (Ondansetron Hcl 4 Mg/2 Ml Vial) 4 mg IVPUSH Q8H PRN PRN Reason: Nausea and Vomiting Sodium Biphosphate/Sodium Phosphate (Sodium Phosphate,[place]-Dibasic 133 Ml Enema) 118 ml MO DAILY PRN PRN Reason: Constipation Sodium Chloride (0.9 % Sodium Chloride Flush 3 Ml Syringe) 3 ml IVFLUSH QSHIFT [facility] Last Admin: 04/21/24 00:47 Dose: Not Given Documented By: AJ Non-Admin Reason: IV Running Labs 04/21/24 04:34 04/21/24 04:34 Labs: Laboratory Results - last 24 hr 04/20/24 04/20/24 04/20/24 10:05 10:13 10:20 MCV 84.4 MCH 26.5 L MCHC 31.4 RDW 18.5 H Plt Count 217 D MPV 11.0 Immature Gran % (Auto) 0.9 H Neut % (Auto) 86.5 H Lymph % (Auto) 5.2 L [place] % (Auto) 6.6 Eos % (Auto) 0.1 Baso % (Auto) 0.7 Lymph # (Auto) 0.7 L [place] # (Auto) 0.8 Eos # (Auto) 0.0 Baso # (Auto) 0.1 Abs Immat Gran (auto) 0.11 H Absolute Neuts (auto) 11.1 H Absolute Nucleated RBC 0.000 Nucleated RBC % (auto) 0.0 VBG pH VBG pCO2 VBG pO2 VBG HCO3 VBG O2 Saturation VBG Base Excess Anion Gap 15 Estim Creat Clear Calc 24.7 Estimated GFR 32 Random Glucose 113 Lactic Acid 1.2 Calcium 9.4 Magnesium 2.1 Total Bilirubin 0.4 Direct Bilirubin 0.2 AST 50 H ALT 17 Alkaline Phosphatase 71 Troponin I High Sens 267.1 H* B-Natriuretic Peptide 431 H Total Protein 7.6 Albumin 2.8 L Urine Color Yellow Urine Appearance Turbid Urine pH 5.5 Ur Specific [place] 1.015 Urine Protein 100 (2+) H Urine Glucose (UA) Negative Urine Ketones Negative Urine Blood Moderate (2+) H Urine Nitrite Negative Ur Leukocyte Esterase Large (3+) H Urine RBC >20 H Urine WBC >50 H Ur Squamous Epith Cells 6-10 Urine Bacteria Trace Hyaline Casts 3-5 Urine Yeast Present Influenza Type A (PCR) NEGATIVE Influenza Type B (PCR) NEGATIVE RSV RNA Qual (PCR) NEGATIVE SARS-CoV-2 RNA (RT-PCR) NEGATIVE 04/20/24 04/20/24 04/20/24 10:30 15:47 16:12 MCV MCH MCHC RDW Plt Count MPV Immature Gran % (Auto) Neut % (Auto) Lymph % (Auto) [place] % (Auto) Eos % (Auto) Baso % (Auto) Lymph # (Auto) [place] # (Auto) Eos # (Auto) Baso # (Auto) Abs Immat Gran (auto) Absolute Neuts (auto) Absolute Nucleated RBC Nucleated RBC % (auto) VBG pH 7.47 H VBG pCO2 37 VBG pO2 57 VBG HCO3 27 H VBG O2 Saturation 86.0 VBG Base Excess 4.2 Anion Gap Estim Creat Clear Calc Estimated GFR Random Glucose Lactic Acid Calcium Magnesium Total Bilirubin Direct Bilirubin AST ALT Alkaline Phosphatase Troponin I High Sens 282.5 H* B-Natriuretic Peptide Total Protein Albumin Urine Color Yellow Urine Appearance Turbid Urine pH 5.5 Ur Specific [place] 1.020 Urine Protein 100 (2+) H Urine Glucose (UA) Negative Urine Ketones Negative Urine Blood Large (3+) H Urine Nitrite Negative Ur Leukocyte Esterase Large (3+) H Urine RBC >20 H Urine WBC >50 H Ur Squamous Epith Cells >20 Urine Bacteria 4+ Hyaline Casts 3-5 Urine Yeast Influenza Type A (PCR) Influenza Type B (PCR) RSV RNA Qual (PCR) SARS-CoV-2 RNA (RT-PCR) 04/21/24 04:34 MCV 87.4 MCH 26.3 L MCHC 30.1 L RDW 18.5 H Plt Count 190 MPV 10.6 Immature Gran % (Auto) Neut % (Auto) Lymph % (Auto) [place] % (Auto) Eos % (Auto) Baso % (Auto) Lymph # (Auto) [place] # (Auto) Eos # (Auto) Baso # (Auto) Abs Immat Gran (auto) Absolute Neuts (auto) Absolute Nucleated RBC 0.000 Nucleated RBC % (auto) 0.0 VBG pH VBG pCO2 VBG pO2 VBG HCO3 VBG O2 Saturation VBG Base Excess Anion Gap 14 Estim Creat Clear Calc 26.8 Estimated GFR 35 Random Glucose 88 Lactic Acid Calcium 9.2 Magnesium Total Bilirubin Direct Bilirubin AST ALT Alkaline Phosphatase Troponin I High Sens B-Natriuretic Peptide Total Protein Albumin Urine Color Urine Appearance Urine pH Ur Specific [place] Urine Protein Urine Glucose (UA) Urine Ketones Urine Blood Urine Nitrite Ur Leukocyte Esterase Urine RBC Urine WBC Ur Squamous Epith Cells Urine Bacteria Hyaline Casts Urine Yeast Influenza Type A (PCR) Influenza Type B (PCR) RSV RNA Qual (PCR) SARS-CoV-2 RNA (RT-PCR) Assessment and Plan (1) Acute UTI: Status: Acute Plan 89M PMH pafib, unspecified chf, htn, chornic iron deficiency, CKD III, gerd, presented with ams and fever sepsis and acute metabolic encephalopathy due to acute pylenophritis complicated by right hydronephrosis and possible pneumonia ingrid negrete follow up cultures HARPER on CKD III monitor, ?due to sepsis vs obstruction type II nstemi due to sepsis, no ACS chronic unspecified chf lasix htn amldipine, metoprolol pafib metoprolol, eliquis bph luis fernando streeter, gu eval dvt prophylaxis- eliquis full code reason for continued hospitalization:cultures Quality Stroke Does the patient have a stroke diagnosis?: No VTE Prior VTE?: No VTE Risk Level:: Medical - moderate - high VTE Device Contraindication: Treatment Not Indicated VTE Drug Contraindication: N/A - Med Ordered
[2024-04-21] MEDS: Doxycycline Hyclate 100 MG in 0.9 % Sodium Chloride 250 ML 166.67 MG IV ×2 (11:03→22:44)
[2024-04-21] MEDS: Multivitamin TABLET 1 TAB PO (11:09)
[2024-04-21] MEDS: Apixaban 2.5 MG TABLET PO ×2 (11:09→22:44)
[2024-04-21] MEDS: Metoprolol Tartrate 12.5 MG HALFTAB PO ×3 (11:09→22:44)
[2024-04-21] MEDS: Loratadine 10 MG TABLET PO (11:09)
[2024-04-21] MEDS: amLODIPine Besylate 2.5 MG TABLET PO (11:09)
[2024-04-21] MEDS: 0.9 % Sodium Chloride Flush 3 ML SYRINGE IVFLUSH ×3 (11:10→22:45)
[2024-04-21] MEDS: Furosemide 20 MG TABLET PO (11:10)
[2024-04-21] MEDS: Ferrous Sulfate 324 MG TABLET.DR PO (11:10)
--- NOTE | 2024-04-21 12:47 | MHC.CM.PN ---
IMM 04/21/24, [facility] IMM 04/21/24, Pt resides at [facility], His , Kayy was at bedside, she answered questions and signed forms, because pt. is confused. She said that he is receiving good care at [facility], and confirmed that the DC plan is to send him back there at DC. DCP: return to SNF via BLS. CM to follow for DC needs.
[2024-04-21] MEDS: cefTRIAXone sodium 1 GM VIAL IVPUSH (14:46)
[2024-04-21] MEDS: Doxazosin Mesylate 2 MG TABLET PO (22:44)
[2024-04-22 03:46] VITALS: BP 135/61; PULSE 76; RESP 18; TEMP 36.8; O2SAT 95
[2024-04-22 07:30] VITALS: BP 155/66; PULSE 80; RESP 18; TEMP 36.3; O2SAT 95
[2024-04-22 08:37] LABS: Hematocrit 37.1 % (42.0-52.0); Hemoglobin 11.1 g/dl (14.0-18.0); Mean Corpuscular HGB Conc 29.9 g/dl (31.0-36.0); Mean Corpuscular Hemoglobin 26.5 pg (27.0-33.0); Mean Corpuscular Volume 88.5 fL (80.0-98.0); Mean Platelet Volume 11.3 fL (9.4-12.4); Platelet Count 214 X10*3/uL (160-400); Red Blood Count 4.19 X10*6/uL (4.60-5.80); Red Cell Distribution Width 18.5 % (11.0-16.0); White Blood Count 10.1 X10*3/uL (4.8-10.8)
[2024-04-22 08:56] LABS: Anion Gap 11 (12-20); Blood Urea Nitrogen 41 mg/dL (9-16); Calcium 9.6 mg/dL (8.4-10.2); Carbon Dioxide 25 mmol/L (22-29); Chloride 116 mmol/L (96-108); Creatinine Clr Calc Pharmacy 29.9; Estimated Glomerular Filt Rate 40; Glucose Random 107 mg/dL (60-115); Potassium 4.2 mmol/L (3.3-5.1); Sodium 148 mmol/L (135-145)
--- NOTE | 2024-04-22 09:12 | HO.PM.IMPN ---
Subjective Subjective Date of Service: 04/22/24 Interval History: feeling better Physical Exam Vital Signs: Vital Signs: Last Vital Signs Temp 97.4 F 04/22/24 07:30 Pulse 80 04/22/24 07:30 Resp 18 04/22/24 07:30 BP 155/66 H 04/22/24 07:30 Pulse Ox 95 04/22/24 07:30 O2 Del Method Room Air 04/22/24 07:30 O2 Flow Rate 2 04/21/24 00:40 Oxygen Flow Rate 2 04/20/24 09:39 BMI result Body Mass Index 26.8 Alert, frail, confused, lungs diminished, Objective Data Active Medications Acetaminophen (Acetaminophen 325 Mg Tablet) 650 mg PO Q6H PRN PRN Reason: Pain, Mild 1-3,fever,headache Amlodipine Besylate (Amlodipine Besylate 2.5 Mg Tablet) 2.5 mg PO DAILY [facility]; Protocol Last Admin: 04/21/24 11:09 Dose: 2.5 mg Documented By: ABUNDIO Apixaban (Apixaban 2.5 Mg Tablet) 2.5 mg PO BID [facility] Last Admin: 04/21/24 22:44 Dose: 2.5 mg Documented By: PAULY Bisacodyl (Bisacodyl 10 Mg Supp.Rect) 10 mg [place] DAILY PRN PRN Reason: Constipation Calcium Carbonate (Calcium Carbonate 750 Mg Tab.Chew) 750 mg PO Q4H PRN PRN Reason: Heartburn Ceftriaxone Sodium (Ceftriaxone Sodium 1 Gm Vial) 1 gm IVPUSH Q24H [facility] Last Admin: 04/21/24 14:46 Dose: 1 gm Documented By: ABUNDIO Doxazosin Mesylate (Doxazosin Mesylate 2 Mg Tablet) 2 mg PO BEDTIME [facility] Last Admin: 04/21/24 22:44 Dose: 2 mg Documented By: PAULY Ferrous Sulfate (Ferrous Sulfate 324 Mg Tablet.Dr) 324 mg PO DAILY [facility] Last Admin: 04/21/24 11:10 Dose: 324 mg Documented By: ABUNDIO Furosemide (Furosemide 20 Mg Tablet) 20 mg PO DAILY [facility]; Protocol Last Admin: 04/21/24 11:10 Dose: 20 mg Documented By: ABUNDIO Guaifenesin (Guaifenesin 200 Mg/10 Ml 10 Ml Liquid) 10 ml PO Q6H PRN PRN Reason: Cough Doxycycline Hyclate 100 mg/ (Sodium Chloride) 250 mls @ 166.67 mls/hr IV Q12H [facility] Last Infusion: 04/22/24 00:18 Dose: Infused Documented By: PAULY Loratadine (Loratadine 10 Mg Tablet) 10 mg PO DAILY [facility] Last Admin: 04/21/24 11:09 Dose: 10 mg Documented By: ABUNDIO Magnesium Hydroxide (Milk Of Magnesia 30 Ml Oral.Susp) 30 ml PO DAILY PRN PRN Reason: Constipation Magnesium Hydroxide (Milk Of Magnesia 30 Ml Oral.Susp) 30 ml PO DAILY PRN PRN Reason: Constipation Melatonin (Melatonin 3 Mg Tablet) 6 mg PO BEDTIME PRN PRN Reason: Insomnia Metoprolol Tartrate (Metoprolol Tartrate 12.5 Mg Halftab) 12.5 mg PO TID [facility]; Protocol Last Admin: 04/21/24 22:44 Dose: 12.5 mg Documented By: PAULY Multivitamins/Vitamin C (Multivitamin Tablet) 1 tab PO DAILY [facility] Last Admin: 04/21/24 11:09 Dose: 1 tab Documented By: ABUNDIO Omeprazole (Omeprazole 20 Mg Capsule.Dr) 20 mg PO DAILY@0630 [facility] Last Admin: 04/22/24 04:53 Dose: Not Given Documented By: PAULY Non-Admin Reason: Difficulties swallowing Ondansetron HCl (Ondansetron Hcl 4 Mg/2 Ml Vial) 4 mg IVPUSH Q8H PRN PRN Reason: Nausea and Vomiting Sodium Biphosphate/Sodium Phosphate (Sodium Phosphate,[place]-Dibasic 133 Ml Enema) 118 ml [place] DAILY PRN PRN Reason: Constipation Sodium Chloride (0.9 % Sodium Chloride Flush 3 Ml Syringe) 3 ml IVFLUSH QSHIFT [facility] Last Admin: 04/21/24 22:45 Dose: 3 ml Documented By: PAULY Labs 04/22/24 08:02 04/22/24 08:02 Labs: Laboratory Results - last 24 hr 04/22/24 08:02 MCV 88.5 MCH 26.5 L MCHC 29.9 L RDW 18.5 H Plt Count 214 MPV 11.3 Absolute Nucleated RBC 0.000 Nucleated RBC % (auto) 0.0 Anion Gap 11 L Estim Creat Clear Calc 29.9 Estimated GFR 40 Random Glucose 107 Calcium 9.6 Microbiology Microbiology Results: Microbiology 04/20/24 10:20 Blood Culture - Preliminary Blood - Venous No growth after 24 hours. 04/20/24 10:05 Blood Culture - Preliminary Blood - Venous No growth after 24 hours. 04/20/24 Unknown Urine Culture - Preliminary Urine clean catch - Clean Catch Midstream Culture in progress. Assessment and Plan (1) Acute UTI: Status: Acute Plan 89M PMH pafib, unspecified chf, htn, chornic iron deficiency, CKD III, gerd, presented with ams and fever sepsis and acute metabolic encephalopathy due to acute pylenophritis complicated by right hydronephrosis and possible pneumonia Rocephiingrid abraham follow up cultures hypernatremia d5w, monitor HARPER on CKD III monitor, ?due to sepsis vs obstruction improving type II nstemi due to sepsis, no ACS chronic unspecified chf lasix htn amldipine, metoprolol pafib metoprolol, eliquis bph luis fernando streeter, gu eval dvt prophylaxis- eliquis full code reason for continued hospitalization:cultures Quality Stroke Does the patient have a stroke diagnosis?: No VTE Prior VTE?: No VTE Risk Level:: Medical - moderate - high VTE Device Contraindication: Treatment Not Indicated VTE Drug Contraindication: N/A - Med Ordered
[2024-04-22] MEDS: 0.9 % Sodium Chloride Flush 3 ML SYRINGE IVFLUSH ×2 (10:34→16:12)
[2024-04-22] MEDS: Metoprolol Tartrate 12.5 MG HALFTAB PO ×2 (10:36→16:13)
[2024-04-22] MEDS: Loratadine 10 MG TABLET PO (10:36)
[2024-04-22] MEDS: Ferrous Sulfate 324 MG TABLET.DR PO (10:37)
[2024-04-22] MEDS: Furosemide 20 MG TABLET PO (10:37)
[2024-04-22] MEDS: Multivitamin TABLET 1 TAB PO (10:38)
[2024-04-22] MEDS: amLODIPine Besylate 2.5 MG TABLET PO (10:38)
[2024-04-22] MEDS: Apixaban 2.5 MG TABLET PO (10:38)
[2024-04-22] MEDS: Fluconazole in NaCl,Iso-Osm 100 MG in Container,Empty 0 ML 50 MG IV (10:57)
[2024-04-22] MEDS: Doxycycline Hyclate 100 MG in 0.9 % Sodium Chloride 250 ML 166.67 MG IV (10:58)
[2024-04-22] MEDS: Dextrose 5 % 1,000 ML 80 ML IVCONT (11:00)
[2024-04-22 11:23] VITALS: BP 122/72; PULSE 65; RESP 16; TEMP 36.7; O2SAT 100
[2024-04-22 15:21] VITALS: BP 134/71; PULSE 83; RESP 16; TEMP 36.6; O2SAT 98
--- NOTE | 2024-04-22 15:25 | HO.WOUND ---
Wound Consult: Initial 89yr old?Male admitted to [facility] on 04/20/24- See progress notes and H&P for detailed history.? Wound consult placed for Coccyx POA.? Patient agreeable to assessment and photo documentation.? Sacrum Etiology: ??Deep Tissue Injury Present on Admission Measurements: 3cm x 7cm x 0cm Wound Bed: intact dark purple nonblanchanle tissue Drainage / Odor: none noted Edges: ? irregular and attached Tiffanie wound: ?Red pink slow to tomasz tissue - No Induration, Fluctuance or Warmth noted Pain: tenderness reported Goals of Treatment: Off Load pressure with foam dressing ? Right Abdominal suspected Hernia - no topical interventions needed at this time tissue remains intact. Left Heel Right Heel Intact red pink blanchable tissue noted - recommend foam dressing application for prevention and off load heels with pillows. Recommendations: 1. Turn and Reposition every 2 hours and as needed for patient comfort.? Use pillows or wedges to support off loading positions. 2. Off Load all bony prominences with use of pillows and heel boots if needed.? Apply Preventative foams where needed. ? 3. Monitor for incontinence and moisture control, use barrier creams when needed for prevention and treatment. 4. Provide adequate and supplemental nutrition.? 5. Order low air loss mattress. 6. When applicable maintain blood glucose levels per Providers order. 7. Sacrum - Off Load Pressure with Q2 hr turns and use of pillows - Cleanse with PH balance spray or wipes, pat dry. ?Apply skin prep allow to dry. Cover with foam dressing to aid in off loading and protection from friction. Change every 5 days and PRN. 8. Bilateral heels - Elevate heels off of bed surface with pillows. Apply Preventative foam dressings change every 5 days and PRN. Peel back and assess skin Q shift. Re-consult wound care Nurse for wound deterioration or wound changes.
[2024-04-22] MEDS: cefTRIAXone sodium 1 GM VIAL IVPUSH (16:12)
--- NOTE | 2024-04-22 17:16 | MHC.SL.SWA ---
Speech Pathologist Impression:Risk of Aspiration, Oropharyngeal Dysphagia Risk of Aspiration Due to: Lethargy Dysphasia Diet Status: Downgrade to NPO Liquid Consistency and Strategies for Safe Swallow: Liquid Intake Recommendation: NPO Solid Food Consistency: Dietary Recommendations: NPO Additional Modifications to Solid Foods: Recommend continue NPO at this time d/t overt s/s of aspiration with trace PO. Continue frequent oral care, moistened swabs for comfort. Oral Medication Intake: NPO Please contact the pharmacy regarding appropriate crushable or liquid drug formulations that are available whenever modified delivery is recommended. Supervision While Eating and Drinking for Safe Swallow: PO with BROADCAST MAINTENANCE ENGINEER Swallowing Recommended Treatments: Thermal Stimulation Gustatory Stimulation Compens. Strategy Educat. Recommendation for Speech: Inpatient Speech Therapy Comment: BROADCAST MAINTENANCE ENGINEER to re-assess tomorrow a.m. Frequency/Duration: M-F Date Range for Service Req: Timeline to reassess: PRN Tool Crib Clerk Clinican/Clinical Fellow: No Supervisory Statement: I have reviewed and agree with the student/clinical fellow's documentation: N/A Speech Language Pathologist: Aubree Denson M.A., CCC-BROADCAST MAINTENANCE ENGINEER
[2024-04-22 19:44] VITALS: BP 131/85; PULSE 72; RESP 18; TEMP 36.4; O2SAT 97
[2024-04-22 23:59] VITALS: BP 127/64; PULSE 78; RESP 16; TEMP 36.5; O2SAT 95
[2024-04-23] MEDS: Doxycycline Hyclate 100 MG in 0.9 % Sodium Chloride 250 ML 166.67 MG IV ×3 (00:05→22:19)
[2024-04-23] MEDS: 0.9 % Sodium Chloride Flush 3 ML SYRINGE IVFLUSH ×3 (00:05→17:08)
[2024-04-23] MEDS: Dextrose 5 % 1,000 ML 80 ML IVCONT (01:53)
[2024-04-23 03:45] VITALS: BP 140/71; PULSE 64; RESP 18; TEMP 36.7; O2SAT 92
[2024-04-23 07:04] LABS: Hematocrit 35.8 % (42.0-52.0); Hemoglobin 10.9 g/dl (14.0-18.0); Mean Corpuscular HGB Conc 30.4 g/dl (31.0-36.0); Mean Corpuscular Hemoglobin 26.7 pg (27.0-33.0); Mean Corpuscular Volume 87.5 fL (80.0-98.0); Mean Platelet Volume 11.1 fL (9.4-12.4); Platelet Count 208 X10*3/uL (160-400); Red Blood Count 4.09 X10*6/uL (4.60-5.80); Red Cell Distribution Width 18.4 % (11.0-16.0); White Blood Count 9.5 X10*3/uL (4.8-10.8)
[2024-04-23 07:08] VITALS: BP 146/67; PULSE 88; RESP 19; TEMP 36.4; O2SAT 95
[2024-04-23 07:14] LABS: Anion Gap 11 (12-20); Blood Urea Nitrogen 35 mg/dL (9-16); Calcium 9.2 mg/dL (8.4-10.2); Carbon Dioxide 25 mmol/L (22-29); Chloride 113 mmol/L (96-108); Estimated Glomerular Filt Rate 49; Glucose Random 121 mg/dL (60-115); Potassium 4.1 mmol/L (3.3-5.1); Sodium 145 mmol/L (135-145)
[2024-04-23] MEDS: Metoprolol Tartrate 12.5 MG HALFTAB PO ×3 (10:37→21:53)
[2024-04-23] MEDS: Multivitamin TABLET 1 TAB PO (10:37)
[2024-04-23] MEDS: Loratadine 10 MG TABLET PO (10:38)
[2024-04-23] MEDS: Apixaban 2.5 MG TABLET PO ×2 (10:38→21:52)
[2024-04-23] MEDS: Furosemide 20 MG TABLET PO (10:38)
[2024-04-23] MEDS: Ferrous Sulfate 324 MG TABLET.DR PO (10:38)
[2024-04-23] MEDS: amLODIPine Besylate 2.5 MG TABLET PO (10:38)
--- NOTE | 2024-04-23 10:56 | MHC.CM.PN ---
Per ROUNDS discussion, Patient is not yet medically cleared for dc (cultures pending); returning to LTC is the goal and CM will continue to follow.
[2024-04-23] MEDS: Fluconazole in NaCl,Iso-Osm 100 MG in Container,Empty 0 ML 50 MG IV (10:59)
--- NOTE | 2024-04-23 11:08 | HO.PM.IMPN ---
Subjective Subjective Date of Service: 04/23/24 Interval History: feeling better Physical Exam Vital Signs: Vital Signs: Last Vital Signs Temp 97.5 F 04/23/24 07:08 Pulse 88 04/23/24 07:08 Resp 19 04/23/24 07:08 BP 146/67 H 04/23/24 07:08 Pulse Ox 95 04/23/24 07:08 O2 Del Method Room Air 04/23/24 07:08 O2 Flow Rate 2 04/21/24 00:40 Oxygen Flow Rate 2 04/20/24 09:39 BMI result Body Mass Index 26.8 more Alert, frail, confused, lungs diminished, Objective Data Active Medications Acetaminophen (Acetaminophen 325 Mg Tablet) 650 mg PO Q6H PRN PRN Reason: Pain, Mild 1-3,fever,headache Amlodipine Besylate (Amlodipine Besylate 2.5 Mg Tablet) 2.5 mg PO DAILY [facility]; Protocol Last Admin: 04/23/24 10:38 Dose: 2.5 mg Documented By: MARITA Apixaban (Apixaban 2.5 Mg Tablet) 2.5 mg PO BID [facility] Last Admin: 04/23/24 10:38 Dose: 2.5 mg Documented By: MARITA Bisacodyl (Bisacodyl 10 Mg Supp.Rect) 10 mg NM DAILY PRN PRN Reason: Constipation Calcium Carbonate (Calcium Carbonate 750 Mg Tab.Chew) 750 mg PO Q4H PRN PRN Reason: Heartburn Ceftriaxone Sodium (Ceftriaxone Sodium 1 Gm Vial) 1 gm IVPUSH Q24H [facility] Last Admin: 04/22/24 16:12 Dose: 1 gm Documented By: ABUNDIO Doxazosin Mesylate (Doxazosin Mesylate 2 Mg Tablet) 2 mg PO BEDTIME [facility] Last Admin: 04/22/24 22:00 Dose: Not Given Documented By: ROMERO Non-Admin Reason: NPO Ferrous Sulfate (Ferrous Sulfate 324 Mg Tablet.Dr) 324 mg PO DAILY [facility] Last Admin: 04/23/24 10:38 Dose: 324 mg Documented By: MARITA Furosemide (Furosemide 20 Mg Tablet) 20 mg PO DAILY [facility]; Protocol Last Admin: 04/23/24 10:38 Dose: 20 mg Documented By: MARTIA Guaifenesin (Guaifenesin 200 Mg/10 Ml 10 Ml Liquid) 10 ml PO Q6H PRN PRN Reason: Cough Doxycycline Hyclate 100 mg/ (Sodium Chloride) 250 mls @ 166.67 mls/hr IV Q12H [facility] Last Admin: 04/23/24 10:40 Dose: 166.67 mls/hr Documented By: MARITA Dextrose (D5w) 1,000 mls @ 80 mls/hr IVCONT .[id number] [facility] Last Admin: 04/23/24 01:53 Dose: 80 mls/hr Documented By: ROMERO Fluconazole 100 mg/ IV (Miscellaneous Supplies) 50 mls @ 50 mls/hr IV Q24H [facility] Last Admin: 04/23/24 10:59 Dose: 50 mls/hr Documented By: MARITA Loratadine (Loratadine 10 Mg Tablet) 10 mg PO DAILY [facility] Last Admin: 04/23/24 10:38 Dose: 10 mg Documented By: MARITA Magnesium Hydroxide (Milk Of Magnesia 30 Ml Oral.Susp) 30 ml PO DAILY PRN PRN Reason: Constipation Magnesium Hydroxide (Milk Of Magnesia 30 Ml Oral.Susp) 30 ml PO DAILY PRN PRN Reason: Constipation Melatonin (Melatonin 3 Mg Tablet) 6 mg PO BEDTIME PRN PRN Reason: Insomnia Metoprolol Tartrate (Metoprolol Tartrate 12.5 Mg Halftab) 12.5 mg PO TID [facility]; Protocol Last Admin: 04/23/24 10:37 Dose: 12.5 mg Documented By: MARITA Multivitamins/Vitamin C (Multivitamin Tablet) 1 tab PO DAILY [facility] Last Admin: 04/23/24 10:37 Dose: 1 tab Documented By: MARITA Omeprazole (Omeprazole 20 Mg Capsule.Dr) 20 mg PO DAILY@0630 [facility] Last Admin: 04/23/24 10:39 Dose: Not Given Documented By: MARITA Non-Admin Reason: NPO Ondansetron HCl (Ondansetron Hcl 4 Mg/2 Ml Vial) 4 mg IVPUSH Q8H PRN PRN Reason: Nausea and Vomiting Sodium Biphosphate/Sodium Phosphate (Sodium Phosphate,[place]-Dibasic 133 Ml Enema) 118 ml NM DAILY PRN PRN Reason: Constipation Sodium Chloride (0.9 % Sodium Chloride Flush 3 Ml Syringe) 3 ml IVFLUSH QSHIFT [facility] Last Admin: 04/23/24 10:38 Dose: 3 ml Documented By: MARITA Labs 04/23/24 06:06 04/23/24 06:06 Labs: Laboratory Results - last 24 hr 04/23/24 06:06 MCV 87.5 MCH 26.7 L MCHC 30.4 L RDW 18.4 H Plt Count 208 MPV 11.1 Absolute Nucleated RBC 0.000 Nucleated RBC % (auto) 0.0 Anion Gap 11 L Estim Creat Clear Calc 36.0 Estimated GFR 49 Random Glucose 121 H Calcium 9.2 Microbiology Microbiology Results: Microbiology 04/20/24 Unknown Urine Culture - Final Urine clean catch - Clean Catch Midstream Sophie albicans 04/20/24 10:20 Blood Culture - Preliminary Blood - Venous No growth after 48 hours. 04/20/24 10:05 Blood Culture - Preliminary Blood - Venous No growth after 48 hours. Assessment and Plan (1) Acute UTI: Status: Acute Plan 89M PMH pafib, unspecified chf, htn, chornic iron deficiency, CKD III, gerd, presented with ams and fever sepsis and acute metabolic encephalopathy due to acute pylenophritis complicated by right hydronephrosis and possible pneumonia Rocephin, doxy added diflucan for yeast in urine [place] follow up cultures hypernatremia d5w, monitor dysphagia medical technologist clinical appreciated pureed solids, nectar thick liquids HARPER on CKD III monitor, ?due to sepsis vs obstruction improving type II nstemi due to sepsis, no ACS chronic unspecified chf lasix htn amlodipine, metoprolol pafib metoprolol, eliquis bph luis fernando streeter, gu eval dvt prophylaxis- eliquis full code reason for continued hospitalization:cultures Quality Stroke Does the patient have a stroke diagnosis?: No VTE Prior VTE?: No VTE Risk Level:: Medical - moderate - high VTE Device Contraindication: Treatment Not Indicated VTE Drug Contraindication: N/A - Med Ordered
[2024-04-23 11:22] VITALS: BP 142/78; PULSE 66; RESP 18; TEMP 37; O2SAT 94
--- NOTE | 2024-04-23 11:23 | MHC.SL.SWA ---
Speech Pathologist Impression: Dysphagia d/t weakness, absence of dentition Risk of Aspiration Due to: Medically Fragile Reduced Cognition Weak Voice Dysphasia Diet Status: Liquid Consistency and Strategies for Safe Swallow: Liquid Intake Recommendation: [place] Thick Liquid Intake Strategies: Small Sips Solid Food Consistency: Dietary Recommendations: Pureed (NDD1) Additional Modifications to Solid Foods: Recommend continue NPO at this time d/t overt s/s of aspiration with trace PO. Continue frequent oral care, moistened swabs for comfort. Oral Medication Intake: Whole with Puree Please contact the pharmacy regarding appropriate crushable or liquid drug formulations that are available whenever modified delivery is recommended. Compensatory Strategies and Precautions to be Taken for Safe Swallow: Sitting Upright (90 deg) Small Bites and Sips Alternate Liquids/Solids Rate of Ingestion Change Supervision While Eating and Drinking for Safe Swallow: Total Supervision (1:1) Foods to Avoid: Swallowing Recommended Treatments: Compens. Strategy Educat. Recommendation for Speech: Inpatient Speech Therapy Comment: WEB SITE ADMINISTRATOR intervention daily to determine most appropriate diet and strategies in reducing pt risk for aspiration Frequency/Duration: Daily M-F Date Range for Service Req: Timeline to reassess: PRN Hr Systems Analyst Clinican/Clinical Fellow: No Supervisory Statement: I have reviewed and agree with the student/clinical fellow's documentation: N/A Speech Language Pathologist: Whitney Montejo M.S., CCC-WEB SITE ADMINISTRATOR
[2024-04-23 11:24] VITALS: BMI 26.8
--- NOTE | 2024-04-23 11:30 | MHC.CLN ---
PT WITH INCREASED RISK R/T PRESSURE INJURY PO INTAKE 50-75% DIET RX: PUREED WITH NT LIQ RECOMMEND ADDING ENSURE BID TO PROMOTE WOUND HEALING SUPP TO PROVIDE 700KCALS, 40G PROTEIN MONITOR PO INTAKE AND ENCOURAGE SUPPLEMENTS
[2024-04-23 15:53] VITALS: BP 144/65; PULSE 80; RESP 19; TEMP 37.3; O2SAT 93
[2024-04-23] MEDS: cefTRIAXone sodium 1 GM VIAL IVPUSH (17:08)
[2024-04-23 19:25] VITALS: BP 130/58; PULSE 77; RESP 18; TEMP 37.1; O2SAT 94
[2024-04-23 21:52] VITALS: BP 128/62
[2024-04-23] MEDS: Doxazosin Mesylate 2 MG TABLET PO (21:52)
[2024-04-24] VITALS (7 sets, daily range): BP systolic 113–141; BP diastolic 53–63; PULSE 57–115; RESP 12–20; TEMP 36.1–36.7; O2SAT 93–99
[2024-04-24] MEDS: Dextrose 5 % 1,000 ML 80 ML IVCONT (00:19)
[2024-04-24 07:03] LABS: Hematocrit 36.3 % (42.0-52.0); Mean Corpuscular HGB Conc 30.3 g/dl (31.0-36.0); Mean Corpuscular Hemoglobin 26.9 pg (27.0-33.0); Mean Corpuscular Volume 88.8 fL (80.0-98.0); Mean Platelet Volume 10.9 fL (9.4-12.4); Platelet Count 229 X10*3/uL (160-400); Red Blood Count 4.09 X10*6/uL (4.60-5.80); Red Cell Distribution Width 18.3 % (11.0-16.0); White Blood Count 11.5 X10*3/uL (4.8-10.8)
[2024-04-24 07:04] LABS: Anion Gap 11 (12-20); Blood Urea Nitrogen 33 mg/dL (9-16); Carbon Dioxide 26 mmol/L (22-29); Chloride 111 mmol/L (96-108); Creatinine Clr Calc Pharmacy 37.1; Estimated Glomerular Filt Rate 51; Glucose Random 110 mg/dL (60-115); Sodium 144 mmol/L (135-145)
[2024-04-24] MEDS: Apixaban 2.5 MG TABLET PO ×2 (09:20→20:01)
[2024-04-24] MEDS: amLODIPine Besylate 2.5 MG TABLET PO (09:20)
[2024-04-24] MEDS: Loratadine 10 MG TABLET PO (09:20)
[2024-04-24] MEDS: Multivitamin TABLET 1 TAB PO (09:20)
[2024-04-24] MEDS: Furosemide 20 MG TABLET PO (09:21)
[2024-04-24] MEDS: 0.9 % Sodium Chloride Flush 3 ML SYRINGE IVFLUSH ×3 (09:21→20:04)
[2024-04-24] MEDS: Metoprolol Tartrate 12.5 MG HALFTAB PO ×2 (09:21→16:32)
[2024-04-24] MEDS: Doxycycline Hyclate 100 MG in 0.9 % Sodium Chloride 250 ML 166.67 MG IV ×2 (09:30→21:42)
--- NOTE | 2024-04-24 11:38 | MHC.SL.SWA ---
Speech Pathologist Impression: Risk of Aspiration, Oropharyngeal Dysphagia Risk of Aspiration Due to: Medically Fragile Reduced Cognition Weak Voice Dysphasia Diet Status: No Change Liquid Consistency and Strategies for Safe Swallow: Liquid Intake Recommendation: [place] Thick Liquid Intake Strategies: Small Sips No Straws Solid Food Consistency: Dietary Recommendations: Pureed (NDD1) Additional Modifications to Solid Foods: Puree/[place] Thick w/ 1:1 assistance and strict aspiration precautions: administer small bites/sips, allow ample time for dry swallow between each bite/sip and watch for laryngeal elevation, check oral cavity for clearance periodically, avoid the use of straws, ensure upright 90 degree position during PO intake and for at least 30 minutes afterwards, oral care before first meal and after each subsequent meal. Oral Medication Intake: Whole with Puree Please contact the pharmacy regarding appropriate crushable or liquid drug formulations that are available whenever modified delivery is recommended. Compensatory Strategies and Precautions to be Taken for Safe Swallow: Sitting Upright (90 deg) Double Swallow No Straw Small Bites and Sips Rate of Ingestion Change Oral Check Supervision While Eating and Drinking for Safe Swallow: Total Assistance (1:1) Swallowing Recommended Treatments: Compens. Strategy Educat. Recommendation for Speech: Inpatient Speech Therapy Comment: LIME TRIMMER to re-assess tomorrow a.m. Frequency/Duration: Daily M-F Date Range for Service Req: Timeline to reassess: PRN Wire Rope Sling Maker Clinican/Clinical Fellow: No Supervisory Statement: I have reviewed and agree with the student/clinical fellow's documentation: N/A Speech Language Pathologist: Aubree Denson M.A., CCC-LIME TRIMMER
--- NOTE | 2024-04-24 13:07 | P.CNUR_ITS ---
History of Present Illness Consult details Consult date: 04/24/24 Narrative: CC: Hydronephrosis 89-year-old male Admit from [facility] with altered mental status and lethargy Prior diagnosis of pneumonia earlier this month Creatinine 2.0, baseline 1.5 CT scan enlarged prostate with right hydro uretero nephrosis of moderate severity Sophie found in urine Buckner catheter placed Repeat ultrasound after 48 hours this showed resolution of hydronephrosis Hydronephrosis is dependent on bladder outlet obstruction Initiate therapy for bladder outlet obstruction - increased terazosin dose to 5 mg add finasteride PMFSH Past Medical History Medical History BPH loc w urin obs/LUTS CKD (chronic kidney disease) Chronic GERD Urinary tract infection HTN (hypertension) A-fib Obesity PAF (paroxysmal atrial fibrillation) Hypertension Family History Family History Father Medical history unknown Mother Medical history unknown Surgical History Surgical History History of umbilical hernia repair History of hemicolectomy History of inguinal hernia repair H/O rectal polypectomy History of tonsillectomy History of cholecystectomy Social History Social History Household Members: None Housing: [employer] Housing Other:: double trailer Do you presently have visiting nurse or other home services: Yes Alcohol intake: former Patient Tobacco Use Status: Former Tobacco user Tobacco use type: Cigarette Years Smoked: 37 +/- Smoked in Last 30 Days: No e-Cigarette/Vaping Use: Never Used Second Hand Smoke Exposure: No Use of substances other than those prescribed or required for medical reasons: No Currently Displaying Signs/Symptoms of Drug Intoxication Withdrawal: No Advance Directives: No Advance Directives Information Provided: No Do you have a plan to hurt others: No Plan Recently lost weight without trying: No Eating poorly because of decreased appetite: No Nutrition Risks: Dental problems service: Yes Current occupational status: retired Current occupational exposures/hazards: No Cognitive needs: Yes (cane) Hearing needs: No Vision needs: Yes (glasses) Meds Allergies Allergy/AdvReac Type Severity Reaction Status Date / Time No Known Allergies Allergy Unknown Verified 04/20/24 09:49 Active Medications: Current Medications Acetaminophen (Acetaminophen 325 Mg Tablet) 650 mg PO Q6H PRN PRN Reason: Pain, Mild 1-3,fever,headache Amlodipine Besylate (Amlodipine Besylate 2.5 Mg Tablet) 2.5 mg PO DAILY [facility]; Protocol Last Admin: 04/24/24 09:20 Dose: 2.5 mg Apixaban (Apixaban 2.5 Mg Tablet) 2.5 mg PO BID [facility] Last Admin: 04/24/24 09:20 Dose: 2.5 mg Bisacodyl (Bisacodyl 10 Mg Supp.Rect) 10 mg [place] DAILY PRN PRN Reason: Constipation Calcium Carbonate (Calcium Carbonate 750 Mg Tab.Chew) 750 mg PO Q4H PRN PRN Reason: Heartburn Ceftriaxone Sodium (Ceftriaxone Sodium 1 Gm Vial) 1 gm IVPUSH Q24H [facility] Last Admin: 04/23/24 17:08 Dose: 1 gm Doxazosin Mesylate (Doxazosin Mesylate 2 Mg Tablet) 2 mg PO BEDTIME [facility] Last Admin: 04/23/24 21:52 Dose: 2 mg Ferrous Sulfate (Ferrous Sulfate 324 Mg Tablet.Dr) 324 mg PO DAILY [facility] Last Admin: 04/24/24 09:21 Dose: Not Given Furosemide (Furosemide 20 Mg Tablet) 20 mg PO DAILY [facility]; Protocol Last Admin: 04/24/24 09:21 Dose: 20 mg Guaifenesin (Guaifenesin 200 Mg/10 Ml 10 Ml Liquid) 10 ml PO Q6H PRN PRN Reason: Cough Doxycycline Hyclate 100 mg/ (Sodium Chloride) 250 mls @ 166.67 mls/hr IV Q12H [facility] Last Infusion: 04/24/24 11:10 Dose: Infused Fluconazole 100 mg/ IV (Miscellaneous Supplies) 50 mls @ 50 mls/hr IV Q24H [facility] Last Infusion: 04/23/24 12:34 Dose: Infused Loratadine (Loratadine 10 Mg Tablet) 10 mg PO DAILY [facility] Last Admin: 04/24/24 09:20 Dose: 10 mg Magnesium Hydroxide (Milk Of Magnesia 30 Ml Oral.Susp) 30 ml PO DAILY PRN PRN Reason: Constipation Magnesium Hydroxide (Milk Of Magnesia 30 Ml Oral.Susp) 30 ml PO DAILY PRN PRN Reason: Constipation Melatonin (Melatonin 3 Mg Tablet) 6 mg PO BEDTIME PRN PRN Reason: Insomnia Metoprolol Tartrate (Metoprolol Tartrate 12.5 Mg Halftab) 12.5 mg PO TID [facility]; Protocol Last Admin: 04/24/24 09:21 Dose: 12.5 mg Multivitamins/Vitamin C (Multivitamin Tablet) 1 tab PO DAILY [facility] Last Admin: 04/24/24 09:20 Dose: 1 tab Omeprazole (Omeprazole 20 Mg Capsule.Dr) 20 mg PO DAILY@0630 [facility] Last Admin: 04/24/24 07:14 Dose: Not Given Ondansetron HCl (Ondansetron Hcl 4 Mg/2 Ml Vial) 4 mg IVPUSH Q8H PRN PRN Reason: Nausea and Vomiting Sodium Biphosphate/Sodium Phosphate (Sodium Phosphate,[place]-Dibasic 133 Ml Enema) 118 ml [place] DAILY PRN PRN Reason: Constipation Sodium Chloride (0.9 % Sodium Chloride Flush 3 Ml Syringe) 3 ml IVFLUSH QSHIFT [facility] Last Admin: 04/24/24 09:21 Dose: 3 ml Home Medications ?Medication ?Instructions ?Recorded ?Confirmed ?Last Taken ?Type omeprazole 20 mg capsule,delayed 20 mg PO DAILY@0630 07/24/21 04/20/24 02/03/24 History release acetaminophen 325 mg tablet 975 mg PO Q6H PRN pain or fever 02/04/24 04/20/24 Unknown History bisacodyl 10 mg rectal suppository 10 mg [place] DAILY PRN Constipation 02/04/24 04/20/24 Unknown History clotrimazole-betamethasone 1 1 appl topical Q12H PRN Rash 02/04/24 04/20/24 Unknown History %-0.05 % topical cream loratadine 10 mg tablet 10 mg PO DAILY 02/04/24 04/20/24 02/03/24 History magnesium hydroxide 400 mg/5 mL 30 ml PO DAILY PRN Constipation 02/04/24 04/20/24 Unknown History oral suspension (Milk of Magnesia) multivitamin 1 tab PO DAILY 02/04/24 04/20/24 02/03/24 History sodium phosphates 19 gram-7 118 ml [place] DAILY PRN Constipation 02/04/24 04/20/24 Unknown History gram/118 mL enema (Fleet Enema) terazosin 2 mg capsule 2 mg PO BEDTIME 02/04/24 04/20/24 02/03/24 History Saccharomyces boulardii 250 mg 500 mg PO DAILY 04/20/24 04/20/24 Unknown History capsule (Probiotic (S.boulardii)) amoxicillin 500 mg-potassium 1 tab PO Q12H 04/20/24 04/20/24 Unknown History clavulanate 125 mg tablet apixaban 2.5 mg tablet (Eliquis) 2.5 mg PO BID 04/20/24 04/20/24 Unknown History guaifenesin 100 mg/5 mL oral liquid 200 mg PO Q6H PRN Cough 04/20/24 04/20/24 Unknown History melatonin 3 mg tablet 6 mg PO BEDTIME PRN Sleep 04/20/24 04/20/24 Unknown History methenamine hippurate 1 gram tablet 1 g PO BID 04/20/24 04/20/24 Unknown History ondansetron HCl 4 mg tablet 4 mg PO Q6H PRN Nausea And Vomiting 04/20/24 04/20/24 Unknown History Physical Exam 2 Vital Signs: Vital Signs: Last Vital Signs Temp 97.3 F 04/24/24 11:20 Pulse 63 04/24/24 11:20 Resp 18 04/24/24 11:20 BP 127/60 04/24/24 11:20 Pulse Ox 97 04/24/24 11:20 O2 Del Method Room Air 04/24/24 11:20 O2 Flow Rate 2 04/21/24 00:40 Oxygen Flow Rate 2 04/20/24 09:39 BMI result Body Mass Index 26.8 Results Labs 04/24/24 05:34 04/24/24 05:34 Labs: Abnormal lab results 04/24/24 Range/Units 05:34 WBC 11.5 H (4.8-10.8) X10*3/uL RBC 4.09 L (4.60-5.80) X10*6/uL Hgb 11.0 L (14.0-18.0) g/dl Hct 36.3 L (42.0-52.0) % MCH 26.9 L (27.0-33.0) pg MCHC 30.3 L (31.0-36.0) g/dl RDW 18.3 H (11.0-16.0) % Chloride 111 H (96-108) mmol/L Anion Gap 11 L (12-20) BUN 33 H (9-16) mg/dL Short CBC 04/24/24 Range/Units 05:34 WBC 11.5 H (4.8-10.8) X10*3/uL Hgb 11.0 L (14.0-18.0) g/dl Hct 36.3 L (42.0-52.0) % Plt Count 229 (160-400) X10*3/uL BMP 04/24/24 05:34 Sodium 144 Potassium 4.0 Chloride 111 H Carbon Dioxide 26 BUN 33 H Creatinine 1.33 Calcium 9.0 Urine 04/20/24 04/20/24 Range/Units 10:13 16:12 Urine Color Yellow Yellow Urine Appearance Turbid Turbid Urine pH 5.5 5.5 (5.0-9.0) Ur Specific [place] 1.015 1.020 (1.005-1.025) Urine Protein 100 (2+) H 100 (2+) H (Neg-Trace) mg/dL Urine Glucose (UA) Negative Negative (Negative) mg/dL All other labs normal. Procedures Date of Service Date of Service: 04/24/24
[2024-04-24] MEDS: Fluconazole in NaCl,Iso-Osm 100 MG in Container,Empty 0 ML 50 MG IV (13:53)
--- NOTE | 2024-04-24 14:10 | P.PNIM_ITS ---
Subjective Subjective Date of Service: 04/24/24 Interval History: feeling better, does have some wet cough Physical Exam 2 Vital Signs: Vital Signs: Last Vital Signs Temp 97.3 F 04/24/24 11:20 Pulse 63 04/24/24 11:20 Resp 18 04/24/24 11:20 BP 127/60 04/24/24 11:20 Pulse Ox 97 04/24/24 11:20 O2 Del Method Room Air 04/24/24 11:20 O2 Flow Rate 2 04/21/24 00:40 Oxygen Flow Rate 2 04/20/24 09:39 BMI result Body Mass Index 26.8 Alert, frail, confused, lungs diminished, Objective Data Active Medications Acetaminophen (Acetaminophen 325 Mg Tablet) 650 mg PO Q6H PRN PRN Reason: Pain, Mild 1-3,fever,headache Amlodipine Besylate (Amlodipine Besylate 2.5 Mg Tablet) 2.5 mg PO DAILY [facility]; Protocol Last Admin: 04/24/24 09:20 Dose: 2.5 mg Documented By: MAYELA Apixaban (Apixaban 2.5 Mg Tablet) 2.5 mg PO BID [facility] Last Admin: 04/24/24 09:20 Dose: 2.5 mg Documented By: MAYELA Bisacodyl (Bisacodyl 10 Mg Supp.Rect) 10 mg [place] DAILY PRN PRN Reason: Constipation Calcium Carbonate (Calcium Carbonate 750 Mg Tab.Chew) 750 mg PO Q4H PRN PRN Reason: Heartburn Ceftriaxone Sodium (Ceftriaxone Sodium 1 Gm Vial) 1 gm IVPUSH Q24H [facility] Last Admin: 04/23/24 17:08 Dose: 1 gm Documented By: MARITA Doxazosin Mesylate (Doxazosin Mesylate 2 Mg Tablet) 4 mg PO BEDTIME [facility] Ferrous Sulfate (Ferrous Sulfate 324 Mg Tablet.Dr) 324 mg PO DAILY [facility] Last Admin: 04/24/24 09:21 Dose: Not Given Documented By: MAYELA Non-Admin Reason: Cannot crush med/unable to swallow whole pill Finasteride (Finasteride 5 Mg Tablet) 5 mg PO DAILY [facility] Furosemide (Furosemide 20 Mg Tablet) 20 mg PO DAILY [facility]; Protocol Last Admin: 04/24/24 09:21 Dose: 20 mg Documented By: MAYELA Guaifenesin (Guaifenesin 200 Mg/10 Ml 10 Ml Liquid) 10 ml PO Q6H PRN PRN Reason: Cough Doxycycline Hyclate 100 mg/ (Sodium Chloride) 250 mls @ 166.67 mls/hr IV Q12H [facility] Last Infusion: 04/24/24 11:10 Dose: Infused Documented By: MAYELA Fluconazole 100 mg/ IV (Miscellaneous Supplies) 50 mls @ 50 mls/hr IV Q24H [facility] Last Admin: 04/24/24 13:53 Dose: 50 mls/hr Documented By: MAYELA Loratadine (Loratadine 10 Mg Tablet) 10 mg PO DAILY [facility] Last Admin: 04/24/24 09:20 Dose: 10 mg Documented By: MAYELA Magnesium Hydroxide (Milk Of Magnesia 30 Ml Oral.Susp) 30 ml PO DAILY PRN PRN Reason: Constipation Magnesium Hydroxide (Milk Of Magnesia 30 Ml Oral.Susp) 30 ml PO DAILY PRN PRN Reason: Constipation Melatonin (Melatonin 3 Mg Tablet) 6 mg PO BEDTIME PRN PRN Reason: Insomnia Metoprolol Tartrate (Metoprolol Tartrate 12.5 Mg Halftab) 12.5 mg PO TID [facility]; Protocol Last Admin: 04/24/24 09:21 Dose: 12.5 mg Documented By: MAYELA Multivitamins/Vitamin C (Multivitamin Tablet) 1 tab PO DAILY [facility] Last Admin: 04/24/24 09:20 Dose: 1 tab Documented By: MAYELA Omeprazole (Omeprazole 20 Mg Capsule.Dr) 20 mg PO DAILY@0630 [facility] Last Admin: 04/24/24 07:14 Dose: Not Given Documented By: ROMERO Non-Admin Reason: Patient Asleep Ondansetron HCl (Ondansetron Hcl 4 Mg/2 Ml Vial) 4 mg IVPUSH Q8H PRN PRN Reason: Nausea and Vomiting Sodium Biphosphate/Sodium Phosphate (Sodium Phosphate,[place]-Dibasic 133 Ml Enema) 118 ml [place] DAILY PRN PRN Reason: Constipation Sodium Chloride (0.9 % Sodium Chloride Flush 3 Ml Syringe) 3 ml IVFLUSH QSHIFT [facility] Last Admin: 04/24/24 09:21 Dose: 3 ml Documented By: MAYELA Labs 04/24/24 05:34 04/24/24 05:34 Labs: Laboratory Results - last 24 hr 04/24/24 05:34 MCV 88.8 MCH 26.9 L MCHC 30.3 L RDW 18.3 H Plt Count 229 MPV 10.9 Absolute Nucleated RBC 0.000 Nucleated RBC % (auto) 0.0 Anion Gap 11 L Estim Creat Clear Calc 37.1 Estimated GFR 51 Random Glucose 110 Calcium 9.0 Assessment and Plan (1) Acute UTI: Status: Acute Plan 89M PMH pafib, unspecified chf, htn, chornic iron deficiency, CKD III, gerd, presented with ams and fever sepsis and acute metabolic encephalopathy due to acute pylenophritis complicated by right hydronephrosis and possible pneumonia Rocephin, doxy added diflucan for yeast in urine Buckner follow up cultures hypernatremia d5w, monitor dysphagia senior risk analyst appreciated pureed solids, nectar thick liquids HARPER on CKD III monitor, ?due to sepsis vs obstruction improving type II nstemi due to sepsis, no ACS chronic unspecified chf lasix htn amlodipine, metoprolol pafib metoprolol, eliquis bph luis fernando streeter, montrell eval dvt prophylaxis- eliquis full code reason for continued hospitalization:cultures DC in a day or 2 Quality Stroke Does the patient have a stroke diagnosis?: No VTE Prior VTE?: No VTE Risk Level:: Medical - moderate - high VTE Device Contraindication: Treatment Not Indicated VTE Drug Contraindication: N/A - Med Ordered
[2024-04-24] MEDS: cefTRIAXone sodium 1 GM VIAL IVPUSH (16:31)
[2024-04-24] MEDS: Finasteride 5 MG TABLET PO (16:32)
[2024-04-24] MEDS: Doxazosin Mesylate 2 MG TABLET 4 MG PO (20:02)
[2024-04-25] VITALS (7 sets, daily range): BP systolic 116–153; BP diastolic 60–71; PULSE 71–87; RESP 18–20; TEMP 36.2–37.3; O2SAT 95–98
[2024-04-25] MEDS: Omeprazole 20 MG CAPSULE.DR PO (06:24)
[2024-04-25 07:22] LABS: Hematocrit 35.3 % (42.0-52.0); Hemoglobin 10.6 g/dl (14.0-18.0); Mean Corpuscular Hemoglobin 26.2 pg (27.0-33.0); Mean Corpuscular Volume 87.4 fL (80.0-98.0); Mean Platelet Volume 10.9 fL (9.4-12.4); Platelet Count 186 X10*3/uL (160-400); Red Blood Count 4.04 X10*6/uL (4.60-5.80); Red Cell Distribution Width 18.1 % (11.0-16.0); White Blood Count 9.3 X10*3/uL (4.8-10.8)
[2024-04-25 07:47] LABS: Anion Gap 7 (12-20); Blood Urea Nitrogen 31 mg/dL (9-16); Calcium 9.2 mg/dL (8.4-10.2); Carbon Dioxide 26 mmol/L (22-29); Chloride 114 mmol/L (96-108); Creatinine Clr Calc Pharmacy 42.5; Estimated Glomerular Filt Rate 59; Glucose Random 101 mg/dL (60-115); Potassium 4.5 mmol/L (3.3-5.1); Sodium 142 mmol/L (135-145)
--- NOTE | 2024-04-25 08:58 | P.PNIM_ITS ---
Subjective Subjective Date of Service: 04/25/24 Interval History: Had an episode of bradycardia with sinus pause > 5 seconds overnight Physical Exam 2 Vital Signs: Vital Signs: Last Vital Signs Temp 97.1 F 04/25/24 07:30 Pulse 87 04/25/24 07:30 Resp 20 04/25/24 07:30 BP 124/71 04/25/24 07:30 Pulse Ox 97 04/25/24 07:30 O2 Del Method Room Air 04/25/24 07:30 O2 Flow Rate 2 04/21/24 00:40 Oxygen Flow Rate 2 04/20/24 09:39 BMI result Body Mass Index 26.8 General: Alert oriented to self, frail looking Resp: CTA bilateral CVS: S1,S1, iregular GI: +BS, NT, no distention Skin: No rash Neuro: motor grossly intact Psych: appropriate affect Objective Data Active Medications Acetaminophen (Acetaminophen 325 Mg Tablet) 650 mg PO Q6H PRN PRN Reason: Pain, Mild 1-3,fever,headache Amlodipine Besylate (Amlodipine Besylate 2.5 Mg Tablet) 2.5 mg PO DAILY [facility]; Protocol Last Admin: 04/24/24 09:20 Dose: 2.5 mg Documented By: MAYELA Apixaban (Apixaban 2.5 Mg Tablet) 2.5 mg PO BID [facility] Last Admin: 04/24/24 20:01 Dose: 2.5 mg Documented By: MARCI Bisacodyl (Bisacodyl 10 Mg Supp.Rect) 10 mg [place] DAILY PRN PRN Reason: Constipation Calcium Carbonate (Calcium Carbonate 750 Mg Tab.Chew) 750 mg PO Q4H PRN PRN Reason: Heartburn Ceftriaxone Sodium (Ceftriaxone Sodium 1 Gm Vial) 1 gm IVPUSH Q24H [facility] Last Admin: 04/24/24 16:31 Dose: 1 gm Documented By: MAYELA Doxazosin Mesylate (Doxazosin Mesylate 2 Mg Tablet) 4 mg PO BEDTIME [facility] Last Admin: 04/24/24 20:02 Dose: 4 mg Documented By: MARCI Doxycycline Monohydrate (Doxycycline Monohydrate 100 Mg Capsule) 100 mg PO Q12H [facility] Ferrous Sulfate (Ferrous Sulfate 324 Mg Tablet.Dr) 324 mg PO DAILY [facility] Last Admin: 04/24/24 09:21 Dose: Not Given Documented By: MAYELA Non-Admin Reason: Cannot crush med/unable to swallow whole pill Finasteride (Finasteride 5 Mg Tablet) 5 mg PO DAILY [facility] Last Admin: 04/24/24 16:32 Dose: 5 mg Documented By: MAYELA Fluconazole (Fluconazole 100 Mg Tablet) 100 mg PO DAILY@1100 [facility] Furosemide (Furosemide 20 Mg Tablet) 20 mg PO DAILY [facility]; Protocol Last Admin: 04/24/24 09:21 Dose: 20 mg Documented By: MAYELA Guaifenesin (Guaifenesin 200 Mg/10 Ml 10 Ml Liquid) 10 ml PO Q6H PRN PRN Reason: Cough Loratadine (Loratadine 10 Mg Tablet) 10 mg PO DAILY [facility] Last Admin: 04/24/24 09:20 Dose: 10 mg Documented By: MAYELA Magnesium Hydroxide (Milk Of Magnesia 30 Ml Oral.Susp) 30 ml PO DAILY PRN PRN Reason: Constipation Magnesium Hydroxide (Milk Of Magnesia 30 Ml Oral.Susp) 30 ml PO DAILY PRN PRN Reason: Constipation Melatonin (Melatonin 3 Mg Tablet) 6 mg PO BEDTIME PRN PRN Reason: Insomnia Multivitamins/Vitamin C (Multivitamin Tablet) 1 tab PO DAILY [facility] Last Admin: 04/24/24 09:20 Dose: 1 tab Documented By: MAYELA Omeprazole (Omeprazole 20 Mg Capsule.Dr) 20 mg PO DAILY@0630 [facility] Last Admin: 04/25/24 06:24 Dose: 20 mg Documented By: MARCI Ondansetron HCl (Ondansetron Hcl 4 Mg/2 Ml Vial) 4 mg IVPUSH Q8H PRN PRN Reason: Nausea and Vomiting Sodium Biphosphate/Sodium Phosphate (Sodium Phosphate,[place]-Dibasic 133 Ml Enema) 118 ml [place] DAILY PRN PRN Reason: Constipation Sodium Chloride (0.9 % Sodium Chloride Flush 3 Ml Syringe) 3 ml IVFLUSH QSHIFT [facility] Last Admin: 04/24/24 20:04 Dose: 3 ml Documented By: MARCI Labs 04/25/24 06:52 04/25/24 06:52 Labs: Laboratory Results - last 24 hr 04/25/24 06:52 MCV 87.4 MCH 26.2 L MCHC 30.0 L RDW 18.1 H Plt Count 186 MPV 10.9 Absolute Nucleated RBC 0.000 Nucleated RBC % (auto) 0.0 Anion Gap 7 L Estim Creat Clear Calc 42.5 Estimated GFR 59 Random Glucose 101 Calcium 9.2 Assessment and Plan (1) Acute UTI: Status: Acute Plan 89M PMH pafib, unspecified chf, htn, chornic iron deficiency, CKD III, gerd, presented with ams and fever 5 sec sinus pause overnight 04/25/24 electrolytes ok, check mag hold metoprolol 12.5 cardiology consult sepsis and acute metabolic encephalopathy due to acute pylenophritis complicated by right hydronephrosis and possible pneumonia Rocephin, doxy--change to PO ceftin and PO doxy for toal of 7 days of antibiotics. Continue diflucan for yeast in urine Buckner follow up cultures hypernatremia, resolved. off d5w dysphagia travelers' aid worker appreciated pureed solids, nectar thick liquids HARPER on CKD III, ?due to sepsis vs obstruction. Resolved type II nstemi due to sepsis, no ACS chronic unspecified chf lasix htn amlodipine, stop metoprolol d/t sinus pause pafib, and now suspect SSS off metoprolol as above eliquis bph luis fernando streeter, gu eval dvt prophylaxis- eliquis full code reason for continued hospitalization:cultures DC in a day or 2 Quality Stroke Does the patient have a stroke diagnosis?: No VTE Prior VTE?: No VTE Risk Level:: Medical - moderate - high VTE Device Contraindication: Treatment Not Indicated VTE Drug Contraindication: N/A - Med Ordered
[2024-04-25] MEDS: Multivitamin TABLET 1 TAB PO (09:05)
[2024-04-25] MEDS: Finasteride 5 MG TABLET PO (09:05)
[2024-04-25] MEDS: Doxycycline Monohydrate 100 MG CAPSULE PO ×2 (09:05→21:22)
[2024-04-25] MEDS: Apixaban 2.5 MG TABLET PO (09:05)
[2024-04-25] MEDS: 0.9 % Sodium Chloride Flush 3 ML SYRINGE IVFLUSH ×3 (09:05→21:23)
[2024-04-25] MEDS: amLODIPine Besylate 2.5 MG TABLET PO (09:05)
[2024-04-25] MEDS: Loratadine 10 MG TABLET PO (09:05)
[2024-04-25] MEDS: Furosemide 20 MG TABLET PO (09:05)
[2024-04-25 09:16] LABS: Magnesium 2.2 mg/dL (1.6-2.6)
--- NOTE | 2024-04-25 09:32 | P.CONCA_ITS ---
History of Present Illness History of Present Illness Date of Service: 04/25/24 [facility]ing physician[facility] Consult reason: atrial fibrillation and other (pause) Chief complaint: pyelonephritis, pne w/sepsis and AMS Narrative: I was consulted to see Gareth in cardiology consultation today as he was noted to have pauses overnight up to 7 seconds. No reported symptoms or hemodynamic compromise during that time. Patient was admitted with altered mental status and currently still is confused not oriented completely. Patient with prior history of being a [facility] facility resident, paroxysmal atrial fibrillation, heart failure history, chronic kidney disease, hypertension, history of anemia, question dementia. Patient referred here with altered mental status. In longterm was being treated for pneumonia came with progressive lethargy and altered mental status noted to have pyelonephritis and right lower lobe pneumonia and recurrent atrial fibrillation, initially with faster heart rate. Fever as subsided with treatment. Patient is currently not having any cardiac symptoms. Noted to have asymptomatic pauses at nighttime. His metoprolol in the morning today has been withheld. No reported history of syncope in the recent past. Review of Systems 2 Review of Systems: Yes Unobtainable due to mental status PMFSH Past Medical History Medical History BPH loc w urin obs/LUTS CKD (chronic kidney disease) Chronic GERD Urinary tract infection HTN (hypertension) A-fib Obesity PAF (paroxysmal atrial fibrillation) Hypertension Family History Family History Father Medical history unknown Mother Medical history unknown Surgical History Surgical History History of umbilical hernia repair History of hemicolectomy History of inguinal hernia repair H/O rectal polypectomy History of tonsillectomy History of cholecystectomy Social History Social History Household Members: None Housing: Retirement Housing Other:: double trailer Do you presently have visiting nurse or other home services: Yes Alcohol intake: former Patient Tobacco Use Status: Former Tobacco user Tobacco use type: Cigarette Years Smoked: 37 +/- Smoked in Last 30 Days: No e-Cigarette/Vaping Use: Never Used Second Hand Smoke Exposure: No Use of substances other than those prescribed or required for medical reasons: No Currently Displaying Signs/Symptoms of Drug Intoxication Withdrawal: No Advance Directives: No Advance Directives Information Provided: No Do you have a plan to hurt others: No Plan Recently lost weight without trying: No Eating poorly because of decreased appetite: No Nutrition Risks: Dental problems service: Yes Current occupational status: retired Current occupational exposures/hazards: No Cognitive needs: Yes (cane) Hearing needs: No Vision needs: Yes (glasses) Meds Allergies Allergy/AdvReac Type Severity Reaction Status Date / Time No Known Allergies Allergy Unknown Verified 04/20/24 09:49 Active Medications: Current Medications Acetaminophen (Acetaminophen 325 Mg Tablet) 650 mg PO Q6H PRN PRN Reason: Pain, Mild 1-3,fever,headache Amlodipine Besylate (Amlodipine Besylate 2.5 Mg Tablet) 2.5 mg PO DAILY [facility]; Protocol Last Admin: 04/25/24 09:05 Dose: 2.5 mg Apixaban (Apixaban 2.5 Mg Tablet) 2.5 mg PO BID [facility] Last Admin: 04/25/24 09:05 Dose: 2.5 mg Bisacodyl (Bisacodyl 10 Mg Supp.Rect) 10 mg [place] DAILY PRN PRN Reason: Constipation Calcium Carbonate (Calcium Carbonate 750 Mg Tab.Chew) 750 mg PO Q4H PRN PRN Reason: Heartburn Ceftriaxone Sodium (Ceftriaxone Sodium 1 Gm Vial) 1 gm IVPUSH Q24H [facility] Last Admin: 04/24/24 16:31 Dose: 1 gm Cefuroxime Axetil (Cefuroxime Axetil 500 Mg Tablet) 500 mg PO Q12H [facility] Doxazosin Mesylate (Doxazosin Mesylate 2 Mg Tablet) 4 mg PO BEDTIME [facility] Last Admin: 04/24/24 20:02 Dose: 4 mg Doxycycline Monohydrate (Doxycycline Monohydrate 100 Mg Capsule) 100 mg PO Q12H [facility] Last Admin: 04/25/24 09:05 Dose: 100 mg Ferrous Sulfate (Ferrous Sulfate 324 Mg Tablet.Dr) 324 mg PO DAILY [facility] Last Admin: 04/25/24 09:16 Dose: Not Given Finasteride (Finasteride 5 Mg Tablet) 5 mg PO DAILY [facility] Last Admin: 04/25/24 09:05 Dose: 5 mg Fluconazole (Fluconazole 100 Mg Tablet) 100 mg PO DAILY@1100 [facility] Furosemide (Furosemide 20 Mg Tablet) 20 mg PO DAILY [facility]; Protocol Last Admin: 04/25/24 09:05 Dose: 20 mg Guaifenesin (Guaifenesin 200 Mg/10 Ml 10 Ml Liquid) 10 ml PO Q6H PRN PRN Reason: Cough Loratadine (Loratadine 10 Mg Tablet) 10 mg PO DAILY [facility] Last Admin: 04/25/24 09:05 Dose: 10 mg Magnesium Hydroxide (Milk Of Magnesia 30 Ml Oral.Susp) 30 ml PO DAILY PRN PRN Reason: Constipation Magnesium Hydroxide (Milk Of Magnesia 30 Ml Oral.Susp) 30 ml PO DAILY PRN PRN Reason: Constipation Melatonin (Melatonin 3 Mg Tablet) 6 mg PO BEDTIME PRN PRN Reason: Insomnia Multivitamins/Vitamin C (Multivitamin Tablet) 1 tab PO DAILY [facility] Last Admin: 04/25/24 09:05 Dose: 1 tab Omeprazole (Omeprazole 20 Mg Capsule.Dr) 20 mg PO DAILY@0630 [facility] Last Admin: 04/25/24 06:24 Dose: 20 mg Ondansetron HCl (Ondansetron Hcl 4 Mg/2 Ml Vial) 4 mg IVPUSH Q8H PRN PRN Reason: Nausea and Vomiting Sodium Biphosphate/Sodium Phosphate (Sodium Phosphate,[place]-Dibasic 133 Ml Enema) 118 ml [place] DAILY PRN PRN Reason: Constipation Sodium Chloride (0.9 % Sodium Chloride Flush 3 Ml Syringe) 3 ml IVFLUSH QSHIFT [facility] Last Admin: 04/25/24 09:05 Dose: 3 ml Home Medications ?Medication ?Instructions ?Recorded ?Confirmed ?Last Taken ?Type omeprazole 20 mg capsule,delayed 20 mg PO DAILY@0630 07/24/21 04/20/24 02/03/24 History release acetaminophen 325 mg tablet 975 mg PO Q6H PRN pain or fever 02/04/24 04/20/24 Unknown History bisacodyl 10 mg rectal suppository 10 mg [place] DAILY PRN Constipation 02/04/24 04/20/24 Unknown History clotrimazole-betamethasone 1 1 appl topical Q12H PRN Rash 02/04/24 04/20/24 Unknown History %-0.05 % topical cream loratadine 10 mg tablet 10 mg PO DAILY 02/04/24 04/20/24 02/03/24 History magnesium hydroxide 400 mg/5 mL 30 ml PO DAILY PRN Constipation 02/04/24 04/20/24 Unknown History oral suspension (Milk of Magnesia) multivitamin 1 tab PO DAILY 02/04/24 04/20/24 02/03/24 History sodium phosphates 19 gram-7 118 ml [place] DAILY PRN Constipation 02/04/24 04/20/24 Unknown History gram/118 mL enema (Fleet Enema) terazosin 2 mg capsule 2 mg PO BEDTIME 02/04/24 04/20/24 02/03/24 History Saccharomyces boulardii 250 mg 500 mg PO DAILY 04/20/24 04/20/24 Unknown History capsule (Probiotic (S.boulardii)) amoxicillin 500 mg-potassium 1 tab PO Q12H 04/20/24 04/20/24 Unknown History clavulanate 125 mg tablet apixaban 2.5 mg tablet (Eliquis) 2.5 mg PO BID 04/20/24 04/20/24 Unknown History guaifenesin 100 mg/5 mL oral liquid 200 mg PO Q6H PRN Cough 04/20/24 04/20/24 Unknown History melatonin 3 mg tablet 6 mg PO BEDTIME PRN Sleep 04/20/24 04/20/24 Unknown History methenamine hippurate 1 gram tablet 1 g PO BID 04/20/24 04/20/24 Unknown History ondansetron HCl 4 mg tablet 4 mg PO Q6H PRN Nausea And Vomiting 04/20/24 04/20/24 Unknown History Physical Exam 2 Vital Signs: Vital Signs: Last Vital Signs Temp 97.1 F 04/25/24 07:30 Pulse 87 04/25/24 07:30 Resp 20 04/25/24 07:30 BP 124/71 04/25/24 07:30 Pulse Ox 97 04/25/24 07:30 O2 Del Method Room Air 04/25/24 07:30 O2 Flow Rate 2 04/21/24 00:40 Oxygen Flow Rate 2 04/20/24 09:39 BMI result Body Mass Index 26.8 Const: General: cooperative, no acute distress, alert and awake Nutritional Appearance: average body habitus HEENT: Head: Yes normocephalic and Yes atraumatic Neck: Neck: Yes trachea midline, Yes supple and Yes no JVD Resp: Effort & Inspection: decreased respiratory effort Auscultation: c rackles (coarse intermittently) Cardio: Jugular venous distension: no JVD Rhythm: abnormal rhythm irregularly irregular Heart sounds: S1 normal heart sound present, S2 normal heart sound present, no click and no gallops GI: Auscultation: normal bowel sounds Skin: General skin exam: ecchymosis Neuro: General: moves all extremities Extrem: General: Yes no clubbing, cyanosis or edema Objective Labs and Meds 04/25/24 06:52 04/25/24 06:52 Lab results: Laboratory Results - last 24 hr 04/25/24 06:52 WBC 9.3 RBC 4.04 L Hgb 10.6 L Hct 35.3 L MCV 87.4 MCH 26.2 L MCHC 30.0 L RDW 18.1 H Plt Count 186 MPV 10.9 Absolute Nucleated RBC 0.000 Nucleated RBC % (auto) 0.0 Sodium 142 Potassium 4.5 Chloride 114 H Carbon Dioxide 26 Anion Gap 7 L BUN 31 H Creatinine 1.16 Estim Creat Clear Calc 42.5 Estimated GFR 59 Random Glucose 101 Calcium 9.2 Magnesium 2.2 Assessment and Plan (1) Persistent atrial fibrillation: Status: Acute Patient with persistent atrial fibrillation in the setting of prior paroxysmal atrial fibrillation, most likely triggered by his acute medical illness with sepsis syndrome causing his presentation with altered mental status. He has significant cognitive impairment currently. Not sure if this is chronic. He was noted to have asymptomatic pauses overnight. At this point time I would discontinue his rate lowering medications. Currently pacemaker would be of last resort. Continue monitor full disclosure cardiac monitoring. Continue other medications for blood pressure control. Continue diuretic regimen. I would increase his Eliquis to 5 mg b.i.d. given that his renal function has normalized. Continue supportive care. Will sign of the case. Please consult us if need be Procedures Date of Service Date of Service: 04/25/24
--- NOTE | 2024-04-25 10:34 | MHC.CM.PN ---
Per ROUNDS discussion, Patient is not yet medically cleared for dc (continue to require Tele monitoring); Plan is to return to LTC @ [facility] [place] [facility] and CM will continue to follow.
--- NOTE | 2024-04-25 10:39 | MHC.SL.SWA ---
Speech Pathologist Impression: Risk of Aspiration, Oropharyngeal Dysphagia Risk of Aspiration Due to: Medically Fragile Reduced Cognition Weak Voice Dysphasia Diet Status: No Change Liquid Consistency and Strategies for Safe Swallow: Liquid Intake Recommendation: [place] Thick Liquid Intake Strategies: Small Sips No Straws Solid Food Consistency: Dietary Recommendations: Pureed (NDD1) Additional Modifications to Solid Foods: Puree/[place] Thick w/ 1:1 assistance and strict aspiration precautions: administer small bites/sips, allow ample time for dry swallow between each bite/sip and watch for laryngeal elevation, check oral cavity for clearance periodically, avoid the use of straws, ensure upright 90 degree position during PO intake and for at least 30 minutes afterwards, oral care before first meal and after each subsequent meal. Oral Medication Intake: Whole with Puree Please contact the pharmacy regarding appropriate crushable or liquid drug formulations that are available whenever modified delivery is recommended. Compensatory Strategies and Precautions to be Taken for Safe Swallow: Sitting Upright (90 deg) Double Swallow No Straw Small Bites and Sips Rate of Ingestion Change Oral Check Supervision While Eating and Drinking for Safe Swallow: Total Assistance (1:1) Swallowing Recommended Treatments: Compens. Strategy Educat. Recommendation for Speech: Inpatient Speech Therapy Frequency/Duration: Daily M-F Date Range for Service Req: Timeline to reassess: PRN Warehouse Administrative Assistant Clinican/Clinical Fellow: No Supervisory Statement: I have reviewed and agree with the student/clinical fellow's documentation: N/A Speech Language Pathologist: Aubree Denson M.A., CCC-CERTIFIED PROFESSIONAL MIDWIFE
[2024-04-25] MEDS: Fluconazole 100 MG TABLET PO (10:57)
[2024-04-25] MEDS: cefuroxime axetiL 500 MG TABLET PO ×2 (10:57→21:23)
--- NOTE | 2024-04-25 11:26 | MHC.CLN ---
F/U PT WITH INCREASED RISK R/T PRESSURE INJURY PO INTAKE POOR DIET RX: PUREED WITH NT LIQ RECEIVING ENSURE BID TO PROMOTE WOUND HEALING SUPP PROVIDES 700KCALS, 40G PROTEIN WILL ADD MAGIC CUP WITH MEALS MONITOR PO INTAKE AND ENCOURAGE SUPPLEMENTS
[2024-04-25] MEDS: Doxazosin Mesylate 2 MG TABLET 4 MG PO (21:22)
[2024-04-25] MEDS: Apixaban 5 MG TABLET PO (21:22)
[2024-04-26 03:46] VITALS: BP 140/63; PULSE 86; RESP 18; TEMP 36.9; O2SAT 97
[2024-04-26] MEDS: Omeprazole 20 MG CAPSULE.DR PO (05:11)
[2024-04-26 06:59] VITALS: BP 145/65; PULSE 81; RESP 18; TEMP 36.3
[2024-04-26] MEDS: Finasteride 5 MG TABLET PO (09:46)
[2024-04-26] MEDS: Loratadine 10 MG TABLET PO (09:46)
[2024-04-26] MEDS: cefuroxime axetiL 500 MG TABLET PO ×2 (09:46→22:03)
[2024-04-26] MEDS: Apixaban 5 MG TABLET PO ×2 (09:46→22:03)
[2024-04-26] MEDS: Fluconazole 100 MG TABLET PO (09:46)
[2024-04-26] MEDS: Furosemide 20 MG TABLET PO (09:46)
[2024-04-26] MEDS: Multivitamin TABLET 1 TAB PO (09:46)
[2024-04-26] MEDS: amLODIPine Besylate 2.5 MG TABLET PO (09:46)
[2024-04-26] MEDS: Doxycycline Monohydrate 100 MG CAPSULE PO ×2 (09:46→22:03)
[2024-04-26] MEDS: 0.9 % Sodium Chloride Flush 3 ML SYRINGE IVFLUSH ×3 (09:47→22:03)
[2024-04-26 11:15] VITALS: BP 136/70; PULSE 91; RESP 18; TEMP 36.2; O2SAT 95
[2024-04-26 15:15] VITALS: BP 140/60; PULSE 87; RESP 18; TEMP 36.3; O2SAT 94
--- NOTE | 2024-04-26 16:21 | HO.PM.IMPN ---
Subjective Subjective Date of Service: 04/26/24 Interval History: bradycardic as low as 30s while sleeping but no further sinus pauses feels well; no cough, no dysuria Review of Systems Review of Systems: Yes all other systems are reviewed and are negative Physical Exam Vital Signs: Vital Signs: Last Vital Signs Temp 97.4 F 04/26/24 15:15 Pulse 87 04/26/24 15:15 Resp 18 04/26/24 15:15 BP 140/60 H 04/26/24 15:15 Pulse Ox 94 04/26/24 15:15 O2 Del Method Room Air 04/26/24 15:15 O2 Flow Rate 2 04/21/24 00:40 Oxygen Flow Rate 2 04/20/24 09:39 BMI result Body Mass Index 26.8 Gen: in no acute distress HEENT: sclera anicteric, moist mucus membranes Neck: supple Lungs: diminished Heart: regular rate and rhythm, no murmurs Abd: soft, non-tender, non-distended Ext: no edema Skin: warm/well-perfused Neuro: alert and oriented to self only, no focal weakness Psych: appropriate affect Objective Data Active Medications Acetaminophen (Acetaminophen 325 Mg Tablet) 650 mg PO Q6H PRN PRN Reason: Pain, Mild 1-3,fever,headache Amlodipine Besylate (Amlodipine Besylate 2.5 Mg Tablet) 2.5 mg PO DAILY [facility]; Protocol Last Admin: 04/26/24 09:46 Dose: 2.5 mg Documented By: MAYELA Apixaban (Apixaban 5 Mg Tablet) 5 mg PO BID [facility] Last Admin: 04/26/24 09:46 Dose: 5 mg Documented By: MAYELA Bisacodyl (Bisacodyl 10 Mg Supp.Rect) 10 mg [place] DAILY PRN PRN Reason: Constipation Calcium Carbonate (Calcium Carbonate 750 Mg Tab.Chew) 750 mg PO Q4H PRN PRN Reason: Heartburn Cefuroxime Axetil (Cefuroxime Axetil 500 Mg Tablet) 500 mg PO Q12H [facility] Last Admin: 04/26/24 09:46 Dose: 500 mg Documented By: MAYELA Doxazosin Mesylate (Doxazosin Mesylate 2 Mg Tablet) 4 mg PO BEDTIME [facility] Last Admin: 04/25/24 21:22 Dose: 4 mg Documented By: MARCI Doxycycline Monohydrate (Doxycycline Monohydrate 100 Mg Capsule) 100 mg PO Q12H [facility] Last Admin: 04/26/24 09:46 Dose: 100 mg Documented By: MAYELA Ferrous Sulfate (Ferrous Sulfate 324 Mg Tablet.) 324 mg PO DAILY [facility] Last Admin: 04/26/24 09:47 Dose: Not Given Documented By: MAYELA Non-Admin Reason: Cannot crush DR med/needs meds crushed Finasteride (Finasteride 5 Mg Tablet) 5 mg PO DAILY [facility] Last Admin: 04/26/24 09:46 Dose: 5 mg Documented By: MAYELA Fluconazole (Fluconazole 100 Mg Tablet) 100 mg PO DAILY@1100 [facility] Last Admin: 04/26/24 09:46 Dose: 100 mg Documented By: MAYELA Furosemide (Furosemide 20 Mg Tablet) 20 mg PO DAILY [facility]; Protocol Last Admin: 04/26/24 09:46 Dose: 20 mg Documented By: MAYELA Guaifenesin (Guaifenesin 200 Mg/10 Ml 10 Ml Liquid) 10 ml PO Q6H PRN PRN Reason: Cough Loratadine (Loratadine 10 Mg Tablet) 10 mg PO DAILY [facility] Last Admin: 04/26/24 09:46 Dose: 10 mg Documented By: MAYELA Magnesium Hydroxide (Milk Of Magnesia 30 Ml Oral.Susp) 30 ml PO DAILY PRN PRN Reason: Constipation Magnesium Hydroxide (Milk Of Magnesia 30 Ml Oral.Susp) 30 ml PO DAILY PRN PRN Reason: Constipation Melatonin (Melatonin 3 Mg Tablet) 6 mg PO BEDTIME PRN PRN Reason: Insomnia Multivitamins/Vitamin C (Multivitamin Tablet) 1 tab PO DAILY [facility] Last Admin: 04/26/24 09:46 Dose: 1 tab Documented By: MAYELA Omeprazole (Omeprazole 20 Mg Capsule.) 20 mg PO DAILY@0630 [facility] Last Admin: 04/26/24 05:11 Dose: 20 mg Documented By: MARCI Ondansetron HCl (Ondansetron Hcl 4 Mg/2 Ml Vial) 4 mg IVPUSH Q8H PRN PRN Reason: Nausea and Vomiting Sodium Biphosphate/Sodium Phosphate (Sodium Phosphate,[place]-Dibasic 133 Ml Enema) 118 ml [place] DAILY PRN PRN Reason: Constipation Sodium Chloride (0.9 % Sodium Chloride Flush 3 Ml Syringe) 3 ml IVFLUSH QSHIFT [facility] Last Admin: 04/26/24 16:13 Dose: 3 ml Documented By: MAXIM Labs 04/25/24 06:52 04/25/24 06:52 Microbiology Microbiology Results: Microbiology 04/20/24 10:20 Blood Culture - Final Blood - Venous No growth after 5 days. 04/20/24 10:05 Blood Culture - Final Blood - Venous No growth after 5 days. Assessment and Plan (1) Acute UTI: Status: Acute Plan d7 for 89yo M with pAF, CHF, HTN, iron deficiency, CKD3, GERD presenting from [facility]] with AMS + fever, admitted for sepsis/encephalopathy due to pyelonephritis sinus pause as long as 6 sec 04/25/24 overnight - Cardiology consulted; metoprolol discontinued; continue to monitor sepsis and acute metabolic encephalopathy due to acute pylenophritis complicated by right hydronephrosis and possible pneumonia - treated initially with ceftriaxone + doxycycline, changed to cefuroxime + doxycycline, completes 7 days of antibiotic treatment tomorrow bladder outlet obstruction/BPH - Urology consulted, Buckner placed, increased doxazosin + added finasteride; hydronephrosis resolved hyperNa - resolved after D5W repletion dysphagia per INTERVENTIONIST: pureed solids, nectar thick liquids HARPER/CKD3 - acute component resolved; was due to sepsis and/or obstruction type 2 NSTEMI - due to sepsis, not ACS chronic HF, unspecified EF - continue furosemide HTN - amlodipine; off metoprolol tartrate due to sinus pause pAF, possible SSS - off metoprolol tartate as above - continue apixaban VTE ppx - apixaban dispo - return to LTC perhaps tomorrow if cardiac issue continues to improve In my clinical judgment, the patient requires continued inpatient hospitalization for the following reasons: tele monitoring Quality Stroke Does the patient have a stroke diagnosis?: No VTE Prior VTE?: No VTE Risk Level:: Medical - moderate - high VTE Device Contraindication: Treatment Not Indicated VTE Drug Contraindication: N/A - Med Ordered
[2024-04-26 19:34] VITALS: BP 132/63; PULSE 83; RESP 18; TEMP 36.2; O2SAT 96
[2024-04-26] MEDS: Doxazosin Mesylate 2 MG TABLET 4 MG PO (22:03)
[2024-04-26 23:45] VITALS: BP 156/70; PULSE 77; RESP 18; TEMP 36.1; O2SAT 97
[2024-04-27 03:37] VITALS: BP 135/64; PULSE 82; RESP 16; TEMP 36.6; O2SAT 95
[2024-04-27] MEDS: Omeprazole 20 MG CAPSULE.DR PO (05:22)
[2024-04-27 06:58] VITALS: BP 146/62; PULSE 88; RESP 18; TEMP 36.4; O2SAT 97
[2024-04-27] MEDS: Finasteride 5 MG TABLET PO (09:09)
[2024-04-27] MEDS: Doxycycline Monohydrate 100 MG CAPSULE PO ×2 (09:09→21:52)
[2024-04-27] MEDS: Multivitamin TABLET 1 TAB PO (09:09)
[2024-04-27] MEDS: Fluconazole 100 MG TABLET PO (09:09)
[2024-04-27] MEDS: Furosemide 20 MG TABLET PO (09:10)
[2024-04-27] MEDS: amLODIPine Besylate 2.5 MG TABLET PO (09:10)
[2024-04-27] MEDS: Loratadine 10 MG TABLET PO (09:10)
[2024-04-27] MEDS: Apixaban 5 MG TABLET PO ×2 (09:10→21:52)
[2024-04-27] MEDS: 0.9 % Sodium Chloride Flush 3 ML SYRINGE IVFLUSH ×2 (09:10→21:53)
[2024-04-27] MEDS: cefuroxime axetiL 500 MG TABLET PO ×2 (09:10→21:52)
--- NOTE | 2024-04-27 11:18 | HO.PM.IMPN ---
Subjective Subjective Date of Service: 04/27/24 Interval History: no episode of bradycardia overnight Physical Exam Vital Signs: Vital Signs: Last Vital Signs Temp 97.6 F 04/27/24 06:58 Pulse 88 04/27/24 06:58 Resp 18 04/27/24 06:58 BP 146/62 H 04/27/24 06:58 Pulse Ox 97 04/27/24 06:58 O2 Del Method Room Air 04/27/24 06:58 O2 Flow Rate 2 04/21/24 00:40 Oxygen Flow Rate 2 04/20/24 09:39 BMI result Body Mass Index 26.8 Const: Other: Gen: in no acute distress HEENT: sclera anicteric, moist mucus membranes Neck: supple Lungs: diminished Heart: regular rate and rhythm, no murmurs Abd: soft, non-tender, non-distended Ext: no edema Skin: warm/well-perfused Neuro: alert and oriented to self only, no focal weakness Psych: appropriate affect Objective Data Active Medications Acetaminophen (Acetaminophen 325 Mg Tablet) 650 mg PO Q6H PRN PRN Reason: Pain, Mild 1-3,fever,headache Amlodipine Besylate (Amlodipine Besylate 2.5 Mg Tablet) 2.5 mg PO DAILY [facility]; Protocol Last Admin: 04/27/24 09:10 Dose: 2.5 mg Documented By: MAYELA Apixaban (Apixaban 5 Mg Tablet) 5 mg PO BID [facility] Last Admin: 04/27/24 09:10 Dose: 5 mg Documented By: MAYELA Bisacodyl (Bisacodyl 10 Mg Supp.Rect) 10 mg [place] DAILY PRN PRN Reason: Constipation Calcium Carbonate (Calcium Carbonate 750 Mg Tab.Chew) 750 mg PO Q4H PRN PRN Reason: Heartburn Cefuroxime Axetil (Cefuroxime Axetil 500 Mg Tablet) 500 mg PO Q12H [facility] Last Admin: 04/27/24 09:10 Dose: 500 mg Documented By: MAYELA Doxazosin Mesylate (Doxazosin Mesylate 2 Mg Tablet) 4 mg PO BEDTIME [facility] Last Admin: 04/26/24 22:03 Dose: 4 mg Documented By: MARCI Doxycycline Monohydrate (Doxycycline Monohydrate 100 Mg Capsule) 100 mg PO Q12H [facility] Last Admin: 04/27/24 09:09 Dose: 100 mg Documented By: MAYELA Ferrous Sulfate (Ferrous Sulfate 324 Mg Tablet.) 324 mg PO DAILY [facility] Last Admin: 04/27/24 09:10 Dose: Not Given Documented By: MAYELA Non-Admin Reason: Cannot crush/needs meds crushed Finasteride (Finasteride 5 Mg Tablet) 5 mg PO DAILY [facility] Last Admin: 04/27/24 09:09 Dose: 5 mg Documented By: MAYELA Fluconazole (Fluconazole 100 Mg Tablet) 100 mg PO DAILY@1100 [facility] Last Admin: 04/27/24 09:09 Dose: 100 mg Documented By: MAYELA Furosemide (Furosemide 20 Mg Tablet) 20 mg PO DAILY [facility]; Protocol Last Admin: 04/27/24 09:10 Dose: 20 mg Documented By: MAYELA Guaifenesin (Guaifenesin 200 Mg/10 Ml 10 Ml Liquid) 10 ml PO Q6H PRN PRN Reason: Cough Loratadine (Loratadine 10 Mg Tablet) 10 mg PO DAILY [facility] Last Admin: 04/27/24 09:10 Dose: 10 mg Documented By: MAYELA Magnesium Hydroxide (Milk Of Magnesia 30 Ml Oral.Susp) 30 ml PO DAILY PRN PRN Reason: Constipation Magnesium Hydroxide (Milk Of Magnesia 30 Ml Oral.Susp) 30 ml PO DAILY PRN PRN Reason: Constipation Melatonin (Melatonin 3 Mg Tablet) 6 mg PO BEDTIME PRN PRN Reason: Insomnia Multivitamins/Vitamin C (Multivitamin Tablet) 1 tab PO DAILY [facility] Last Admin: 04/27/24 09:09 Dose: 1 tab Documented By: MAYELA Omeprazole (Omeprazole 20 Mg Capsule.) 20 mg PO DAILY@0630 [facility] Last Admin: 04/27/24 05:22 Dose: 20 mg Documented By: MARCI Ondansetron HCl (Ondansetron Hcl 4 Mg/2 Ml Vial) 4 mg IVPUSH Q8H PRN PRN Reason: Nausea and Vomiting Sodium Biphosphate/Sodium Phosphate (Sodium Phosphate,[place]-Dibasic 133 Ml Enema) 118 ml [place] DAILY PRN PRN Reason: Constipation Sodium Chloride (0.9 % Sodium Chloride Flush 3 Ml Syringe) 3 ml IVFLUSH QSHIFT [facility] Last Admin: 04/27/24 09:10 Dose: 3 ml Documented By: MAYELA Labs 04/25/24 06:52 04/25/24 06:52 Assessment and Plan (1) Acute UTI: Status: Acute Plan d8 for 89yo M with pAF, CHF, HTN, iron deficiency, CKD3, GERD presenting from [facility] [[facility]] with AMS + fever, admitted for sepsis/encephalopathy due to pyelonephritis sinus pause as long as 6 sec 04/25/24 overnight--no pause overnight -cardiology recommenss holding metoprolol and monitoring sepsis and acute metabolic encephalopathy due to acute pylenophritis complicated by right hydronephrosis and possible pneumonia - treated initially with ceftriaxone + doxycycline, changed to cefuroxime + doxycycline, completes 7 days of antibiotic treatment today bladder outlet obstruction/BPH - Urology consulted, Buckner placed, increased doxazosin + added finasteride; hydronephrosis resolved hyperNa - resolved after D5W repletion dysphagia per REGISTERED PHLEBOTOMIST PART TIME: pureed solids, nectar thick liquids HARPER/CKD3 - acute component resolved; was due to sepsis and/or obstruction type 2 NSTEMI - due to sepsis, not ACS chronic HF, unspecified EF - continue furosemide HTN - amlodipine; off metoprolol tartrate due to sinus pause pAF, possible SSS - off metoprolol tartate as above - continue apixaban VTE ppx - apixaban dispo - return to LTC perhaps tomorrow if cardiac issue continues to improve In my clinical judgment, the patient requires continued inpatient hospitalization for the following reasons: tele monitoring Quality Stroke Does the patient have a stroke diagnosis?: No VTE Prior VTE?: No VTE Risk Level:: Medical - moderate - high VTE Device Contraindication: Treatment Not Indicated VTE Drug Contraindication: N/A - Med Ordered
[2024-04-27 11:47] VITALS: BP 136/80; PULSE 80; TEMP 36.6; O2SAT 95
--- NOTE | 2024-04-27 12:10 | PM.PNCARD ---
Subjective Subjective Date of Service: 04/27/24 Principal diagnosis: Persistent atrial fibrillation Interval history: No pauses noted since withdrawal of metoprolol therapy. Heart rate is adequately controlled. No other obvious reported symptoms Review of Systems Review of Systems Yes Unobtainable due to mental status Physical Exam Vital Signs: Last Vital Signs Temp 97.9 F 04/27/24 11:47 Pulse 80 04/27/24 11:47 Resp 18 04/27/24 06:58 BP 136/80 04/27/24 11:47 Pulse Ox 95 04/27/24 11:47 O2 Del Method Room Air 04/27/24 11:47 O2 Flow Rate 2 04/21/24 00:40 Oxygen Flow Rate 2 04/20/24 09:39 BMI result Body Mass Index 26.8 Const General: cooperative, no acute distress, alert and awake Nutritional Appearance: average body habitus HEENT Head: Yes normocephalic and Yes atraumatic Neck Neck: Yes trachea midline, Yes supple and Yes no JVD Resp Effort & Inspection: decreased respiratory effort Auscultation: crackles (coarse intermittently) Cardio Jugular venous distension: no JVD Rhythm: abnormal rhythm irregularly irregular Heart sounds: S1 normal heart sound present, S2 normal heart sound present, no click and no gallops GI Auscultation: normal bowel sounds Skin General skin exam: ecchymosis Neuro General: moves all extremities Extrem General: Yes no clubbing, cyanosis or edema Objective Labs and Meds 04/25/24 06:52 04/25/24 06:52 Progress Note: A&P Assessment and plan (1) Persistent atrial fibrillation: Status: Acute Assessment and Plan: Persistent atrial fibrillation adequate rate control off metoprolol therapy. Avoid rate lowering medication in the future. Blood pressure is currently well optimized. Continue current anticoagulation therapy. Continue supportive care. Continue current medicines for blood pressure. Will sign of the case. Thank you for allowing me to partake in his care Time Spent With Patient Time: Total time managing care of this patient today ____ minutes. Progress Note: Quality Stroke Does the patient have a stroke diagnosis?: No Procedures Date of Service Date of Service: 04/27/24
[2024-04-27 15:11] VITALS: BP 162/71; PULSE 70; RESP 18; TEMP 36.7; O2SAT 94
[2024-04-27] MEDS: Sodium Phosphate,Mono-Dibasic 133 ML ENEMA 118 ML PR (16:05)
[2024-04-27 19:57] VITALS: BP 151/67; PULSE 87; RESP 18; TEMP 36.1; O2SAT 93
[2024-04-27] MEDS: Milk of Magnesia 30 ML ORAL.SUSP PO (21:53)
[2024-04-27] MEDS: Doxazosin Mesylate 2 MG TABLET 4 MG PO (21:53)
[2024-04-28] VITALS: BP 128/60; PULSE 68; RESP 16; TEMP 36.1; O2SAT 98
[2024-04-28 04:00] VITALS: BP 154/68; PULSE 86; RESP 16; TEMP 36.1; O2SAT 96
[2024-04-28] MEDS: bisacodyL 10 MG SUPP.RECT PR (06:23)
[2024-04-28] MEDS: Omeprazole 20 MG CAPSULE.DR PO (06:27)
[2024-04-28 06:59] LABS: Hematocrit 40.5 % (42.0-52.0); Mean Corpuscular HGB Conc 29.6 g/dl (31.0-36.0); Mean Corpuscular Hemoglobin 26.2 pg (27.0-33.0); Mean Corpuscular Volume 88.4 fL (80.0-98.0); Mean Platelet Volume 11.2 fL (9.4-12.4); Platelet Count 274 X10*3/uL (160-400); Red Blood Count 4.58 X10*6/uL (4.60-5.80); Red Cell Distribution Width 19.1 % (11.0-16.0); White Blood Count 12.2 X10*3/uL (4.8-10.8)
[2024-04-28 07:23] VITALS: BP 150/70; PULSE 93; RESP 20; TEMP 36.6; O2SAT 97
[2024-04-28 07:26] LABS: Anion Gap 13 (12-20); Blood Urea Nitrogen 46 mg/dL (9-16); Calcium 9.9 mg/dL (8.4-10.2); Carbon Dioxide 29 mmol/L (22-29); Chloride 112 mmol/L (96-108); Creatinine Clr Calc Pharmacy 39.8; Estimated Glomerular Filt Rate 55; Glucose Random 118 mg/dL (60-115); Magnesium 2.7 mg/dL (1.6-2.6); Phosphorus 2.7 mg/dL (2.7-4.5); Potassium 4.6 mmol/L (3.3-5.1); Sodium 149 mmol/L (135-145)
[2024-04-28] MEDS: Apixaban 5 MG TABLET PO ×2 (08:26→22:05)
[2024-04-28] MEDS: 0.9 % Sodium Chloride Flush 3 ML SYRINGE IVFLUSH ×2 (08:26→22:06)
[2024-04-28] MEDS: cefuroxime axetiL 500 MG TABLET PO ×2 (08:27→22:05)
[2024-04-28] MEDS: Furosemide 20 MG TABLET PO (08:27)
[2024-04-28] MEDS: amLODIPine Besylate 2.5 MG TABLET PO (08:27)
[2024-04-28] MEDS: Multivitamin TABLET 1 TAB PO (08:27)
[2024-04-28] MEDS: Doxycycline Monohydrate 100 MG CAPSULE PO ×2 (08:27→22:05)
[2024-04-28] MEDS: Loratadine 10 MG TABLET PO (08:28)
--- NOTE | 2024-04-28 08:54 | HO.WOUND ---
Wound Consult: Follow up 89yr old?Male admitted to [facility] on 04/20/24- See progress notes and H&P for detailed history.? Wound consult Follow up for Coccyx POA.? Patient agreeable to assessment and photo documentation.? Sacrum - Initial Assessment 04/22/24 04/28/24 Sacrum Etiology: ??Deep Tissue Injury Present on Admission Measurements: 3cm x 7cm x 0cm Wound Bed: Improving intact dark purple nonblanchanle tissue - slight epidermal peeling noted Drainage / Odor: none noted Edges: ? irregular and attached Tiffanie wound: ? pink slow to tomasz tissue - No Induration, Fluctuance or Warmth noted Pain: tenderness reported Goals of Treatment: Off Load pressure with foam dressing ? Right Abdominal suspected Hernia - no topical interventions needed at this time tissue remains intact. Bilateral Heels are pink blanchable intact tissue noted - Heel off loading boots in use at this time. No PI injury noted. No new topical recommendations needed at this time. Recommendations: 1. Turn and Reposition every 2 hours and as needed for patient comfort.? Use pillows or wedges to support off loading positions. 2. Off Load all bony prominences with use of pillows and heel boots if needed.? Apply Preventative foams where needed. ? 3. Monitor for incontinence and moisture control, use barrier creams when needed for prevention and treatment. 4. Provide adequate and supplemental nutrition.? 5. Order low air loss mattress. 6. When applicable maintain blood glucose levels per Providers order. 7. Sacrum - Off Load Pressure with Q2 hr turns and use of pillows - Cleanse with PH balance spray or wipes, pat dry. ?Apply skin prep allow to dry. Cover with foam dressing to aid in off loading and protection from friction. Change every 5 days and PRN. 8. Bilateral heels - Elevate heels off of bed surface with pillows. Apply Preventative foam dressings change every 5 days and PRN. Peel back and assess skin Q shift. Re-consult wound care Nurse for wound deterioration or wound changes.
[2024-04-28] MEDS: Dextrose 5 % 1,000 ML 50 ML IVCONT (09:37)
--- NOTE | 2024-04-28 09:45 | MHC.CLN ---
F/U PO INTAKE POOR 25% DIET RX: PUREED WITH NT LIQ 1:1 FEED; NOTED PT ALSO REFUSES SNACKS RECEIVING ENSURE BID TO PROMOTE WOUND HEALING AND MAGIC CUP WITH MEALS SUPP PROVIDES 700KCALS, 40G PROTEIN MONITOR PO INTAKE AND ENCOURAGE SUPPLEMENTS
[2024-04-28] MEDS: Fluconazole 100 MG TABLET PO (10:50)
[2024-04-28 11:24] VITALS: BP 148/65; PULSE 90; RESP 20; TEMP 36.6; O2SAT 98
--- NOTE | 2024-04-28 11:31 | MHC.CM.PN ---
Per ROUNDS discussion, Patient is not yet medically cleared for dc (high Na); returning to LTC is the goal and CM will continue to follow.
--- NOTE | 2024-04-28 12:37 | P.PNIM_ITS ---
Subjective Subjective Date of Service: 04/28/24 Interval History: finally had bowel movment, no bradycardia or pauses, sodium level is high to 149 Physical Exam 2 Vital Signs: Vital Signs: Last Vital Signs Temp 97.8 F 04/28/24 11:24 Pulse 90 04/28/24 11:24 Resp 20 04/28/24 11:24 BP 148/65 H 04/28/24 11:24 Pulse Ox 98 04/28/24 11:24 O2 Del Method Room Air 04/28/24 11:24 O2 Flow Rate 2 04/21/24 00:40 Oxygen Flow Rate 2 04/20/24 09:39 BMI result Body Mass Index 26.8 Const: Other: Gen: in no acute distress HEENT: sclera anicteric, moist mucus membranes Neck: supple Lungs: diminished Heart: regular rate and rhythm, no murmurs Abd: soft, non-tender, non-distended Ext: no edema Skin: warm/well-perfused Neuro: alert and oriented to self only, no focal weakness Psych: appropriate affect Objective Data Active Medications Acetaminophen (Acetaminophen 325 Mg Tablet) 650 mg PO Q6H PRN PRN Reason: Pain, Mild 1-3,fever,headache Amlodipine Besylate (Amlodipine Besylate 2.5 Mg Tablet) 2.5 mg PO DAILY [facility]; Protocol Last Admin: 04/28/24 08:27 Dose: 2.5 mg Documented By: THERESA Apixaban (Apixaban 5 Mg Tablet) 5 mg PO BID [facility] Last Admin: 04/28/24 08:26 Dose: 5 mg Documented By: THERESA Bisacodyl (Bisacodyl 10 Mg Supp.Rect) 10 mg [place] DAILY PRN PRN Reason: Constipation Last Admin: 04/28/24 06:23 Dose: 10 mg Documented By: PAULY Calcium Carbonate (Calcium Carbonate 750 Mg Tab.Chew) 750 mg PO Q4H PRN PRN Reason: Heartburn Cefuroxime Axetil (Cefuroxime Axetil 500 Mg Tablet) 500 mg PO Q12H [facility] Last Admin: 04/28/24 08:27 Dose: 500 mg Documented By: THERESA Doxazosin Mesylate (Doxazosin Mesylate 2 Mg Tablet) 4 mg PO BEDTIME [facility] Last Admin: 04/27/24 21:53 Dose: 4 mg Documented By: PAULY Doxycycline Monohydrate (Doxycycline Monohydrate 100 Mg Capsule) 100 mg PO Q12H [facility] Last Admin: 04/28/24 08:27 Dose: 100 mg Documented By: THERESA Ferrous Sulfate (Ferrous Sulfate 324 Mg Tablet.) 324 mg PO DAILY [facility] Last Admin: 04/28/24 08:28 Dose: Not Given Documented By: THERESA Non-Admin Reason: cannot crush Finasteride (Finasteride 5 Mg Tablet) 5 mg PO DAILY [facility] Last Admin: 04/28/24 08:28 Dose: Not Given Documented By: THERESA Non-Admin Reason: Cannot crush this medication Fluconazole (Fluconazole 100 Mg Tablet) 100 mg PO DAILY@1100 [facility] Last Admin: 04/28/24 10:50 Dose: 100 mg Documented By: THERESA Furosemide (Furosemide 20 Mg Tablet) 20 mg PO DAILY [facility]; Protocol Last Admin: 04/28/24 08:27 Dose: 20 mg Documented By: THERESA Guaifenesin (Guaifenesin 200 Mg/10 Ml 10 Ml Liquid) 10 ml PO Q6H PRN PRN Reason: Cough Dextrose (D5w) 1,000 mls @ 50 mls/hr IVCONT .Q20H [facility] Last Admin: 04/28/24 09:37 Dose: 50 mls/hr Documented By: THERESA Loratadine (Loratadine 10 Mg Tablet) 10 mg PO DAILY [facility] Last Admin: 04/28/24 08:28 Dose: 10 mg Documented By: THERESA Magnesium Hydroxide (Milk Of Magnesia 30 Ml Oral.Susp) 30 ml PO DAILY PRN PRN Reason: Constipation Last Admin: 04/27/24 21:53 Dose: 30 ml Documented By: PAULY Comments: Constipation Magnesium Hydroxide (Milk Of Magnesia 30 Ml Oral.Susp) 30 ml PO DAILY PRN PRN Reason: Constipation Melatonin (Melatonin 3 Mg Tablet) 6 mg PO BEDTIME PRN PRN Reason: Insomnia Multivitamins/Vitamin C (Multivitamin Tablet) 1 tab PO DAILY [facility] Last Admin: 04/28/24 08:27 Dose: 1 tab Documented By: THERESA Omeprazole (Omeprazole 20 Mg Capsule.) 20 mg PO DAILY@0630 [facility] Last Admin: 04/28/24 06:27 Dose: 20 mg Documented By: PAULY Ondansetron HCl (Ondansetron Hcl 4 Mg/2 Ml Vial) 4 mg IVPUSH Q8H PRN PRN Reason: Nausea and Vomiting Sodium Biphosphate/Sodium Phosphate (Sodium Phosphate,[place]-Dibasic 133 Ml Enema) 118 ml [place] DAILY PRN PRN Reason: Constipation Last Admin: 04/27/24 16:05 Dose: 118 ml Documented By: MAYELA Sodium Biphosphate/Sodium Phosphate (Sodium Phosphate,[place]-Dibasic 133 Ml Enema) 133 ml [place] ONCE PRN PRN Reason: Constipation Sodium Chloride (0.9 % Sodium Chloride Flush 3 Ml Syringe) 3 ml IVFLUSH QSHIFT [facility] Last Admin: 04/28/24 08:26 Dose: 3 ml Documented By: THERESA Labs 04/28/24 06:13 04/28/24 06:13 Labs: Laboratory Results - last 24 hr 04/28/24 06:13 MCV 88.4 MCH 26.2 L MCHC 29.6 L RDW 19.1 H Plt Count 274 D MPV 11.2 Absolute Nucleated RBC 0.000 Nucleated RBC % (auto) 0.0 Anion Gap 13 Estim Creat Clear Calc 39.8 Estimated GFR 55 Random Glucose 118 H Calcium 9.9 D Phosphorus 2.7 Magnesium 2.7 H Assessment and Plan (1) Acute UTI: Status: Acute Plan 89yo M with pAF, CHF, HTN, iron deficiency, CKD3, GERD presenting from [facility] with AMS + fever, admitted for sepsis/encephalopathy due to pyelonephritis sinus pause as long as 6 sec 04/25/24 overnight--no pause overnight -cardiology recommends holding metoprolol and monitoring sepsis and acute metabolic encephalopathy due to acute pylenophritis complicated by right hydronephrosis and possible pneumonia - treated initially with ceftriaxone + doxycycline, changed to cefuroxime + doxycycline, completes 7 days of antibiotic treatment today bladder outlet obstruction/BPH - Urology consulted, Buckner placed, increased doxazosin + added finasteride; hydronephrosis resolved hyperNa--restarted d5w and encourage oral water dysphagia 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: pureed solids, nectar thick liquids HARPER/CKD3 - acute component resolved; was due to sepsis and/or obstruction type 2 NSTEMI - due to sepsis, not ACS chronic HF, unspecified EF - continue furosemide HTN - amlodipine; off metoprolol tartrate due to sinus pause pAF, possible SSS - off metoprolol tartate as above - continue apixaban VTE ppx - apixaban dispo - return to LTC once high sodium corrected Quality Stroke Does the patient have a stroke diagnosis?: No VTE Prior VTE?: No VTE Risk Level:: Medical - moderate - high VTE Device Contraindication: Treatment Not Indicated VTE Drug Contraindication: N/A - Med Ordered
--- NOTE | 2024-04-28 12:50 | P.CDIM_ITS ---
PROVIDER RESPONSE TEXT: To clarify, the appropriate diagnosis supported by the clinical indicators: Deep Tissue Injury sacrum: deep tissue injury, present on admission QUERY TEXT: PHYSICIAN'S DOCUMENTATION REQUEST Date of Query: 04/25/2024 08:52 AM EST Patient Name: Gareth Malik Admit Date: 04/20/2024 Dear Arnaldo Gama MD, A review of the medical record indicates additional documentation may be needed. Please review below and update the documentation accordingly. Clinical Indicators: Wound assessment notes 04/24/24 - Deep tissue injury sacrum, Present on arrival. Dry & Intact Foam dressing/Barrier cream. Based on the above, could you please provide further information regarding the ulcer/wound/injury: Deep Tissue Injury sacrum possible, probable, suspected etc. Other etiology of skin integrity Other (explain) Clinically unable to determine (explain) Thank you, Elisa Jensen, CCS, CDIS Use of terms such as suspected, likely, concern for, or probable (associated with a specific diagnosi s that is being evaluated, monitored, or treated as if it exists) are acceptable and can be coded in the inpatient se tting, when documented at the time of discharge. Please use your independent medical judgment in providing your response. THIS QUERY IS PART OF THE PERMANENT MEDICAL RECORD
[2024-04-28 13:40] LABS: Anion Gap 12 (12-20); Carbon Dioxide 29 mmol/L (22-29); Chloride 111 mmol/L (96-108); Potassium 4.4 mmol/L (3.3-5.1); Sodium 148 mmol/L (135-145)
[2024-04-28 15:02] VITALS: BP 147/74; PULSE 85; RESP 18; TEMP 36.2; O2SAT 96
--- NOTE | 2024-04-28 16:42 | ECG_ITS ---
Test Reason : POSSIBLE CONVERSION TO NORMAL RHYTHM Blood Pressure : */* mmHG Vent. Rate : 103 BPM Atrial Rate : 103 BPM P-R Int : 226 ms QRS Dur : 72 ms QT Int : 348 ms P-R-T Axes : 92 -26 96 degrees QTcB Int : 455 ms Sinus tachycardia with 1st degree A-V block Septal infarct (cited on or before 24-Jul-2021) Nonspecific ST and T wave abnormality Abnormal ECG When compared with ECG of 20-Apr-2024 10:01, Sinus rhythm has replaced Atrial fibrillation Questionable change in initial forces of Anteroseptal leads Nonspecific T wave abnormality, worse in Lateral leads Referred By: Arnaldo Gama Electronically Signed By: PERNELL OVERTON
--- NOTE | 2024-04-28 16:52 | MHC.SL.SWA ---
Speech Pathologist Impression: Moderate oropharyngeal dysphagia secondary to age-related changes to swallow mechanism and negative influence of fatigue Risk of Aspiration Due to: Medically Fragile Reduced Cognition Weak Voice Dysphasia Diet Status: Liquid Consistency and Strategies for Safe Swallow: Liquid Intake Recommendation: [place] Thick Liquid Intake Strategies: Small Sips No Straws Solid Food Consistency: Dietary Recommendations: Grnd/Mech Altered (NDD2) Additional Modifications to Solid Foods: Puree/Pastoria Thick w/ 1:1 assistance and strict aspiration precautions: administer small bites/sips, allow ample time for dry swallow between each bite/sip and watch for laryngeal elevation, check oral cavity for clearance periodically, avoid the use of straws, ensure upright 90 degree position during PO intake and for at least 30 minutes afterwards, oral care before first meal and after each subsequent meal. Oral Medication Intake: Crushed with Puree Please contact the pharmacy regarding appropriate crushable or liquid drug formulations that are available whenever modified delivery is recommended. Compensatory Strategies and Precautions to be Taken for Safe Swallow: Sitting Upright (90 deg) Double Swallow No Straw Small Bites and Sips Rate of Ingestion Change Oral Check Supervision While Eating and Drinking for Safe Swallow: Total Assistance (1:1) Foods to Avoid: Swallowing Recommended Treatments: Compens. Strategy Educat. Recommendation for Speech: Inpatient Speech Therapy Comment: [facility] to re-assess tomorrow a.m. 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
[2024-04-28 19:40] VITALS: BP 152/72; PULSE 97; RESP 18; TEMP 36.8; O2SAT 96
[2024-04-28] MEDS: Doxazosin Mesylate 2 MG TABLET 4 MG PO (22:05)
[2024-04-29] VITALS: BP 143/67; PULSE 95; RESP 20; TEMP 36.2; O2SAT 94
[2024-04-29] MEDS: Dextrose 5 % 1,000 ML 50 ML IVCONT (03:52)
[2024-04-29 04:00] VITALS: BP 134/63; PULSE 89; RESP 20; TEMP 36.9; O2SAT 96
[2024-04-29 07:25] VITALS: BP 147/69; PULSE 82; RESP 20; TEMP 36.5; O2SAT 96
[2024-04-29 08:35] LABS: Anion Gap 10 (12-20); Blood Urea Nitrogen 46 mg/dL (9-16); Calcium 9.3 mg/dL (8.4-10.2); Carbon Dioxide 27 mmol/L (22-29); Chloride 109 mmol/L (96-108); Creatinine Clr Calc Pharmacy 44.1; Estimated Glomerular Filt Rate > 60; Glucose Random 112 mg/dL (60-115); Potassium 4.1 mmol/L (3.3-5.1); Sodium 142 mmol/L (135-145)
--- NOTE | 2024-04-29 09:08 | MHC.CM.PN ---
CM has requested a copy of the HCP from Patient's LTC SNF.
[2024-04-29] MEDS: Multivitamin TABLET 1 TAB PO (09:35)
[2024-04-29] MEDS: amLODIPine Besylate 2.5 MG TABLET PO (09:35)
[2024-04-29] MEDS: Finasteride 5 MG TABLET PO (09:35)
[2024-04-29] MEDS: Loratadine 10 MG TABLET PO (09:35)
[2024-04-29] MEDS: 0.9 % Sodium Chloride Flush 3 ML SYRINGE IVFLUSH (09:35)
[2024-04-29] MEDS: Apixaban 5 MG TABLET PO (09:35)
[2024-04-29] MEDS: cefuroxime axetiL 500 MG TABLET PO (09:35)
[2024-04-29] MEDS: Furosemide 20 MG TABLET PO (09:35)
[2024-04-29] MEDS: Fluconazole 100 MG TABLET PO (09:35)
[2024-04-29] MEDS: Doxycycline Monohydrate 100 MG CAPSULE PO (09:35)
--- NOTE | 2024-04-29 10:20 | HO.PM.IMPN ---
Subjective Subjective Date of Service: 04/29/24 Interval History: No new issues, sodium normal Physical Exam Vital Signs: Vital Signs: Last Vital Signs Temp 97.7 F 04/29/24 07:25 Pulse 82 04/29/24 07:25 Resp 20 04/29/24 07:25 BP 147/69 H 04/29/24 07:25 Pulse Ox 96 04/29/24 07:25 O2 Del Method Room Air 04/29/24 07:25 O2 Flow Rate 2 04/21/24 00:40 Oxygen Flow Rate 2 04/20/24 09:39 BMI result Body Mass Index 26.8 Const: Other: Gen: in no acute distress HEENT: sclera anicteric, moist mucus membranes Neck: supple Lungs: diminished Heart: regular rate and rhythm, no murmurs Abd: soft, non-tender, non-distended Ext: no edema Skin: warm/well-perfused Neuro: alert and oriented to self only, no focal weakness Psych: appropriate affect Objective Data Active Medications Acetaminophen (Acetaminophen 325 Mg Tablet) 650 mg PO Q6H PRN PRN Reason: Pain, Mild 1-3,fever,headache Amlodipine Besylate (Amlodipine Besylate 2.5 Mg Tablet) 2.5 mg PO DAILY [facility]; Protocol Last Admin: 04/29/24 09:35 Dose: 2.5 mg Documented By: MAYELA Apixaban (Apixaban 5 Mg Tablet) 5 mg PO BID [facility] Last Admin: 04/29/24 09:35 Dose: 5 mg Documented By: MAYELA Bisacodyl (Bisacodyl 10 Mg Supp.Rect) 10 mg [place] DAILY PRN PRN Reason: Constipation Last Admin: 04/28/24 06:23 Dose: 10 mg Documented By: PAULY Calcium Carbonate (Calcium Carbonate 750 Mg Tab.Chew) 750 mg PO Q4H PRN PRN Reason: Heartburn Cefuroxime Axetil (Cefuroxime Axetil 500 Mg Tablet) 500 mg PO Q12H [facility] Last Admin: 04/29/24 09:35 Dose: 500 mg Documented By: MAYEAL Doxazosin Mesylate (Doxazosin Mesylate 2 Mg Tablet) 4 mg PO BEDTIME [facility] Last Admin: 04/28/24 22:05 Dose: 4 mg Documented By: PAULY Doxycycline Monohydrate (Doxycycline Monohydrate 100 Mg Capsule) 100 mg PO Q12H [facility] Last Admin: 04/29/24 09:35 Dose: 100 mg Documented By: MAYELA Ferrous Sulfate (Ferrous Sulfate 324 Mg Tablet.) 324 mg PO DAILY [facility] Last Admin: 04/29/24 09:35 Dose: Not Given Documented By: MAYELA Non-Admin Reason: Cannot crush/pt. needs med crushed Finasteride (Finasteride 5 Mg Tablet) 5 mg PO DAILY [facility] Last Admin: 04/29/24 09:35 Dose: 5 mg Documented By: MAYELA Fluconazole (Fluconazole 100 Mg Tablet) 100 mg PO DAILY@1100 [facility] Last Admin: 04/29/24 09:35 Dose: 100 mg Documented By: MAYELA Furosemide (Furosemide 20 Mg Tablet) 20 mg PO DAILY [facility]; Protocol Last Admin: 04/29/24 09:35 Dose: 20 mg Documented By: MAYELA Guaifenesin (Guaifenesin 200 Mg/10 Ml 10 Ml Liquid) 10 ml PO Q6H PRN PRN Reason: Cough Dextrose (D5w) 1,000 mls @ 50 mls/hr IVCONT .Q20H [facility] Last Admin: 04/29/24 03:52 Dose: 50 mls/hr Documented By: PAULY Loratadine (Loratadine 10 Mg Tablet) 10 mg PO DAILY [facility] Last Admin: 04/29/24 09:35 Dose: 10 mg Documented By: MAYELA Magnesium Hydroxide (Milk Of Magnesia 30 Ml Oral.Susp) 30 ml PO DAILY PRN PRN Reason: Constipation Melatonin (Melatonin 3 Mg Tablet) 6 mg PO BEDTIME PRN PRN Reason: Insomnia Multivitamins/Vitamin C (Multivitamin Tablet) 1 tab PO DAILY [facility] Last Admin: 04/29/24 09:35 Dose: 1 tab Documented By: MAYELA Omeprazole (Omeprazole 20 Mg Capsule.) 20 mg PO DAILY@0630 [facility] Last Admin: 04/29/24 05:34 Dose: Not Given Documented By: PAULY Non-Admin Reason: Asleep and declined when attempted to give. Ondansetron HCl (Ondansetron Hcl 4 Mg/2 Ml Vial) 4 mg IVPUSH Q8H PRN PRN Reason: Nausea and Vomiting Sodium Biphosphate/Sodium Phosphate (Sodium Phosphate,[place]-Dibasic 133 Ml Enema) 118 ml [place] DAILY PRN PRN Reason: Constipation Last Admin: 04/27/24 16:05 Dose: 118 ml Documented By: MAYELA Sodium Biphosphate/Sodium Phosphate (Sodium Phosphate,[place]-Dibasic 133 Ml Enema) 133 ml [place] ONCE PRN PRN Reason: Constipation Sodium Chloride (0.9 % Sodium Chloride Flush 3 Ml Syringe) 3 ml IVFLUSH QSHIFT [facility] Last Admin: 04/29/24 09:35 Dose: 3 ml Documented By: MAYELA Labs 04/28/24 06:13 04/29/24 07:22 Labs: Laboratory Results - last 24 hr 04/28/24 04/29/24 13:00 07:22 Hold Purple Top SEE NOTE Anion Gap 12 10 L Estim Creat Clear Calc 44.1 Estimated GFR > 60 Random Glucose 112 Calcium 9.3 D Assessment and Plan (1) Acute UTI: Status: Acute Plan 89yo M with pAF, CHF, HTN, iron deficiency, CKD3, GERD presenting from [facility] [[facility]] with AMS + fever, admitted for sepsis/encephalopathy due to pyelonephritis sinus pause as long as 6 sec 04/25/24 overnight--no pause overnight -cardiology recommends holding metoprolol and monitoring sepsis and acute metabolic encephalopathy due to acute pylenophritis complicated by right hydronephrosis and possible pneumonia - treated initially with ceftriaxone + doxycycline, changed to cefuroxime + doxycycline, completes 7 days of antibiotic treatment today bladder outlet obstruction/BPH - Urology consulted, Buckner placed, increased doxazosin + added finasteride; hydronephrosis resolved hyperNa--resolved with IV water, encourage oral water dysphagia 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
--- NOTE | 2024-04-29 10:32 | PM.DS ---
DS: Providers Provider Date of Service: 04/29/24 Date of admission: 04/20/24 15:19 Date of discharge: 04/29/24 Primary care physician: Uma Goldsmith MD Consults: 04/20/24 17:38 Consult to Urology Routine Consulting Provider: [facility] Reason for consultation: Pt w/ progressive moderately severe right hydroureteronephrosis 04/21/24 08:50 Consult to Wound Care Routine Reason for consultation: redness to coccyx, large bruised lipoma area to right abd 04/25/24 08:57 Consult to Cardiology Routine Consulting Provider: [facility] Reason for consultation: Bradycardia with sinus pause Has provider been notified: Yes DS: Diagnosis Discharge Diagnosis (1) Acute UTI: Status: Acute DS: Summary Hospital Course Hospital Course: Admission hpi Chief Complaint: Altered mental status Pt is an 89-year-old male with a PMH significant for?paroxysmal AFib on Eliquis, CHF, HTN, iron deficiency anemia, CKD 3, and GERD who presents to the ED from [facility] for AMS and lethargy. Pt was previously diagnosed with pneumonia at [facility] on 04/17 and has since been taking Augmentin. This morning staff noticed pt was altered and confused, increasingly lethargic, minimally responsive, less verbal, and had increased productive cough. Pt is alert and oriented to self only at time of interview and exam. Is minimally responsive and unable to provide detailed or accurate HPI. Pt does follow commands and capable of answering yes/no to queries. Pt denies any acute medical complaints at this time. In the ED pt was febrile up to 103.7, tachycardic up to 117, tachypneic up to 30, and soft BP as low as 91/42. Labs were significant for leukocytosis 12.8, creatinine 2.0 (baseline 1.50), AST 50, initial troponin 267.1, and BNP 431. UA positive for UTI. Tested negative for flu, RSV, COVID. CXR showed patchy right lower lobe density with small associated effusion, slightly improved from prior. CT of abdomen and pelvis found progressive right hydroureteronephrosis, moderately severe with abnormal asymmetric bladder wall thickening, as well as possible right lower lobe pneumonia with moderate right effusion. Also found similar, stable large right anterior abdominal hernia, significantly enlarged prostate gland. EKG demonstrated AFib with RVR 107 without evidence of significant ST elevations or depressions. Pt was treated with acetaminophen, IVF, doxycycline, and Zosyn. Pt will be admitted to the hospital for treatment and further evaluation of acute metabolic encephalopathy in the setting of pyelonephritis and pneumonia with sepsis. Hospital course: 89-year-old male with a history of paroxysmal atrial fibrillation (pAF), chronic heart failure (CHF), hypertension (HTN), iron deficiency, chronic kidney disease stage 3 (CKD3), and gastroesophageal reflux disease (GERD) was admitted from a long-term care (LTC) facility with altered mental status (AMS) and fever. He was diagnosed with sepsis and metabolic encephalopathy secondary to acute pyelonephritis complicated by right hydronephrosis, suspected pneumonia, and further complicated by acute kidney injury (HARPER) on CKD, hypernatremia, sick sinus syndrome (SSS) with sinus pause, and constipation. Ramon Clinical Events and Management: Sinus Pause and Sick Sinus Syndrome (SSS): -Notable sinus pause of up to 6 seconds on 04/25/24 (no further pauses overnight). -Cardiology recommendations: Hold metoprolol and monitor. Sepsis and Acute Metabolic Encephalopathy: -Secondary to acute pyelonephritis complicated by right hydronephrosis and possible pneumonia. -Initial antibiotics: Ceftriaxone + doxycycline. -Transitioned to cefuroxime + doxycycline. -Completed a 10-day antibiotic course today . Bladder Outlet Obstruction/BPH: -Buckner catheter placed after urology consultation. -Hydronephrosis resolved. -Medications adjusted: Increased doxazosin to 4 mg and added finasteride. Hypernatremia: -Resolved with IV water and encouraging oral hydration., periodic electrolytes check Dysphagia: -Speech-Language Pathology (ICEBOX WORKER) recommendations: Pureed solids and nectar-thick liquids. Acute Kidney Injury (HARPER) on CKD3: -Acute component resolved, likely secondary to sepsis and/or obstruction, Creatine is 1.12 today (04/29) Type 2 NSTEMI: -Likely due to sepsis, not acute coronary syndrome (ACS). -Managed conservatively. Chronic Heart Failure (HF), Unspecified Ejection Fraction: -Continue furosemide. Hypertension: -Continue amlodipine; discontinue metoprolol tartrate due to sinus pause. Paroxysmal Atrial Fibrillation (pAF) and Sick Sinus Syndrome (SSS): -Off metoprolol per cardiology recommendation. -Continue apixaban for anticoagulation, dose increased to 5 mg twice based improved renal function Dispo: To return to LTC given patient's multiple commorbidities, advanced age, I further recommend End of life and goals of care discussion with the patient's Primary provider and family Time Attestation Discharge Coordination Time (in mins): 45 Quality: Safe Use of Opioids Does Pt have an Active Cancer Diagnosis on the Problem List?: No Quality: Stroke Does the patient have a stroke diagnosis?: No Physical Exam Vital Signs: Vital Signs: Last Vital Signs Temp 97.7 F 04/29/24 07:25 Pulse 82 04/29/24 07:25 Resp 20 04/29/24 07:25 BP 147/69 H 04/29/24 07:25 Pulse Ox 96 04/29/24 07:25 O2 Del Method Room Air 04/29/24 07:25 O2 Flow Rate 2 04/21/24 00:40 Oxygen Flow Rate 2 04/20/24 09:39 BMI result Body Mass Index 26.8 DS: Data Data Completed and Pending Labs on day of discharge: Laboratory Results - last 24 hr 04/28/24 04/29/24 13:00 07:22 Hold Purple Top SEE NOTE Sodium 148 H 142 Potassium 4.4 4.1 Chloride 111 H 109 H Carbon Dioxide 29 27 Anion Gap 12 10 L BUN 46 H Creatinine 1.12 Estim Creat Clear Calc 44.1 Estimated GFR > 60 Random Glucose 112 Calcium 9.3 D Discharge Plan Discharge Anticipated Discharge Date/Time: 04/29/24 10:23 Patient Disposition: Xfer LTC Discharge Diagnosis: Sepsis, uti, pneumonia, bradycardia with sinus pause, hypernatremia, constipation Referrals: [facility] [Other] - 1 Week [facility] [Outside] - 1 Week Uma Goldsmith MD [Primary Care Provider] - 1 Week Discharge Medications: New Eliquis 5 mg Tablet 5 mg PO BID Qty: 60 0RF doxazosin 2 mg Tablet 4 mg PO BEDTIME Qty: 30 0RF finasteride 5 mg Tablet 5 mg PO DAILY Qty: 30 0RF Continued amlodipine 2.5 mg tablet 2.5 mg PO DAILY Qty: 90 3RF (DME) LIFT RECLINER CHAIR See Rx Instructions .Route .MEDSUPPLY Qty: 1 0RF Rx Instructions: As directed omeprazole 20 mg capsule,delayed release(DR/EC) 20 mg PO DAILY@0630 clotrimazole-betamethasone 1-0.05 % cream 1 appl topical Q12H PRN (Reason: Rash) multivitamin Tablet 1 tab PO DAILY acetaminophen 325 mg Tablet 975 mg PO Q6H MDD 4g PRN (Reason: pain or fever) magnesium hydroxide [Milk of Magnesia] 400 mg/5 mL Suspension 30 ml PO DAILY PRN (Reason: Constipation) bisacodyl 10 mg Suppository 10 mg IL DAILY PRN (Reason: Constipation) Fleet Enema 19-7 gram/118 mL Enema 118 ml IL DAILY PRN (Reason: Constipation) loratadine 10 mg Tablet 10 mg PO DAILY ferrous sulfate 325 mg (65 mg iron) tablet 325 mg PO DAILY Qty: 30 0RF ondansetron HCl 4 mg Tablet 4 mg PO Q6H PRN (Reason: Nausea And Vomiting) melatonin 3 mg Tablet 6 mg PO BEDTIME PRN (Reason: Sleep) guaifenesin 100 mg/5 mL Liquid 200 mg PO Q6H PRN (Reason: Cough) methenamine hippurate 1 gram tablet 1 g PO BID Saccharomyces boulardii [Probiotic (S.boulardii)] 250 mg Capsule 500 mg PO DAILY Rx Instructions: with antibiotics for 10 days furosemide 20 mg tablet 20 mg PO DAILY Qty: 30 3RF Discontinued terazosin 2 mg capsule 2 mg PO BEDTIME metoprolol tartrate 25 mg tablet 12.5 mg PO TID Qty: 30 0RF amoxicillin-pot clavulanate 500-125 mg Tablet 1 tab PO Q12H Rx Instructions: x10 days. Start date: 04/17/24 Eliquis 2.5 mg Tablet 2.5 mg PO BID Discharge Orders: Discharge Order (Routine); Ordered 04/29/24 Ordered By: Arnaldo Gama Diet: puree and nectar liquid Activity on Discharge: As tolerated Stand Alone Forms: Patient Portal Discharge page Print Language: Nicaraguan Care Plan Goals: Recovery from sepsis, and pneumonia, UTI, Health Concerns: Sepsis, UTI, pneumonia, bradycardia, hypernatremia Plan of Treatment: He has completed course of antibiotics in the hospital Eliquis dose has been increased to 5 mg twice daily Metoprolol discontinued because of bradycardia and sinus pause Proscar added for urinary obstruction, Cardura increased to 4 mg He has tendency for dehydration and sodium going up and therefore should be enourage to drink enough water a day, at least 1200 to 1500 cc a day Periodically check electrolytes For dysphagia: ICEBOX WORKER recommends Puree diet and [place] thick liquid Assessment: see above
--- NOTE | 2024-04-29 11:04 | MHC.SL.SWA ---
Speech Pathologist Impression: Risk of Aspiration, Moderate Oropharyngeal Dysphagia Risk of Aspiration Due to: Medically Fragile Reduced Cognition Weak Voice Dysphasia Diet Status: No Change Liquid Consistency and Strategies for Safe Swallow: Liquid Intake Recommendation: [place] Thick Liquid Intake Strategies: Small Sips No Straws Double Swallow Solid Food Consistency: Dietary Recommendations: Pureed (NDD1) Additional Modifications to Solid Foods: Puree/[place]odge Thick w/ 1:1 assistance and strict aspiration precautions: administer small bites/sips, allow ample time for dry swallow between each bite/sip and watch for laryngeal elevation, check oral cavity for clearance periodically, avoid the use of straws, ensure upright 90 degree position during PO intake and for at least 30 minutes afterwards, oral care before first meal and after each subsequent meal. Oral Medication Intake: Crushed with Puree Please contact the pharmacy regarding appropriate crushable or liquid drug formulations that are available whenever modified delivery is recommended. Compensatory Strategies and Precautions to be Taken for Safe Swallow: Sitting Upright (90 deg) Double Swallow No Straw Small Bites and Sips Alternate Liquids/Solids Rate of Ingestion Change Oral Check Supervision While Eating and Drinking for Safe Swallow: Total Assistance (1:1) Swallowing Recommended Treatments: Compens. Strategy Educat. Recommendation for Speech: Inpatient Speech Therapy Comment: CUSTOMER OPERATIONS REPRESENTATIVE to re-assess tomorrow a.m. Frequency/Duration: Daily M-F Date Range for Service Req: Timeline to reassess: PRN Relay Operator Clinican/Clinical Fellow: No Supervisory Statement: I have reviewed and agree with the student/clinical fellow's documentation: N/A Speech Language Pathologist: Aubree Denson M.A., CCC-CUSTOMER OPERATIONS REPRESENTATIVE
[2024-04-29 11:19] VITALS: BP 146/61; PULSE 81; RESP 20; TEMP 36.6; O2SAT 97
--- NOTE | 2024-04-29 11:30 | MHC.CM.PN ---
Per MD, Patient is medically cleared for dc to return to LTC today. [facility] at 2[facility], via [facility]. Patient is oriented to self only; CM called /HCP/Kayy @ [phone] and was only able to leave a detailed message regarding the dc plan and the IMM.
== END 2024-04-29 14:09 | DRG 871 ==
LOC: HO.ED 14:10 → HO.EDOVER 15:26 → HO.IMC 04-21 08:25
PROVIDERS: Internal Medicine; Admitting Provider Student in an Organized Health Care Education/Training Program; Emergency Provider Emergency Medicine; PCP Internal Medicine; Visit Provider Internal Medicine
DX: A41.9 Sepsis, unspecified organism (principal); G93.41 Metabolic encephalopathy; J18.9 Pneumonia, unspecified organism; I21.A1 Myocardial infarction type 2; I13.0 Hypertensive heart and chronic kidney disease with heart failure and stage 1 through stage 4 chronic kidney disease, or unspecified chronic kidney disease; N13.6 Pyonephrosis; N17.9 Acute kidney failure, unspecified; E87.0 Hyperosmolality and hypernatremia; I48.19 Other persistent atrial fibrillation; N13.8 Other obstructive and reflux uropathy; R13.10 Dysphagia, unspecified; I49.5 Sick sinus syndrome; D50.9 Iron deficiency anemia, unspecified; N40.1 Benign prostatic hyperplasia with lower urinary tract symptoms; L89.156 Pressure-induced deep tissue damage of sacral region; K21.9 Gastro-esophageal reflux disease without esophagitis; K59.00 Constipation, unspecified; N18.30 Chronic kidney disease, stage 3 unspecified; I50.9 Heart failure, unspecified; Z20.822 Contact with and (suspected) exposure to COVID-19; Z79.01 Long term (current) use of anticoagulants; Z87.891 Personal history of nicotine dependence; Z79.899 Other long term (current) drug therapy
CPT/HCPCS: 0241U; 36415; 71045; 74176; 76775; 80048; 80051; 80053; 81001; 82248; 82803; 83605; 83735; 83880; 84100; 84484; 85025; 85027; 87040; 87086; 87088; 92526; 92610; 93005; 99285; C1758; J0131; J0696; J1450; J2543

== ENCOUNTER → 2024-04-20 10:01 | Outpatient (BNV) | payer MEDICARE, OTHER, SELFPAY | PROVIDERS: Emergency Provider Emergency Medicine; PCP Internal Medicine; Visit Provider Internal Medicine Cardiovascular Disease | DX: R00.0 Tachycardia, unspecified (principal); I48.91 Unspecified atrial fibrillation; R94.31 Abnormal electrocardiogram [ECG] [EKG] | CPT/HCPCS: 93010 ==

== ENCOUNTER → 2024-04-20 11:00 | Outpatient (BNV) | payer MEDICARE, OTHER, SELFPAY | PROVIDERS: Emergency Provider Emergency Medicine; PCP Internal Medicine; Visit Provider Radiology Vascular & Interventional Radiology | DX: K46.9 Unspecified abdominal hernia without obstruction or gangrene (principal); N13.4 Hydroureter; N40.0 Benign prostatic hyperplasia without lower urinary tract symptoms; R91.8 Other nonspecific abnormal finding of lung field | CPT/HCPCS: 71045; 74176 ==

== ENCOUNTER 2024-04-20 15:19 | Outpatient (BNV) | payer MEDICARE, OTHER, SELFPAY | END 2024-04-23 18:32 | PROVIDERS: Admitting Provider Student in an Organized Health Care Education/Training Program; Emergency Provider Emergency Medicine; PCP Internal Medicine; Visit Provider Radiology Vascular & Interventional Radiology | DX: N13.30 Unspecified hydronephrosis (principal) | CPT/HCPCS: 76775 ==

== ENCOUNTER 2024-04-20 15:19 | Outpatient (BNV) | payer MEDICARE, OTHER, SELFPAY | END 2024-04-28 16:42 | PROVIDERS: Admitting Provider Student in an Organized Health Care Education/Training Program; Emergency Provider Emergency Medicine; PCP Internal Medicine; Visit Provider Internal Medicine | DX: I48.91 Unspecified atrial fibrillation (principal); R00.0 Tachycardia, unspecified; I25.2 Old myocardial infarction | CPT/HCPCS: 93010 ==

== ENCOUNTER → 2024-04-20 15:19 | Outpatient (BNV) | payer MEDICARE, OTHER, SELFPAY | PROVIDERS: Admitting Provider Student in an Organized Health Care Education/Training Program; Emergency Provider Emergency Medicine; PCP Internal Medicine; Visit Provider Urology | DX: N13.30 Unspecified hydronephrosis (principal); R33.9 Retention of urine, unspecified | CPT/HCPCS: 99222 ==

== ENCOUNTER → 2024-04-20 15:19 | Outpatient (BNV) | payer MEDICARE, OTHER, SELFPAY | PROVIDERS: Admitting Provider Student in an Organized Health Care Education/Training Program; Emergency Provider Emergency Medicine; PCP Internal Medicine; Visit Provider Internal Medicine Cardiovascular Disease | DX: I48.19 Other persistent atrial fibrillation (principal) | CPT/HCPCS: 99233 ==

== ENCOUNTER → 2024-04-20 15:19 | Outpatient (BNV) | payer MEDICARE, OTHER, SELFPAY | PROVIDERS: Admitting Provider Student in an Organized Health Care Education/Training Program; Emergency Provider Emergency Medicine; PCP Internal Medicine; Visit Provider Student in an Organized Health Care Education/Training Program | DX: N39.0 Urinary tract infection, site not specified (principal) | CPT/HCPCS: 99223; 99232 ==

== ENCOUNTER → 2024-05-30 07:43 | Outpatient (BNVA) | payer MEDICARE, OTHER, SELFPAY | PROVIDERS: PCP Internal Medicine; Visit Provider Urology | DX: N13.30 Unspecified hydronephrosis (principal); N40.1 Benign prostatic hyperplasia with lower urinary tract symptoms | CPT/HCPCS: 51700; 51798 ==